=== PATIENT | female | born 1950 | race Caucasian/White ===

== ENCOUNTER 2019-02-13 10:25 | Outpatient (RCR) | payer MEDICARE, SELFPAY ==
[2019-02-13 11:20] LABS: Basophils Absolute Auto 0.01 K/mm3 (0.00-0.10); Basophils Percent Auto 0.2 % (0.0-1.0); Eosinophils Absolute Auto 0.08 K/mm3 (0.02-0.50); Hematocrit 30.2 % (35.0-42.0); Hemoglobin 9.9 g/dL (11.7-13.8); Immature Granulocyte Absolute 0.01 K/mm3 (0.00-0.00); Immature Granulocyte Percent A 0.2 % (0.0-0.0); Lymphocytes Absolute Auto 0.69 K/mm3 (1.10-4.50); Mean Corpuscular HGB Conc 32.8 g/dL (32.0-36.0); Mean Corpuscular Hemoglobin 36.5 pg (27.0-31.0); Mean Corpuscular Volume 111.4 fL (78.0-102.0); Mean Platelet Volume 9.5 fl (9.2-11.8); Monocytes Absolute Auto 0.51 K/mm3 (0.10-0.90); Monocytes Percent Auto 12.6 % (2.0-11.0); Neutrophils Absolute Auto 2.8 K/mm3 (1.7-7.2); Platelet Count Result 229 K/mm3 (150-420); Red Blood Count 2.71 M/mm3 (4.20-5.40); White Blood Count 4.1 K/mm3 (4.8-10.8)
[2019-02-13 11:48] LABS: Alanine Aminotransferase 12 U/L (14-59); Albumin Level 3.7 g/dL (3.4-5.0); Alkaline Phosphatase 84 U/L (46-116); Anion Gap 13.5 mmol/L (7-16); Aspartate Amino Transferase 21 U/L (15-37); Bilirubin,Total 0.2 mg/dL (0.00-1.00); Blood Urea Nitrogen 16 mg/dL (7-18); Calcium 8.9 mg/dL (8.5-10.1); Carbon Dioxide 27 mmol/L (21-32); Chloride 105 mmol/L (98-108); Estimated Glomerular Filt Rate > 60; Glucose 80 mg/dL (70-99); Osmolality Calculated 292 mOsm/kg (285-295); Potassium 4.5 mmol/L (3.5-5.1); Sodium 141 mmol/L (136-145); Total Protein 6.8 g/dL (6.4-8.2)
== END 2019-05-14 23:59 | disposition home or self-care (01) ==
LOC: CHSLAB 10:25
DX: Z79.899 Other long term (current) drug therapy (principal)
CPT/HCPCS: 36415; 80053; 85025

== ENCOUNTER 2019-02-13 10:34 | Outpatient (RCR) | payer MEDICARE, SELFPAY | END 2019-05-14 23:59 | disposition home or self-care (01) | LOC: CHSLAB 10:34 | DX: Z53.8 Procedure and treatment not carried out for other reasons (principal) | CPT/HCPCS: 99199 ==

== ENCOUNTER 2019-05-07 10:48 | Outpatient (CLI) | payer MEDICARE, SELFPAY ==
[2019-05-07 11:02] LABS: Hematocrit 30.2 % (35.0-42.0); Mean Corpuscular HGB Conc 33.1 g/dL (32.0-36.0); Mean Corpuscular Hemoglobin 36.6 pg (27.0-31.0); Mean Corpuscular Volume 110.6 fL (78.0-102.0); Mean Platelet Volume 9.2 fl (9.2-11.8); Platelet Count Result 200 K/mm3 (150-420); Red Blood Count 2.73 M/mm3 (4.20-5.40); Red Cell Distribution Width 14.6 % (11.6-14.4); White Blood Count 3.3 K/mm3 (4.8-10.8)
[2019-05-07 11:56] LABS: Band Neutrophils Percent 0 % (0-6); Basophils Absolute Manual 0.03 K/mm3 (0-0.1); Basophils Percent Manual 1 % (0-1); Eosinophils Absolute Manual 0.06 K/mm3 (0.02-0.5); Eosinophils Percent Manual 2 % (1-6); Lymphocytes Absolute Manual 0.62 K/mm3 (1.1-4.5); Lymphocytes Percent Manual 19 % (18-44); Monocytes Absolute Manual 0.56 K/mm3 (0.1-0.90); Monocytes Percent Manual 17 % (3-9); Neutrophils Absolute Manual 2.01 K/mm3 (1.7-7.2); Neutrophils Percent Manual 61 % (46-73); Platelet Estimate Adequate (Adequate); Total Cells Counted 100
[2019-05-07 12:27] LABS: Alanine Aminotransferase 15 U/L (14-59); Albumin Level 3.9 g/dL (3.4-5.0); Alkaline Phosphatase 79 U/L (46-116); Anion Gap 14.6 mmol/L (7-16); Aspartate Amino Transferase 20 U/L (15-37); Bilirubin,Total 0.3 mg/dL (0.00-1.00); Blood Urea Nitrogen 17 mg/dL (7-18); Calcium 8.8 mg/dL (8.5-10.1); Carbon Dioxide 27 mmol/L (21-32); Chloride 106 mmol/L (98-108); Estimated Glomerular Filt Rate > 60; Glucose 68 mg/dL (70-99); Magnesium 1.9 mg/dL (1.8-2.4); Osmolality Calculated 295 mOsm/kg (285-295); Potassium 4.6 mmol/L (3.5-5.1); Sodium 143 mmol/L (136-145); Total Protein 6.8 g/dL (6.4-8.2)
[2019-05-10 04:49] LABS: CA-125 14 U/mL (<35)
== END 2019-05-07 10:49 | disposition home or self-care (01) ==
LOC: CHSLAB 10:52
PROVIDERS: PCP Internal Medicine Geriatric Medicine
DX: C54.1 Malignant neoplasm of endometrium (principal); Z08 Encounter for follow-up examination after completed treatment for malignant neoplasm
CPT/HCPCS: 36415; 80053; 83735; 85025; 86304

== ENCOUNTER 2019-05-15 08:19 | Outpatient (RCR) | payer MEDICARE, SELFPAY ==
[2019-05-15 08:30] LABS: Hematocrit 30.4 % (35.0-42.0); Mean Corpuscular HGB Conc 32.9 g/dL (32.0-36.0); Mean Corpuscular Hemoglobin 36.8 pg (27.0-31.0); Mean Corpuscular Volume 111.8 fL (78.0-102.0); Platelet Count Result 180 K/mm3 (150-420); Red Blood Count 2.72 M/mm3 (4.20-5.40); Red Cell Distribution Width 14.6 % (11.6-14.4); White Blood Count 2.4 K/mm3 (4.8-10.8)
[2019-05-15 09:31] LABS: Alanine Aminotransferase 13 U/L (14-59); Albumin Level 3.7 g/dL (3.4-5.0); Alkaline Phosphatase 69 U/L (46-116); Anion Gap 15.1 mmol/L (7-16); Aspartate Amino Transferase 19 U/L (15-37); Bilirubin,Total 0.3 mg/dL (0.00-1.00); Blood Urea Nitrogen 20 mg/dL (7-18); Calcium 8.7 mg/dL (8.5-10.1); Carbon Dioxide 27 mmol/L (21-32); Chloride 107 mmol/L (98-108); Estimated Glomerular Filt Rate > 60; Glucose 83 mg/dL (70-99); Osmolality Calculated 301 mOsm/kg (285-295); Potassium 4.1 mmol/L (3.5-5.1); Sodium 145 mmol/L (136-145); Total Protein 6.5 g/dL (6.4-8.2)
[2019-05-15 09:32] LABS: Band Neutrophils Percent 0 % (0-6); Basophils Absolute Manual 0.02 K/mm3 (0-0.1); Basophils Percent Manual 1 % (0-1); Eosinophils Absolute Manual 0.07 K/mm3 (0.02-0.5); Eosinophils Percent Manual 3 % (1-6); Lymphocytes Absolute Manual 0.48 K/mm3 (1.1-4.5); Lymphocytes Percent Manual 20 % (18-44); Monocytes Percent Manual 17 % (3-9); Neutrophils Absolute Manual 1.41 K/mm3 (1.7-7.2); Neutrophils Percent Manual 59 % (46-73); Total Cells Counted 100
[2019-05-15 09:33] LABS: Platelet Estimate Adequate (Adequate)
== END 2019-08-13 23:59 | disposition home or self-care (01) ==
LOC: CHSLAB 08:19
PROVIDERS: PCP Internal Medicine Geriatric Medicine
DX: M06.9 Rheumatoid arthritis, unspecified (principal)
CPT/HCPCS: 36415; 80053; 85025

== ENCOUNTER 2019-06-29 08:33 | Outpatient (CLI) | payer MEDICARE, SELFPAY ==
[2019-06-29 08:45] LABS: Hematocrit 31.9 % (35.0-42.0); Hemoglobin 10.7 g/dL (11.7-13.8); Mean Corpuscular HGB Conc 33.5 g/dL (32.0-36.0); Mean Corpuscular Hemoglobin 37.4 pg (27.0-31.0); Mean Corpuscular Volume 111.5 fL (78.0-102.0); Mean Platelet Volume 8.8 fl (9.2-11.8); Platelet Count Result 189 K/mm3 (150-420); Red Blood Count 2.86 M/mm3 (4.20-5.40); Red Cell Distribution Width 12.9 % (11.6-14.4); White Blood Count 2.8 K/mm3 (4.8-10.8)
[2019-06-29 09:04] LABS: Band Neutrophils Percent 1 % (0-6); Basophils Percent Manual 0 % (0-1); Eosinophils Absolute Manual 0.08 K/mm3 (0.02-0.5); Eosinophils Percent Manual 3 % (1-6); Lymphocytes Absolute Manual 0.56 K/mm3 (1.1-4.5); Lymphocytes Percent Manual 20 % (18-44); Monocytes Absolute Manual 0.25 K/mm3 (0.1-0.90); Monocytes Percent Manual 9 % (3-9); Neutrophils Percent Manual 67 % (46-73); Total Cells Counted 100
[2019-06-29 09:05] LABS: Platelet Estimate Adequate (Adequate)
[2019-06-29 11:23] LABS: Cholesterol 224 mg/dL (0-200); HDL Direct 61 mg/dL (40-60); LDL Cholesterol Calculated 152 mg/dL (<130); Triglycerides 55 mg/dL (0-150)
[2019-06-29 11:24] LABS: Thyroid Stimulating Hormone 17.51 uIU/mL (0.36-3.74)
== END 2019-06-29 08:34 | disposition home or self-care (01) ==
LOC: CHSLAB 08:38
PROVIDERS: PCP Internal Medicine Geriatric Medicine
DX: E03.9 Hypothyroidism, unspecified (principal); Z00.00 Encounter for general adult medical examination without abnormal findings; E66.9 Obesity, unspecified; E78.2 Mixed hyperlipidemia; D72.819 Decreased white blood cell count, unspecified
CPT/HCPCS: 36415; 80061; 84443; 85025

== ENCOUNTER 2019-07-28 11:36 | Outpatient (CLI) | payer MEDICARE, SELFPAY ==
[2019-07-28 11:48] LABS: Hematocrit 31.6 % (35.0-42.0); Hemoglobin 10.5 g/dL (11.7-13.8); Mean Corpuscular HGB Conc 33.2 g/dL (32.0-36.0); Mean Corpuscular Hemoglobin 36.8 pg (27.0-31.0); Mean Corpuscular Volume 110.9 fL (78.0-102.0); Mean Platelet Volume 9.1 fl (9.2-11.8); Platelet Count Result 199 K/mm3 (150-420); Red Blood Count 2.85 M/mm3 (4.20-5.40); Red Cell Distribution Width 13.2 % (11.6-14.4); White Blood Count 3.8 K/mm3 (4.8-10.8)
[2019-07-28 12:08] LABS: Band Neutrophils Percent 0 % (0-6); Basophils Absolute Manual 0.03 K/mm3 (0-0.1); Basophils Percent Manual 1 % (0-1); Eosinophils Absolute Manual 0.15 K/mm3 (0.02-0.5); Eosinophils Percent Manual 4 % (1-6); Lymphocytes Percent Manual 16 % (18-44); Metamyelocytes Percent 0 %; Monocytes Absolute Manual 0.49 K/mm3 (0.1-0.90); Monocytes Percent Manual 13 % (3-9); Myelocytes Percent 0 %; Neutrophils Percent Manual 66 % (46-73); Total Cells Counted 100
[2019-07-28 12:09] LABS: Platelet Estimate Adequate (Adequate)
== END 2019-07-28 11:37 | disposition home or self-care (01) ==
PROVIDERS: PCP Internal Medicine Geriatric Medicine
DX: D72.819 Decreased white blood cell count, unspecified (principal)
CPT/HCPCS: 36415; 85025

== ENCOUNTER 2019-08-11 08:55 | Outpatient (CLI) | payer MEDICARE, SELFPAY ==
[2019-08-11 09:09] LABS: Hematocrit 30.7 % (35.0-42.0); Hemoglobin 10.2 g/dL (11.7-13.8); Mean Corpuscular HGB Conc 33.2 g/dL (32.0-36.0); Mean Corpuscular Hemoglobin 36.8 pg (27.0-31.0); Mean Corpuscular Volume 110.8 fL (78.0-102.0); Platelet Count Result 176 K/mm3 (150-420); Red Blood Count 2.77 M/mm3 (4.20-5.40); Red Cell Distribution Width 13.2 % (11.6-14.4); White Blood Count 2.6 K/mm3 (4.8-10.8)
[2019-08-11 09:39] LABS: Band Neutrophils Percent 0 % (0-6); Lymphocytes Absolute Manual 0.67 K/mm3 (1.1-4.5); Lymphocytes Percent Manual 26 % (18-44); Monocytes Absolute Manual 0.33 K/mm3 (0.1-0.90); Monocytes Percent Manual 13 % (3-9); Neutrophils Absolute Manual 1.43 K/mm3 (1.7-7.2); Neutrophils Percent Manual 55 % (46-73); Total Cells Counted 100
[2019-08-11 09:40] LABS: Basophils Percent Manual 0 % (0-1); Eosinophils Absolute Manual 0.07 K/mm3 (0.02-0.5); Eosinophils Percent Manual 3 % (1-6); Platelet Estimate Adequate (Adequate)
[2019-08-11 09:46] LABS: Alanine Aminotransferase 14 U/L (14-59); Albumin Level 3.6 g/dL (3.4-5.0); Alkaline Phosphatase 87 U/L (46-116); Anion Gap 13.3 mmol/L (7-16); Aspartate Amino Transferase 20 U/L (15-37); Bilirubin,Total 0.3 mg/dL (0.00-1.00); Blood Urea Nitrogen 14 mg/dL (7-18); Calcium 8.8 mg/dL (8.5-10.1); Carbon Dioxide 26 mmol/L (21-32); Chloride 106 mmol/L (98-108); Estimated Glomerular Filt Rate > 60; Glucose 80 mg/dL (70-99); Magnesium 1.7 mg/dL (1.8-2.4); Osmolality Calculated 291 mOsm/kg (285-295); Potassium 4.3 mmol/L (3.5-5.1); Sodium 141 mmol/L (136-145); Total Protein 6.4 g/dL (6.4-8.2)
[2019-08-14 03:52] LABS: CA-125 13 U/mL (<35)
== END 2019-08-11 08:56 | disposition home or self-care (01) ==
PROVIDERS: PCP Internal Medicine Geriatric Medicine
DX: C54.1 Malignant neoplasm of endometrium (principal); Z08 Encounter for follow-up examination after completed treatment for malignant neoplasm
CPT/HCPCS: 36415; 80053; 83735; 85025; 86304

== ENCOUNTER 2019-09-25 09:26 | Outpatient (CLI) | payer MEDICARE, SELFPAY ==
[2019-09-25 10:40] LABS: Thyroid Stimulating Hormone 16.64 uIU/mL (0.36-3.74)
[2019-09-25 12:33] LABS: Free T4 Free Thyroxine 0.87 ng/dL (0.76-1.46)
== END 2019-09-25 09:27 | disposition home or self-care (01) ==
LOC: CHSLAB 09:28
PROVIDERS: PCP Internal Medicine Geriatric Medicine; Visit Provider Internal Medicine Geriatric Medicine
DX: E03.9 Hypothyroidism, unspecified (principal)
CPT/HCPCS: 36415; 84439; 84443

== ENCOUNTER 2019-11-04 09:57 | Outpatient (CLI) | payer MEDICARE, SELFPAY ==
[2019-11-04 10:09] LABS: Hematocrit 33.1 % (35.0-42.0); Hemoglobin 10.7 g/dL (11.7-13.8); Mean Corpuscular HGB Conc 32.3 g/dL (32.0-36.0); Mean Corpuscular Hemoglobin 36.9 pg (27.0-31.0); Mean Corpuscular Volume 114.1 fL (78.0-102.0); Mean Platelet Volume 9.6 fl (9.2-11.8); Platelet Count Result 221 K/mm3 (150-420); Red Cell Distribution Width 13.4 % (11.6-14.4); White Blood Count 3.1 K/mm3 (4.8-10.8)
[2019-11-04 10:44] LABS: Band Neutrophils Percent 0 % (0-6); Basophils Percent Manual 0 % (0-1); Eosinophils Absolute Manual 0.06 K/mm3 (0.02-0.5); Eosinophils Percent Manual 2 % (1-6); Lymphocytes Percent Manual 26 % (18-44); Monocytes Percent Manual 13 % (3-9); Neutrophils Absolute Manual 1.82 K/mm3 (1.7-7.2); Neutrophils Percent Manual 59 % (46-73); Platelet Estimate Adequate (Adequate); Total Cells Counted 100
[2019-11-04 10:54] LABS: Alanine Aminotransferase 13 U/L (14-59); Albumin Level 3.7 g/dL (3.4-5.0); Alkaline Phosphatase 79 U/L (46-116); Anion Gap 7 mmol/L (8-16); Aspartate Amino Transferase 22 U/L (15-37); Bilirubin,Total 0.4 mg/dL (0.00-1.00); Blood Urea Nitrogen 14 mg/dL (7-18); Calcium 8.9 mg/dL (8.5-10.1); Carbon Dioxide 29 mmol/L (21-32); Chloride 104 mmol/L (98-108); Cholesterol 175 mg/dL (0-200); Estimated Glomerular Filt Rate > 60; GGT 30 U/L (5-55); Glucose 78 mg/dL (70-99); LDL Cholesterol Direct 88 mg/dL (0-130); Magnesium 1.9 mg/dL (1.8-2.4); Osmolality Calculated 289 mOsm/kg (285-295); Potassium 4.5 mmol/L (3.5-5.1); Sodium 140 mmol/L (136-145); Total Protein 6.8 g/dL (6.4-8.2)
[2019-11-07 05:18] LABS: CA-125 16 U/mL (<35)
== END 2019-11-04 09:58 | disposition home or self-care (01) ==
LOC: CHSLAB 10:00
PROVIDERS: PCP Internal Medicine Geriatric Medicine
DX: C54.1 Malignant neoplasm of endometrium (principal); Z08 Encounter for follow-up examination after completed treatment for malignant neoplasm; M06.9 Rheumatoid arthritis, unspecified; E78.00 Pure hypercholesterolemia, unspecified
CPT/HCPCS: 36415; 80053; 82465; 82977; 83721; 83735; 85025; 86304

== ENCOUNTER 2020-01-26 12:04 | Outpatient (RCR) | payer MEDICARE, SELFPAY ==
[2019-10-28 09:58] LABS: Hematocrit 32.7 % (35.0-42.0); Hemoglobin 10.7 g/dL (11.7-13.8); Mean Corpuscular HGB Conc 32.7 g/dL (32.0-36.0); Mean Corpuscular Hemoglobin 37.3 pg (27.0-31.0); Mean Corpuscular Volume 113.9 fL (78.0-102.0); Mean Platelet Volume 9.6 fl (9.2-11.8); Platelet Count Result 202 K/mm3 (150-420); Red Blood Count 2.87 M/mm3 (4.20-5.40); Red Cell Distribution Width 13.2 % (11.6-14.4); White Blood Count 2.9 K/mm3 (4.8-10.8)
[2019-10-28 10:36] LABS: Band Neutrophils Percent 0 % (0-6); Basophils Absolute Manual 0.02 K/mm3 (0-0.1); Basophils Percent Manual 1 % (0-1); Eosinophils Absolute Manual 0.05 K/mm3 (0.02-0.5); Eosinophils Percent Manual 2 % (1-6); Lymphocytes Absolute Manual 0.66 K/mm3 (1.1-4.5); Lymphocytes Percent Manual 23 % (18-44); Monocytes Percent Manual 14 % (3-9); Neutrophils Absolute Manual 1.74 K/mm3 (1.7-7.2); Neutrophils Percent Manual 60 % (46-73); Platelet Estimate Adequate (Adequate); Total Cells Counted 100
[2019-10-28 11:14] LABS: Alanine Aminotransferase 15 U/L (14-59); Albumin Level 3.7 g/dL (3.4-5.0); Alkaline Phosphatase 76 U/L (46-116); Anion Gap 7 mmol/L (8-16); Aspartate Amino Transferase 21 U/L (15-37); Bilirubin,Total 0.4 mg/dL (0.00-1.00); Blood Urea Nitrogen 15 mg/dL (7-18); Calcium 9.3 mg/dL (8.5-10.1); Carbon Dioxide 29 mmol/L (21-32); Chloride 107 mmol/L (98-108); Estimated Glomerular Filt Rate > 60; Glucose 97 mg/dL (70-99); Osmolality Calculated 296 mOsm/kg (285-295); Potassium 4.1 mmol/L (3.5-5.1); Sodium 143 mmol/L (136-145); Total Protein 6.7 g/dL (6.4-8.2)
[2020-01-26 12:15] LABS: Hematocrit 31.5 % (35.0-42.0); Hemoglobin 10.3 g/dL (11.7-13.8); Mean Corpuscular HGB Conc 32.7 g/dL (32.0-36.0); Mean Corpuscular Hemoglobin 36.4 pg (27.0-31.0); Mean Corpuscular Volume 111.3 fL (78.0-102.0); Mean Platelet Volume 8.8 fl (9.2-11.8); Platelet Count Result 214 K/mm3 (150-420); Red Blood Count 2.83 M/mm3 (4.20-5.40); Red Cell Distribution Width 13.2 % (11.6-14.4); White Blood Count 3.2 K/mm3 (4.8-10.8)
[2020-01-26 13:09] LABS: Band Neutrophils Percent 0 % (0-6); Basophils Percent Manual 0 % (0-1); Eosinophils Absolute Manual 0.09 K/mm3 (0.02-0.5); Eosinophils Percent Manual 3 % (1-6); Lymphocytes Absolute Manual 0.41 K/mm3 (1.1-4.5); Lymphocytes Percent Manual 13 % (18-44); Monocytes Absolute Manual 0.25 K/mm3 (0.1-0.90); Monocytes Percent Manual 8 % (3-9); Myelocytes Percent 1 %; Neutrophils Percent Manual 75 % (46-73); Total Cells Counted 100
[2020-01-26 13:10] LABS: Platelet Estimate Adequate (Adequate)
[2020-01-26 13:46] LABS: Alanine Aminotransferase 18 U/L (14-59); Albumin Level 3.7 g/dL (3.4-5.0); Alkaline Phosphatase 76 U/L (46-116); Anion Gap 9 mmol/L (8-16); Aspartate Amino Transferase 17 U/L (15-37); Bilirubin,Total 0.3 mg/dL (0.00-1.00); Blood Urea Nitrogen 14 mg/dL (7-18); Calcium 8.9 mg/dL (8.5-10.1); Carbon Dioxide 27 mmol/L (21-32); Chloride 105 mmol/L (98-108); Estimated Glomerular Filt Rate > 60; Glucose 80 mg/dL (70-99); Osmolality Calculated 291 mOsm/kg (285-295); Potassium 4.4 mmol/L (3.5-5.1); Sodium 141 mmol/L (136-145); Total Protein 6.5 g/dL (6.4-8.2)
== END 2020-01-26 23:59 | disposition home or self-care (01) ==
LOC: CHSLAB 12:04
PROVIDERS: PCP Internal Medicine Geriatric Medicine; Visit Provider Internal Medicine Rheumatology
DX: M06.9 Rheumatoid arthritis, unspecified (principal)
CPT/HCPCS: 36415; 80053; 85025

== ENCOUNTER 2020-02-10 09:48 | Outpatient (CLI) | payer MEDICARE, SELFPAY ==
[2020-02-10 10:06] LABS: Hematocrit 32.2 % (35.0-42.0); Hemoglobin 10.6 g/dL (11.7-13.8); Mean Corpuscular HGB Conc 32.9 g/dL (32.0-36.0); Mean Corpuscular Hemoglobin 36.9 pg (27.0-31.0); Mean Corpuscular Volume 112.2 fL (78.0-102.0); Mean Platelet Volume 9.2 fl (9.2-11.8); Platelet Count Result 192 K/mm3 (150-420); Red Blood Count 2.87 M/mm3 (4.20-5.40); Red Cell Distribution Width 13.8 % (11.6-14.4); White Blood Count 3.2 K/mm3 (4.8-10.8)
[2020-02-10 11:14] LABS: Alanine Aminotransferase 15 U/L (14-59); Albumin Level 3.9 g/dL (3.4-5.0); Alkaline Phosphatase 71 U/L (46-116); Anion Gap 9 mmol/L (8-16); Aspartate Amino Transferase 18 U/L (15-37); Bilirubin,Total 0.3 mg/dL (0.00-1.00); Blood Urea Nitrogen 17 mg/dL (7-18); Calcium 8.9 mg/dL (8.5-10.1); Carbon Dioxide 28 mmol/L (21-32); Chloride 105 mmol/L (98-108); Estimated Glomerular Filt Rate > 60; Glucose 100 mg/dL (70-99); Magnesium 1.9 mg/dL (1.8-2.4); Osmolality Calculated 295 mOsm/kg (285-295); Potassium 4.2 mmol/L (3.5-5.1); Sodium 142 mmol/L (136-145); Total Protein 6.9 g/dL (6.4-8.2)
[2020-02-13 05:55] LABS: CA-125 10 U/mL (<35)
== END 2020-02-10 09:49 | disposition home or self-care (01) ==
LOC: CHSLAB 09:53
PROVIDERS: PCP Internal Medicine Geriatric Medicine
DX: C54.8 Malignant neoplasm of overlapping sites of corpus uteri (principal); C54.1 Malignant neoplasm of endometrium
CPT/HCPCS: 36415; 80053; 83735; 85027; 86304

== ENCOUNTER 2020-04-28 09:42 | Outpatient (CLI) | payer MEDICARE, SELFPAY ==
[2020-04-28 09:56] LABS: Hematocrit 31.7 % (35.0-42.0); Hemoglobin 10.5 g/dL (11.7-13.8); Mean Corpuscular HGB Conc 33.1 g/dL (32.0-36.0); Mean Corpuscular Hemoglobin 37.1 pg (27.0-31.0); Mean Platelet Volume 9.1 fl (9.2-11.8); Platelet Count Result 210 K/mm3 (150-420); Red Blood Count 2.83 M/mm3 (4.20-5.40); Red Cell Distribution Width 13.3 % (11.6-14.4); White Blood Count 3.8 K/mm3 (4.8-10.8)
[2020-04-28 10:19] LABS: Band Neutrophils Percent 1 % (0-6); Basophils Percent Manual 0 % (0-1); Eosinophils Percent Manual 0 % (1-6); Lymphocytes Absolute Manual 0.57 K/mm3 (1.1-4.5); Lymphocytes Percent Manual 15 % (18-44); Monocytes Absolute Manual 0.57 K/mm3 (0.1-0.90); Monocytes Percent Manual 15 % (3-9); Neutrophils Absolute Manual 2.66 K/mm3 (1.7-7.2); Neutrophils Percent Manual 69 % (46-73); Platelet Estimate Adequate (Adequate); Total Cells Counted 100
[2020-04-28 10:25] LABS: Alanine Aminotransferase 15 U/L (14-59); Albumin Level 3.8 g/dL (3.4-5.0); Alkaline Phosphatase 83 U/L (46-116); Anion Gap 10 mmol/L (8-16); Aspartate Amino Transferase 18 U/L (15-37); Bilirubin,Total 0.4 mg/dL (0.00-1.00); Blood Urea Nitrogen 13 mg/dL (7-18); Carbon Dioxide 28 mmol/L (21-32); Chloride 103 mmol/L (98-108); Estimated Glomerular Filt Rate > 60; Glucose 94 mg/dL (70-99); Osmolality Calculated 292 mOsm/kg (285-295); Potassium 4.1 mmol/L (3.5-5.1); Sodium 141 mmol/L (136-145); Total Protein 7.2 g/dL (6.4-8.2)
== END 2020-04-28 09:43 | disposition home or self-care (01) ==
LOC: CHSLAB 09:43
PROVIDERS: PCP Internal Medicine Geriatric Medicine; Visit Provider Internal Medicine Rheumatology
DX: M06.9 Rheumatoid arthritis, unspecified (principal)
CPT/HCPCS: 36415; 80053; 85025

== ENCOUNTER 2020-05-18 11:58 | Outpatient (CLI) | payer MEDICARE, SELFPAY ==
[2020-05-18 12:12] LABS: Basophils Absolute Auto 0.02 K/mm3 (0.00-0.10); Basophils Percent Auto 0.4 % (0.0-1.0); Eosinophils Absolute Auto 0.04 K/mm3 (0.02-0.50); Eosinophils Percent Auto 0.8 % (1.0-6.0); Hematocrit 32.1 % (35.0-42.0); Hemoglobin 10.4 g/dL (11.7-13.8); Immature Granulocyte Absolute 0.01 K/mm3 (0.00-0.00); Immature Granulocyte Percent A 0.2 % (0.0-0.0); Lymphocytes Absolute Auto 0.54 K/mm3 (1.10-4.50); Lymphocytes Percent Auto 11.3 % (18.0-42.0); Mean Corpuscular HGB Conc 32.4 g/dL (32.0-36.0); Mean Corpuscular Volume 111.1 fL (78.0-102.0); Mean Platelet Volume 9.2 fl (9.2-11.8); Monocytes Absolute Auto 0.51 K/mm3 (0.10-0.90); Monocytes Percent Auto 10.7 % (2.0-11.0); Neutrophils Absolute Auto 3.7 K/mm3 (1.7-7.2); Neutrophils Percent Auto 76.6 % (50.0-70.0); Platelet Count Result 213 K/mm3 (150-420); Red Blood Count 2.89 M/mm3 (4.20-5.40); Red Cell Distribution Width 13.5 % (11.6-14.4); White Blood Count 4.8 K/mm3 (4.8-10.8)
[2020-05-18 12:47] LABS: Alanine Aminotransferase 17 U/L (14-59); Albumin Level 3.9 g/dL (3.4-5.0); Alkaline Phosphatase 71 U/L (46-116); Anion Gap 8 mmol/L (8-16); Aspartate Amino Transferase 22 U/L (15-37); Bilirubin,Total 0.4 mg/dL (0.00-1.00); Blood Urea Nitrogen 15 mg/dL (7-18); Calcium 9.2 mg/dL (8.5-10.1); Carbon Dioxide 27 mmol/L (21-32); Chloride 104 mmol/L (98-108); Estimated Glomerular Filt Rate > 60; Glucose 88 mg/dL (70-99); Magnesium 1.8 mg/dL (1.8-2.4); Osmolality Calculated 287 mOsm/kg (285-295); Potassium 4.4 mmol/L (3.5-5.1); Sodium 139 mmol/L (136-145); Total Protein 6.6 g/dL (6.4-8.2)
[2020-05-21 06:13] LABS: CA-125 13 U/mL (<35)
== END 2020-05-18 11:59 | disposition home or self-care (01) ==
PROVIDERS: PCP Internal Medicine Geriatric Medicine
DX: C54.1 Malignant neoplasm of endometrium (principal); Z08 Encounter for follow-up examination after completed treatment for malignant neoplasm
CPT/HCPCS: 36415; 80053; 83735; 85025; 86304

== ENCOUNTER 2020-06-29 10:43 | Outpatient (CLI) | payer MEDICARE, SELFPAY ==
[2020-06-29 10:54] LABS: Basophils Absolute Auto 0.02 K/mm3 (0.00-0.10); Basophils Percent Auto 0.3 % (0.0-1.0); Eosinophils Absolute Auto 0.08 K/mm3 (0.02-0.50); Eosinophils Percent Auto 1.1 % (1.0-6.0); Hematocrit 33.3 % (35.0-42.0); Hemoglobin 10.8 g/dL (11.7-13.8); Immature Granulocyte Absolute 0.01 K/mm3 (0.00-0.00); Immature Granulocyte Percent A 0.1 % (0.0-0.0); Lymphocytes Absolute Auto 0.67 K/mm3 (1.10-4.50); Lymphocytes Percent Auto 9.4 % (18.0-42.0); Mean Corpuscular HGB Conc 32.4 g/dL (32.0-36.0); Mean Corpuscular Hemoglobin 35.5 pg (27.0-31.0); Mean Corpuscular Volume 109.5 fL (78.0-102.0); Mean Platelet Volume 9.2 fl (9.2-11.8); Monocytes Absolute Auto 0.35 K/mm3 (0.10-0.90); Monocytes Percent Auto 4.9 % (2.0-11.0); Neutrophils Percent Auto 84.2 % (50.0-70.0); Platelet Count Result 231 K/mm3 (150-420); Red Blood Count 3.04 M/mm3 (4.20-5.40); Red Cell Distribution Width 12.7 % (11.6-14.4); White Blood Count 7.1 K/mm3 (4.8-10.8)
[2020-06-29 12:16] LABS: Alanine Aminotransferase 21 U/L (14-59); Albumin Level 3.4 g/dL (3.4-5.0); Alkaline Phosphatase 74 U/L (46-116); Anion Gap 10 mmol/L (8-16); Aspartate Amino Transferase 22 U/L (15-37); Bilirubin,Total 0.3 mg/dL (0.00-1.00); Blood Urea Nitrogen 18 mg/dL (7-18); CRP 0.6 mg/dL (0.0-0.9); Calcium 9.1 mg/dL (8.5-10.1); Carbon Dioxide 28 mmol/L (21-32); Chloride 104 mmol/L (98-108); Estimated Glomerular Filt Rate > 60; Glucose 95 mg/dL (70-99); Osmolality Calculated 295 mOsm/kg (285-295); Potassium 4.5 mmol/L (3.5-5.1); Sodium 142 mmol/L (136-145); Total Protein 6.6 g/dL (6.4-8.2)
== END 2020-06-29 10:44 | disposition home or self-care (01) ==
LOC: CHSLAB 10:45
PROVIDERS: PCP Internal Medicine Geriatric Medicine; Visit Provider Internal Medicine Rheumatology
DX: M06.9 Rheumatoid arthritis, unspecified (principal)
CPT/HCPCS: 36415; 80053; 85025; 86140

== ENCOUNTER 2020-09-28 08:00 | Outpatient (CLI) | payer MEDICARE, SELFPAY ==
[2020-09-28 08:13] LABS: Hematocrit 32.9 % (35.0-42.0); Mean Corpuscular HGB Conc 33.4 g/dL (32.0-36.0); Mean Corpuscular Hemoglobin 34.7 pg (27.0-31.0); Mean Corpuscular Volume 103.8 fL (78.0-102.0); Mean Platelet Volume 9.6 fl (9.2-11.8); Platelet Count Result 177 K/mm3 (150-420); Red Blood Count 3.17 M/mm3 (4.20-5.40); Red Cell Distribution Width 14.3 % (11.6-14.4); White Blood Count 3.5 K/mm3 (4.8-10.8)
[2020-09-28 08:48] LABS: Alanine Aminotransferase 27 U/L (14-59); Albumin Level 3.6 g/dL (3.4-5.0); Alkaline Phosphatase 62 U/L (46-116); Anion Gap 9 mmol/L (8-16); Aspartate Amino Transferase 27 U/L (15-37); Bilirubin,Total 0.5 mg/dL (0.00-1.00); Blood Urea Nitrogen 21 mg/dL (7-18); Calcium 8.9 mg/dL (8.5-10.1); Carbon Dioxide 28 mmol/L (21-32); Chloride 106 mmol/L (98-108); Estimated Glomerular Filt Rate > 60; Glucose 85 mg/dL (70-99); Osmolality Calculated 298 mOsm/kg (285-295); Potassium 4.1 mmol/L (3.5-5.1); Sodium 143 mmol/L (136-145); Total Protein 6.2 g/dL (6.4-8.2)
[2020-09-28 08:53] LABS: CRP < 0.5 mg/dL (0.0-0.9)
[2020-09-28 09:06] LABS: Band Neutrophils Percent 0 % (0-6); Eosinophils Percent Manual 3 % (1-6); Lymphocytes Absolute Manual 0.45 K/mm3 (1.1-4.5); Lymphocytes Percent Manual 13 % (18-44); Monocytes Absolute Manual 0.49 K/mm3 (0.1-0.90); Monocytes Percent Manual 14 % (3-9); Neutrophils Absolute Manual 2.45 K/mm3 (1.7-7.2); Neutrophils Percent Manual 70 % (46-73); Platelet Estimate Adequate (Adequate); Total Cells Counted 100
== END 2020-09-28 08:01 | disposition home or self-care (01) ==
LOC: CHSLAB 08:01
PROVIDERS: PCP Internal Medicine Geriatric Medicine; Visit Provider Internal Medicine Rheumatology
DX: M06.9 Rheumatoid arthritis, unspecified (principal)
CPT/HCPCS: 36415; 80053; 85025; 86140

== ENCOUNTER 2020-11-17 07:56 | Outpatient (CLI) | payer MEDICARE, SELFPAY ==
[2020-11-17 08:11] LABS: Basophils Absolute Auto 0.02 K/mm3 (0.00-0.10); Basophils Percent Auto 0.4 % (0.0-1.0); Eosinophils Absolute Auto 0.06 K/mm3 (0.02-0.50); Eosinophils Percent Auto 1.2 % (1.0-6.0); Hematocrit 35.1 % (35.0-42.0); Hemoglobin 11.8 g/dL (11.7-13.8); Immature Granulocyte Absolute 0.02 K/mm3 (0.00-0.00); Immature Granulocyte Percent A 0.4 % (0.0-0.0); Lymphocytes Absolute Auto 0.73 K/mm3 (1.10-4.50); Lymphocytes Percent Auto 15.1 % (18.0-42.0); Mean Corpuscular HGB Conc 33.6 g/dL (32.0-36.0); Mean Corpuscular Hemoglobin 34.7 pg (27.0-31.0); Mean Corpuscular Volume 103.2 fL (78.0-102.0); Mean Platelet Volume 9.4 fl (9.2-11.8); Monocytes Absolute Auto 0.66 K/mm3 (0.10-0.90); Monocytes Percent Auto 13.7 % (2.0-11.0); Neutrophils Absolute Auto 3.3 K/mm3 (1.7-7.2); Neutrophils Percent Auto 69.2 % (50.0-70.0); Platelet Count Result 212 K/mm3 (150-420); Red Cell Distribution Width 13.5 % (11.6-14.4); White Blood Count 4.8 K/mm3 (4.8-10.8)
[2020-11-17 09:12] LABS: Alanine Aminotransferase 27 U/L (14-59); Albumin Level 3.8 g/dL (3.4-5.0); Alkaline Phosphatase 80 U/L (46-116); Anion Gap 7 mmol/L (8-16); Aspartate Amino Transferase 25 U/L (15-37); Bilirubin,Total 0.4 mg/dL (0.00-1.00); Blood Urea Nitrogen 18 mg/dL (7-18); Calcium 9.2 mg/dL (8.5-10.1); Carbon Dioxide 29 mmol/L (21-32); Chloride 104 mmol/L (98-108); Estimated Glomerular Filt Rate > 60; Glucose 77 mg/dL (70-99); Magnesium 1.8 mg/dL (1.8-2.4); Osmolality Calculated 290 mOsm/kg (285-295); Potassium 4.3 mmol/L (3.5-5.1); Sodium 140 mmol/L (136-145); Total Protein 6.7 g/dL (6.4-8.2)
[2020-11-20 00:22] LABS: CA-125 9 U/mL (<35)
== END 2020-11-17 07:57 | disposition home or self-care (01) ==
PROVIDERS: PCP Internal Medicine Geriatric Medicine
DX: G62.0 Drug-induced polyneuropathy (principal); T45.1X5A Adverse effect of antineoplastic and immunosuppressive drugs, initial encounter; C54.1 Malignant neoplasm of endometrium
CPT/HCPCS: 36415; 80053; 83735; 85025; 86304

== ENCOUNTER 2021-01-09 08:47 | Outpatient (CLI) | payer MEDICARE, SELFPAY ==
[2021-01-09 09:05] LABS: Hematocrit 33.5 % (35.0-42.0); Hemoglobin 11.4 g/dL (11.7-13.8); Mean Corpuscular Hemoglobin 35.2 pg (27.0-31.0); Mean Corpuscular Volume 103.4 fL (78.0-102.0); Mean Platelet Volume 9.5 fl (9.2-11.8); Platelet Count Result 241 K/mm3 (150-420); Red Blood Count 3.24 M/mm3 (4.20-5.40); Red Cell Distribution Width 13.5 % (11.6-14.4); White Blood Count 4.4 K/mm3 (4.8-10.8)
[2021-01-09 09:58] LABS: Total Cells Counted 100
[2021-01-09 10:06] LABS: Band Neutrophils Percent 0 % (0-6); Basophils Percent Manual 0 % (0-1); Eosinophils Percent Manual 0 % (1-6); Lymphocytes Absolute Manual 0.52 K/mm3 (1.1-4.5); Lymphocytes Percent Manual 12 % (18-44); Monocytes Absolute Manual 0.92 K/mm3 (0.1-0.90); Monocytes Percent Manual 21 % (3-9); Neutrophils Absolute Manual 2.94 K/mm3 (1.7-7.2); Neutrophils Percent Manual 67 % (46-73); Platelet Estimate Adequate (Adequate)
[2021-01-09 10:07] LABS: Alanine Aminotransferase 20 U/L (14-59); Albumin Level 3.4 g/dL (3.4-5.0); Alkaline Phosphatase 67 U/L (46-116); Anion Gap 7 mmol/L (8-16); Aspartate Amino Transferase 17 U/L (15-37); Bilirubin,Total 0.4 mg/dL (0.00-1.00); Blood Urea Nitrogen 12 mg/dL (7-18); Calcium 8.6 mg/dL (8.5-10.1); Carbon Dioxide 30 mmol/L (21-32); Chloride 105 mmol/L (98-108); Cholesterol 137 mg/dL (0-200); Estimated Glomerular Filt Rate > 60; Glucose 83 mg/dL (70-99); HDL Direct 51 mg/dL (40-60); LDL Cholesterol Calculated 76 mg/dL (<130); Osmolality Calculated 292 mOsm/kg (285-295); Potassium 4.6 mmol/L (3.5-5.1); Sodium 142 mmol/L (136-145); Total Protein 6.3 g/dL (6.4-8.2); Triglycerides 51 mg/dL (0-150)
[2021-01-09 10:19] LABS: CRP < 0.5 mg/dL (0.0-0.9)
[2021-01-11 13:02] LABS: Vitamin D 25 Hydroxy 80 ng/mL (30-100)
== END 2021-01-09 08:48 | disposition home or self-care (01) ==
LOC: CHSLAB 08:52
PROVIDERS: PCP Internal Medicine Geriatric Medicine; Visit Provider Internal Medicine Rheumatology
DX: M06.9 Rheumatoid arthritis, unspecified (principal); Q78.2 Osteopetrosis; Z00.00 Encounter for general adult medical examination without abnormal findings; Z79.899 Other long term (current) drug therapy
CPT/HCPCS: 36415; 80053; 80061; 82306; 85025; 86140

== ENCOUNTER 2021-02-16 08:46 | Outpatient (CLI) | payer MEDICARE, SELFPAY ==
[2021-02-16 09:07] LABS: Basophils Absolute Auto 0.02 K/mm3 (0.00-0.10); Basophils Percent Auto 0.5 % (0.0-1.0); Eosinophils Absolute Auto 0.06 K/mm3 (0.02-0.50); Eosinophils Percent Auto 1.4 % (1.0-6.0); Hemoglobin 11.2 g/dL (11.7-13.8); Immature Granulocyte Absolute 0.01 K/mm3 (0.00-0.00); Immature Granulocyte Percent A 0.2 % (0.0-0.0); Lymphocytes Absolute Auto 0.97 K/mm3 (1.10-4.50); Lymphocytes Percent Auto 22.7 % (18.0-42.0); Mean Corpuscular HGB Conc 32.9 g/dL (32.0-36.0); Mean Corpuscular Hemoglobin 35.2 pg (27.0-31.0); Mean Corpuscular Volume 106.9 fL (78.0-102.0); Mean Platelet Volume 9.5 fl (9.2-11.8); Monocytes Absolute Auto 0.58 K/mm3 (0.10-0.90); Monocytes Percent Auto 13.6 % (2.0-11.0); Neutrophils Absolute Auto 2.6 K/mm3 (1.7-7.2); Neutrophils Percent Auto 61.6 % (50.0-70.0); Platelet Count Result 216 K/mm3 (150-420); Red Blood Count 3.18 M/mm3 (4.20-5.40); Red Cell Distribution Width 13.9 % (11.6-14.4); White Blood Count 4.3 K/mm3 (4.8-10.8)
[2021-02-17 13:46] LABS: Alanine Aminotransferase 28 U/L (14-59); Albumin Level 3.7 g/dL (3.4-5.0); Alkaline Phosphatase 80 U/L (46-116); Anion Gap 12 mmol/L (8-16); Aspartate Amino Transferase 27 U/L (15-37); Bilirubin,Total 0.3 mg/dL (0.00-1.00); Blood Urea Nitrogen 20 mg/dL (7-18); Carbon Dioxide 27 mmol/L (21-32); Chloride 103 mmol/L (98-108); Estimated Glomerular Filt Rate > 60; Glucose 78 mg/dL (70-99); Osmolality Calculated 295 mOsm/kg (285-295); Potassium 4.5 mmol/L (3.5-5.1); Sodium 142 mmol/L (136-145); Total Protein 6.6 g/dL (6.4-8.2)
[2021-02-19 01:35] LABS: CA-125 10 U/mL (<35)
== END 2021-02-16 08:47 | disposition home or self-care (01) ==
LOC: CHSLAB 08:52
PROVIDERS: PCP Internal Medicine Geriatric Medicine
DX: C54.1 Malignant neoplasm of endometrium (principal); Z08 Encounter for follow-up examination after completed treatment for malignant neoplasm
CPT/HCPCS: 36415; 80053; 83735; 85025; 86304

== ENCOUNTER 2021-04-12 10:15 | Outpatient (CLI) | payer MEDICARE, SELFPAY ==
[2021-04-12 10:38] LABS: Hematocrit 35.1 % (35.0-42.0); Hemoglobin 11.5 g/dL (11.7-13.8); Mean Corpuscular HGB Conc 32.8 g/dL (32.0-36.0); Mean Corpuscular Volume 106.7 fL (78.0-102.0); Mean Platelet Volume 9.8 fl (9.2-11.8); Platelet Count Result 200 K/mm3 (150-420); Red Blood Count 3.29 M/mm3 (4.20-5.40); Red Cell Distribution Width 14.1 % (11.6-14.4); White Blood Count 3.6 K/mm3 (4.8-10.8)
[2021-04-12 10:55] LABS: Band Neutrophils Percent 0 % (0-6); Eosinophils Absolute Manual 0.03 K/mm3 (0.02-0.5); Eosinophils Percent Manual 1 % (1-6); Lymphocytes Percent Manual 25 % (18-44); Monocytes Absolute Manual 0.36 K/mm3 (0.1-0.90); Monocytes Percent Manual 10 % (3-9); Neutrophils Percent Manual 64 % (46-73); Platelet Estimate Adequate (Adequate); Total Cells Counted 100
[2021-04-12 11:35] LABS: Alanine Aminotransferase 19 U/L (14-59); Albumin Level 3.5 g/dL (3.4-5.0); Alkaline Phosphatase 74 U/L (46-116); Anion Gap 7 mmol/L (8-16); Aspartate Amino Transferase 17 U/L (15-37); Bilirubin,Total 0.3 mg/dL (0.00-1.00); Blood Urea Nitrogen 14 mg/dL (7-18); Calcium 8.9 mg/dL (8.5-10.1); Carbon Dioxide 29 mmol/L (21-32); Chloride 105 mmol/L (98-108); Estimated Glomerular Filt Rate > 60; Glucose 84 mg/dL (70-99); Osmolality Calculated 291 mOsm/kg (285-295); Potassium 4.5 mmol/L (3.5-5.1); Sodium 141 mmol/L (136-145); Total Protein 6.3 g/dL (6.4-8.2)
[2021-04-14 13:25] LABS: NIL 0.01 IU/mL; Quantiferon TB Plus, 1T NEGATIVE (NEGATIVE)
[2021-04-15 14:44] LABS: Vitamin D 25 Hydroxy 68 ng/mL (30-100)
== END 2021-04-12 10:16 | disposition home or self-care (01) ==
LOC: CHSLAB 10:21
PROVIDERS: PCP Internal Medicine Geriatric Medicine
DX: M06.9 Rheumatoid arthritis, unspecified (principal); Q78.2 Osteopetrosis
CPT/HCPCS: 36415; 80053; 82306; 85025; 86480

== ENCOUNTER 2021-05-03 13:01 | Outpatient (CLI) | payer MEDICARE, SELFPAY ==
[2021-05-03 13:49] LABS: Cholesterol 159 mg/dL (0-200); HDL Direct 62 mg/dL (40-60); LDL Cholesterol Calculated 85 mg/dL (<130); Triglycerides 59 mg/dL (0-150)
== END 2021-05-03 13:02 | disposition home or self-care (01) ==
PROVIDERS: PCP Internal Medicine Geriatric Medicine
DX: Z79.899 Other long term (current) drug therapy (principal)
CPT/HCPCS: 36415; 80061

== ENCOUNTER 2021-07-12 07:49 | Outpatient (CLI) | payer MEDICARE, SELFPAY ==
[2021-07-12 08:02] LABS: Hematocrit 35.7 % (35.0-42.0); Hemoglobin 11.8 g/dL (11.7-13.8); Mean Corpuscular HGB Conc 33.1 g/dL (32.0-36.0); Mean Corpuscular Hemoglobin 35.8 pg (27.0-31.0); Mean Corpuscular Volume 108.2 fL (78.0-102.0); Mean Platelet Volume 9.5 fl (9.2-11.8); Platelet Count Result 191 K/mm3 (150-420); Red Cell Distribution Width 13.6 % (11.6-14.4); White Blood Count 2.5 K/mm3 (4.8-10.8)
[2021-07-12 08:32] LABS: Band Neutrophils Percent 0 % (0-6); Lymphocytes Absolute Manual 0.52 K/mm3 (1.1-4.5); Lymphocytes Percent Manual 21 % (18-44); Neutrophils Absolute Manual 1.32 K/mm3 (1.7-7.2); Neutrophils Percent Manual 53 % (46-73); Total Cells Counted 100
[2021-07-12 08:33] LABS: Basophils Absolute Manual 0.05 K/mm3 (0-0.1); Basophils Percent Manual 2 % (0-1); Eosinophils Absolute Manual 0.12 K/mm3 (0.02-0.5); Eosinophils Percent Manual 5 % (1-6); Monocytes Absolute Manual 0.47 K/mm3 (0.1-0.90); Monocytes Percent Manual 19 % (3-9); Platelet Estimate Adequate (Adequate)
[2021-07-12 08:53] LABS: Alanine Aminotransferase 20 U/L (14-59); Albumin Level 3.6 g/dL (3.4-5.0); Alkaline Phosphatase 74 U/L (46-116); Anion Gap 6 mmol/L (8-16); Aspartate Amino Transferase 20 U/L (15-37); Bilirubin,Total 0.4 mg/dL (0.00-1.00); Blood Urea Nitrogen 15 mg/dL (7-18); Calcium 8.9 mg/dL (8.5-10.1); Carbon Dioxide 30 mmol/L (21-32); Chloride 106 mmol/L (98-108); Cholesterol 161 mg/dL (0-200); Estimated Glomerular Filt Rate > 60; Glucose 84 mg/dL (70-99); HDL Direct 68 mg/dL (40-60); LDL Cholesterol Calculated 79 mg/dL (<130); Osmolality Calculated 293 mOsm/kg (285-295); Potassium 3.9 mmol/L (3.5-5.1); Sodium 142 mmol/L (136-145); Total Protein 6.4 g/dL (6.4-8.2); Triglycerides 68 mg/dL (0-150)
== END 2021-07-12 07:50 | disposition home or self-care (01) ==
LOC: CHSLAB 07:53
PROVIDERS: PCP Internal Medicine Geriatric Medicine
DX: M06.9 Rheumatoid arthritis, unspecified (principal); Z79.899 Other long term (current) drug therapy
CPT/HCPCS: 36415; 80053; 80061; 85025

== ENCOUNTER 2021-08-01 10:54 | Outpatient (CLI) | payer MEDICARE, SELFPAY ==
[2021-08-01 11:13] LABS: Hematocrit 35.7 % (35.0-42.0); Mean Corpuscular HGB Conc 33.6 g/dL (32.0-36.0); Mean Corpuscular Hemoglobin 35.5 pg (27.0-31.0); Mean Corpuscular Volume 105.6 fL (78.0-102.0); Mean Platelet Volume 10.2 fl (9.2-11.8); Platelet Count Result 203 K/mm3 (150-420); Red Blood Count 3.38 M/mm3 (4.20-5.40); Red Cell Distribution Width 13.5 % (11.6-14.4)
[2021-08-01 11:29] LABS: Alanine Aminotransferase 12 U/L (14-59); Albumin Level 3.8 g/dL (3.4-5.0); Alkaline Phosphatase 81 U/L (46-116); Anion Gap 7 mmol/L (8-16); Aspartate Amino Transferase 23 U/L (15-37); Bilirubin,Total 0.4 mg/dL (0.00-1.00); Blood Urea Nitrogen 16 mg/dL (7-18); Calcium 9.3 mg/dL (8.5-10.1); Carbon Dioxide 28 mmol/L (21-32); Chloride 102 mmol/L (98-108); Estimated Glomerular Filt Rate > 60; Glucose 89 mg/dL (70-99); Osmolality Calculated 284 mOsm/kg (285-295); Potassium 4.1 mmol/L (3.5-5.1); Sodium 137 mmol/L (136-145); Total Protein 7.3 g/dL (6.4-8.2)
[2021-08-01 11:38] LABS: Band Neutrophils Percent 0 % (0-6); Basophils Absolute Manual 0.04 K/mm3 (0-0.1); Basophils Percent Manual 1 % (0-1); Eosinophils Absolute Manual 0.04 K/mm3 (0.02-0.5); Eosinophils Percent Manual 1 % (1-6); Lymphocytes Percent Manual 25 % (18-44); Monocytes Absolute Manual 0.44 K/mm3 (0.1-0.90); Monocytes Percent Manual 11 % (3-9); Neutrophils Absolute Manual 2.48 K/mm3 (1.7-7.2); Neutrophils Percent Manual 62 % (46-73); Total Cells Counted 100
[2021-08-01 11:39] LABS: Platelet Estimate Adequate (Adequate)
[2021-08-03 14:51] LABS: NIL 0.03 IU/mL; Quantiferon TB Plus, 1T NEGATIVE (NEGATIVE); TB1-NIL <0.00 IU/mL; TB2-NIL <0.00 IU/mL
== END 2021-08-01 10:55 | disposition home or self-care (01) ==
LOC: CHSLAB 10:58
PROVIDERS: PCP Internal Medicine Geriatric Medicine
DX: M06.9 Rheumatoid arthritis, unspecified (principal)
CPT/HCPCS: 36415; 80053; 85025; 86480

== ENCOUNTER 2021-08-17 10:20 | Outpatient (CLI) | payer MEDICARE, SELFPAY ==
[2021-08-17 10:41] LABS: Hemoglobin 11.6 g/dL (11.7-13.8); Mean Corpuscular HGB Conc 33.1 g/dL (32.0-36.0); Mean Corpuscular Hemoglobin 35.6 pg (27.0-31.0); Mean Corpuscular Volume 107.4 fL (78.0-102.0); Platelet Count Result 216 K/mm3 (150-420); Red Blood Count 3.26 M/mm3 (4.20-5.40); Red Cell Distribution Width 13.5 % (11.6-14.4); White Blood Count 3.9 K/mm3 (4.8-10.8)
[2021-08-17 11:00] LABS: Band Neutrophils Percent 0 % (0-6); Eosinophils Absolute Manual 0.07 K/mm3 (0.02-0.5); Eosinophils Percent Manual 2 % (1-6); Lymphocytes Absolute Manual 0.93 K/mm3 (1.1-4.5); Lymphocytes Percent Manual 24 % (18-44); Monocytes Absolute Manual 0.27 K/mm3 (0.1-0.90); Monocytes Percent Manual 7 % (3-9); Neutrophils Absolute Manual 2.61 K/mm3 (1.7-7.2); Neutrophils Percent Manual 67 % (46-73); Platelet Estimate Adequate (Adequate); Total Cells Counted 100
[2021-08-17 11:54] LABS: Alanine Aminotransferase 20 U/L (14-59); Albumin Level 3.5 g/dL (3.4-5.0); Alkaline Phosphatase 81 U/L (46-116); Anion Gap 6 mmol/L (8-16); Aspartate Amino Transferase 27 U/L (15-37); Bilirubin,Total 0.3 mg/dL (0.00-1.00); Blood Urea Nitrogen 16 mg/dL (7-18); Calcium 9.4 mg/dL (8.5-10.1); Carbon Dioxide 28 mmol/L (21-32); Chloride 104 mmol/L (98-108); Estimated Glomerular Filt Rate > 60; Glucose 96 mg/dL (70-99); Magnesium 2.2 mg/dL (1.8-2.4); Osmolality Calculated 287 mOsm/kg (285-295); Potassium 4.1 mmol/L (3.5-5.1); Sodium 138 mmol/L (136-145)
[2021-08-20 02:04] LABS: CA-125 11 U/mL (<35)
== END 2021-08-17 10:21 | disposition home or self-care (01) ==
LOC: CHSLAB 10:26
PROVIDERS: PCP Internal Medicine Geriatric Medicine
DX: C54.1 Malignant neoplasm of endometrium (principal); Z08 Encounter for follow-up examination after completed treatment for malignant neoplasm
CPT/HCPCS: 36415; 80053; 83735; 85025; 86304

== ENCOUNTER 2021-09-08 09:56 | Outpatient (RCR) | payer MEDICARE, SELFPAY ==
[2021-09-08 10:11] LABS: Hematocrit 34.9 % (35.0-42.0); Hemoglobin 11.6 g/dL (11.7-13.8); Mean Corpuscular HGB Conc 33.2 g/dL (32.0-36.0); Mean Corpuscular Hemoglobin 35.6 pg (27.0-31.0); Mean Corpuscular Volume 107.1 fL (78.0-102.0); Mean Platelet Volume 9.8 fl (9.2-11.8); Platelet Count Result 202 K/mm3 (150-420); Red Blood Count 3.26 M/mm3 (4.20-5.40); Red Cell Distribution Width 13.2 % (11.6-14.4); White Blood Count 3.4 K/mm3 (4.8-10.8)
[2021-09-08 10:26] LABS: Alanine Aminotransferase 22 U/L (14-59); Albumin Level 3.6 g/dL (3.4-5.0); Alkaline Phosphatase 78 U/L (46-116); Anion Gap 6 mmol/L (8-16); Aspartate Amino Transferase 25 U/L (15-37); Bilirubin,Total 0.3 mg/dL (0.00-1.00); Blood Urea Nitrogen 18 mg/dL (7-18); Calcium 9.3 mg/dL (8.5-10.1); Carbon Dioxide 29 mmol/L (21-32); Chloride 105 mmol/L (98-108); Estimated Glomerular Filt Rate > 60; Potassium 4.2 mmol/L (3.5-5.1); Sodium 140 mmol/L (136-145); Total Protein 6.9 g/dL (6.4-8.2)
[2021-09-08 10:35] LABS: Glucose 82 mg/dL (70-99); Osmolality Calculated 290 mOsm/kg (285-295)
[2021-09-08 10:54] LABS: Band Neutrophils Percent 0 % (0-6); Basophils Percent Manual 0 % (0-1); Eosinophils Absolute Manual 0.06 K/mm3 (0.02-0.5); Eosinophils Percent Manual 2 % (1-6); Lymphocytes Absolute Manual 1.08 K/mm3 (1.1-4.5); Lymphocytes Percent Manual 32 % (18-44); Monocytes Percent Manual 9 % (3-9); Neutrophils Absolute Manual 1.93 K/mm3 (1.7-7.2); Neutrophils Percent Manual 57 % (46-73); Platelet Estimate Adequate (Adequate); Total Cells Counted 100
== END 2021-12-07 23:59 | disposition home or self-care (01) ==
LOC: CHSLAB 09:56
PROVIDERS: PCP Internal Medicine Geriatric Medicine
DX: M06.9 Rheumatoid arthritis, unspecified (principal)
CPT/HCPCS: 36415; 80053; 85025

== ENCOUNTER 2022-01-17 09:21 | Outpatient (CLI) | payer MEDICARE, SELFPAY ==
[2022-01-17 09:37] LABS: Hematocrit 34.1 % (35.0-42.0); Hemoglobin 11.3 g/dL (11.7-13.8); Mean Corpuscular HGB Conc 33.1 g/dL (32.0-36.0); Mean Corpuscular Hemoglobin 35.4 pg (27.0-31.0); Mean Corpuscular Volume 106.9 fL (78.0-102.0); Mean Platelet Volume 9.9 fl (9.2-11.8); Platelet Count Result 211 K/mm3 (150-420); Red Blood Count 3.19 M/mm3 (4.20-5.40); Red Cell Distribution Width 13.3 % (11.6-14.4); White Blood Count 3.2 K/mm3 (4.8-10.8)
[2022-01-17 09:52] LABS: Alanine Aminotransferase 20 U/L (14-59); Albumin Level 3.6 g/dL (3.4-5.0); Alkaline Phosphatase 72 U/L (46-116); Anion Gap 2 mmol/L (8-16); Aspartate Amino Transferase 24 U/L (15-37); Bilirubin,Total 0.3 mg/dL (0.00-1.00); Blood Urea Nitrogen 18 mg/dL (7-18); Calcium 8.9 mg/dL (8.5-10.1); Carbon Dioxide 32 mmol/L (21-32); Chloride 106 mmol/L (98-108); Estimated Glomerular Filt Rate > 60; Glucose 89 mg/dL (70-99); Osmolality Calculated 290 mOsm/kg (285-295); Potassium 4.2 mmol/L (3.5-5.1); Sodium 140 mmol/L (136-145)
[2022-01-17 10:14] LABS: Band Neutrophils Percent 0 % (0-6); Eosinophils Absolute Manual 0.06 K/mm3 (0.02-0.5); Eosinophils Percent Manual 2 % (1-6); Lymphocytes Percent Manual 25 % (18-44); Monocytes Absolute Manual 0.44 K/mm3 (0.1-0.90); Monocytes Percent Manual 14 % (3-9); Neutrophils Absolute Manual 1.88 K/mm3 (1.7-7.2); Neutrophils Percent Manual 59 % (46-73); Total Cells Counted 100
[2022-01-17 10:15] LABS: Platelet Estimate Adequate (Adequate); Schistocytes None Seen (NORMAL)
[2022-01-19 14:16] LABS: NIL 0.02 IU/mL; Quantiferon TB Plus, 1T NEGATIVE (NEGATIVE)
== END 2022-01-17 09:22 | disposition home or self-care (01) ==
LOC: CHSLAB 09:24
PROVIDERS: PCP Internal Medicine Geriatric Medicine
DX: M06.9 Rheumatoid arthritis, unspecified (principal)
CPT/HCPCS: 36415; 80053; 85025; 86480

== ENCOUNTER 2022-02-21 11:58 | Outpatient (CLI) | payer MEDICARE, SELFPAY ==
[2022-02-21 12:15] LABS: Hematocrit 34.8 % (35.0-42.0); Hemoglobin 11.7 g/dL (11.7-13.8); Mean Corpuscular HGB Conc 33.6 g/dL (32.0-36.0); Mean Corpuscular Hemoglobin 36.2 pg (27.0-31.0); Mean Corpuscular Volume 107.7 fL (78.0-102.0); Mean Platelet Volume 10.1 fl (9.2-11.8); Platelet Count Result 223 K/mm3 (150-420); Red Blood Count 3.23 M/mm3 (4.20-5.40); Red Cell Distribution Width 13.6 % (11.6-14.4); White Blood Count 3.5 K/mm3 (4.8-10.8)
[2022-02-21 12:35] LABS: Basophils Absolute Manual 0.03 K/mm3 (0-0.1); Basophils Percent Manual 1 % (0-1); Lymphocytes Absolute Manual 1.08 K/mm3 (1.1-4.5); Lymphocytes Percent Manual 31 % (18-44); Monocytes Absolute Manual 0.38 K/mm3 (0.1-0.90); Monocytes Percent Manual 11 % (3-9); Neutrophils Percent Manual 57 % (46-73); Platelet Estimate Adequate (Adequate); Total Cells Counted 100
[2022-02-21 12:43] LABS: Alanine Aminotransferase 22 U/L (14-59); Albumin Level 3.9 g/dL (3.4-5.0); Alkaline Phosphatase 79 U/L (46-116); Anion Gap 9 mmol/L (8-16); Aspartate Amino Transferase 28 U/L (15-37); Blood Urea Nitrogen 13 mg/dL (7-18); Calcium 9.2 mg/dL (8.5-10.1); Carbon Dioxide 29 mmol/L (21-32); Chloride 105 mmol/L (98-108); Estimated Glomerular Filt Rate > 60; Glucose 90 mg/dL (70-99); Magnesium 1.9 mg/dL (1.8-2.4); Osmolality Calculated 296 mOsm/kg (285-295); Potassium 4.4 mmol/L (3.5-5.1); Sodium 143 mmol/L (136-145); Total Protein 6.8 g/dL (6.4-8.2)
[2022-02-21 12:56] LABS: Bilirubin,Total 0.3 mg/dL (0.00-1.00)
[2022-02-24 00:29] LABS: CA-125 14 U/mL (<35)
== END 2022-02-21 11:59 | disposition home or self-care (01) ==
LOC: CHSLAB 12:01
PROVIDERS: PCP Internal Medicine Geriatric Medicine
DX: C54.1 Malignant neoplasm of endometrium (principal)
CPT/HCPCS: 36415; 80053; 83735; 85025; 86304

== ENCOUNTER 2022-04-23 12:33 | Outpatient (RCR) | payer MEDICARE, SELFPAY ==
[2022-04-23 12:47] LABS: Basophils Absolute Auto 0.02 K/mm3 (0.00-0.10); Basophils Percent Auto 0.5 % (0.0-1.0); Eosinophils Absolute Auto 0.07 K/mm3 (0.02-0.50); Eosinophils Percent Auto 1.6 % (1.0-6.0); Hematocrit 34.9 % (35.0-42.0); Hemoglobin 11.7 g/dL (11.7-13.8); Immature Granulocyte Absolute 0.02 K/mm3 (0.00-0.00); Immature Granulocyte Percent A 0.5 % (0.0-0.0); Lymphocytes Absolute Auto 1.12 K/mm3 (1.10-4.50); Lymphocytes Percent Auto 26.4 % (18.0-42.0); Mean Corpuscular HGB Conc 33.5 g/dL (32.0-36.0); Mean Corpuscular Hemoglobin 35.9 pg (27.0-31.0); Mean Corpuscular Volume 107.1 fL (78.0-102.0); Mean Platelet Volume 9.8 fl (9.2-11.8); Monocytes Absolute Auto 0.61 K/mm3 (0.10-0.90); Monocytes Percent Auto 14.4 % (2.0-11.0); Neutrophils Absolute Auto 2.4 K/mm3 (1.7-7.2); Neutrophils Percent Auto 56.6 % (50.0-70.0); Platelet Count Result 223 K/mm3 (150-420); Red Blood Count 3.26 M/mm3 (4.20-5.40); Red Cell Distribution Width 13.2 % (11.6-14.4); White Blood Count 4.3 K/mm3 (4.8-10.8)
[2022-04-23 13:31] LABS: Alanine Aminotransferase 22 U/L (14-59); Albumin Level 3.6 g/dL (3.4-5.0); Alkaline Phosphatase 79 U/L (46-116); Anion Gap 7 mmol/L (8-16); Aspartate Amino Transferase 23 U/L (15-37); Bilirubin,Total 0.3 mg/dL (0.00-1.00); Blood Urea Nitrogen 15 mg/dL (7-18); Calcium 8.8 mg/dL (8.5-10.1); Carbon Dioxide 30 mmol/L (21-32); Chloride 105 mmol/L (98-108); Estimated Glomerular Filt Rate > 60; Glucose 86 mg/dL (70-99); Osmolality Calculated 293 mOsm/kg (285-295); Potassium 4.4 mmol/L (3.5-5.1); Sodium 142 mmol/L (136-145); Total Protein 6.5 g/dL (6.4-8.2)
== END 2022-07-22 23:59 | disposition home or self-care (01) ==
LOC: CHSLAB 12:33
PROVIDERS: PCP Internal Medicine Geriatric Medicine
DX: M06.9 Rheumatoid arthritis, unspecified (principal)
CPT/HCPCS: 36415; 80053; 85025

== ENCOUNTER 2022-06-10 13:52 | Emergency (ER) | payer MEDICARE, OTHER, SELFPAY ==
--- NOTE | ~2022-06-10 | XR_ITS ---
XR knee RT 3V DATE: 06/10/2022 14:34 INDICATION: Fall. Right knee pain TECHNIQUE: 3 views COMPARISON: None FINDINGS: There is a comminuted distal femoral diametaphyseal fracture 2.5 mm lateral displacement. No dislocation is noted at the knee joint. Status post right total knee arthroplasty with patellar resurfacing. Diffuse osteopenia. IMPRESSION: Comminuted distal femoral diametaphyseal fracture Prominent osteopenia Reviewed, dictated and finalized at location A.
--- NOTE | ~2022-06-10 | XR_ITS ---
XR tibia fibula RT 2V DATE: 06/10/2022 14:34 INDICATION: Right knee pain following fall TECHNIQUE: AP and lateral views COMPARISON: None FINDINGS: There is prominent diffuse osteopenia. Status post right total knee arthroplasty with patellar resurfacing. Comminuted distal femoral diametaphyseal fracture. There is suboptimal visualization of the ankle. The tibia and fibula otherwise appear intact. IMPRESSION: Limited visualization of the ankle. Consider ankle radiographs if clinically appropriate Osteopenia Comminuted distal femoral diametaphyseal fracture Status post right total knee arthroplasty Reviewed, dictated and finalized at location A. IMPRESSION: Limited visualization of the ankle. Consider ankle radiographs if c linically appropriate Osteopenia Comminuted distal femoral diametaphyseal fracture Status post right total knee arthroplasty
[2022-06-10 13:53] VITALS: BP 120/74; PULSE 81; RESP 20; TEMP 36.9; O2SAT 100
--- NOTE | 2022-06-10 14:09 | ED.LOWEXIN ---
HPI - Extremity Injury (Lower) General Chief Complaint: Extremity Injury, Lower Stated Complaint: knee injury History of Present Illness HPI Narrative: This is a 71-year-old female with past history of right knee replacement in 2007, brought in by EMS from home after a fall and right knee pain. The patient states she was cleaning rugs outside, when she slipped on a rug, landing on the right knee. She states she felt an immediate crack and 10/10 right knee pain. She was unable to stand after the incident. She denies chest pain, palpitations, lightheadedness, head injury or loss of consciousness. Related Data Allergies Allergy/AdvReac Type Severity Reaction Status Date / Time abatacept [From Orencia] Allergy Rash Verified 06/10/22 13:57 remincade Allergy Anaphylaxis Uncoded 06/10/22 13:57 Review of Systems Review of Systems: CONSTITUTIONAL: Denies fever, chills, or sweats. CARDIOVASCULAR: Denies chest pain, palpitations, or edema. RESPIRATORY: Denies cough or dyspnea. GASTROINTESTINAL: Denies abdominal pain, nausea, vomiting, or diarrhea. GENITOURINARY: Denies dysuria or hematuria. SKIN: Denies rash or itching. MUSCULOSKELETAL: Right knee pain denies denies back pain or myalgia. NEUROLOGIC: Denies headache, numbness, dizziness, or weakness. PSYCHIATRIC: Denies anxiety or depression. [facility] Past Medical History Medical History (Updated 06/10/22 @ 15:03 by Andrew Montero MD) Rheumatoid arthritis Surgical History Surgical History (Updated 06/10/22 @ 14:11 by Andrew Montero MD) Status post right knee replacement Social History Social History (Updated 06/10/22 @ 14:11 by Andrew Montero MD) Smoking status: Never smoker Alcohol intake: current Substance use: current Other substance usage details: CBD and THC Gummies Exam Narrative: GENERAL: Well-developed, well-nourished, in moderate distress due to pain HEAD: Normocephalic, atraumatic. EYES: PERRLA and EOMI. ENT: Upper and lower dentures in place. Nares clear, no rhinorrhea or epistaxis. Mucous membranes moist. Oropharynx without tonsillar hypertrophy exudate or other lesions. NECK: Supple. No adenopathy or masses. No carotid bruits or JVD. No midline spine tenderness to palpation, no step-off or crepitus CHEST: Clear to auscultation. No respiratory distress. No wheezes rales or rhonchi HEART: Regular rate and rhythm. No murmur heard. Normal peripheral pulses. ABDOMEN: Soft, nontender, nondistended, normal active bowel sounds. BACK: No midline spine tenderness to palpation. No step-off or crepitus. EXTREMITIES: Significant right knee tenderness to palpation at the distal femur and the proximal tibia. Mild swelling compared to the left knee. Range of motion of the left knee limited due to pain. Range of motion of the ankle and toes on the right within normal limits. No significant tenderness with passive range of motion of the foot. Otherwise normal range of motion. No edema. SKIN: Warm, dry, no rash. NEURO: No focal deficits. Alert and oriented x3. PSYCH: Normal mood and affect. Course Course Emergency Course: 15:00 - X-ray demonstrates a right comminuted, displaced periprosthetic fracture of the right knee. Briefly discussed the patient with orthopedic surgeon, Dr. Rojo who recommends knee immobilizer and transfer to a tertiary facility. The patient prefers [facility] where she has had a previous left periprosthetic fracture repair. 17:10 - After a 2-hour delay, for unknown reasons, [facility] transfer service was able to connect me to Dr. Castaneda in the emergency department, who accepts the patient as a level 3 trauma transfer. All questions answered to the patient's satisfaction. Vital Signs Vital signs: Vital Signs Temperature 98.5 F 06/10/22 13:53 Pulse Rate 81 06/10/22 13:53 Respiratory Rate 20 06/10/22 13:53 Blood Pressure 120/74 06/10/22 13:53 Pulse Oximetry 100 06/10/22 13:53 Oxygen Delivery Room Air
[2022-06-10] MEDS: HYDROmorphone HCL INJ (*CRX) 1 MG/ML SYR IM (14:21)
[2022-06-10] MEDS: ONDANSETRON INJ 4 MG/2 ML VIAL IV PUSH (14:21)
[2022-06-10 14:28] LABS: Basophils Percent Auto 0.5 % (0.2-1.2); Eosinophils Percent Auto 0.5 % (0-4.4); Hematocrit 33.4 % (37.0-47.0); Hemoglobin 11.4 g/dL (12.0-15.0); Immature Granulocyte Absolute 0.03 K/mm3 (0.00-0.031); Immature Granulocyte Percent A 0.5 % (0-0.5); Lymphocytes Absolute Auto 0.78 K/mm3 (0.9-3.2); Lymphocytes Percent Auto 12.2 % (18.3-44.2); Mean Corpuscular HGB Conc 34.1 g/dl (32-36); Mean Corpuscular Hemoglobin 35.7 pg (26-34); Mean Corpuscular Volume 104.7 fl (80-100); Mean Platelet Volume 10.1 fl (7.4-10.4); Monocytes Absolute Auto 0.7 K/mm3 (0.1-0.6); Monocytes Percent Auto 10.5 % (2.6-8.5); Neutrophils Absolute Auto 4.8 K/mm3 (1.3-6.7); Neutrophils Percent Auto 75.8 % (45.5-73.1); Platelet Count Result 205 k/mm3 (150-375); Red Blood Count 3.19 M/mm3 (4.2-5.4); Red Cell Distribution Width 13.5 % (11.5-14.5); White Blood Count 6.4 K/mm3 (4.5-10.0)
[2022-06-10 14:39] LABS: Alanine Aminotransferase 17 U/L (6-35); Albumin Level 3.5 g/dL (3.5-5.1); Alkaline Phosphatase 61 U/L (38-126); Anion Gap 5 mmol/L (8-16); Aspartate Amino Transferase 29 U/L (14-36); Bilirubin,Total 0.4 mg/dL (0.2-1.3); Blood Urea Nitrogen 13 mg/dL (7-17); Calcium 7.7 mg/dL (8.4-10.2); Carbon Dioxide 21 mmol/L (22-30); Chloride 114 mmol/L (98-107); Estimated Glomerular Filt Rate > 60; Glucose 99 mg/dL (65-110); Sodium 140 mmol/L (137-145)
[2022-06-10 14:43] LABS: INR 1.1; Prothrombin Time 13.6 Seconds (11.1-14.7)
[2022-06-10] MEDS: HYDROmorphone HCL INJ (*CRX) 1 MG/ML SYR IV PUSH ×2 (15:10→18:00)
[2022-06-10 15:26] VITALS: BP 109/60; PULSE 67; RESP 16; O2SAT 96
--- NOTE | 2022-06-10 17:18 | PC.NURSE ---
1714 [facility] med accepted transfer to [facility] 30min
[2022-06-10 17:42] VITALS: BP 107/68; PULSE 70; RESP 16; O2SAT 91
== END 2022-06-10 18:10 | disposition short-term general hospital (02) ==
PROVIDERS: Emergency Provider Preventive Medicine Aerospace Medicine; PCP Internal Medicine Geriatric Medicine
DX: S79.191A Other physeal fracture of lower end of right femur, initial encounter for closed fracture (principal); M97.11XA Periprosthetic fracture around internal prosthetic right knee joint, initial encounter; M06.9 Rheumatoid arthritis, unspecified; Z96.651 Presence of right artificial knee joint; M85.88 Other specified disorders of bone density and structure, other site; W01.0XXA Fall on same level from slipping, tripping and stumbling without subsequent striking against object, initial encounter
CPT/HCPCS: 36415; 73562; 73590; 80053; 85025; 85610; 86850; 86900; 86901; 96372; 96374; 96375; 96376; 99285; J1170; J2405

== ENCOUNTER 2022-07-23 11:33 | Outpatient (RCR) | payer MEDICARE, OTHER, SELFPAY ==
[2022-07-23 11:59] LABS: Basophils Absolute Auto 0.01 K/mm3 (0.00-0.10); Basophils Percent Auto 0.2 % (0.0-1.0); Eosinophils Absolute Auto 0.06 K/mm3 (0.02-0.50); Eosinophils Percent Auto 1.4 % (1.0-6.0); Hematocrit 32.3 % (35.0-42.0); Hemoglobin 10.4 g/dL (11.7-13.8); Immature Granulocyte Absolute 0.01 K/mm3 (0.00-0.00); Immature Granulocyte Percent A 0.2 % (0.0-0.0); Lymphocytes Absolute Auto 0.83 K/mm3 (1.10-4.50); Lymphocytes Percent Auto 19.2 % (18.0-42.0); Mean Corpuscular HGB Conc 32.2 g/dL (32.0-36.0); Mean Corpuscular Hemoglobin 35.1 pg (27.0-31.0); Mean Corpuscular Volume 109.1 fL (78.0-102.0); Mean Platelet Volume 9.9 fl (9.2-11.8); Monocytes Absolute Auto 0.55 K/mm3 (0.10-0.90); Monocytes Percent Auto 12.7 % (2.0-11.0); Neutrophils Absolute Auto 2.9 K/mm3 (1.7-7.2); Neutrophils Percent Auto 66.3 % (50.0-70.0); Platelet Count Result 244 K/mm3 (150-420); Red Blood Count 2.96 M/mm3 (4.20-5.40); Red Cell Distribution Width 15.5 % (11.6-14.4); White Blood Count 4.3 K/mm3 (4.8-10.8)
[2022-07-23 12:16] LABS: Alanine Aminotransferase 19 U/L (14-59); Albumin Level 3.6 g/dL (3.4-5.0); Alkaline Phosphatase 78 U/L (46-116); Anion Gap 8 mmol/L (8-16); Aspartate Amino Transferase 23 U/L (15-37); Bilirubin,Total 0.2 mg/dL (0.00-1.00); Blood Urea Nitrogen 15 mg/dL (7-18); Carbon Dioxide 29 mmol/L (21-32); Chloride 105 mmol/L (98-108); Estimated Glomerular Filt Rate > 60; Glucose 88 mg/dL (70-99); Osmolality Calculated 293 mOsm/kg (285-295); Potassium 4.3 mmol/L (3.5-5.1); Sodium 142 mmol/L (136-145); Total Protein 6.5 g/dL (6.4-8.2)
== END 2022-10-21 23:59 | disposition home or self-care (01) ==
LOC: CHSLAB 11:33
PROVIDERS: PCP Internal Medicine Geriatric Medicine; Visit Provider Internal Medicine Rheumatology
DX: M06.9 Rheumatoid arthritis, unspecified (principal)
CPT/HCPCS: 36415; 80053; 85025

== ENCOUNTER 2022-07-27 11:43 | Outpatient (CLI) | payer MEDICARE, SELFPAY ==
[2022-08-02 17:31] LABS: Vitamin D 25 Hydroxy 76 ng/mL (30-100)
== END 2022-07-27 11:44 | disposition home or self-care (01) ==
LOC: CHSLAB 11:47
PROVIDERS: PCP Internal Medicine Geriatric Medicine
DX: Q78.2 Osteopetrosis (principal)
CPT/HCPCS: 36415; 82306

== ENCOUNTER 2022-07-30 14:57 | Outpatient (RCR) | payer MEDICARE, OTHER, SELFPAY ==
--- NOTE | 2022-07-30 16:12 | PTOPEVAL1 ---
Assessment and note entered by Bozena Stanton DPT Evaluation Information Assessment Status Evaluation Diagnosis R leg pain Onset 06/14/22 Subjective Information Patient reports she was out on the side way and was shaking out a rug and tripped and fell and broke her distal femur near her knee replacement. She reports she had surgery the next day. Since surgery she has been doing home health and has been discharged. She reports she just started using the cane 3 days ago. Patient has difficulty with standing for long periods of time and walking . She also reports she has had difficulty with bending of the R knee. 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 Reported Pain Level Pain Score 3: Self Report Assessment PT Clinical Summary Patient is a 71 year old female who presents to PT with R leg pain following fall. Patient demonstrates decreased R knee pain, decreased R LE strength and impaired gait mechanics impairing her ability to stand and walk prolonged periods to complete house hold tasks. Patient would benefit from skilled PT to address impairmens and return to PLOF. Plan of Care Interventions Electrical Stimulation,Gait Training,Hot Pack/Cold Pack,Manual Therapy,Neuro Re-education,Patient/ Caregiver Educati,Therapeutic Activities, Therapeutic Exercise,Self-Care/Home Management PT Services Indicated Yes Treatment Frequency and 2x weekly for 12 visits Duration These treatments will address the objective and functional deficits as defined above. The patient will be advanced safely and appropriately in order for the patient to progress towards his/her prior level of function. Additional exercises will be introduced and as well as a comprehensive home exercise program upon discharge, if needed, ?to ensure carryover of functional gains achieved in the clinic. This treatment plan has been reviewed and agreement upon by the patient.
--- NOTE | 2022-08-30 11:01 | PTOPREEVAL ---
Assessment and note entered by JT File, PT Evaluation Information Assessment Status Progress Diagnosis R leg pain Onset 06/14/22 Subjective Information patient reports she feels pretty good today. she reports she went back to the MD recently. she reports he thinks she would benefit from continued skilled PT to further improve her R knee rom and stregthen her hip. Reported Pain Level Pain Score 0: Self Report Assessment PT Clinical Summary mrs. ortiz presents to skilled PT for her 10th skilled therapy visit. she is making progress towards all goals and has met goals for flexibility, pain, and HEP performance thus far. she continues to display deficits in gait speed, sit to stand transfer strength/speed, and LE strength/rom. she would benefit from continued skilled PT to improve her objective/functional deficits and achieve remaining goals for skilled PT. Plan of Care Interventions Gait Training,Manual Therapy,Neuro Re-education, Patient/Caregiver Educati,Therapeutic Activities, Therapeutic Exercise,Self-Care/Home Management PT Services Indicated Yes Treatment Frequency and continue skilled PT 2x weekly for 8 more visits Duration These treatments will address the objective and functional deficits as defined above. The patient will be advanced safely and appropriately in order for the patient to progress towards his/her prior level of function. Additional exercises will be introduced and as well as a comprehensive home exercise program upon discharge, if needed, ?to ensure carryover of functional gains achieved in the clinic. This treatment plan has been reviewed and agreement upon by the patient.
--- NOTE | 2022-10-02 09:19 | PTOPDC ---
Assessment and note entered by Bozena Stanton DPT Evaluation Information Assessment Status Re-evaluation Diagnosis R leg pain Onset 06/14/22 Subjective Information Patient reports that she has greatly improved since start of PT. She reports she feels steady within the house but still has a fear of falling outside. She reports she is able to complete all ADLs at this time. Reported Pain Level Pain Score 4: Self Report Assessment PT Clinical Summary Patient was seen for 18 visits of skilled PT with good improvements towards all goals. She continues to have limitation in R knee flexion but has been able to return to all prior ADLs. Patient is independent with HEP and is appropriate for DC at this time. Plan of Care PT Services Indicated No
== END 2022-10-02 14:15 | disposition home or self-care (01) ==
LOC: CHSPT 14:57
DX: S72.401D Unspecified fracture of lower end of right femur, subsequent encounter for closed fracture with routine healing (principal); M97.11XD Periprosthetic fracture around internal prosthetic right knee joint, subsequent encounter
CPT/HCPCS: 97016; 97110; 97112; 97150; 97161; 97530

== ENCOUNTER 2022-10-29 08:58 | Outpatient (RCR) | payer MEDICARE, SELFPAY ==
[2022-10-29 09:14] LABS: Hematocrit 34.6 % (35.0-42.0); Hemoglobin 11.5 g/dL (11.7-13.8); Mean Corpuscular HGB Conc 33.2 g/dL (32.0-36.0); Mean Corpuscular Hemoglobin 35.3 pg (27.0-31.0); Mean Corpuscular Volume 106.1 fL (78.0-102.0); Mean Platelet Volume 9.8 fl (9.2-11.8); Platelet Count Result 207 K/mm3 (150-420); Red Blood Count 3.26 M/mm3 (4.20-5.40); Red Cell Distribution Width 14.2 % (11.6-14.4); White Blood Count 3.8 K/mm3 (4.8-10.8)
[2022-10-29 09:29] LABS: Band Neutrophils Percent 0 % (0-6); Eosinophils Absolute Manual 0.07 K/mm3 (0.02-0.5); Eosinophils Percent Manual 2 % (1-6); Lymphocytes Absolute Manual 1.02 K/mm3 (1.1-4.5); Lymphocytes Percent Manual 27 % (18-44); Monocytes Absolute Manual 0.22 K/mm3 (0.1-0.90); Monocytes Percent Manual 6 % (3-9); Neutrophils Absolute Manual 2.47 K/mm3 (1.7-7.2); Neutrophils Percent Manual 65 % (46-73); Platelet Estimate Adequate (Adequate); Total Cells Counted 100
[2022-10-29 09:41] LABS: Alanine Aminotransferase 12 U/L (14-59); Albumin Level 3.5 g/dL (3.4-5.0); Alkaline Phosphatase 67 U/L (46-116); Anion Gap 8 mmol/L (8-16); Aspartate Amino Transferase 22 U/L (15-37); Bilirubin,Total 0.4 mg/dL (0.00-1.00); Blood Urea Nitrogen 16 mg/dL (7-18); Calcium 9.2 mg/dL (8.5-10.1); Carbon Dioxide 30 mmol/L (21-32); Chloride 105 mmol/L (98-108); Estimated Glomerular Filt Rate > 60; Glucose 88 mg/dL (70-99); Osmolality Calculated 296 mOsm/kg (285-295); Potassium 4.4 mmol/L (3.5-5.1); Sodium 143 mmol/L (136-145); Total Protein 6.4 g/dL (6.4-8.2)
== END 2023-01-27 23:59 | disposition home or self-care (01) ==
LOC: CHSLAB 08:58
PROVIDERS: PCP Internal Medicine Geriatric Medicine; Visit Provider Internal Medicine Rheumatology
DX: M06.9 Rheumatoid arthritis, unspecified (principal)
CPT/HCPCS: 36415; 80053; 85025

== ENCOUNTER 2023-01-28 11:57 | Outpatient (RCR) | payer MEDICARE, SELFPAY ==
[2023-01-28 12:11] LABS: Hematocrit 33.9 % (35.0-42.0); Hemoglobin 11.4 g/dL (11.7-13.8); Mean Corpuscular HGB Conc 33.6 g/dL (32.0-36.0); Mean Corpuscular Hemoglobin 36.1 pg (27.0-31.0); Mean Corpuscular Volume 107.3 fL (78.0-102.0); Mean Platelet Volume 9.5 fl (9.2-11.8); Platelet Count Result 214 K/mm3 (150-420); Red Blood Count 3.16 M/mm3 (4.20-5.40); Red Cell Distribution Width 13.2 % (11.6-14.4); White Blood Count 3.7 K/mm3 (4.8-10.8)
[2023-01-28 12:42] LABS: Band Neutrophils Percent 0 % (0-6); Basophils Percent Manual 0 % (0-1); Eosinophils Percent Manual 0 % (1-6); Lymphocytes Absolute Manual 1.03 K/mm3 (1.1-4.5); Lymphocytes Percent Manual 28 % (18-44); Monocytes Absolute Manual 0.55 K/mm3 (0.1-0.90); Monocytes Percent Manual 15 % (3-9); Neutrophils Percent Manual 57 % (46-73); Platelet Estimate Adequate (Adequate); Total Cells Counted 100
[2023-01-28 12:46] LABS: Alanine Aminotransferase 22 U/L (14-59); Albumin Level 3.4 g/dL (3.4-5.0); Alkaline Phosphatase 85 U/L (46-116); Anion Gap 5 mmol/L (8-16); Aspartate Amino Transferase 23 U/L (15-37); Bilirubin,Total 0.3 mg/dL (0.00-1.00); Blood Urea Nitrogen 22 mg/dL (7-18); Calcium 9.3 mg/dL (8.5-10.1); Carbon Dioxide 33 mmol/L (21-32); Chloride 104 mmol/L (98-108); Estimated Glomerular Filt Rate > 60; Glucose 88 mg/dL (70-99); Osmolality Calculated 296 mOsm/kg (285-295); Potassium 4.5 mmol/L (3.5-5.1); Sodium 142 mmol/L (136-145); Total Protein 6.5 g/dL (6.4-8.2)
== END 2023-04-28 23:59 | disposition home or self-care (01) ==
LOC: CHSLAB 11:57
PROVIDERS: PCP Internal Medicine Infectious Disease; Visit Provider Internal Medicine Rheumatology
DX: M06.9 Rheumatoid arthritis, unspecified (principal)
CPT/HCPCS: 36415; 80053; 85025

== ENCOUNTER 2023-05-03 10:59 | Outpatient (CLI) | payer MEDICARE, OTHER, SELFPAY ==
[2023-05-03 11:14] LABS: Basophils Absolute Auto 0.02 K/mm3 (0.00-0.10); Basophils Percent Auto 0.5 % (0.0-1.0); Eosinophils Absolute Auto 0.06 K/mm3 (0.02-0.50); Eosinophils Percent Auto 1.5 % (1.0-6.0); Hematocrit 35.2 % (35.0-42.0); Hemoglobin 11.8 g/dL (11.7-13.8); Immature Granulocyte Absolute 0.02 K/mm3 (0.00-0.00); Immature Granulocyte Percent A 0.5 % (0.0-0.0); Lymphocytes Absolute Auto 0.77 K/mm3 (1.10-4.50); Mean Corpuscular HGB Conc 33.5 g/dL (32.0-36.0); Mean Corpuscular Hemoglobin 35.3 pg (27.0-31.0); Mean Corpuscular Volume 105.4 fL (78.0-102.0); Mean Platelet Volume 9.5 fl (9.2-11.8); Monocytes Absolute Auto 0.51 K/mm3 (0.10-0.90); Monocytes Percent Auto 12.6 % (2.0-11.0); Neutrophils Absolute Auto 2.7 K/mm3 (1.7-7.2); Neutrophils Percent Auto 65.9 % (50.0-70.0); Platelet Count Result 233 K/mm3 (150-420); Red Blood Count 3.34 M/mm3 (4.20-5.40); Red Cell Distribution Width 13.4 % (11.6-14.4); White Blood Count 4.1 K/mm3 (4.8-10.8)
[2023-05-03 11:59] LABS: Alanine Aminotransferase 17 U/L (14-59); Albumin Level 3.4 g/dL (3.4-5.0); Alkaline Phosphatase 72 U/L (46-116); Anion Gap 10 mmol/L (8-16); Aspartate Amino Transferase 26 U/L (15-37); Bilirubin,Total 0.4 mg/dL (0.00-1.00); Blood Urea Nitrogen 22 mg/dL (7-18); Calcium 9.1 mg/dL (8.5-10.1); Carbon Dioxide 28 mmol/L (21-32); Chloride 103 mmol/L (98-108); Estimated Glomerular Filt Rate > 60; Glucose 105 mg/dL (70-99); Osmolality Calculated 295 mOsm/kg (285-295); Potassium 4.1 mmol/L (3.5-5.1); Sodium 141 mmol/L (136-145); Total Protein 6.4 g/dL (6.4-8.2)
[2023-05-07 12:58] LABS: NIL 0.02 IU/mL; Quantiferon TB Plus, 1T NEGATIVE (NEGATIVE)
== END 2023-05-03 11:00 | disposition home or self-care (01) ==
LOC: CHSLAB 11:02
PROVIDERS: PCP Internal Medicine Geriatric Medicine
DX: M06.9 Rheumatoid arthritis, unspecified (principal)
CPT/HCPCS: 36415; 80053; 85025; 86480

== ENCOUNTER 2023-05-08 10:17 | Outpatient (CLI) | payer MEDICARE, OTHER, SELFPAY ==
--- NOTE | ~2023-05-08 | XR_ITS ---
EXAMINATION: XR hand LT min 3V, XR hand RT min 3V INDICATION: Arthritis TECHNIQUE: Three views of each hand are obtained. COMPARISON: None available FINDINGS: Bone alignment is normal. No fracture is identified in either hand. There is mild to modera te osteoarthritis of multiple interphalangeal joints. There is moderate osteoarthritis at the bilater al first metacarpophalangeal joints. There is mild periarticular soft tissue swelling of the bilatera l metacarpophalangeal joints and proximal interphalangeal joints.. There is a swan-neck deformity of the right fifth finger. IMPRESSION: 1. Radiographic findings suggestive of rheumatoid arthritis of the hands. Reviewed, dictated and finalized at location B. 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 Radiographic findings suggestive of rheumatoid arthritis of the hands.
== END 2023-05-08 10:18 | disposition home or self-care (01) ==
LOC: CHSLAB 10:21
PROVIDERS: PCP Internal Medicine Geriatric Medicine
DX: M06.9 Rheumatoid arthritis, unspecified (principal)
CPT/HCPCS: 73130

== ENCOUNTER 2023-07-31 10:27 | Outpatient (CLI) | payer MEDICARE, SELFPAY ==
[2023-07-31 11:25] LABS: Basophils Absolute Auto 0.02 K/mm3 (0.00-0.10); Basophils Percent Auto 0.4 % (0.0-1.0); Eosinophils Absolute Auto 0.06 K/mm3 (0.02-0.50); Eosinophils Percent Auto 1.3 % (1.0-6.0); Immature Granulocyte Absolute 0.02 K/mm3 (0.00-0.00); Immature Granulocyte Percent A 0.4 % (0.0-0.0); Lymphocytes Absolute Auto 0.76 K/mm3 (1.10-4.50); Lymphocytes Percent Auto 16.2 % (18.0-42.0); Mean Corpuscular HGB Conc 33.3 g/dL (32-36); Mean Corpuscular Hemoglobin 35.1 pg (27.0-31.0); Mean Corpuscular Volume 105.3 fL (78.0-102.0); Mean Platelet Volume 9.9 fl (9.2-11.8); Monocytes Absolute Auto 0.57 K/mm3 (0.10-0.90); Monocytes Percent Auto 12.2 % (2.0-11.0); Neutrophils Absolute Auto 3.25 K/mm3 (1.70-7.20); Neutrophils Percent Auto 69.5 % (50.0-70.0); Platelet Count Result 209 K/mm3 (150-420); Red Blood Count 3.42 M/mm3 (4.20-5.40); Red Cell Distribution Width 13.9 % (11.6-14.4); White Blood Count 4.7 K/mm3 (4.8-10.8)
[2023-07-31 11:56] LABS: Alanine Aminotransferase 22 U/L (14-59); Albumin Level 3.6 g/dL (3.4-5.0); Alkaline Phosphatase 66 U/L (46-116); Anion Gap 8 mmol/L (4-12); Aspartate Amino Transferase 28 U/L (15-37); Bilirubin,Total 0.3 mg/dL (0.00-1.00); Blood Urea Nitrogen 22 mg/dL (7-18); Calcium 9.4 mg/dL (8.5-10.1); Carbon Dioxide 30 mmol/L (21-32); Chloride 103 mmol/L (98-108); Estimated Glomerular Filt Rate > 60; Glucose 92 mg/dL (70-99); Osmolality Calculated 295 mOsm/kg (285-295); Potassium 4.6 mmol/L (3.5-5.1); Sodium 141 mmol/L (136-145); Total Protein 6.6 g/dL (6.4-8.2)
== END 2023-07-31 10:28 | disposition home or self-care (01) ==
LOC: CHSLAB 10:29
PROVIDERS: PCP Internal Medicine Geriatric Medicine; Visit Provider Internal Medicine Rheumatology
DX: M06.9 Rheumatoid arthritis, unspecified (principal)
CPT/HCPCS: 36415; 80053; 85025

== ENCOUNTER 2024-01-30 09:02 | Outpatient (RCR) | payer MEDICARE, SELFPAY ==
[2023-11-07 12:19] LABS: Basophils Absolute Auto 0.02 K/mm3 (0.00-0.10); Basophils Percent Auto 0.4 % (0.0-1.0); Eosinophils Absolute Auto 0.03 K/mm3 (0.02-0.50); Eosinophils Percent Auto 0.6 % (1.0-6.0); Hematocrit 35.7 % (35.0-42.0); Immature Granulocyte Absolute 0.02 K/mm3 (0.00-0.00); Immature Granulocyte Percent A 0.4 % (0.0-0.0); Lymphocytes Absolute Auto 0.96 K/mm3 (1.10-4.50); Mean Corpuscular HGB Conc 33.6 g/dL (32-36); Mean Corpuscular Hemoglobin 35.8 pg (27.0-31.0); Mean Corpuscular Volume 106.6 fL (78.0-102.0); Mean Platelet Volume 9.8 fl (9.2-11.8); Monocytes Absolute Auto 0.53 K/mm3 (0.10-0.90); Monocytes Percent Auto 11.1 % (2.0-11.0); Neutrophils Absolute Auto 3.23 K/mm3 (1.70-7.20); Neutrophils Percent Auto 67.5 % (50.0-70.0); Platelet Count Result 254 K/mm3 (150-420); Red Blood Count 3.35 M/mm3 (4.20-5.40); Red Cell Distribution Width 13.9 % (11.6-14.4); White Blood Count 4.8 K/mm3 (4.8-10.8)
[2023-11-07 13:03] LABS: Alanine Aminotransferase 25 U/L (14-59); Albumin Level 3.7 g/dL (3.4-5.0); Alkaline Phosphatase 88 U/L (46-116); Anion Gap 7 mmol/L (4-12); Aspartate Amino Transferase 35 U/L (15-37); Bilirubin,Total 0.3 mg/dL (0.00-1.00); Blood Urea Nitrogen 27 mg/dL (7-18); Calcium 9.1 mg/dL (8.5-10.1); Carbon Dioxide 32 mmol/L (21-32); Chloride 102 mmol/L (98-108); Estimated Glomerular Filt Rate > 60; Glucose 124 mg/dL (70-99); Osmolality Calculated 298 mOsm/kg (285-295); Potassium 4.1 mmol/L (3.5-5.1); Sodium 141 mmol/L (136-145); Total Protein 6.6 g/dL (6.4-8.2)
[2024-01-30 09:19] LABS: Hematocrit 36.1 % (35.0-42.0); Hemoglobin 11.9 g/dL (11.7-13.8); Mean Corpuscular Hemoglobin 35.1 pg (27.0-31.0); Mean Corpuscular Volume 106.5 fL (78.0-102.0); Mean Platelet Volume 10.3 fl (9.2-11.8); Platelet Count Result 219 K/mm3 (150-420); Red Blood Count 3.39 M/mm3 (4.20-5.40); Red Cell Distribution Width 14.1 % (11.6-14.4); White Blood Count 4.3 K/mm3 (4.8-10.8)
[2024-01-30 09:56] LABS: Band Neutrophils Percent 0 % (0-6); Eosinophils Absolute Manual 0.08 K/mm3 (0.02-0.50); Eosinophils Percent Manual 2 % (1-6); Lymphocytes Absolute Manual 1.07 K/mm3 (1.1-4.5); Lymphocytes Percent Manual 25 % (18-44); Monocytes Absolute Manual 0.51 K/mm3 (0.1-0.90); Monocytes Percent Manual 12 % (3-9); Neutrophils Absolute Manual 2.62 K/mm3 (1.7-7.2); Neutrophils Percent Manual 61 % (46-73); Platelet Estimate Adequate (Adequate); Total Cells Counted 100
[2024-01-30 10:11] LABS: Alanine Aminotransferase 26 U/L (14-59); Albumin Level 3.5 g/dL (3.4-5.0); Alkaline Phosphatase 84 U/L (46-116); Anion Gap 10 mmol/L (4-12); Aspartate Amino Transferase 33 U/L (15-37); Bilirubin,Total 0.4 mg/dL (0.00-1.00); Blood Urea Nitrogen 18 mg/dL (7-18); Calcium 9.6 mg/dL (8.5-10.1); Carbon Dioxide 25 mmol/L (21-32); Chloride 105 mmol/L (98-108); Estimated Glomerular Filt Rate > 60; Glucose 88 mg/dL (70-99); Osmolality Calculated 290 mOsm/kg (285-295); Potassium 4.5 mmol/L (3.5-5.1); Sodium 140 mmol/L (136-145); Total Protein 6.4 g/dL (6.4-8.2)
== END 2024-02-05 23:59 | disposition home or self-care (01) ==
LOC: CHSLAB 09:02
PROVIDERS: PCP Internal Medicine Geriatric Medicine; Visit Provider Internal Medicine Rheumatology
DX: M06.9 Rheumatoid arthritis, unspecified (principal)
CPT/HCPCS: 36415; 80053; 85025

== ENCOUNTER 2024-06-16 09:02 | Outpatient (RCR) | payer MEDICARE, SELFPAY ==
[2024-06-16 09:44] LABS: Hematocrit 36.5 % (35.0-42.0); Hemoglobin 11.7 g/dL (11.7-13.8); Mean Corpuscular HGB Conc 32.1 g/dL (32-36); Mean Corpuscular Hemoglobin 34.4 pg (27.0-31.0); Mean Corpuscular Volume 107.4 fL (78.0-102.0); Mean Platelet Volume 10.5 fl (9.2-11.8); Platelet Count Result 218 K/mm3 (150-420); Red Cell Distribution Width 14.1 % (11.6-14.4); White Blood Count 6.6 K/mm3 (4.8-10.8)
[2024-06-16 10:03] LABS: Band Neutrophils Percent 0 % (0-6); Eosinophils Absolute Manual 0.19 K/mm3 (0.02-0.50); Eosinophils Percent Manual 3 % (1-6); Lymphocytes Absolute Manual 1.65 K/mm3 (1.1-4.5); Lymphocytes Percent Manual 25 % (18-44); Monocytes Absolute Manual 1.05 K/mm3 (0.1-0.90); Monocytes Percent Manual 16 % (3-9); Neutrophils Absolute Manual 3.69 K/mm3 (1.7-7.2); Neutrophils Percent Manual 56 % (46-73); Platelet Estimate Adequate (Adequate); Total Cells Counted 100
[2024-06-16 10:56] LABS: Alanine Aminotransferase 25 U/L (14-59); Albumin Level 3.5 g/dL (3.4-5.0); Alkaline Phosphatase 91 U/L (46-116); Anion Gap 6 mmol/L (4-12); Aspartate Amino Transferase 27 U/L (15-37); Bilirubin,Total 0.4 mg/dL (0.00-1.00); Blood Urea Nitrogen 19 mg/dL (7-18); Calcium 9.4 mg/dL (8.5-10.1); Carbon Dioxide 32 mmol/L (21-32); Chloride 103 mmol/L (98-108); Estimated Glomerular Filt Rate > 60; Glucose 78 mg/dL (70-99); Osmolality Calculated 293 mOsm/kg (285-295); Potassium 4.4 mmol/L (3.5-5.1); Sodium 141 mmol/L (136-145); Total Protein 6.6 g/dL (6.4-8.2)
== END 2024-09-14 23:59 | disposition home or self-care (01) ==
LOC: CHSLAB 09:02
PROVIDERS: PCP Internal Medicine Geriatric Medicine; Visit Provider Internal Medicine Rheumatology
DX: M06.9 Rheumatoid arthritis, unspecified (principal)
CPT/HCPCS: 36415; 80053; 85025

== ENCOUNTER 2024-07-20 11:40 | Outpatient (CLI) | payer MEDICARE, OTHER, SELFPAY ==
--- NOTE | ~2024-07-20 | XR_ITS ---
Left foot Technique: AP and lateral views were obtained. Clinical History: Rheumatoid arthritis Findings: No acute fracture or dislocation is seen. Marked generalized osteopenia present. Osseous al ignment is anatomic. Joint spaces are preserved without erosive or degenerative change. Soft tissues are unremarkable. Impression: No acute abnormality. Marked generalized osteopenia. Reviewed, dictated and finalized at [facility]. Impression: No acute abnormality. Marked generalized osteopenia.
--- NOTE | ~2024-07-20 | XR_ITS ---
Right foot Technique: AP and lateral views were obtained. Clinical History: Rheumatoid arthritis Findings: No acute fracture or dislocation is seen. Generalized osteopenia present. Osseous alignment is anatomic. Joint spaces are preserved without erosive or degenerative change. Soft tissues are unr emarkable. Impression: No acute abnormality. Marked generalized osteopenia. Reviewed, dictated and finalized at location . Impression: No acute abnormality. Marked generalized osteopenia.
--- NOTE | ~2024-07-20 | XR_ITS ---
XR hand BI arthritis min 3V Ordering provider: Cali Benavidez History: . Rheumatoid Arthritis,ALLI HAND PAIN . Comparison: May 08, 2023 FINDINGS: Left HAND: --BONES: No acute fracture or dislocation. Diffuse osteopenia. --JOINT SPACES: Narrowing of the metacarpophalangeal joint of the first and third fingers. --SOFT TISSUES: Unremarkable. No soft tissue swelling or nodules. Right HAND: --BONES: No acute fracture or dislocation. Diffuse osteopenia. --JOINT SPACES: Narrowing of the first, second, third and fourth metacarpophalangeal joints. Narrowin g of the distal interphalangeal joint of the little finger with deformity --SOFT TISSUES: Unremarkable. No soft tissue swelling or nodules. Postoperative changes in the distal right radius. IMPRESSION: 1. Diffuse osteopenia. Otherwise, No acute osseous abnormality bilateral hands. 2. Narrowing of multiple joints with highly suggestive rheumatoid arthritis. Deformity is seen in th e right little finger distal interphalangeal joint. Reviewed, dictated and finalized at location A. IMPRESSION: 1. Diffuse osteopenia. Otherwise, No acute osseous abnormality bilateral hands . 2. Narrowing of multiple joints with highly suggestive rheumatoid arthritis. D eformity is seen in the right little finger distal interphalangeal joint.
--- OUTSIDE RECORDS SUMMARY | 2024-07-20 12:27 | XMS_ITS | Encounter Summary ---
Author Organization [facility] Address [address] [place] [address] Care Team Providers Care House Mover Supervisor Name Role Phone Sabine Sheehan MD Primary Care Provider + [phone] Tonia Lee MD Unavailable [phone] Ravi Noland MD Unavailable [phone] Garrison Robison MD Unavailable [phone] Gomez Mauro MD Unavailable [phone] Sonny Dozier MD Unavailable [phone] Abdon Chapman MD Unavailable [phone] Ozzy Shirley MD PhD Unavailable + [phone] Umesh Figueroa MD Unavailable [phone] Rachell Mason OD Unavailable [phone] Melissa Smith MD Unavailable + [phone] Sonny Dozier MD Primary Care Provi kiera Sabine Sheehan MD Primary Care Provider + [phone] Sonny Dozier MD Unavailable [phone] Ana Pereira NP Unavailable [phone] Eric Hopkins MD Unavailable Gagandeep Garcia Unavailable [phone] Encounter Details Date Type Department Care Team (Late st Contact Info) Description 10/18/2020 Telephone [facility] [address] [place] [address] Tyra Cartern, RT Social History Tobacco Use Types Packs/Day Years Used Date Smoking Tobacco: Never Smokeless Tobacco: Never Alcohol Use Standard Drinks/Week Comments Never 0 (1 standard drink = 0.6 oz pur e alcohol) AUDIT-C Answer Date Recorded Frequency of Alcohol Consumption Never 12/01/2018 Average Number of Drinks Not on file 019 Frequency of Binge Drinking Not on file 11/16 PHQ-2 Answer Date Recorded PHQ-2 Total Score (If total score is 3 or more points, staff should administer the PHQ-9) 0 10/11/2020 Comments No Sex and Gender Information Value Date Recorded Sex Assigned at Not on file 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 [address] [place] [address] PCP - General Rheumatology 10/24/21 04/17/22 Sabine Sheehan MD [address] [place] [address] PCP - General Internal Medicine 04/18/22 Tonia Lee MD [address] [place] [address] Obstetrics and Gynecology 12/01/16 [place] [address] [facility] [address] [place] [address] Surgery 12/01/16 Garrison Robison MD [address] [facility] [address] [place] [address] Internal Medicine 12/01/16 Gomez Mauro MD [address] [place], [place] [address], [place] [address] Orthopedic Surgery 12/01/16 11/07/22 Sonny Dozier MD [address] [place] [address] Rheumatology 12/04/16 10/22/21 Abdon Chapman MD [address] [place], [place] [address] [id number] [place] [address] Referring Physician Gynecologic Oncology 12/10/17 Ozzy Shirley MD PhD [address] [place] [address] Radiation Oncologist Radiation Oncology 04/15/18 Umesh Figueroa MD [address] [place] [address] Radiation Oncologist Radiation Oncology 06/18/18 4 Rachell Mason OD [address] [place] [address] Optometry 06/30/18 Melissa Smith MD [address] [place] [address] Surgeon Orthopedic Surgery 01/11/19 Sonny Dozier MD [address] [facility] [address] [place] [address] Rheumatology 10/24/21 Ana Pereira NP [address] [facility] [address] [place] [address] 11/08/22 Eric Hopkins MD [address] [facility] [address] [place] [address] Surgeon Orthopedic Surgery 11/08/22 Gagandeep Garcia DO [address] [facility] [address] [place] [address] Consulting Physician Gastroenterology 12/24/23 documented as of this encounter
--- OUTSIDE RECORDS SUMMARY | 2024-07-20 12:28 | XMS_ITS | Clinical Summary ---
Author Organization [facility] Address [facility] [place] [address] Care Team Providers Care Pattern Marker Name Role Phone Sabine Sheehan MD Primary Care Provider [phone] Allergies Active Allergy Reactions Criticality Noted Date Comments Infliximab Anaphylaxis High 01/08/2019 Social History Tobacco Use Types Packs/Day Years Used Date Smoking Tobacco: Never Smokeless Tobacco: Never Alcohol Use Standard Drinks/Week Comments No 0 (1 standard drink = 0.6 oz pur e alcohol) AUDIT-C Answer Date Recorded Frequency of Alcohol Consumption Never 01/08/2019 Average Number of Drinks Not on file 019 Frequency of Binge Drinking Not on file 12/17 Comments No Sex and Gender Information Value Date Recorded Sex Assigned at Not on file Legal Sex Female 2:26 PM CDT Gender Identity Not on file Sexual Orientation Not on file Last Filed Vital Signs Vital Sign Reading Time Taken Comments Blood Pressure 115/57 01/08/2019 8:00 PM CDT Pulse 80 01/08/2019 7:20 PM CDT Temperature 37.1 C (98.7 F) 01/08/2019 2:30 PM CDT Respiratory Rate 19 01/08/2019 8:00 PM CDT Oxygen Saturation 98% 01/08/2019 8:00 PM CDT Inhaled Oxygen Concentration - - Weight 77.1 kg (170 lb) 01/08/2019 2:30 PM CDT Height 149.9 cm (4' 11 ) 01/08/2019 2:30 PM CDT Body Mass Index 34.34 01/08/2019 2:30 PM CDT Plan of Treatment Health Maintenance Due Date Last Done Comments Colorectal Cancer Screening Colonoscopy (10 Years) 1952 Hepatitis C 1970 DTaP, Tdap and Td Vaccines ( 1 - Tdap) 12/23/1971 Mammogram Screening 1992 Zoster Vaccines (1 of 2) 2002 Annual Medicare Wellness Visit 2017 Dexa Scan (General) 2017 Pneumococcal Vaccine: 50+ Years (3 of 3 - PCV20 or PCV21) 12/16/2019 12/15/2014, 05/24/2014, 02/17/2008 COVID-19 Vaccine (1 - 2023-2 5 season) 2023 RSV Immunization or 60+ Years (1 - 1-dose 75+ series) 12/23/2027 Meningococcal B Vaccine Aged Out No l onger eligible based on patient's age to complete this topic Meningococcal Vaccine Aged Out No augusta lisette eligible based on patient's age to complete this topic RSV Immunizations Under 20 Months Aged Out No longer eligible b ased on patient's age to complete this topic Insurance MEDICARE [employer] Care Teams Pattern Marker Relationship Specialty Start Date End Date Sabine Sheehan MD [address] [place] [address] PCP - General INTERNAL MEDICINE 01/08/19
--- OUTSIDE RECORDS SUMMARY | 2024-07-20 12:28 | XMS_ITS | Encounter Summary ---
Author Organization [place] [facility] Address [address] [place] [address] Phone Care Team Providers Care Flame Cutting Machine Operator Name Role Phone Sabine Sheehan MD Primary Care Provider + [phone] Tonia Lee MD Unavailable [phone] Ravi Noland MD Unavailable [phone] iGovanny Andrews MD Unavailable [phone] Garrison Robison MD Unavailable [phone] Gomez Mauro MD Unavailable [phone] Sonny Dozier MD Unavailable +[phone] Abdon Chapman MD Unavailable [phone] Ozzy Shirley MD PhD Unavailable + [phone] Umesh Figueroa MD Unavailable +[phone] Rachell Mason OD Unavailable [phone] Melissa Smith MD Unavailable + [phone] Sonny Dozier MD Primary Care Provi kiera Sabine Sheehan MD Primary Care Provider + [phone] Sonny Dozier MD Unavailable +[phone] Ana Pereira NP Unavailable [phone] Eric Hopkins MD Unavailable Gagandeep Garcia DO Unavailable [phone] Encounter Details Date Type Department Care Team (Late st Contact Info) Description 10/30/2016 Orders Only [facility] [address] [place] [address] Sabine Sheehan MD [address] [place] [address] Mixed hyperlipidemia (Primary Dx); Exposure to hepatitis B; Unspecified hypothyroidism Social History Tobacco Use Types Packs/Day Years Used Date Smoking Tobacco: Never Alcohol Use Standard Drinks/Week Comments No 0 (1 standard drink = 0.6 oz pur e alcohol) Comments Unknown Sex and Gender Information Value Date Recorded Sex Assigned at Not on file Legal Sex Female 7:52 PM YARN CONDITIONER Gender Identity Not on file Sexual Orientation Not on file documented as of this encounter Plan of Treatment Scheduled Orders Name Type Priority Associated Diagnoses Orde r Schedule Lipid panel Lab Routine Mixed hyperlipidemia Expected: 11/30/2016, Expires: 10/30/2017 documented as of this encounter Procedures Procedure Name Priority Date/Time Associated Diagnosis Comments CHOL/HDLC RATIO Routine 11/21/2016 8:01 AM CDT LDL-CHOLESTEROL Routine 11/21/2016 8:01 AM CDT NON HDL CHOLESTEROL Routine 11/21/2016 8 :01 AM CDT HEPATITIS C ANTIBODY Routine 11/21/2016 8:01 AM CDT Exposure to hepatitis B TRIGLYCERIDES Routine 11/21/2016 8:01 AM CDT TSH Routine 11/21/2016 8:01 AM CDT Unspecified hypothyroidism CHOLESTEROL, HDL Routine 11/21/2016 8:01 AM CDT CHOLESTEROL, TOTAL Routine 11/21/2016 8: 01 AM CDT documented in this encounter Results * (ABNORMAL) NON HDL CHOLESTEROL (11/21/2016 8:01 AM CDT) Non-HDL, (LDL+VLDL) 166(H) <130 mg/dL (calc) [facility] Comment: For patients with diabetes plus 1 major ASCVD risk factor, treating to a non-HDL-C goal of <100 mg/dL (LDL-C of <70 mg/dL) is considered a therapeutic option. 11/21/2016 8:01 AM CDT 11/21/2016 8:02 AM CDT Narrative [facility] - 11/22/2016 10:22 AM CDT FASTING:YES Resulting Agency Comment Performing Organization Information: Site ID: [facility] Name: [facility] Address: [address] [facility] [place] [address] Director: Braxton Khan D.O. MPH Sabine Sheehan MD LAB BLOOD ORDERABLES Final Result Performing Organization Address City/[facility]/ZIP Co de Phone Number [facility] [place] [place] * CHOL/HDLC RATIO (11/21/2016 8:01 AM CDT) Chol/HDL ratio 3.6 <5.0 (calc) [facility] [employer] [facility] 11/21/2016 8:01 AM CDT 11/21/2016 8:02 AM CDT Narrative [facility] - 11/22/2016 10:22 AM CDT FASTING:YES Resulting Agency Comment Performing Organization Information: Site ID: [place] Name: [facility] Address: [address] [facility] [place] [address] Director: Braxton Khan D.O. MPH Sabine Sheehan MD LAB BLOOD ORDERABLES Final Result Performing Organization Address [facility]/ZIP Co de Phone Number [facility] [place] [place] * (ABNORMAL) LDL-Cholesterol (11/21/2016 8:01 AM CDT) LDL 144(H) mg/dL (calc) [facility] [place] Comment: Reference range: <100 Desirable range <100 mg/dL for patients with CHD or diabetes and <70 mg/dL for diabetic patients with known heart disease. The ShawnaShaw calculation is a validated novel method that provides better accuracy than the Friedewald equation in the estimation of LDL-C, particularly when TG levels are 150-400 mg/dL and LDL-C levels are lower than 70 mg/dL. Reference: Ricardo DAI et al. Comparison of a Novel Method vs the Friedewald Equation for Estimating Low-Density Lipoprotein Cholesterol Levels From the Standard Lipid Profile. HIRAM. 2013;310(19): 0603-3317. For additional information, please refer to http://education.INTERNET BUSINESS TRADER/faq/AJB760 (This link is being provided for informational/ educational purposes only.) 11/21/2016 8:01 AM CDT 11/21/2016 8:02 AM CDT Narrative [facility] - 11/22/2016 10:22 AM CDT FASTING:YES Resulting Agency Comment Performing Organization Information: Site ID: [place] Name: [facility] Address: [address] [place] [address] Director: Braxton Khan D.O. MPH us Sabine Sheehan MD LAB BLOOD ORDERABLES Final Result [facility] [employer] [facility] [place] * Triglycerides (11/21/2016 8:01 AM CDT) Triglycerides 105 <150 mg/dL [employer] [facility] 11/21/2016 8:01 AM CDT 11/21/2016 8:02 AM CDT Narrative [facility] - 11/22/2016 10:22 AM CDT FASTING:YES Resulting Agency Comment Performing Organization Information: Site ID: [facility] Name: [facility] Address: [address] [place] [address] Director: Braxton Khan D.O. MPH us Sabine Sheehan MD LAB BLOOD ORDERABLES Final Result [facility] [place] * Cholesterol, HDL (11/21/2016 8:01 AM CDT) HDL 65 >50 mg/dL [facility] [place] 11/21/2016 8:01 AM CDT 11/21/2016 8:02 AM CDT Narrative [facility] - 11/22/2016 10:22 AM CDT FASTING:YES Resulting Agency Comment Performing Organization Information: Site ID: AUGUST Name: [employer] Address: [address] [place] [address] Director: Braxton Khan D.O. MPH Sabine Sheehan MD LAB BLOOD ORDERABLES Final Result Performing Organization Address [facility] Co de Phone Number [facility] [place] * (ABNORMAL) Cholesterol, total (11/21/2016 8:01 AM CDT) Cholesterol 231(H) <200 mg/dL [facility] 11/21/2016 8:01 AM CDT 11/21/2016 8:02 AM CDT Narrative [facility] - 11/22/2016 10:22 AM CDT FASTING:YES Resulting Agency Comment Performing Organization Information: Site ID: [place]UST Name: [facility] Address: [address] [place] [address] Director: Braxton Khan D.O. MPH Sabine Sheehan MD LAB BLOOD ORDERABLES Final Result Performing Organization Address City/[facility]/ZIP Co de Phone Number [facility] [place] * TSH (11/21/2016 8:01 AM CDT) TSH 1.25 0.40 - 4.50 mIU/L [facility] Blood specimen (specimen) 11/21/2016 8:01 AM CDT 11/21/2016 8:02 AM CDT Narrative [facility] - 11/22/2016 10:22 AM CDT FASTING:YES Resulting Agency Comment Performing Organization Information: Site ID: AUGUST Name: [facility] Address: [address] [place], [place] [address] [address] Director: Braxton Khan D.O., MPH Sabine Sheehan MD LAB BLOOD ORDERABLES Final Result Performing Organization Address [facility] de Phone Number [facility] [place] * Hepatitis C antibody (11/21/2016 8:01 AM CDT) Hep C Ab NON-REACTI VE NON-REACTI VE [facility] SIGNAL TO CUT-OFF 0.47 <1.00 [facility] Blood specimen (specimen) 11/21/2016 8:01 AM CDT 11/21/2016 8:02 AM CDT Narrative [facility] - 11/22/2016 10:22 AM CDT FASTING:YES Resulting Agency Comment Performing Organization Information: Site ID: AUGUST Name: [facility] Address: [address] [place], [place] [address] [place] [address] Director: Braxton Khan D.O., MPH us Sabine Sheehan MD LAB MICROBIOLOGY - GENERAL ORDERABLES Final Result Performing Organization Address [facility] de Phone Number AUGUST E[place] documented in this encounter Visit Diagnoses Diagnosis Mixed hyperlipidemia- Primary Exposure to hepatitis B Contact with or exposure to other viral diseases Unspecified hypothyroidism documented in this encounter Additional Health Concerns Infection Onset Date Last Indicated Resolved Time COVID: Suspected 04/11/2020 04/11/2020 04/11/2020 2:48 PM YARN CONDITIONER Respiratory Infection (KRYSTEN), contact + droplet Comment:Automatically added due to negative COVID-19 result. 04/11/2020 04/11/2020 04/25/2020 3:0 6 AM YARN CONDITIONER COVID: Suspected 09/06/2020 09/06/2020 09/07/2020 9:46 AM CDT documented as of this encounter Care Teams Flame Cutting Machine Operator Relationship Specialty Start Date End Date Sabine Sheehan MD PCP - General 06/15/16 10/23/21 Sonny Dozier MD [address] [place] [address] PCP - General Rheumatology 10/24/21 04/17/22 Sabine Sheehan MD [address] [place] [address] PCP - General Internal Medicine 04/18/22 Tonia Lee MD [address] [place] [address] Obstetrics and Gynecology 12/01/16 [place] [address] [place] [address] Surgery 12/01/16 Giovanny Andrews MD [address] [place] [address] Rheumatology 12/01/16 12/03/16 Garrison Robison MD [address] [place] [address] Internal Medicine 12/01/16 Gomez Mauro MD [address] [place] [address] Orthopedic Surgery 12/01/16 11/07/22 Sonny Dozier MD [address] [address] Rheumatology 12/04/16 10/22/21 Abdon Chapman MD [address] [facility] [phone] [place] [address] Referring Physician Gynecologic Oncology 12/10/17 Ozzy Shirley MD PhD [address] [place] [address] Radiation Oncologist Radiation Oncology 04/15/18 Umesh Figueroa MD [address] [place] [address] Radiation Oncologist Radiation Oncology 06/18/18 Rachell Marquez OD [address] [place] [address] Optometry 06/30/18 Melissa Smith MD [address] [place] [address] Surgeon Orthopedic Surgery 01/11/19 Sonny Dozier MD [address] [place] [address] Rheumatology 10/24/21 Ana Pereira NP [address] [facility] [address] [place] [address] 11/08/22 Eric Hopkins MD [address] [place] [address] [place] [address] Surgeon Orthopedic Surgery 11/08/22 Gagandeep Garcia DO [address] [facility] [place] [address] Consulting Physician Gastroenterology 12/24/23 documented as of this encounter
--- OUTSIDE RECORDS SUMMARY | 2024-07-20 12:28 | XMS_ITS | Clinical Summary ---
Author Organization [facility] Address [facility] [place] [address] Care Team Providers Care Scheduler Conveyor Name Role Phone Marianela Sheehan MD Primary Care Provider Giovanny Andrews MD Unavailable Unavailable Lyndsay Sanchez RN Unavailable Source Comments [facility],non-owned Affiliates and Associated Physician Practices is amultiple site organization consisting of ambulatory clinics and hospital sitesin [place], [place], [place] and [place]. This disclosure is being madepursuant to the Care Everywhere program and may not contain all information available regarding this patient. Last updated 17.[facility] Allergies Active Allergy Reactions Criticality Noted Date Comments Leflunomide Rash 01/07/2009 Abatacept Rash Low 05/17/2010 Eczema flared on treatment Infliximab Injection Anaphylaxis High 05/17/2010 Medications * Be aware that medications may not be up to date on this document. Alwaysverify current medications with the patient. fish oil/omega-3 fatty acids (FISH OIL) 1000 MG capsuleIndicati ons:Rheumatoid arthritis(714.0 ) (HCC) Take 1 Cap by mouth 3 times daily. 90 12 9 Active vitamin D3-cholecalcife rol (CHOLECACIFEROL ) 400 UNIT tablet Take 400 Units by mouth daily. Active Probiotic Product (PRO-BIOTIC BLEND) CAPS Take 1 Cap by mouth once daily Active folic acid (FOLVITE) 1 MG tablet Take 1 Tab by mouth once daily. 30 Tab 12 5 Active Multiple Vitamin (MULTIVITAMINS PO) Take 1 Tab by mouth once daily Bariatric patient Active CALCIUM CITRATE-VITAMIN D PO Take 2 Tabs by mouth 3 times daily Bariatric patient Active thiamine (VITAMIN B-1) 100 MG tablet Take 100 mg by mouth once daily Bariatric patient Active RESTASIS 0.05 % ophthalmic suspension INSTILL 1 DROP INTO BOTH EYES TWICE A DAY 3 6 Active XELJANZ XR 11 MG tablet 6 Active predniSONE (DELTASONE) 5 MG tablet TAKE 1 TO 2 TABLETS BY MOUTH EVERY DAY NEEDED 6 6 Active levothyroxine (SYNTHROID) 88 MCG tablet Take 88 mcg by mouth once daily 1 7 Active methotrexate 50 MG/2ML injection 7 Active B-D TB SYRINGE 1CC/26GX3/8 26G X 3 1 ML MISC 7 Active Active Problems Problem Noted Date Diagnosed Date Morbid obesity 05/10/2015 Morbid obesity 02/17/2015 Plantar fasciitis 01/26/2011 Overview (01/26/2011): 01/26/2011 cortisone shot today Osteopenia 07/18/2010 Overview (07/18/2010): 07/18/2010 discussed plan to hold off on Fosamax and continue to wean off prednisone (dose is low.) High risk medications (not anticoagulants) long- term use 02/16/2010 Overview (2010): 2010 CBC CMP wnl Eczema 01/28/2009 Overview (09/29/2009): This seems to be since on Orencia or Arava She reports rash was present prior to starting the Orencia 07/19/2009 resolved with stoppage of Arava and Orencia 09/29/2009 rash returned when Orencuia restarted ILD (interstitial lung disease) 09/16/2008 Overview (05/26/2013): 09/16/2008 possible reaction to MTX Stopped soon after no further lung inflammation noted. 05/26/2013 no lung issues Alopecia 06/17/2008 Overview (06/17/2008): 06/17/2008 Since on MTX 25mg weekly and MVI High blood cholesterol 05/19/2008 Rheumatoid arthritis 06/16/2007 Overview (01/23/2015): 05/23RF 154 BOURGEOIS= 5.24 Rapid 3= 20.7 AM stiff= 30min Sc 10 Tc 8 Xray RA erosive changes H10 W2 MTX started 01/23 Rapid3=8.3 on MTX 06/24 started Remicade in addition to MTX Had done well until illness following 07/24 dose 09/16/2008 arthritis flaring MTX stopped due to lung infection.(work up for lung infection) started Arava 10/19/2008 doing well Rapid3=9.7 no diarrhea with Arava but taking prednisone to control flare of RA symptoms. Suggest Orencia patient agrees 01/07/2009 discussed a chronic rash that started when Arava was added and has progressively worsened Arthritis is well controlled and Rapid3=6.7 on Orencia onset of benefit was delayed for several weeks. 01/28/2009 she has developed extensive eczema off leflunamide. I will stop Orencia and stay off Arava. 02/16/2009 orencia is the issue it seems 03/08/2009 augusta Isidro not sure what the rash is due to. stay off DMARDs 04/19/2009 Dermatitis is chronic no biopsy 07/19/2009 Ra flared RAsh is gone Will restart Orencia S12T14 BOURGEOIS=4.91 02/16/2010 She has bad RA S14T14 R3=11.7 Will try to go back to Remicade Ultrasound examination indicates the presence of acute inflammation at multiple MCP joints 05/17/2010 poor reaction to Remicade possible anaphylaxis Will try Azathioprine 07/18/2010 tolerates MTX fine 01/26/2011 plaquenil azathioprine low dos prednisone 11/29/2011 R3=8.3 in Imuran and plaquenil 05/26/2013 R3=9 on prednisone 2.5 mg daily Azathioprine and plaquenil. Diagnostic ultrasound for causes of bilateral hand pain Immunizations Immunization Administration Dates Next Due INFLUENZA VACCINE 02/02/2010 PNEUMOCOCCAL PPSV23 02/17/2008 Pneumococcal Pcv13 Conj 05/24/2014 Family History Medical History Relation Name Comments Arthritis - Rheumatoid Maternal Grandfather Diabetes Maternal Grandmother Arthritis - Rheumatoid Mother Diabetes Mother Diabetes Sister 8 Relation Name Status Comments Brother 1 Alive Brother 2 Alive Brother 3 Alive Brother 4 Alive Brother 5 Alive Father Maternal Grandfather Maternal Grandmother Mother Sister 1 Alive Sister 2 Alive Sister 3 Alive Sister 4 Alive Sister 5 Alive Sister 6 Sister 7 Alive Sister 8 Social History Tobacco Use Types Packs/Day Years Used Date Smoking Tobacco: Never Smokeless Tobacco: Never Alcohol Use Standard Drinks/Week Comments No 0 (1 standard drink = 0.6 oz pur e alcohol) Comments No Sex and Gender Information Value Date Recorded Sex Assigned at Not on file Legal Sex Female 6:36 AM HEAD CHAR FILTER TANK TENDER Gender Identity Not on file Sexual Orientation Not on file Occupation Industry Job Start Date Job End Date retired Not on file Not on file Not on file Last Filed Vital Signs Vital Sign Reading Time Taken Comments Blood Pressure 138/77 06/04/2017 10:38 AM CDT Pulse 67 06/04/2017 10:38 AM CDT Temperature 36.8 C (98.2 F) 05/19/2015 9:45 AM HEAD CHAR FILTER TANK TENDER Respiratory Rate 18 05/12/2015 3:22 PM HEAD CHAR FILTER TANK TENDER Oxygen Saturation 97% 05/12/2015 3:22 PM HEAD CHAR FILTER TANK TENDER Inhaled Oxygen Concentration - - Weight 82.1 kg (181 lb) 06/04/2017 10:38 AM CDT Height 151.8 cm (4' 11.75 ) 06/04/2017 10:38 AM CDT Body Mass Index 35.65 06/04/2017 10:38 AM CDT Plan of Treatment Health Maintenance Due Date Last Done Comments BONE DENSITY TESTING 1950 COLOGUARD (AGES 45-75) - COLON CA SCREENING 1950 COLON MONITORING 1952 COLONOSCOPY - COLON CA SCREENING 1952 CT COLONOGRAPHY - COLON CA SCREENING 1950 Colorectal Cancer Screening 1950 FIT - COLON CA SCREENING 1950 FLEX SIG - COLON CA SCREENING 1950 LIPID TESTING 1950 MAMMOGRAM 1950 HEPATITIS C SCREENING 12/18/1970 DTAP/TDAP/TD VACCINES (1 - Tdap) 12/23/1971 ZOSTER VACCINE (1 of 2) 2002 SCREENING FOR DIABETES 11/13/2018 6, 05/12/2015, 05/12/2015, Additional history exists PNEUMOCOCCAL VACCINE 50+ (3 of 3 - PCV20 or PCV21) 05/25/2019 05/24/2014, 02/17/2008 COVID-19 VACCINE (1 - 2023- season) 2023 DEPRESSION SCREENING 03/18/2024 INFLUENZA VACCINE (Season Ended) 2024 11/16/2016, 01/17/2016, 01/14/2015, Additional history exists Respiratory Syncytial Virus (RSV) Vaccine Pt: or over 60 yrs (1 - 1-dose 75+ series) 12/23/2027 HEPATITIS B VACCINE Aged Out No longe r eligible based on patient's age to complete this topic HIB VACCINE Aged Out No longer eligi ble based on patient's age to complete this topic HPV VACCINE Aged Out No longer eligi ble based on patient's age to complete this topic MENINGOCOCCAL (Group B) VACCINE SHARED DECISION-MAKING Aged Out No longer eligible based on patient's age to complete this topic MENINGOCOCCAL GROUPS A/C/Y/W VACCINE Aged Out No longer eligible based on patient's age to complete this topic Procedures Procedure Name Priority Date/Time Associated Diagnosis Comments COMPREHENSIVE METABOLIC PANEL Routine 11/14/2015 11:07 AM CDT Bariatric surgery status from Last 3 Months or Most Recently Relevant to Health Maintenance Results * COMPREHENSIVE METABOLIC PANEL (11/14/2015 11:07 AM CDT) Glucose 81 74 - 106 mg/dL 11/14/2015 12:18 PM CDT [facility] Sodium 140 136 - 145 mmol/L 11/14/2015 12:18 PM CDT [facility] Potassium 3.5 3.5 - 5.1 mmol/L 11/14/2015 12:18 PM CDT [facility] Chloride 105 98 - 107 mmol/L 11/14/2015 12:18 PM CDT [facility] CO2 29 22 - 31 mmol/L 11/14/2015 12:18 PM CDT [facility] Calcium 9.7 8.5 - 10.1 mg/dL 11/14/2015 12:18 PM CDT [facility] Anion Gap 6 5 - 20 mmol/L 11/14/2015 12:18 PM CDT [facility] BUN 16 7 - 21 mg/dL 11/14/2015 12:18 PM CDT [facility] Creatinine 0.61 0.50 - 1.30 mg/dL 11/14/2015 12:18 PM CDT [facility] Alkaline Phosphatase 76 38 - 126 U/L 11/14/2015 12:18 PM CDT [facility] ALT 22 13 - 61 U/L 11/14/2015 12:18 PM CDT [facility] Comment:See reference range update AST 18 5 - 40 U/L 11/14/2015 12:18 PM CDT [facility] Protein Total 7.7 6.4 - 8.2 gm/dL 11/14/2015 12:18 PM CDT [facility] Albumin 3.7 3.4 - 5.0 gm/dL 11/14/2015 12:18 PM CDT [facility] Bilirubin Total 0.4 0.2 - 1.0 mg/dL 11/14/2015 12:18 PM CDT [facility] eGFR by MDRD >60 >60 mL/min/1.7 3m2 11/14/2015 12:18 PM CDT [facility] eGFR by MDRD >60 >60 mL/min/1.7 3m2 11/14/2015 12:18 PM CDT [facility] Blood BLOOD SPECIMEN / Unknown Lab Venipuncture / Unknown 11/14/2015 11:07 AM CDT 11/14/2015 11:50 AM CDT us Ravi Noland MD LAB - CHEMISTRY ORDERABLES nal Result [facility] [address] [place] [address] from Last 3 Months or Most Recently Relevant to Health Maintenance Insurance [employer]ERCIAL GENERIC MEDICARE Advance Directives * Full Code (Latest Code Status on File) Date Activated Date Inactivated Comments 05/10/2015 12:24 PM 05/12/2015 7:04 PM Care Teams Scheduler Conveyor Relationship Specialty Start Date End Date Marianela Sheehan MD [address] [place] [address] PCP - General 09/16/08 Giovanny Andrews MD [address] [address] Rheumatology 01/25/11 Lyndsay Sanchez, RN Auger Press Operator 05/10/15
--- OUTSIDE RECORDS SUMMARY | 2024-07-20 12:28 | XMS_ITS | Encounter Summary ---
Author Organization Formerly [facility] Address [address] [place] [address] Care Team Providers Care School Superintendent Name Role Phone LeeTonia MD Unavailable [phone] Ravi Noland MD Unavailable [phone] Garrison Robison MD Unavailable [phone] Abdon Chapman MD Unavailable [phone] Ozzy Shirley MD PhD Unavailable + [phone] Rachell Masont OD Unavailable [phone] Melissa Smith MD Unavailable + [phone] Sabine Sheehan MD Primary Care Provider + [phone] Sonny Dozier MD Unavailable [phone] Ana Pereira NP Unavailable [phone] Eric Hopkins MD Unavailable Gagandeep Garcia DO Unavailable [phone] Encounter Details Date Type Department Care Team (Late st Contact Info) Description 07/31/2023 Orders Only [facility] [address] [place] [address] Scanning, Provider Social History Tobacco Use Types Packs/Day Years Used Date Smoking Tobacco: Never Smokeless Tobacco: Never Alcohol Use Standard Drinks/Week Comments Never 0 (1 standard drink = 0.6 oz pur e alcohol) OASIS D0700: Social Isolation Answer Da te Recorded Frequency of experiencing loneliness or isolatio n Never 07/25/2022 OASIS A1250: Transportation Answer Date Recorded Lack of Transportation (Medical) No 07/25/2022 Lack of Transportation (Non-Medical) No 07/25/2022 Patient Unable or Declines to Respond No 07/25/2022 OASIS B1300: Health Literacy Answer Gustabo e Recorded Frequency of needing help to read materials from doctor or pharmacy Never 07/25/2022 AUDIT-C Answer Date Recorded Q1: How often do you have a drink containing alc ohol? 2-3 times a week 06/11/2022 Q2: How many drinks containi ng alcohol do you have on a typical day when you are drinking? 1 or 2 06/11/2022 Q3: How often do you have si x or more drinks on one occasion? Never 06/11/2022 PHQ-2 Answer Date Recorded PHQ-2 Total Score (If total score is 3 or more points, staff should administer the PHQ-9) 0 11/08/2022 Personal Safety Answer Date Recorded Getting School Help Needed Not on file 06/22 Comments No Sex and Gender Information Value Date Recorded Sex Assigned at Not on file Legal Sex Female 7:52 PM SUSTAINABILITY DIRECTOR Gender Identity Not on file Sexual Orientation Not on file Occupation Industry Job Start Date Job End Date Retired Not on file Not on file Not on file documented as of this encounter Plan of Treatment Not on file documented as of this encounter Procedures Procedure Name Priority Date/Time Associated Diagnosis Comments SCAN - LABS 07/31/2023 documented in this encounter Results * SCAN - LABS (07/31/2023) us Provider Scanning Final Result documented in this encounter Visit Diagnoses Not on filedocumented in this encounter Care Teams School Superintendent Relationship Specialty Start Date End Date Sabine Sheehan MD [address] [place] [address] PCP - General Internal Medicine 04/18/22 Tonia Lee MD [address] [place] [address] Obstetrics and Gynecology 12/01/16 [place] [address] [facility] [address] [place] [address] Surgery 12/01/16 Garrison Robison MD [address] [place] [address] [facility] [address] [place] [address] Internal Medicine 12/01/16 Abdon Chapman MD [facility] [address] [facility] [id number] [place] [address] Referring Physician Gynecologic Oncology 12/10/17 Ozzy Shirley MD PhD [address] [place] [address] Radiation Oncologist Radiation Oncology 04/15/18 Rachell Mason OD [address] [place] [address] Optometry 06/30/18 Melissa Smith MD [address] [place] [address] Surgeon Orthopedic Surgery 01/11/19 Sonny Dozier MD [address] [facility] [address] [place], [place] [address] Rheumatology 10/24/21 Ana Pereira, PONCE [address] [facility] [address] [place] [address] 11/08/22 Eric Hopkins MD [address] [facility] [address] [address] Surgeon Orthopedic Surgery 11/08/22 Gagandeep Garcia DO [address] [facility] [address] [address] Consulting Physician Gastroenterology 12/24/23 documented as of this encounter
--- OUTSIDE RECORDS SUMMARY | 2024-07-20 12:28 | XMS_ITS | Referral Summary ---
Author Organization [facility] [address] Address [address] [place] [address] Phone Care Team Providers Care Mobile Equipment Mechanic Name Role Phone Tonia Lee MD Unavailable [phone] Ravi Noland MD Unavailable [phone] Garrison Robison MD Unavailable [phone] Abdon Chapman MD Unavailable [phone] Ozzy Shirley MD PhD Unavailable + [phone] Rachell Masont OD Unavailable Melissa Smith MD Unavailable + [phone] Sabine Tabares MD Primary Care Provider + [phone] Sonny Molina MD Unavailable [phone] Ana Pereira NP Unavailable [phone] Eric Hopkins MD Unavailable Gagandeep Garcia DO Unavailable [phone] Encounters Date Type Department Care Team Description 06/01/2024 Telephone [facility] [address] [place] [address] Sabine Tabares MD [facility] 05/28/2024 11:30 AM CDT Ancillary Procedure [facility] [address] [place] [address] RUQ pain 05/26/2024 Telephone [facility] [address] [place] [address] Sabine Tabares MD Teriparatide no longer covered 05/25/2024 Results Follow-Up [facility] [address] [place] [address] Melissa Pelra NP 05/25/2024 3:40 PM CDT Lab [facility] [address] [place] [address] RUQ pain 05/25/2024 Telephone [facility] [address] [place] [address] Sabine Tabares MD 05/25/2024 3:00 PM CDT Office Visit [facility] [address] [place] [address] Melissa Perla NP RUQ pain (Primary Dx); Bariatric surgery status; History of endometrial cancer 05/25/2024 Telephone [facility] [address] [place] [address] Sabine Tabares MD Abdominal Pain from Last 3 Months Allergies Active Allergy Reactions Criticality Noted Date Comments Abatacept Rash Medium Alendronate Other (See comments) Low 12/10/2017 left-sided jaw pain Infliximab Anaphylaxis High Leflunomide Rash Medium 01/07/2009 Abatacept (With Maltose) Rash Medium 10/17/2017 Abaloparatide Hives Medium 01/18/2023 Rapid heartbeat, nausea, headache , blister on the skin, body pain, neck tingling. She was tolerating Forteo well Medications cholecalciferol (VITAMIN D-3) 1,000 unit tablet take 1 by Oral route every day 90 3 07/11/19 12 Active L.rhamn A-191-L.ac-B.georgi-B .augusta (PROBIOTIC) 20 billion cell capsule, sprinkle take 1 by Oral route every morning 0 02/13/20 12 Active cycloSPORINE (RESTASIS) 0.05 % ophthalmic emulsion 1 drop 2 (two) times a day Dr. Marroquin Active multivitamin tablet Take 0.5 tablets by mouth Active krill oil 500 mg capsule Take 1,000 mg by mouth daily Active leucovorin 5 mg tablet TAKE ONE TABLET BY MOUTH 24 HOURS AFTER METHOTREXATE DOSE WEEKLY. 0 09/27/19 19 Active Xeljanz 5 mg tablet Take 2 tablets (10 mg total) by mouth daily 08/05/19 21 Active BD SafetyGlide TB Reg Bevel 1 mL 27 x 1/2 syringe TO BE USED WITH METHOTREXATE 08/02/19 22 Active methotrexate 25 mg/mL injection solution 08/30/19 24 Active turmeric root extract 500 mg capsule Take by mouth daily Active levothyroxine (SYNTHROID) 75 mcg tabletIndications: Hypothyroidism, adult Take 1 tablet (75 mcg total) by mouth daily 90 tablet 3 12/24/19 24 025 Active rosuvastatin (CRESTOR) 10 mg tabletIndications: Multiple-type hyperlipidemia Take 1 tablet (10 mg total) by mouth daily 90 tablet 3 12/24/19 24 Active teriparatide (FORTEO) 20 mcg/dose (600mcg/2.4mL) injectionIndicatio ns:postmenopausal osteoporosis and high fracture risk Inject 0.08 mL (20 mcg total) under the skin daily Insurance requires brand name Forteo. 2.4 mL 11 06/02/19 25 026 Active Active Problems Problem Noted Date Diagnosed Date RUQ pain 05/25/2024 At high risk for injury related to fall 12/24/19 24 Dental disease 12/24/2023 Family history of colon cancer in father 024 Encounter for screening colonoscopy 12/17/2023 Closed fracture of right distal radius 4 Periprosthetic fracture of knee 06/10/2022 History of endometrial cancer 10/11/2020 Osteoporosis, idiopathic 06/03/2017 Overview (10/19/2020): AP LUMBAR SPINE L1-L4:Total BMD is 0.798 g/cm2 T-score is -2.3 LEFT HIP: Total BMD is 0.679 g/cm2 T-score is -2.2 Femoral neck BMD is 0.487 g/cm2 T-score is -3.3 Overview: 07/18/2010 discussed plan to hold off on Fosamax and continue to wean off prednisone (dose is low.) Family history of colon cancer 06/03/2017 Overview (06/03/2017): Colonoscopy test -2003, 2008, 2013, due every 5 years Bariatric surgery status 06/02/2017 Pes planus of both feet 12/04/2016 Overview (12/04/2016): Conservative treatment given December 02 Class 1 obesity with serious comorbidity and body mass index (BMI) of 31.0 to 31.9 in adult 08/01/2013 Overview (10/17/2017): Obesity, morbid (more than 100 lbs over ideal weig Rheumatoid arthritis involving multiple joints ( [facility]) 08/01/2013 Overview (06/22/2016): Rheumatoid arthritis Hypothyroidism, adult 08/01/2013 Overview (06/22/2016): Hypothyroid Multiple-type hyperlipidemia 08/01/2013 Overview (06/22/2016): Hyperlipidemia Resolved Problems Problem Noted Date Diagnosed Date Resolved Date Encounter for screening colonoscopy 12/17/2023 12/24/2023 Acute pain due to trauma 06/12/2022 ABLA (acute blood loss anemia) 06/12/2022 11/08/2022 Cough 09/06/2020 10/11/2020 Assessment & Plan (09/15/2020 7:58 AM CDT): Patient returns for follow up on cough and fever. Fever has resolved. Cough has improved significantly, patient is now only noting in the am and is noted associated post nasal discharge. We discussed symptom management with continued sinus care for this issue. CXR done after previous visit did not show any acute cardiopulmonary process. Patient was instructed to call with any worsening or persistent symptoms. Assessment & Plan (09/07/2020 7:49 AM CDT): Patient presents with reports of dry non-productive cough x 2 weeks. Over the last 3 days she has developed fever as high as 102. Etiology is unclear. Rapid covid testing completed and negative. There is concern for underlying pneumonia in the setting of her immunosuppressive therapies and ILD. We will do CXR to r/o any acute cardiopulmonary process. We will also increase steroids x 5 days and add antibiotic therapy as discussed with Dr. Tabares. She will return next week for follow up or sooner if needed. Fever 09/06/2020 10/11/2020 Assessment & Plan (09/07/2020 7:51 AM CDT): Most likely secondary to underlying viral infection. Labs will be done along with CXR for further evaluation. At this time patient will continue with fluids and tylenol for fever management. 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 Pain is reproducible in nature appearing to be musculoskeletal. Does not appear cardiac. She denies associated symptoms of SOB, palpitations, N/V or diaphoresis. Patient has significant history of RA and this pain is most likely d/t arthritis that has been poorly controlled recently. We discussed increasing her prednisone to 10mg a day for the next 5 days then back to 5mg a day. She will have CXR to r/o acute cardiopulmonary process. She was instructed to keep her upcoming visit with rheumatology. She is to call or go to ER with unresolved or worsening chest pain. Understanding verbalized. Suspected COVID-19 virus infection 04/11/2020 11/08/2022 Assessment & Plan (04/11/2020 3:03 PM PRODUCT PROMOTER SALES PERSON): With patient new onset of body aches she was concerned for possible COVID-19. Rapid testing completed and negative. See above treatment Abnormal blood level of copper 10/05/2019 10/11/2020 Overview (10/05/2019): 10/05/2019= Developed after completing chemotherapy for endometrial cancer. She has bariatric surgery patient. Level 1.65 upper limit 1.45 retesting in 6 months. Acute blood loss anemia 01/10/201909/15 Acute pain due to trauma 01/09/2019 Closed fracture of left femur 01/08/2019 09/29/2019 Overview (01/09/2019): Added automatically from request for surgery [id number] Colon cancer screening 10/21/201801/09 Overview (10/21/2018): Added automatically from request for surgery [id number] Nail dystrophy 06/30/2018 09/29/2019 Peripheral neuropathy due to chemotherapy 02/18/2018 10/11/2020 Malignant neoplasm of overla pping sites of corpus uteri 10/22/2017 12/24/2023 Cancer Staging:Pathologic stage from 04/15/2018:FIGO Stage II(pT2, pN0(sn), cM0) - Signed by Ozzy Shirley MD PhD on 04/15/2018 Overview (04/12/2018): 6 cycles of chemotherapy for stage II Endometrial cancer. tumor conference debate about site of origin but this would most likely be best classified as Endometrial cancer. Stage 2 Grade 3 endometrial cancer Serous type versus Cervical primary- plan to proceed with labs, CAP cT SCAN was negative. She did well with chemotherapy x 6 cycles.. and possibly RT in the future. HER-2 testing was negative. I'll have her get a consultation in [place] for pelvic RT; We discussed the results of GOG 258 Bloating symptom 10/22/2017 09/29/2019 Overview (10/22/2017): Added automatically from request for surgery [id number] Insufficiency of tear film of both eyes 12/04/2016 06/02/2017 Overview (12/04/2016): Following with Dr. Marlon delarosa at [facility] receiving re-stasis Rheumatoid arthritis 12/04/2016 019 Overview (10/17/2017): Flattened arches, ankle arthritis, bilateral knee arthritis post replacements by the Dr. Mauro right March 2007 left June 2007 Overview: 05/23RF 154 BOURGEOIS= 5.24 Rapid 3= 20.7 [...] orencia is the issue it seems 03/08/2009 dwalyssa Isidro not sure what the rash is [...] ultrasound for causes of bilateral hand pain ITB syndrome 12/04/2016 06/02/2017 Overview (12/04/2016): Left hip November 2016 taught exercises Obesity (BMI 30-39.9) 12/01/20162019 Chronic pain disorder 12/01/20162021 Atrophic vaginitis 08/01/2013 0 Overview (06/22/2016): Postmenopausal Plantar fasciitis 01/26/2011 09/29/2019 Overview (10/17/2017): Overview: 01/26/2011 cortisone shot today High risk medications (not a nticoagulants) long-term use 02/16/2010 10/17/2021 Overview (10/17/2017): Overview: 2010 CBC CMP wnl Eczema 01/28/2009 09/29/2019 Overview (10/17/2017): Overview: This seems to be since on Orencia or Arava She reports rash was present prior to starting the Orencia 07/19/2009 resolved with stoppage of Arava and Orencia 09/29/2009 rash returned when Orencuia restarted ILD (interstitial lung disease) ([facility]) 09/16/2008 11/09/2021 Overview (11/09/2021): Overview: 09/16/2008 possible reaction to MTX Stopped soon after no further lung inflammation noted. 05/26/2013 no lung issues October 2021 workup for the question of diagnosis I LD confirm there is no I will need INFORM HER VERY GOOD NEWS, WE INVESTIGATED for diagnosis of interstitial lung disease that was listed on her chart at the time of her annual physical. Her chest x-ray is normal. Her lung function study is normal including a normal diffusion capacity. She does not have interstitial lung disease = ILD . I would like to send A copy of these results to her alumni coordinator however Dr. MOLINA informs me that she is no longer her alumni coordinator. Please find out who is the current alumni coordinator , add this person to her care team, and please send a copy of these results and this note to that physician. Dr. Tabares Assessment & Plan (09/07/2020 7:50 AM CDT): Patient has history of ILD and is reporting issues with cough. Her last CT in May per oncology showed persistent findings consistent with ILD. As noted under cough-antibiotic therapy and steroids will be initiated. She will f/u in one week, once back to baseline will need PFT for further evaluation. Alopecia 06/17/2008 09/29/2019 Overview (10/17/2017): Overview: 06/17/2008 Since on MTX 25mg weekly and MVI High blood cholesterol 05/19/200801/09 Immunizations Immunization Administration Dates Next Due Influenza, Quad, Adjuvantate d, Intramuscular 12/18/2022 Influenza, Quadrivalent, Hig h Dose, Preservative Free, Intrr 12/29/2021,12/31/2020,2019 Influenza, Quadrivalent, Spl it, Intramuscular 01/17/2016 Influenza, Quadrivalent, Spl it, Preservative Free, Intramuscular 11/19/2017 Influenza, Split 02/13/2012 Influenza, Trivalent, High D ose, Split, Preservative Free, Intramuscular 12/20/2023,12/10/2018 Influenza, Trivalent, IM (MDV) 01/14/2015,2012 Influenza, Unspecified 11/16/2016,02/02/2010 Moderna SARS-CoV-2 Monovalen t Vaccination (12+ YRS) 06/14/2020,05/20/2020 PPD TEST 02/17/2010,07/19/2009,06/17/2008 Pfizer Sars-Cov-2 Bivalent V accination (12+ YRS) 11/30/2021 Pneumococcal Conjugate PCV 13 12/15/2014, 015 Pneumococcal Polysaccharide PPV23 01/04/2016,04/2007,01/16/2008 RSV Vaccine, Pref, Recombina nt, Subunit, Adjuvanted, PF, IM (Arexvy) 12/25/2022 Tdap 11/22/2015,07/13/2005 ZOSTER Recombinant 02/09/2019,12/01/2018 Social History Tobacco Use Types Packs/Day Years Used Date Smoking Tobacco: Never Smokeless Tobacco: Never Tobacco Cessation:Counseling Given: Not Answered Alcohol Use Standard Drinks/Week Comments Never 0 [...] containing alc ohol? 2-3 times a week 02/17/2024 Q2: How many drinks containi ng alcohol do you have on a typical day when you are drinking? 1 or 2 02/17/2024 Q3: How often do you have si x or more drinks on one occasion? Never 02/17/2024 PHQ-2 Answer Date Recorded PHQ-2 Total Score (If total score is 3 or more points, staff should administer the PHQ-9) 0 05/25/2024 Personal Safety Answer Date Recorded Have you ever been in or are you currently in a harmful physical or emotional relationship or is someone making you feel afraid or unsafe? Denies 02/18/2024 Comments No Sex and Gender Information Value Date Recorded Sex Assigned at Not on file Legal Sex Female 7:52 PM PRODUCT PROMOTER SALES PERSON Gender Identity Not on file Sexual Orientation Not on file Occupation Industry Job Start Date Job End Date Retired Not on file Not on file Not on file Last Filed Vital Signs Vital Sign Reading Time Taken Comments Blood Pressure 110/66 05/25/2024 3:00 PM CDT Pulse 76 05/25/2024 3:00 PM CDT Temperature 36.4 C (97.5 F) 05/25/2024 3:00 PM CDT Respiratory Rate 16 05/25/2024 3:00 PM CDT Oxygen Saturation 99% 05/25/2024 3:00 PM CDT Inhaled Oxygen Concentration - - Weight 72.1 kg (159 lb) 05/25/2024 3:00 PM CDT Height 149.9 cm (4' 11 ) 05/25/2024 3:00 PM CDT Body Mass Index 32.11 05/25/2024 3:00 PM CDT Plan of Treatment Not on file Medical Devices Implanted Type Area Home Health Nurse Device Identifier Shelf Expiration Date Model / Serial / Lot [employer] Plate Bone Narrow 4 Hole Right Dorsal Distal Radial Ti [id number] - Sn/A - [id number] Implanted:Qty: 1 on 09/26/2023 by Clementina Rico MD at [facility] Plate Right: Wrist [employer] [id number] / N/A / [id number] Description:PENDING SCCS REQ # [id number] Ang[employer] [id number] Xcela 8fr 1.6mm 1 Lumen Power Injectable Attach Catheter Fill - [id number] Implanted:Qty: 1 on 11/26/2017 at [facility] [employer] 09/09/2022 [id number] / / [id number] [employer] [id number] Oss Low Friction Interface Knee Bushing Tibial Polyethylene - [id number] Implanted:Qty: 1 on 01/09/2019 by Eric Melendez MD at [facility] Left: Femur [employer] [id number] 10/03/2023 170469 / / [id number] [employer] 345157 Oss Reinforce Knee Yoke Tibial - [id number] Implanted:Qty: 1 on 01/09/2019 by Eric Melendez MD at [facility] Left: Femur [employer] [id number] 12/03/2028 130102 / / [id number] [employer] 477484 Oss 16mm Knee Standard Bearing Tibial Poly Sterile Latex Free - [id number] Implanted:Qty: 1 on 01/09/2019 by Eric Melendez MD at [facility] Left: Femur [employer] [id number] 05/07/2023 156580 / / [id number] Bsplt Tibial Oss Short Knee Nonmodular 67mm - [id number] Implanted:Qty: 1 on 01/09/2019 by Eric Melendez MD at [facility] Left: Femur [employer] 05/16/2022 [id number] / / [id number] [employer] 6191-1-010 Simplex P Radiopaque Full Dose Cement Bone Sterile - [id number] Implanted:Qty: 1 on 01/09/2019 by Eric Melendez MD at [facility] Left: Femur [employer] 11/15/2020 6191-1-010 / / [id number] [employer] [id number] Simplex P Radiopaque; Full Dose Cement Bone - [id number] Implanted:Qty: 1 on 01/09/2019 by Eric Melendez MD at [facility] Left: Femur [employer] 12/15/2020 [id number] / / [id number] [employer] 609371 Oss 5cm Resurface Knee Left Component Femoral Porous - [id number] Implanted:Qty: 1 on 01/09/2019 by Eric Melendez MD at [facility] Left: Femur [employer] [id number] 11/13/2027 980300 / / [id number] [employer] 477782 Stem Extension Oss L90 Mm Od15 Mm Knee Femur Intramedullary Cement - [id number] Implanted:Qty: 1 on 01/09/2019 by Eric Melendez MD at [facility] Left: Femur [employer] 04/15/2027 825721 / / [id number] [employer] [id number] Simplex P Radiopaque; Full Dose Cement Bone - [id number] Implanted:Qty: 2 on 01/09/2019 by Eric Melendez MD at [facility] Left: Femur [employer] 12/15/2020 [id number] / / [id number] [employer] 193280 Oss Auxiliary Knee Bushing Femoral Polyethylene - [id number] Implanted:Qty: 1 on 01/09/2019 by Eric Melendez MD at [facility] Left: Femur [employer] [id number] 10/09/2023 559457 / / [id number] [employer] 103943 Oss Low Friction Interface Knee Axle Tibial - [id number] Implanted:Qty: 1 on 01/09/2019 by Eric Melendez MD at [facility] Left: Femur [employer] [id number] 10/22/2028 091050 / / [id number] Synthes Screw Locking Im Nail 5mm 58mm 04.045.058 - [id number] Implanted:Qty: 1 on 06/11/2022 by Eric Hopkins MD at [facility] Right: Femur Synthes I 04.045.058 / / Synthes Lcp Combi 370mm 18 Hole 4 Column Thread Variable Angle Condylar 02.124.418 - [id number] Implanted:Qty: 1 on 06/11/2022 by Eric Hopkins MD at [facility] Right: Femur Synthes I 02.124.418 / / Synthes 4.5mm 8mm 38mm Self Tap Large Hexagonal Socket Cortex Screw Bone 214.838 - [id number] Implanted:Qty: 1 on 06/11/2022 by Eric Hopkins MD at [facility] Right: Femur Synthes I 214.838 / / Synthes 5mm 80mm Variable Angle Self Tap Lock Stardrive Condylar T25 02.231.280 - [id number] Implanted:Qty: 4 on 06/11/2022 by Eric Hopkins MD at [facility] Right: Femur Synthes I 02.231.280 / / Synthes 4.5mm 8mm 90mm Self Tap Large Hexagonal Socket Cortical Screw 214.890 - [id number] Implanted:Qty: 1 on 06/11/2022 by Eric Hopkins MD at [facility] Right: Femur Synthes I 214.890 / / Synthes 5mm 34mm Variable Angle Self Tap Lock Stardrive Condylar T25 02.231.234 - [id number] Implanted:Qty: 2 on 06/11/2022 by Eric Hopkins MD at [facility] Right: Femur Synthes I 02.231.234 / / Synthes 5mm 65mm Variable Angle Self Tap Lock Stardrive Condylar T25 02.231.265 - [id number] Implanted:Qty: 2 on 06/11/2022 by Eric Hopkins MD at [facility] Right: Femur Synthes I 02.231.265 / / Synthes Nail Retrograde Fem 10mm 280mm 5 Deg Bend Titanium Sterile 04.233.028s - [id number] Implanted:Qty: 1 on 06/11/2022 by Eric Hopkins MD at [facility] Right: Femur Synthes I 07/15/2025 04.233.028 S / / [id number] Synthes 5mm 85mm Variable Angle Self Tap Lock Stardrive Condylar T25 02.231.285 - [id number] Implanted:Qty: 1 on 06/11/2022 by Eric Hopkins MD at [facility] Right: Femur Synthes I .231.285 / / Screw Locking Im Nail 5mm 72mm - [id number] Implanted:Qty: 1 on 06/11/2022 by Eric Hopkins MD at [facility] Right: Femur Synthes I 04.045.072 / / Screw Locking Im Nail 5mm 84mm - [id number] Implanted:Qty: 1 on 06/11/2022 by Eric Hopkins MD at [facility] Right: Femur Synthes I 04.045.084 / / Synthes Screw Locking Im Nail 5mm 34mm 04.045.034 - [id number] Implanted:Qty: 1 on 06/11/2022 by Eric Hopkins MD at [facility] Right: Femur Synthes I 04.045.034 / / Ar[employer]rex Inc Allosync 1cc Abs-2009-03 - [id number] - [id number] Implanted:Qty: 1 on 09/26/2023 by Clementina Rico MD at [facility] Right: Wrist [employer] 12/27/2027 ABS- 1 / [id number] / Description:Implant is from Tonia Cerda [employer] Screw Kreulock Compression Titanium 2.4x22mm [id number] - [id number] Implanted:Qty: 1 on 09/26/2023 by Clementina Rico MD at [facility] Right: Wrist [employer] AR-8724VCL -22 / / [employer] Inc Screw Kreulock Compression Titanium 2.4x24mm [id number] - [id number] Implanted:Qty: 1 on 09/26/2023 by Clementina Rico MD at [facility] Right: Wrist [employer] AR-8724VCL -24 / / Ar[employer] Inc Screw Kreulock Compression Titanium 2.4x18mm [id number] - [id number] Implanted:Qty: 1 on 09/26/2023 by Clementina Rico MD at [facility] Right: Wrist [employer] AR-8724VCL -18 / / Ar[employer] Inc Screw Kreulock Compression Titanium 2.4x20mm [id number] - [id number] Implanted:Qty: 2 on 09/26/2023 by Celmentina Rico MD at [facility] Right: Wrist [employer] AR-8724VCL -20 / / Ar[employer] Inc Screw Kreulock Compression Titanium 3.5x14mm [id number] - [id number] Implanted:Qty: 1 on 09/26/2023 by Clementina Rico MD at [facility] Right: Wrist [employer] AR-8935CL- 14 / / Ar[employer]rex Inc Screw Kreulock Compression Titanium 3.5x18mm [id number] - [id number] Implanted:Qty: 1 on 09/26/2023 by Clementina Rico MD at [facility] Right: Wrist [employer] AR-8935CL- 18 / / Ar[employer]rex Inc Low Profile Screws 3.5mm 14mm Self Drill Solid Midfoot Cortical T Ar-8935-14 - [id number] Implanted:Qty: 1 on 09/26/2023 by Clementina Rico MD at [facility] Right: Wrist [employer] AR-8935-14 / / Explanted Type Area Home Health Nurse Device Identifier Shelf Expiration Date Model / Serial / Lot Ar[employer]rex Inc Low Profile Screws 3.5mm 16mm Self Tap Solid Hexalobe Midfoot Ar-8935-16 - [id number] Explanted:Qty: 1 on 09/26/2023 at [facility] Right: Wrist [employer] AR-8935-16 / / Ar[employer]rex Inc Screw Bone Compression Full Thread Locking Kreulock 3.5x10mm Ti [id number] - [id number] Explanted:Qty: 1 on 09/26/2023 at [facility] Right: Wrist [employer] AR-8935CL-1 0 / / Procedures Procedure Name Priority Date/Time Associated Diagnosis Comments US RUQ Schedule Routine, Read Routine (OP Routine) 05/28/2024 11:37 AM CDT RUQ pain EGFR Routine 05/25/2024 3:35 PM CDT RUQ pain DIFFERENTIAL AUTO Routine 05/25/2024 3:3 5 PM CDT RUQ pain COMPREHENSIVE METABOLIC PANEL Routine 05/25/2024 3:35 PM CDT RUQ pain AMYLASE Routine 05/25/2024 3:35 PM CDT RUQ pain LIPASE Routine 05/25/2024 3:35 PM CDT RUQ pain CBC WITH AUTO DIFFERENTIAL Routine 05/25/2024 3:35 PM CDT RUQ pain COLONOSCOPY 02/18/2024 9:41 AM PRODUCT PROMOTER SALES PERSON SCREENING MAMMOGRAM BILATERAL W RAPHAEL Schedule Routine, Read Routine (OP Routine) 12/03/2023 2:33 PM CDT Breast cancer screening by mammogram DEXA AXIAL SKELETON BONE DENSITY 1 OR MORE SITES Schedule Routine, Read Routine (OP Routine) 10/23/2022 9:56 AM CDT Age-related osteoporosis without current pathological fracture HEPATITIS C ANTIBODY Routine 11/21/2016 8:01 AM CDT Exposure to hepatitis B from Last 3 Months or Most Recently Relevant to Health Maintenance Results * US RUQ (05/28/2024 11:37 AM CDT) Anatomical Region Laterality Modality Abdomen N/A Ultrasound 06/02/2024 8:12 AM CDT Narrative 06/02/2024 8:28 AM CDT EXAM DESCRIPTION: US RUQ REASON FOR STUDY: RUQ pain RUQ pain, nausea Gastric Sleeve surgery 2016 Endometrial cancer 2018 Skin cancer 2011 and 2018 TECHNIQUE: Ultrasound of the right upper quadrant of the abdomen was performed with grayscale and color doppler. COMPARISON: CT from 11/22/2020 FINDINGS: PANCREAS: Visualized portions of the pancreas are within normal limits. Portions of the pancreatic body and tail are obscured due to bowel gas. LIVER: The liver appears normal in echotexture and echogenicity. No focal lesion identified. The main portal vein is patent with antegrade flow. GALLBLADDER: The gallbladder appears unremarkable. No cholelithiasis. No gallbladder wall thickening or pericholecystic fluid. No positive sonographic Kegley sign reported. BILIARY: There is no intrahepatic or extrahepatic biliary ductal dilatation. Common bile duct measures 0.2 cm in diameter. RIGHT KIDNEY: Normal size. Normal echogenicity. No solid mass or cyst. No hydronephrosis. Measures 9.6 cm in length. OTHER: No other significant findings. IMPRESSION: Negative exam. THIS IS AN ELECTRONICALLY VERIFIED FINAL REPORT 06/02/2024 8:28 AM - Electronically signed by Mook Cheung M.D. KAI: KAI Report ID: [id number] Reading Location: [id number] Procedure Note Ed Cheung MD - 06/02/2024 EXAM DESCRIPTION: US RUQ REASON FOR STUDY: RUQ pain RUQ pain, nausea Gastric Sleeve surgery 2016 Endometrial cancer 2018Skin cancer 2011 and 2018 TECHNIQUE: Ultrasound of the right upper quadrant of the abdomen wasperformed with grayscale and color doppler. COMPARISON: CT from 11/22/2020 FINDINGS: PANCREAS: Visualized portions of the pancreas are within normal limits. Portions of the pancreatic body and tail are obscured due to bowel gas. LIVER: The liver appears normal in echotexture and echogenicity. Nofocal lesion identified. The main portal vein is patent with antegrade flow. GALLBLADDER: The gallbladder appears unremarkable. No cholelithiasis.No gallbladder wall thickening or pericholecystic fluid. No positivesonographic Kegley sign reported. BILIARY: There is no intrahepatic or extrahepatic biliary ductaldilatation. Common bile duct measures 0.2 cm in diameter. RIGHT KIDNEY: Normal size. Normal echogenicity. No solid mass or cyst.No hydronephrosis. Measures 9.6 cm in length. OTHER: No other significant findings. IMPRESSION: Negative exam. THIS IS AN ELECTRONICALLY VERIFIED FINAL REPORT 06/02/2024 8:28 AM - Electronically signed by Mook Cheung M.D. KAI: KAI Report ID: [id number] Reading Location: [place] [address] Melissa Perla NP IMG US PROCEDURES Final Result * eGFR (05/25/2024 3:35 PM CDT) eGFR >90 >=60 mL/min/1. 73 m2 Comment: Interpretive Data Reference Interval Normal >/= 90 mL/min/1.73m2 Mildly decreased* 60 - 89 mL/min/1.73m2 Mildly to moderately decreased 45 - 59 mL/min/1.73m2 Moderately to severely decreased 30 - 44 mL/min/1.73m2 Severely decreased 15 - 29 mL/min/1.73m2 Kidney Failure < 15 mL/min/1.73m2 *Relative to young adult level Estimated glomerular filtration rate is determined by the 2020 CKD-EPI equation recommended by the National Kidney Foundation (A Unifying Approach to GFR Estimation: Recommendations of the NKF-ASK Task Force on Reassessing the Inclusion of Race in Diagnosing Kidney Disease, JASN 202). The CKD-EPI equation should not be used for patients with unstable renal function and has not been validated in children and those over 70. Current interpretive data was last reviewed 2021. Testing performed by: [facility], [address] [place] [address], [place]., [address] Blood 05/25/2024 3:35 PM CDT 05/25/2024 8:15 PM CDT Melissa Perla NP LAB BLOOD ORDERABLES Final Resul t [address] Department [place] [address] * Differential, auto (05/25/2024 3:35 PM CDT) Neutrophil abs 3.3 1.5 - 6.5 K/cumm Comment:Testing performed by : [facility], [address] [place] [address]., [address] Imm gran abs 0.0 0.0 - 0.1 K/cumm [facility] Comment:Testing performed by : [facility], [address] [place] [address]., [address] Lymphocyte abs 1.1 0.8 - 3.3 K/cumm CERNER Comment:Testing performed by : [address] [address] Monocyte abs 0.8 0.2 - 0.8 K/cumm [facility] Comment:Testing performed by : [address] [address] Eosinophil abs 0.0 0.0 - 0.5 K/cumm [facility] Comment:Testing performed by : [address] [address] Basophil abs 0.0 0.0 - 0.1 K/cumm [facility] Comment:Testing performed by : [address] [address] Neutrophil pct 62.3 % CERNER Comment: Interpretive Data Percent cell count reference ranges are not reported, since discordance with absolute values may lead to misinterpretation of CBC data. Current Interpretive Data was last revised on 2017. Testing performed by: [address], [address] Imm gran pct 0.4 % CERNER Comment: Interpretive Data Percent cell count reference ranges are not reported, since discordance with absolute values may lead to misinterpretation of CBC data. Current Interpretive Data was last revised on 2017. Testing performed by: [facility], [address] [place] [address]., [address] Lymphocyte pct 21.8 % CERNER Comment: Interpretive Data Percent cell count reference ranges are not reported, since discordance with absolute values may lead to misinterpretation of CBC data. Current Interpretive Data was last revised on 2017. Testing performed by: [facility], [address] [place] [address]., [address] Monocyte pct 14.3 % CERNER Comment: Interpretive Data Percent cell count reference ranges are not reported, since discordance with absolute values may lead to misinterpretation of CBC data. Current Interpretive Data was last revised on 2017. Testing performed by: [address] [address] Eosinophil pct 0.8 % [facility] Comment: Interpretive Data Percent cell count reference ranges are not reported, since discordance with absolute values may lead to misinterpretation of CBC data. Current Interpretive Data was last revised on 2017. Testing performed by: [address] [address] Basophil pct 0.4 % [facility] Comment: Interpretive Data Percent cell count reference ranges are not reported, since discordance with absolute values may lead to misinterpretation of CBC data. Current Interpretive Data was last revised on 2017. Testing performed by: [address] [address] Blood 05/25/2024 3:35 PM CDT 05/25/2024 7:34 PM CDT Melissa Perla QUILL MACHINE TENDER LAB BLOOD ORDERABLES Final Resul t [facility] [id number] [place] [address] Department [place] [address] * (ABNORMAL) CBC with auto differential (05/25/2024 3:35 PM CDT) WBC 5.2 3.8 - 9.9 K/cumm Comment:Testing performed by : [address] [address] Hgb 12.8 11.9 - 15.5 g/dL C[facility] CH Comment:Testing performed by : [facility], [address] [place] [address], [address] Hct 38.6 35.6 - 45.5 % CERNER CH Comment:Testing performed by : [facility], [address] [place] [address], [address] Plt 246 150 - 400 K/cumm [facility] CH Comment:Testing performed by : [address], [address] MPV 10.9 9.1 - 12.3 fL [facility] CH Comment:Testing performed by : [facility], [address] [place] [address], [address] RBC 3.58(L) 3.90 - 5.20 M/cumm [facility] CH Comment:Testing performed by : [address], [address] MCV 107.8(H) 81.3 - 96.4 fL [facility] CH Comment:Testing performed by : [address], [address] MCH 35.8(H) 27.1 - 33.3 pg [facility] CH Comment:Testing performed by : [address], [address] MCHC 33.2 32.3 - 35.7 g/dL C[facility] CH Comment:Testing performed by : [address], [address] RDW CV 13.8 11.1 - 14.9 % CERNER CH Comment:Testing performed by : [address], [address] RDW SD 54.1(H) 35.7 - 48.1 fL [facility] CH Comment:Testing performed by : [address], [address] NRBC abs 0.00 0.00 - 0.01 K/cumm [facility] CH Comment:Testing performed by : [address], [address] Blood 05/25/2024 3:35 PM CDT 05/25/2024 7:34 PM CDT Melissa Long QUILL MACHINE TENDER LAB BLOOD ORDERABLES Final Resul t Performing Organization Address [facility] Co de Phone Number ENEIDA [address] [address] [place] [address] * Lipase (05/25/2024 3:35 PM CDT) Lipase 48 10 - 99 Units/L Comment:Testing performed by : [facility], [address] [place] [address]., [address] Blood 05/25/2024 3:35 PM CDT 05/25/2024 7:34 PM CDT Melissa Perla QUILL MACHINE TENDER LAB BLOOD ORDERABLES Final Resul t Performing Organization Address [facility] Co de Phone Number ENEIDA [address] Department [place] [employer] [place] [address] * Amylase (05/25/2024 3:35 PM CDT) Amylase 46 30 - 99 Units/L Comment:Testing performed by : [facility], [address] [place] [address]., [address] Blood 05/25/2024 3:35 PM CDT 05/25/2024 7:34 PM CDT Melissa Perla QUILL MACHINE TENDER LAB BLOOD ORDERABLES Final Resul t Performing Organization Address [facility] Co de Phone Number ONEALJESSICA [address] Department [place] [address] * Comprehensive metabolic panel (05/25/2024 3:35 PM CDT) Sodium 140 135 - 145 mmol/L Comment:Testing performed by : [facility], [address] [place] [address]., [address] Potassium, pl 4.6 3.3 - 4.9 mmol/L ENEIDA Comment:Testing performed by : [facility], [address] [place] [address]., [address] Chloride 103 97 - 110 mmol/L ENEIDA Comment:Testing performed by : [facility], [address] [place] [address]., [address] CO2 25 22 - 32 mmol/L C[facility]ER CH Comment:Testing performed by : [address] [address] Anion gap 12 2 - 15 mmol/L CERNER CH Comment:Testing performed by : [address] [address] BUN 18 6 - 25 mg/dL C[facility] CH Comment:Testing performed by : [address] [address] Creatinine 0.62 0.60 - 1.10 mg/dL CERNER CH Comment:Testing performed by : [address], [address] Glucose 91 70 - 199 mg/dL CERNER CH Comment: Interpretive Data Fasting glucose >/= 126 mg/dl is diagnostic for diabetes. Fasting is defined as no caloric intake for at least 8 hours. Fasting glucose between 100 mg/dl to 125 mg/dl is diagnostic of prediabetes. In a patient with classic symptoms of hyperglycemia or hyperglycemic crisis, a random glucose >/= 200 mg/dl is diagnostic for diabetes. In the absence of unequivocal hyperglycemia, results should be confirmed by repeat testing. The classification and Diagnosis of Diabetes Diabetes Care 2021; 46: S19-S40. Current interpretive data was last revised 2022. Testing performed by: [address] [address] Calcium 10.1 8.5 - 10.3 mg/dL CERNER CH Comment:Testing performed by : [address] [address] Bilirubin, total 0.3 0.1 - 1.2 mg/dL CERNER CH Comment:Testing performed by : [address] [address] Protein, pl 7.3 6.5 - 8.5 g/dL CERNER CH Comment:Testing performed by : [address] [address] Albumin 4.3 3.5 - 5.0 g/dL C[facility]ER CH Comment:Testing performed by : [address], [address] Alk phos 73 40 - 130 Units/L CERNER CH Comment:Testing performed by : [address] [place]., [address] ALT 14 7 - 45 Units/L ENEIDA Comment:Testing performed by : [facility], [address] [place] [address]., [address] AST 35 10 - 45 Units/L ENEIDA Comment:Testing performed by : [facility], [address] [place] [address]., [address] Blood 05/25/2024 3:35 PM CDT 05/25/2024 7:34 PM CDT us Melissa Perla NP LAB BLOOD ORDERABLES Final Resul t ENEIDA [address] Department of Laboratories [place] [phone] * Colonoscopy (02/18/2024 9:41 AM PRODUCT PROMOTER SALES PERSON) Anatomical Region Laterality Modality Other Narrative Procedure Note Gagandeep Garcia, - 02/18/2024 9:41 AM CST [facility] Patient Name: Iggy Soto Procedure Date: 02/18/2024 9:41 AM Date of : 1950 Admit Type: Outpatient Age: 73 Gender: Female Attending MD: Gagandeep Garcia D.O. Room: [facility] ENDOSCOPY ROOM 2 Note Status: Finalized Patient Profile: Refer to note in patient chart for documentation of history and physical. Procedure: Colonoscopy Indications: Family history of colon cancer in a first-degree relative before age 60 years, Last colonoscopy: November 2018 Referring MD: Sabine Tabares M.D. Providers: Gagandeep Garcia D.O. Impression: - The examined portion of the ileum was normal. - One 3 mm polyp in the ascending colon, removedwith a jumbo cold forceps. Resected and retrieved. - Small Hemorrhoids. - Diverticulosis in the left colon. A few scattered diverticula were observed. Recommendation: - Discharge patient to home. - Resume previous diet. - Continue present medications. - Await pathology results. - Repeat colonoscopy in 5 years for surveillance. Medicines: Monitored Anesthesia Care Complications: No immediate complications. Estimated Blood Loss: Estimated blood loss: none. Procedure: Pre-Anesthesia Assessment: - As per anesthesia. The benefits, risks and alternatives of theprocedure and sedation were discussed and informed consentwas obtained. All questions were answered. Please referto the signed informed consent document in the medical record. The bowel preparation used was Miralax via split dose instruction. The bowel preparation usedwas bisacodyl tablets via split dose instruction. The scope was passed under direct vision. TheColonoscope [id number] was introduced through the anus and advanced to the 5 cm into the ileum. Theterminal ileum, appendiceal orifice, and rectum were photographed. The colonoscopy was performed without difficulty. The patient tolerated the procedurewell. The quality of the bowel preparation wasadequate. Findings: The perianal and digital rectal examinations were normal. The terminal ileum appeared normal. A 3 mm polyp was found in the ascending colon. The polyp was removed with a jumbo cold forceps. Resection and retrieval were complete. Hemorrhoids were found. The hemorrhoids were small. Many diverticula were found in the left colon. A few scattered diverticula were observed. No additional abnormalities were found on retroflexion. Electronically signed by Gagandeep Garcia M.D. Gagandeep Garcia D.O. 02/18/2024 11:22:43 AM Number of Addenda: 0 Note Initiated On: 02/18/2024 9:41 AM Procedure Code(s): --- Professional --- 13420, Colonoscopy, flexible; with biopsy, single or multiple --- Technical --- 75488, Colonoscopy, flexible; with biopsy, single or multiple Diagnosis Code(s): --- Professional --- K64.9, Unspecified hemorrhoids D12.2, Benign neoplasm of ascending colon Z80.0, Family history of malignant neoplasm of digestive organs K57.30, Diverticulosis of large intestine without perforation orabscess without bleeding --- Technical --- K64.9, Unspecified hemorrhoids D12.2, Benign neoplasm of ascending colon Z80.0, Family history of malignant neoplasm of digestive organs K57.30, Diverticulosis of large intestine without perforation orabscess without bleeding CPT copyright 2020 [employer]. All rights reserved. The codes documented in this report are preliminary and upon quality control tech reviewmay be revised to meet current compliance requirements. Recognized by the [employer] for promoting quality in endoscopy Gagandeep Garcia DO ENDOSCOPY PROCEDURES Final Res ult * Screening Mammogram Bilateral W Raphael (12/03/2023 2:33 PM CDT) Anatomical Region Laterality Modality Breast Bilateral Mammography 12/04/2023 8:37 AM CDT Addenda Addendum by Naima Thomas MD on 12/25/2023 4:35 PM CDT Density: The breasts are almost entirely fatty. Electronically signed by: Naima Thomas M.D. Impressions 12/04/2023 8:37 AM CDT There is no mammographic evidence of malignancy. A 1 year screening mammogram is recommended. BI-RADS: 1 - Negative. The patient has been or will be contacted. The patient will be entered into a reminder system with a target due date of 1 year for her next mammogram. Electronically signed by: Naima Thomas M.D. Narrative 12/04/2023 8:37 AM CDT EXAMINATION: SCREENING MAMMOGRAM BILATERAL W RAPHAEL ORDERING HEALTHCARE PROVIDER: SABINE TABARES HISTORY: Routine screening mammography. COMPARISON: 11/09/2022, 10/17/2021, 10/11/2020, 10/01/2019 TECHNIQUE: CC and MLO views of the bilateral breasts were obtained with digital technique using breast tomosynthesis with C view. Computer aided detection was utilized. FINDINGS: DENSITY: The tissue of the bilateral breasts is almost entirely fatty. BREASTS: There are no suspicious masses, suspicious calcifications, or other suspicious findings in either breast. There has been no suspicious interval change. Procedure Note Naima Thomas MD - 12/04/2023 EXAMINATION: SCREENING MAMMOGRAM BILATERAL W RAPHAEL ORDERING HEALTHCARE PROVIDER: SABINE TABARES HISTORY: Routine screening mammography. COMPARISON: 11/09/2022, 10/17/2021, 10/11/2020, 10/01/2019 TECHNIQUE: CC and MLO views of the bilateral breasts were obtained with digital technique using breast tomosynthesis with C view. Computer aided detection was utilized. FINDINGS: DENSITY: The tissue of the bilateral breasts is almost entirely fatty. BREASTS: There are no suspicious masses, suspicious calcifications, or other suspicious findings in either breast. There has been no suspicious interval change. IMPRESSION: There is no mammographic evidence of malignancy. A 1 year screening mammogram is recommended. BI-RADS: 1 - Negative. The patient has been or will be contacted. The patient will be entered into a reminder system with a target due date of 1 year for her next mammogram. Electronically signed by: Naima Thomas M.D. Sabine Tabares MD IM MAMMO PROCEDURES Edite d Result - Final * Dexa Axial Skeleton Bone Density 1 or 2 Site (10/23/2022 9:56 AM CDT) Anatomical Region Laterality Modality Body N/A Other 10/23/2022 2:22 PM CDT Narrative 10/23/2022 2:24 PM CDT EXAM DESCRIPTION: DEXA AXIAL SKELETON BONE DENSITY 1 OR MORE SITES REASON FOR STUDY: 71 y/o year old F with given history of: Osteoporosis evaluation before starting Evista Post menopausal. History of smoking, rheumatoid arthritis and secondary osteoporosis. History of uterine carcinoma Home Health Nurse/Model: [employer] SL (S/N [id number]) CLINICAL INFORMATION: Current height: 58.8 inches Maximum height: 61.5 inches Weight: 153 pounds Risk factors: Prior fracture, rheumatoid arthritis and secondary osteoporosis COMPARISON: None available. Dissimilar scan types or analysis methods precludes assessment for calculating a significant change. FINDINGS: AP LUMBAR SPINE L1-L4: Total BMD is 0.815 g/cm2 T-score is -2.1 LEFT HIP: Total BMD is 0.591 g/cm2 T-score is -2.9 Femoral neck BMD is 0.480 g/cm2 T-score is -3.3 FRAX: FRAX not reported due to T-scores of hip, femoral neck and/or spine being at or below -2.5 (Osteoporosis). IMPRESSION: Osteoporosis. REFERENCE: Bone mineral density: Normal (T-score above or = -1.0) Low bone mass (T-score between -1.0 and -2.5) replaces the previously used term osteopenia Osteoporosis (T-score = or below -2.5) Medical evaluation for secondary causes of low bone mineral density may be appropriate. FRAX is a World Health Organization validated fracture risk assessment tool that calculates a person's 10 year probability of a major osteoporosis related fracture and hip fracture. According to the National Osteoporosis Foundation guidelines, postmenopausal women and men age 50 or older with low bone mass and a 10 year probability of a major osteoporosis related fracture = or greater than 20% or a 10 year probability of a hip fracture = or greater than 3% should be considered for treatment. For further information, including treatment recommendations, please refer to the 2019 ISCD Official Positions (http://www.iscd.org) and the NOF's Clinician's Guide to Prevention and Treatment of Osteoporosis (http://www.nof.org/professionals/clinical-guidelines) THIS IS AN ELECTRONICALLY VERIFIED FINAL REPORT 10/23/2022 2:24 PM - Electronically signed by Sara Farrell M.D. TW: TW Report ID: [id number] Reading Location: [id number] Procedure Note Sara Farrell MD - 10/23/2022 EXAM DESCRIPTION: DEXA AXIAL SKELETON BONE DENSITY 1 OR MORE SITES REASON FOR STUDY: 71 y/o year old F with given history of: Osteoporosis evaluation before starting Evista Post menopausal.History of smoking, rheumatoid arthritis and secondary osteoporosis. History of uterine carcinoma Home Health Nurse/Model: [employer] (S/N [id number]) CLINICAL INFORMATION: Current height: 58.8 inches Maximum height: 61.5 inches Weight: 153 pounds Risk factors: Prior fracture, rheumatoid arthritis and secondaryosteoporosis COMPARISON: None available. Dissimilar scan types or analysis methods precludes assessment for calculating a significant change. FINDINGS: AP LUMBAR SPINE L1-L4: Total BMD is 0.815 g/cm2 T-score is -2.1 LEFT HIP: Total BMD is 0.591 g/cm2 T-score is -2.9 Femoral neck BMD is 0.480 g/cm2 T-score is -3.3 FRAX: FRAX not reported due to T-scores of hip, femoral neck and/or spine beingat or below -2.5 (Osteoporosis). IMPRESSION: Osteoporosis. REFERENCE: Bone mineral density: Normal (T-score above or = -1.0) Low bone mass (T-score between -1.0 and -2.5) replaces thepreviously used term osteopenia Osteoporosis (T-score = or below -2.5) Medical evaluation for secondary causes of low bone mineral density may be appropriate. FRAX is a World Health Organization validated fracture risk assessmenttool that calculates a person's 10 year probability of a major osteoporosisrelated fracture and hip fracture. According to the National OsteoporosisFoundation guidelines, postmenopausal women and men age 50 or older with low bonemass and a 10 year probability of a major osteoporosis related fracture = or greater than 20% or a 10 year probability of a hip fracture = or greaterthan 3% should be considered for treatment. For further information, including treatment recommendations, please referto the 2019 ISCD Official Positions (http://www.iscd.org) and the NOF's Clinician's Guide to Prevention and Treatment of Osteoporosis (http://www.nof.org/professionals/clinical-guidelines) THIS IS AN ELECTRONICALLY VERIFIED FINAL REPORT 10/23/2022 2:24 PM - Electronically signed by Sara Farrell M.D. TW: TW Report ID: [id number] Reading Location: [place] [address] us Sonny Molina MD IMG DXA PROCEDURES Final Result * Hepatitis C antibody (11/21/2016 8:01 AM CDT) Hep C Ab NON-REACTI VE NON-REACTI VE [facility] [place] SIGNAL TO CUT-OFF 0.47 <1.00 [facility] [place] Blood specimen (specimen) 11/21/2016 8:01 AM CDT 11/21/2016 8:02 AM CDT Narrative [facility] - 11/22/2016 10:22 AM CDT FASTING:YES Resulting Agency Comment Performing Organization Information: Site ID: AUGUST Name: Arleen Ragsdale Address: [facility] [place] [address] Director: Braxton Khan D.O., MPH us Sabine Tabares MD LAB MICROBIOLOGY - GENERAL ORDERABLES Final Result [facility] [place] from Last 3 Months or Most Recently Relevant to Health Maintenance Insurance MEDICARE COMMERCIAL GENERIC [facility] Address: [place] [phone] [place] [address] [facility] MEDICARE [employer] [place] MEDICARE [facility] MEDICARE Advance Directives For more information, please contact: [phone] Documents on File Type Date Recorded Patient Cell Tender Helper Expl anation ADVANCE DIRECTIVE 06/30/2018 10:52 AM DNR ADVANCE DIRECTIVE 01/03/2010 POWER OF A [employer] * Full Code (Latest Code Status on File) Date Activated Date Inactivated Comments 02/18/2024 9:28 AM 02/18/2024 4:08 PM * Full Code Date Activated Date Inactivated Comments 02/18/2024 9:27 AM 02/18/2024 9:28 AM * Full Code Date Activated Date Inactivated Comments 06/11/2022 12:08 AM 06/14/2022 6:29 PM * Full Code Date Activated Date Inactivated Comments 02/16/2020 7:52 AM 02/16/2020 1:35 PM * Full Code Date Activated Date Inactivated Comments 01/09/2019 2:48 AM 01/11/2019 4:12 PM Care Teams Mobile Equipment Mechanic Relationship Specialty Start Date End Date Sabine Tabares MD [address] [place] [address] PCP - General Internal Medicine 04/18/22 Tonia Lee MD [address] [place] [address] Obstetrics and Gynecology 12/01/16 [place] [id number] [facility] [address] [place] [address] Surgery 12/01/16 Garrison Robison MD [address] [place] [address] [facility] [address] [place] [address] Internal Medicine 12/01/16 Abdon Chapman MD [address] [facility] [id number] [place] [address] Referring Physician Gynecologic Oncology 12/10/17 Ozzy Shirley MD PhD [address] [place] [address] Radiation Oncologist Radiation Oncology 04/15/18 Rachell Mason OD [address] [place] [address] Optometry 06/30/18 Melissa Smith MD [address] [place] [address] Surgeon Orthopedic Surgery 01/11/19 Sonny Molina MD [address] [facility] [address] [place] [address] Rheumatology 10/24/21 Ana Pereira NP [address] [facility] [address] [place] [address] 11/08/22 Eric Hopkins MD [address] [facility] [place] [address] Surgeon Orthopedic Surgery 11/08/22 Gagandeep Garcia DO [address] [facility] [place] [place] [address] Consulting Physician Gastroenterology 12/24/23
--- OUTSIDE RECORDS SUMMARY | 2024-07-20 12:28 | XMS_ITS | Encounter Summary ---
Author Organization [facility] Healthcare Address [address] [place] [address] Care Team Providers Care Tutorial Laboratory Supervisor Name Role Phone Tonia Lee MD Unavailable [phone] Ravi Noland MD Unavailable [phone] Garrison Robison MD Unavailable [phone] Abdon Chapman MD Unavailable [phone] Ozzy Shirley MD PhD Unavailable + [phone] Rachell Masont OD Unavailable [phone] Melissa Smith MD Unavailable + [phone] Sabine Sheehan MD Primary Care Provider + [phone] Sonny Dozier MD Unavailable +[phone] Ana Pereira NP Unavailable [phone] Eric Hopkins MD Unavailable Gagandeep Garcia DO Unavailable [phone] Encounter Details Date Type Department Care Team (Late st Contact Info) Description 05/25/2024 Results Follow-Up [facility] [address] [place] [id number] Melissa Perla NP [address] [place] [address] Social History Tobacco Use Types Packs/Day Years [...] on file 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 States her symptoms are better since starting the bland diet. She will call if she doesn't continue to improve. LOBO Torres documented in this encounter Plan of Treatment Not on file documented as of this encounter Visit Diagnoses Not on filedocumented in this encounter Care Teams Tutorial Laboratory Supervisor Relationship Specialty Start Date End Date Sabine Sheehan MD [address] [place] [address] PCP - General Internal Medicine 04/18/22 Tonia Lee MD [address] [place] [address] Obstetrics and Gynecology 12/01/16 [place] [address] [place] [address] Surgery 12/01/16 Garrison Robison MD [address] [facility] [place] [address] [place] [address] Internal Medicine 12/01/16 Abdon Chapman MD [address] [facility] [id number] [place] [address] Referring Physician Gynecologic Oncology 12/10/17 Ozzy Shirley MD PhD [address] [place] [address] [place] [address] Radiation Oncologist Radiation Oncology 04/15/18 Rachell Mason OD [address] [place] [address] [place] [address] Optometry 06/30/18 Melissa Smith MD [address] [place] [address] [place] [address] Surgeon Orthopedic Surgery 01/11/19 Sonny Dozier MD [address] [facility] [address] [place] [address] Rheumatology 10/24/21 Ana Pereira NP [address] [facility] [address] [place] [address] 11/08/22 Eric Hopkins MD [address] [facility] [address]6B[address] [place] [address] Surgeon Orthopedic Surgery 11/08/22 Gagandeep Garcia DO [address] [facility] 6A/6B/[address] [place] [address] Consulting Physician Gastroenterology 12/24/23 documented as of this encounter
--- OUTSIDE RECORDS SUMMARY | 2024-07-20 12:28 | XMS_ITS | Clinical Summary ---
Author Organization [facility] [address] Address [address] [place] [address] Phone Care Team Providers Care Electric Meter Setter Name Role Phone LeeTonia MD Unavailable [phone] Ravi Noland MD Unavailable [phone] Garrison Robison MD Unavailable [phone] Abdon Chapman MD Unavailable +[phone] Ozzy Shirley MD PhD Unavailable + [phone] Rachell Mason Rain OD Unavailable [phone] Melissa Smith MD Unavailable + [phone] Sabine Tabares MD Primary Care Provider + [phone] Sonny Molina MD Unavailable [phone] Ana Pereira NP Unavailable [phone] Eric Hopkins MD Unavailable Gagandeep Garcia DO Unavailable [phone] Allergies Active Allergy Reactions Criticality Noted Date [...] 12/17/2023 Closed fracture of right distal radius Periprosthetic fracture of knee 06/10/2022 History of [...] weig Rheumatoid arthritis involving multiple joints ( CMS/HCC) 08/01/2013 Overview (06/22/2016): Rheumatoid arthritis Hypothyroidism, adult [...] 10/11/2020 Assessment & Plan (04/11/2020 3:01 PM ACUTE CARE PHYSICAL THERAPIST): Patient presents with pain across the entire [...] 11/08/2022 Assessment & Plan (04/11/2020 3:03 PM ACUTE CARE PHYSICAL THERAPIST): With patient new onset of body aches [...] (01/09/2019): Added automatically from request for surgery [id number] Colon cancer screening 10/21/201801/09 Overview (10/21/2018): Added automatically from request for surgery [id number] 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 Marlon delarosa at [facility] receiving re-stasis Rheumatoid arthritis 12/04/2016 019 Overview [...] when Orencuia restarted ILD (interstitial lung disease) ([facility]) 09/16/2008 11/09/2021 Overview (11/09/2021): Overview: 09/16/2008 possible [...] A copy of these results to her ground water pump installer however Dr. MOLINA informs me that she is no longer her ground water pump installer. Please find out who is the current ground water pump installer , add this person to her care [...] weekly and MVI High blood cholesterol 05/19/200801/09 Encounters Date Type Department Care Team Description 06/01/2024 [facility] [address] [place] [address] Sabine Tabares MD Forteo 05/28/2024 11:30 AM CDT Ancillary Procedure [facility] [address] [place] [address] RUQ pain 05/26/2024 Telephone [facility] [address] [place] [address] Sabine Tabares MD Teriparatide no longer covered 05/25/2024 3:40 PM CDT Lab [facility] [address] [place] [address] RUQ pain 05/25/2024 3:00 PM CDT Office Visit [facility] [address] [place] [address] Melissa Perla NP RUQ pain (Primary Dx); Bariatric surgery status; History of endometrial cancer 05/25/2024 Results Follow-Up [facility] [address] [place] [phone] Melissa Perla NP 05/25/2024 Telephone [facility] [address] [place] [phone] Sabine Tabares MD 05/25/2024 Telephone [facility] [address] [place] [address] Sabine Tabares MD Abdominal Pain from Last 3 Months Immunizations Immunization Administration Dates Next Due Influenza, [...] (Arexvy) 12/25/2022 Tdap 11/22/2015,07/13/2005 ZOSTER Recombinant 02/09/2019,12/01/2018 Surgical History Surgery Date Site/Laterality Comments BARIATRIC SURGERY 01/17/2016 - 02/15/2016 gastric sleeve TUBAL LIGATION TOTAL KNEE ARTHROPLASTY 03/18/2007 - 04/17/2007 Right Knee replacement TOTAL KNEE ARTHROPLASTY 06/17/2007 - 07/16/2007 Left x 2 PORT PLACEMENT CHEST >5 YEARS 11/26/2017 N/A HYSTERECTOMY 10/16/2017 - 11/15/2017 COLONOSCOPY 11/16/2013 - 12/15/2013 COLONOSCOPY 12/02/2018 (-) Dr. Robison diverticulosis confirmed, due in 5 years father had colon cancer PORT REMOVAL 02/16/2020 N/A FEMUR FRACTURE SURGERY Right WRIST FRACTURE SURGERY 09/16/2023 - 10/16/2023 Right COLONOSCOPY 02/18/2024 (+) With Dr. 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 Adenomatous colon polyp Family History Medical History Relation Name Comments Colon cancer Father Other Father Uterine cancer Maternal Grandmother Lung cancer Mother Brain cancer Mother's Brother Breast cancer Mother's Sister Diabetes Other Heart attack Paternal Grandfather Diabetes Sister Relation Name Status Comments Father (Age 74) Maternal Grandmother (Age 74) Mother (Age 76) Mother's Brother Mother's Sister Other Paternal Grandfather Sister Social History Tobacco Use Types Packs/Day Years [...] on file Legal Sex Female 7:52 PM ACUTE CARE PHYSICAL THERAPIST Gender Identity Not on file Sexual Orientation Not on file Occupation Industry Job Start Date Job End Date Retired Not on file Not on file Not on file Obstetrics History Para Term AB IAB SAB Ectopic Multiple Livin g Live Births 3 3 3 0 0 3 Date Outcome GA Total Labor Labor/2nd/3rd Weight Sex Type Anes PTL Silvia A1 A5 Name Clin Term Term Term Last Filed Vital Signs Vital Sign Reading [...] 05/25/2024 3:00 PM CDT Plan of Treatment Health Maintenance Due Date Last Done Comments Hepatitis B Screening 1968 Pneumococcal vaccine 65+ (4 of 4 - PCV20 or PCV21) 01/03/2021 01/04/2016, 12/15/2014, 05/24/2014, Additional history exists Covid-19 Vaccine (8 - Modern a risk ) 06/19/2024 12/20/2023, 12/18/2022, 11/30/2021, Additional history exists Osteoporosis Screening-Bone Density Scan 10/23/2024 10/23/2022, 10/19/2020, 03/08/2017 Breast Cancer Screening-Mammogram 12/02/2024 12/03/2023, 11/09/2022, 10/17/2021, Additional history exists Fall Risk Assessment 12/23/2024 12/24/2023, 11/08/2022, 06/14/2022, Additional history exists Well Visit 65+ 12/23/2024 12/24/2023, 10/17, 10/17/2021, Additional history exists Depression Screening 05/25/2025 05/25/2024, 12/24/2023, 11/08/2022, Additional history exists DTaP/Tdap/Td Vaccine (3 - Td or Tdap) 11/21/2025 11/22/2015, 07/13/2005 Colon Cancer Screening-Colonoscopy 02/17/2029 02/18/2024, 12/02/2018, 11/09/2013, Additional history exists Hepatitis C Screening Completed 11/21/2016 Zoster Vaccine Completed 02/09/2019, 12/01/2018 Influenza Vaccine Completed 12/20/2023, , 12/29/2021, Additional history exists Colon Cancer Screening-CT Colonography Discontinued 02/18/2024, 12/02/2018, 11/09/2013, Additional history exists Colon Cancer Screening-DNA Stool Discontinued 02/18/2024, 12/02/2018, 11/09/2013, Additional history exists Colon Cancer Screening-FIT Discontinued 02/17, 12/02/2018, 11/09/2013, Additional history exists Colon Cancer Screening-Sigmoidoscopy Discontinued 02/18/2024, 12/02/2018, 11/09/2013, Additional history exists Medical Devices Implanted Type Area Leather Toggler Device Identifier Shelf Expiration Date Model / Serial / Lot [employer] Plate Bone Narrow 4 Hole Right Dorsal Distal Radial Ti [id number] - Sn/A - [id number] Implanted:Qty: 1 on 09/26/2023 by Clementina Rico MD at [facility] Plate Right: Wrist [employer] [id number] -[id number] / N/A / [id number] Description:PENDING SCCS REQ # [id number] Ang[employer] [id number] Xcela 8fr 1.6mm 1 Lumen Power Injectable Attach Catheter Fill - [id number] Implanted:Qty: 1 on 11/26/2017 at [facility] [employer] 09/09/2022 [id number] / / [id number] [employer] [id number] Oss Low Friction Interface Knee Bushing Tibial Polyethylene - [id number] Implanted:Qty: 1 on 01/09/2019 by Eric Melendez MD at [facility] Left: Femur [employer] [id number] 10/03/2023 213637 / / [id number] [employer] 320864 Oss Reinforce Knee Yoke Tibial - [id number] Implanted:Qty: 1 on 01/09/2019 by Eric Melendez MD at [facility] Left: Femur [employer] [id number] 12/03/2028 [id number] / / [id number] [employer] 362948 Oss 16mm Knee Standard Bearing Tibial Poly Sterile Latex Free - [id number] Implanted:Qty: 1 on 01/09/2019 by Eric Melendez MD at [facility] Left: Femur [employer] [id number] 05/07/2023 176824 / / [id number] Bsplt Tibial Oss Short Knee Nonmodular 67mm - [id number] Implanted:Qty: 1 on 01/09/2019 by Eric Melendez MD at [facility] Left: Femur [employer] 05/16/2022 733953 / / [id number] [employer] 6191-1-010 Simplex P Radiopaque Full Dose Cement Bone Sterile - [id number] Implanted:Qty: 1 on 01/09/2019 by Eric Melendez MD at [facility] Left: Femur [employer] 11/15/2020 6191-1-010 / / [id number] [employer] [id number] Simplex P Radiopaque; Full Dose Cement Bone - [id number] Implanted:Qty: 1 on 01/09/2019 by Eric Melendez MD at [facility] Left: Femur [employer] 12/15/2020 [id number] / / [id number] [employer] 190518 Oss 5cm Resurface Knee Left Component Femoral Porous - [id number] Implanted:Qty: 1 on 01/09/2019 by Eric Melendez MD at [facility] Left: Femur [employer] [id number] 11/13/2027 266979 / / [id number] [employer] 444307 Stem Extension Oss L90 Mm Od15 Mm Knee Femur Intramedullary Cement - [id number] Implanted:Qty: 1 on 01/09/2019 by Eric Melendez MD at [facility] Left: Femur [employer] 04/15/2027 859557 / / [id number] [employer] [id number] Simplex P Radiopaque; Full Dose Cement Bone - [id number] Implanted:Qty: 2 on 01/09/2019 by Eric Melendez MD at [facility] Left: Femur [employer] 12/15/2020 [id number] / / [id number] [employer] [id number] Oss Auxiliary Knee Bushing Femoral Polyethylene - [id number] Implanted:Qty: 1 on 01/09/2019 by Eric Melendez MD at [facility] Left: Femur [employer] [id number] 10/09/2023 817566 / / [id number] [employer] 765779 Oss Low Friction Interface Knee Axle Tibial - [id number] Implanted:Qty: 1 on 01/09/2019 by Eric Melendez MD at [facility] Left: Femur [employer] [id number] 10/22/2028 531861 / / [id number] Synthes Screw Locking Im Nail 5mm 58mm 04.045.058 - [id number] Implanted:Qty: 1 on 06/11/2022 by Eric Hopkins MD at [facility] Right: Femur Synthes I 04.045.058 / / Synthes Lcp Combi 370mm 18 Hole 4 Column Thread Variable Angle Condylar 02.124.418 - [id number] Implanted:Qty: 1 on 06/11/2022 by Eric Hopkins MD at [facility] Right: Femur Synthes I 02.124.418 / / Synthes 4.5mm 8mm 38mm Self Tap Large Hexagonal Socket Cortex Screw Bone 214.838 - [id number] Implanted:Qty: 1 on 06/11/2022 by Eric Hopkins MD at [facility] Right: Femur Synthes I 214.838 / / Synthes 5mm 80mm Variable Angle Self Tap Lock Stardrive Condylar T25 02.231.280 - [id number] Implanted:Qty: 4 on 06/11/2022 by Eric Hopkins MD at [facility] Right: Femur Synthes I 02.231.280 / / Synthes 4.5mm 8mm 90mm Self Tap Large Hexagonal Socket Cortical Screw 214.890 - [id number] Implanted:Qty: 1 on 06/11/2022 by Eric Hopkins MD at [facility] Right: Femur Synthes I 214.890 / / Synthes 5mm 34mm Variable Angle Self Tap Lock Stardrive Condylar T25 02.231.234 - [id number] Implanted:Qty: 2 on 06/11/2022 by Eric Hopkins MD at [facility] Right: Femur Synthes I 02.231.234 / / Synthes 5mm 65mm Variable Angle Self Tap Lock Stardrive Condylar T25 02.231.265 - [id number] Implanted:Qty: 2 on 06/11/2022 by Eric Hopkins MD at [facility] Right: Femur Synthes I 02.231.265 / / Synthes Nail Retrograde Fem 10mm 280mm 5 Deg Bend Titanium Sterile 04.233.028s - [id number] Implanted:Qty: 1 on 06/11/2022 by Eric Hopkins MD at [facility] Right: Femur Synthes I 07/15/2025 04.233.028 S / / [id number] Synthes 5mm 85mm Variable Angle Self Tap Lock Stardrive Condylar T25 02.231.285 - [id number] Implanted:Qty: 1 on 06/11/2022 by Eric Hopkins MD at [facility] Right: Femur Synthes I 02.231.285 / / Screw Locking Im Nail 5mm 72mm - [id number] Implanted:Qty: 1 on 06/11/2022 by Eric Hopkins MD at [facility] Right: Femur Synthes I 04.045.072 / / Screw Locking Im Nail 5mm 84mm - [id number] Implanted:Qty: 1 on 06/11/2022 by Eric Hopkins MD at [facility] Right: Femur Synthes I 04.045.084 / / Synthes Screw Locking Im Nail 5mm 34mm 04.045.034 - [id number] Implanted:Qty: 1 on 06/11/2022 by Eric Hopkins MD at [facility] Right: Femur Synthes I 04.045.034 / / Ar[employer]rex Inc Allosync 1cc Abs - [id number] - [id number] Implanted:Qty: 1 on 09/26/2023 by Clementina Rico MD at [facility] Right: Wrist [employer] Inc 12/27/2027 ABS-2009-0 1 / [id number] / Description:Implant is from Tonia Cerda [employer] Screw Kreulock Compression Titanium 2.4x22mm [id number] - [id number] Implanted:Qty: 1 on 09/26/2023 by Clementina Rico MD at [facility] Right: Wrist [employer] AR-8724VCL -22 / / Ar[employer]rex Inc Screw Kreulock Compression Titanium 2.4x24mm [id number] - [id number] Implanted:Qty: 1 on 09/26/2023 by Clementina Rico MD at [facility] Right: Wrist [employer] AR-8724VCL -24 / / Ar[employer]rex Inc Screw Kreulock Compression Titanium 2.4x18mm Ow-[id number]-06 - [id number] Implanted:Qty: 1 on 09/26/2023 by Clementina Rico MD at [facility] Right: Wrist [employer] AR-8724VCL -18 / / Ar[employer]rex Inc Screw Kreulock Compression Titanium 2.4x20mm Gs-0320mva-04 - [id number] Implanted:Qty: 2 on 09/26/2023 by Clementina Rico MD at [facility] Right: Wrist [employer] AR-8724VCL -20 / / Ar[employer]rex Inc Screw Kreulock Compression Titanium 3.5x14mm [id number]-[id number]-35 - [id number] Implanted:Qty: 1 on 09/26/2023 by Clementina Rico MD at [facility] Right: Wrist [employer] AR-8935CL- 14 / / Arthrex Inc Screw Kreulock Compression Titanium 3.5x18mm Hf-0623hv-59 - [id number] Implanted:Qty: 1 on 09/26/2023 by Clementina Rico MD at [facility] Right: Wrist [employer] AR-8935CL- 18 / / Arthrex Inc Low Profile Screws 3.5mm 14mm Self Drill Solid Midfoot Cortical T Ar-8935-14 - [id number] Implanted:Qty: 1 on 09/26/2023 by Clementina Rico MD at [facility] Right: Wrist [employer] AR-8935-14 / / Explanted Type Area Leather Toggler Device Identifier Shelf Expiration Date Model / Serial / Lot Ar[employer]rex Inc Low Profile Screws 3.5mm 16mm Self Tap Solid Hexalobe Midfoot Ar-8935-16 - [id number] Explanted:Qty: 1 on 09/26/2023 at [facility] Right: Wrist [employer] Inc AR-8935-16 / / Arthrex Inc Screw Bone Compression Full Thread Locking Kreulock 3.5x10mm Ti Bp-6256xa-33 - [id number] Explanted:Qty: 1 on 09/26/2023 at [facility] Right: Wrist [employer] AR-8935CL-1 0 [...] CDT RUQ pain COLONOSCOPY 02/18/2024 9:41 AM ACUTE CARE PHYSICAL THERAPIST SCREENING MAMMOGRAM BILATERAL W RAPHAEL Schedule Routine, [...] thickening or pericholecystic fluid. No positive sonographic [place] sign reported. BILIARY: There is no intrahepatic [...] Mook Cheung M.D. KAI: KAI Report ID: [id number] Reading Location: [id number] Procedure Note Ed Cheung MD - 06/02/2024 [...] wall thickening or pericholecystic fluid. No positivesonographic [place] sign reported. BILIARY: There is no intrahepatic [...] Mook Cheung M.D. KAI: KAI Report ID: [id number] Reading Location: [place] [address] us Melissa Perla NP IMG US PROCEDURES Final [...] of Race in Diagnosing Kidney Disease, JASN 2020). The CKD-EPI equation should not be used for patients with unstable renal function and has not been validated in children and those over 70. Current interpretive data was last reviewed 2021. Testing performed by: [facility], [address] [place] [address], [place]., [address] Blood 05/25/2024 3:35 PM CDT 05/25/2024 8:15 PM CDT us eMlissa Perla NP LAB BLOOD ORDERABLES Final Resul t ENEIDA [address] Department [place] [address] * Differential, auto (05/25/2024 3:35 PM CDT) Neutrophil abs 3.3 1.5 - 6.5 K/cumm Comment:Testing performed by : [facility], [address] [place] [address]., [address] Imm gran abs 0.0 0.0 - 0.1 K/cumm CERNER Comment:Testing performed by : [facility], [address] [place] [address]., [address] Lymphocyte abs 1.1 0.8 - 3.3 K/cumm CERNER Comment:Testing performed by : [address] [address] Monocyte abs 0.8 0.2 - 0.8 K/cumm CERNER Comment:Testing performed by : [address] [address] Eosinophil abs 0.0 0.0 - 0.5 K/cumm CERNER Comment:Testing performed by : [address] [address] Basophil abs 0.0 0.0 - 0.1 K/cumm CERNER Comment:Testing performed by : [address] [address] Neutrophil pct 62.3 % CERNER Comment: Interpretive Data Percent cell count reference ranges are not reported, since discordance with absolute values may lead to misinterpretation of CBC data. Current Interpretive Data was last revised on 2017. Testing performed by: [address] [address] Imm gran pct 0.4 % CERNER Comment: Interpretive Data Percent cell count reference ranges are not reported, since discordance with absolute values may lead to misinterpretation of CBC data. Current Interpretive Data was last revised on 2017. Testing performed by: [address] [address] Lymphocyte pct 21.8 % CERNER Comment: Interpretive Data Percent cell count reference ranges are not reported, since discordance with absolute values may lead to misinterpretation of CBC data. Current Interpretive Data was last revised on 2017. Testing performed by: [facility], [address] [place] [address]., [address] Monocyte pct 14.3 % ENEIDA Comment: Interpretive Data Percent cell count reference ranges are not reported, since discordance with absolute values may lead to misinterpretation of CBC data. Current Interpretive Data was last revised on 2017. Testing performed by: [facility], [address] [place] [address]., [address] Eosinophil pct 0.8 % ENEIDA Comment: Interpretive Data Percent cell count reference ranges are not reported, since discordance with absolute values may lead to misinterpretation of CBC data. Current Interpretive Data was last revised on 2017. Testing performed by: [address] [address] Basophil pct 0.4 % ENEIDA Comment: Interpretive Data Percent cell count reference ranges are not reported, since discordance with absolute values may lead to misinterpretation of CBC data. Current Interpretive Data was last revised on 2017. Testing performed by: [address] [address] Blood 05/25/2024 3:35 PM CDT 05/25/2024 7:34 PM CDT Melissa Perla NP LAB BLOOD ORDERABLES Final Resul t [place] [address] [address] Department [place] [address] * (ABNORMAL) CBC with auto differential (05/25/2024 3:35 PM CDT) WBC 5.2 3.8 - 9.9 K/cumm Comment:Testing performed by : [address] [address] Hgb 12.8 11.9 - 15.5 g/dL ENEIDA Comment:Testing performed by : [address], [address] Hct 38.6 35.6 - 45.5 % ENEIDA Comment:Testing performed by : [address] [place]., [address] Plt 246 150 - 400 K/cumm CERNER Comment:Testing performed by : [facility], [address] [place] [address], [address] MPV 10.9 9.1 - 12.3 fL CERNER Comment:Testing performed by : [facility], [address] [place] [address], [address] RBC 3.58(L) 3.90 - 5.20 M/cumm CERNER CH Comment:Testing performed by : [facility], [address] [place] [address], [address] MCV 107.8(H) 81.3 - 96.4 fL CERNER CH Comment:Testing performed by : [facility], [address] [place] [address], [address] MCH 35.8(H) 27.1 - 33.3 pg CERNER CH Comment:Testing performed by : [address], [address] MCHC 33.2 32.3 - 35.7 g/dL CERNER Comment:Testing performed by : [facility], [address] [place] [address], [address] RDW CV 13.8 11.1 - 14.9 % CERNER Comment:Testing performed by : [facility], [address] [place] [address], [address] RDW SD 54.1(H) 35.7 - 48.1 fL CERNER Comment:Testing performed by : [facility], [address] [place] [address], [address] NRBC abs 0.00 0.00 - 0.01 K/cumm CERNER Comment:Testing performed by : [facility], [address] [place] [address], [address] Blood 05/25/2024 3:35 PM CDT 05/25/2024 7:34 PM CDT Melissa Perla NP LAB BLOOD ORDERABLES Final Resul t [address] Department [place] [address] * Lipase (05/25/2024 3:35 PM CDT) Lipase 48 10 - 99 Units/L Comment:Testing performed by : [facility], [address] [place] [address]., [address] Blood 05/25/2024 3:35 PM CDT 05/25/2024 7:34 PM CDT Melissa Perla HOSPITALITY JOB TITLES LAB BLOOD ORDERABLES Final Resul t Performing Organization Address [facility] Co de Phone Number [facility] [address] [facility] [place] [address] * Amylase (05/25/2024 3:35 PM CDT) Pathologist [facility] Amylase 46 30 - 99 Units/L Comment:Testing performed by : [facility], [address] [place] [address], [address] Blood 05/25/2024 3:35 PM CDT 05/25/2024 7:34 PM CDT Melissa Perla HOSPITALITY JOB TITLES LAB BLOOD ORDERABLES Final Resul t Performing Organization Address [facility] de Phone Number [place] [phone] [facility] [place] [address] * Comprehensive metabolic panel (05/25/2024 3:35 PM CDT) Pathologist [facility] Sodium 140 135 - 145 mmol/L Comment:Testing performed by : [facility], [address] [place] [address]., [address] Potassium, pl 4.6 3.3 - 4.9 mmol/L CERNER Comment:Testing performed by : [facility], [address] [place] [address]., [address] Chloride 103 97 - 110 mmol/L CERNER Comment:Testing performed by : [address] [address] CO2 25 22 - 32 mmol/L CERNER CH Comment:Testing performed by : [address], [address] Anion gap 12 2 - 15 mmol/L CERNER Comment:Testing performed by : [address] [address] BUN 18 6 - 25 mg/dL CERNER CH Comment:Testing performed by : [address], [address] Creatinine 0.62 0.60 - 1.10 mg/dL CERNER CH Comment:Testing performed by : [address], [address] Glucose 91 70 - 199 mg/dL CERNER [...] classification and Diagnosis of Diabetes Diabetes Care 202; 46: S19-S40. Current interpretive data was last revised 2022. Testing performed by: [address], [address] Calcium 10.1 8.5 - 10.3 mg/dL CERNER CH Comment:Testing performed by : [address], [address] Bilirubin, total 0.3 0.1 - 1.2 mg/dL CERNER CH Comment:Testing performed by : [address], [address] Protein, pl 7.3 6.5 - 8.5 g/dL CERNER CH Comment:Testing performed by : [address], [address] Albumin 4.3 3.5 - 5.0 g/dL CERNER CH Comment:Testing performed by : [address], [address] Alk phos 73 40 - 130 Units/L CERNER CH Comment:Testing performed by : [address], [address] ALT 14 7 - 45 Units/L CERNER CH Comment:Testing performed by : [address], [address] AST 35 10 - 45 Units/L CERNER CH Comment:Testing performed by : [facility] [address] [place] [address], [place]., [address] Blood 05/25/2024 3:35 PM CDT 05/25/2024 7:34 PM CDT us Melissa Perla NP LAB BLOOD ORDERABLES Final Resul t ENE[place] [address] [facility] Department of Laboratories [place] [id number] * Colonoscopy (02/18/2024 9:41 AM ACUTE CARE PHYSICAL THERAPIST) Anatomical Region Laterality Modality Other Narrative Procedure Note Gagandeep Garcia, - 02/18/2024 9:41 AM CST [facility] Patient Name: Iggy Soto Procedure Date: 02/18/2024 9:41 AM Date of : 1950 Admit Type: Outpatient Age: 73 Gender: Female Attending MD: Gagandeep Garcia D.O. Room: [facility] 2 Note Status: Finalized Patient [...] scope was passed under direct vision. TheColonoscope [id number] was introduced through the anus and advanced [...] 9:41 AM Procedure Code(s): --- Professional --- 79782, Colonoscopy, flexible; with biopsy, single or multiple --- Technical --- 42894, Colonoscopy, flexible; with biopsy, single or multiple [...] perforation orabscess without bleeding CPT copyright 2020 [employer]. All rights reserved. The codes documented in this report are preliminary and upon specialty manufacturing supervisor reviewmay be revised to meet current compliance requirements. Recognized by the [employer] for promoting quality [...] BILATERAL W RAPHAEL ORDERING HEALTHCARE PROVIDER: SABINE TABARSE HISTORY: Routine screening mammography. COMPARISON: 11/09/2022, 10/17/2021, [...] by: Naima Thomas M.D. Sabine Tabares MD [facility] MAMMO PROCEDURES Edite d Result - Final [...] and secondary osteoporosis. History of uterine carcinoma Leather Toggler/Model: [employer]-Sells-it.com (S/N 75423) CLINICAL INFORMATION: Current height: 58.8 inches Maximum [...] Sara Farrell M.D. TW: TW Report ID: [id number] Reading Location: [id number] Procedure Note Sara Farrell MD - 10/23/2022 EXAM DESCRIPTION: DEXA AXIAL SKELETON BONE DENSITY 1 OR MORE SITES REASON FOR STUDY: 71 y/o year old F with given history of: Osteoporosis evaluation before starting Ev[employer] Post menopausal.History of smoking, rheumatoid arthritis and secondary osteoporosis. 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 TW: TW Report ID: [id number] Reading Location: [id number] us Sonny Molina MD IMG DXA PROCEDURES [...] Site ID: AUGUST Name: Arleen Ragsdale Address: [address] [place] [address] AUGUST [place] [address] Director: Braxton Khan D.O., MPH us Sabine Tabares MD LAB MICROBIOLOGY - GENERAL ORDERABLES Final Result [facility] [place] from Last 3 Months or Most Recently Relevant to Health Maintenance Insurance MEDICARE [employer] GENERIC MEDICARE [place] MEDIC[place] [address] MEDICARE Advance Directives For more information, please contact: [phone] Documents on File Type Date Recorded 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 ADVANCE DIRECTIVE 06/30/2018 10:52 AM [...] 2:48 AM 01/11/2019 4:12 PM Care Teams Electric Meter Setter Relationship Specialty Start Date End Date Sabine Tabares MD [address] [place] [address] PCP - General Internal Medicine 04/18/22 Tonia Lee MD [address] [place] [address] Obstetrics and Gynecology 12/01/16 [place] [address] [address] Surgery 12/01/16 Garrison Robison MD [address] [place] [address] Internal Medicine 12/01/16 Abdon Chapman MD [facility] [address] [facility] [id number] [place] [address] Referring Physician Gynecologic Oncology 12/10/17 Ozzy Shirley MD PhD [address] [place] [address] Radiation Oncologist Radiation Oncology 04/15/18 Rachell Mason, OD [address] [place] [address] Optometry 06/30/18 Melissa Smith MD [address] [place] [address] Surgeon Orthopedic Surgery 01/11/19 Sonny Molina MD [address] [facility] [address] [place] [address] Rheumatology 10/24/21 Ana Pereira NP [address] [facility] [address] [place] [address] 11/08/22 Eric Hopkins MD [address] [facility] 6A/6B/12A [place] [address] Surgeon Orthopedic Surgery 11/08/22 Gagandeep Garcia DO [address] [facility] [address] Consulting Physician Gastroenterology 12/24/23
--- OUTSIDE RECORDS SUMMARY | 2024-07-20 12:28 | XMS_ITS | Encounter Summary ---
Author Organization [facility] Address [address] [place] [address] Care Team Providers Care Flare Maker Name Role Phone Sabine Sheehan MD Primary Care Provider + [phone] Tonia Lee MD Unavailable [phone] Ravi Noland MD Unavailable +[phone] Garrison Robison MD Unavailable [phone] Gomez Mauro MD Unavailable +[phone] Sonny Dozier MD Unavailable +[phone] Abdon Chapman MD Unavailable +[phone] Ozzy Shirley MD PhD Unavailable + [phone] Umesh Figueroa MD Unavailable +[phone] Rachell Mason OD Unavailable [phone] Melissa Smith MD Unavailable + [phone] Sonny Dozier MD Primary Care Provi kiera Sabine Sheehan MD Primary Care Provider + [phone] Sonny Dozier MD Unavailable +[phone] Ana Pereira NP Unavailable +[phone] Eric Hopkins MD Unavailable Anthonylane Gagandeep Garcia Unavailable [phone] Encounter Details Date Type Department Care Team (Late st Contact Info) Description 02/15/2020 Telephone [facility] Radiology [address] [place] [address] Velma Bueno, ANASTASIYA Social History Tobacco Use Types Packs/Day Years Used Date Smoking Tobacco: Never Smokeless Tobacco: Never Alcohol Use Standard Drinks/Week Comments Never 0 (1 standard drink = 0.6 oz pur e alcohol) AUDIT-C Answer Date Recorded Frequency of Alcohol Consumption Never 12/01/2018 Average Number of Drinks Not on file 019 Frequency of Binge Drinking Not on file 11/16 PHQ-2 Answer Date Recorded PHQ-2 Score 0 11/07/2018 Comments No Sex and Gender Information Value Date Recorded Sex Assigned at Not on file 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 04/11/2020 04/11/2020 04/25/2020 3:0 6 AM OCCUPATIONAL HEALTH PHYSICIAN COVID: Suspected 09/06/2020 09/06/2020 09/07/2020 9:46 AM CDT documented as of this encounter Care Teams Flare Maker Relationship Specialty Start Date End Date Sabine Sheehan MD PCP - General 06/15/16 10/23/21 Sonny Dozier MD [address] [facility] [address] [place] [address] PCP - General Rheumatology 10/24/21 04/17/22 Sabine Sheehan MD [address] [place] [address] PCP - General Internal Medicine 04/18/22 Tonia Lee MD [address] [place] [address] Obstetrics and Gynecology 12/01/16 [place] [address] [facility] [address] [place] [address] Surgery 12/01/16 Garrison Robison MD [address] [place] [address] Internal Medicine 12/01/16 Gomez Mauro MD [address] [place], [place] [address] [address] Orthopedic Surgery 12/01/16 11/07/22 Sonny Dozier MD [address] [place] [address] Rheumatology 12/04/16 10/22/21 Abdon Chapman MD [address] [facility] [id number] [place] [address] Referring Physician Gynecologic Oncology 12/10/17 Ozzy Shirley MD PhD [address] [place] [address] Radiation Oncologist Radiation Oncology 04/15/18 Umesh Figueroa MD [address] [place] [address] Radiation Oncologist Radiation Oncology 06/18/18 4 Rachell Mason OD [address] [place] [address] Optometry 06/30/18 Melissa Smith MD [address] [place] [address] Surgeon Orthopedic Surgery 01/11/19 Sonny Dozier MD [address] [facility] [address] [place] [address] Rheumatology 10/24/21 Ana Pereira NP [address] [address] 11/08/22 Eric Hopkins MD [address] [place] 6A/6B/12A [place] [address] Surgeon Orthopedic Surgery 11/08/22 Gagandeep Garcia DO [address] [place] 6A/6B/12A [place] [address] Consulting Physician Gastroenterology 12/24/23 documented as of this encounter
--- OUTSIDE RECORDS SUMMARY | 2024-07-20 12:28 | XMS_ITS | Encounter Summary ---
Author Organization [facility] Address [address] [place] [address] Phone Care Team Providers Care Manager Of Community Relations Name Role Phone LeeTonia MD Unavailable [phone] Ravi Noland MD Unavailable +[phone] Garrison Robison MD Unavailable [phone] Gomez Mauro MD Unavailable [phone] Abdon Chapman MD Unavailable +[phone] Ozzy Shirley MD PhD Unavailable + [phone] Umesh Figueroa MD Unavailable +[phone] Rachell Mason OD Unavailable [phone] Melissa Smith MD Unavailable + [phone] Sonny Dozier MD Primary Care Provi kiera Sabine Sheehan MD Primary Care Provider + [phone] Sonny Dozier MD Unavailable +[phone] Ana Pereira NP Unavailable [phone] Eric Hopkins MD Unavailable Gagandeep Garcia DO Unavailable [phone] Encounter Details Date Type Department Care Team (Late st Contact Info) Description 02/21/2022 Orders Only [facility] [address] [place] [address] Sabine Sheehan MD [address] [place] [address] Social History Tobacco Use Types Packs/Day Years [...] points, staff should administer the PHQ-9) 0 10/17/2021 Comments No Sex and Gender Information Value Date Recorded Sex Assigned at Not on file 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 Gender Identity Not on file Sexual Orientation Not on file Occupation Industry Job Start Date Job End Date Retired Not on file Not on file Not on file documented as of this encounter Plan of Treatment Not on file documented as of this encounter Procedures Procedure Name Priority Date/Time Associated Diagnosis Comments SCAN - LABS 02/21/2022 documented in this encounter Results * SCAN - LABS (02/21/2022) Sabine Sheehan MD Final Resu lt documented in this encounter Visit Diagnoses Not on filedocumented in this encounter Care Teams Manager Of Community Relations Relationship Specialty Start Date End Date Sonny Dozier MD [address] [place] [address] PCP - General Rheumatology 10/24/21 04/17/22 Sabine Sheehan MD [address] [place] [address] PCP - General Internal Medicine 04/18/22 Tonia Lee MD [address] [place] [address] Obstetrics and Gynecology 12/01/16 [place] [address] [address] [place] [address] Surgery 12/01/16 Garrison Robison MD [address] [facility] [address] [place] [address] Internal Medicine 12/01/16 Gomez Mauro MD [address] [place] [address] Orthopedic Surgery 12/01/16 11/07/22 Abdon Chapman MD [address] [place] [id number] [place] [address] Referring Physician Gynecologic Oncology 12/10/17 Ozzy Shirley MD PhD [address] [facility] [place] [address] Radiation Oncologist Radiation Oncology 04/15/18 Umesh Figueroa MD [address] [place] [address] Radiation Oncologist Radiation Oncology 06/18/18 4 Rachell Mason OD [address] [place], [place] [address] [place] [address] Optometry 06/30/18 Melissa Smith MD [address] [place] [address] Surgeon Orthopedic Surgery 01/11/19 Sonny Dozier MD [address] [place] [address] Rheumatology 10/24/21 Ana Pereira NP [address] [place] [address] 11/08/22 Eric Hopkins MD [address] [facility] [address] 6A/6B/12A [place] [address] Surgeon Orthopedic Surgery 11/08/22 Gagandeep Garcia DO [address] [facility] [address] 6A/6B/12A [place] [address] Consulting Physician Gastroenterology 12/24/23 documented as of this encounter
--- OUTSIDE RECORDS SUMMARY | 2024-07-20 12:28 | XMS_ITS ---
Author Organization [facility] [address] Address [address] [place] [address] Phone Care Team Providers Care Mapping Supervisor Name Role Phone LeeTonia MD Unavailable [phone] Ravi Noland MD Unavailable [phone] Garrison Robison MD Unavailable [phone] Abdon Chapman MD Unavailable +[phone] Ozzy Shirley MD PhD Unavailable + [phone] Rachell Masont OD Unavailable Melissa Smith MD Unavailable + [phone] Sabine Sheehan MD Primary Care Provider + [phone] Sonny Molina MD Unavailable [phone] Ana Pereira NP Unavailable [phone] Eric Hopkins MD Unavailable Gagandeep Garcia DO Unavailable [phone] Active Problems Problem Noted Date Diagnosed Date [...] weig Rheumatoid arthritis involving multiple joints ( [facility]/HCC) 08/01/2013 Overview (06/22/2016): Rheumatoid arthritis Hypothyroidism, adult 08/01/2013 Overview (06/22/2016): Hypothyroid Multiple-type hyperlipidemia 08/01/2013 Overview (06/22/2016): Hyperlipidemia Current Treatment and Therapy Plans No current plan information found. Past Treatment and Therapy Plans Oncology Chemotherapy Treatment Plan Name Start Date Discontinue Date Treatment Medications Discontinue Reason Plan Provider Cycles DOCEtaxel / CARBOplatin 21 Day Cycles - FORENSIC PSYCHIATRIST 8 07/01/2018 CARBOplatin (by AUC:GOG) (PARAPLATIN)CA RBOplatin (PARAPLATIN) IVPB in 250 mL (by AUC: GOG)DOCEtaxel (TAXOTERE)DOCE taxel (TAXOTERE) IVPB in 250 mL (vial 10mg/mL)DOCEta xel (TAXOTERE) IVPB in 250 mL (vial 20mg/mL) Stable Disease Abdon Chapman MD 6 of 6 cycles started PACLItaxel / CARBOplatin (AUC 5) 21 Day Cycles - FORENSIC PSYCHIATRIST 8 01/07/2018 CARBOplatin (by AUC:GOG) (PARAPLATIN)CA RBOplatin (PARAPLATIN) IVPB in 250 mL (by AUC: GOG)PACLitaxel (TAXOL)PACLIta xel (TAXOL) IVPB in 500 mL Toxicity/Compl ication Abdon Chapman MD 2 of 6 cycles started Oncology Supportive Care Plan Name Start Date Discontinue Date Treatment Medications Discontinue Reason Plan Provider IV MAINTENANCE THERAPY PLAN 11/26/2017 05/28/2023 No medications scheduled. Automatic discontinuation of dormant plans Abdon Chapman MD Radiation Treatments * Course C1 PELVIS 2019 05/06/2018 - 06/26/2018 Treatment Period Energy Fraction Dose Fractions Total Dose Plans Planned PELVIS # 05/06/2018 - 06/26/2018 160 32 / 5,120 Reference Points Delivered PELVIS 5120 05/06/2018 - 06/26/2018 5,120 Lifetime Dose Tracking * Chemical Lifetime Dose Automatic Entry Manual Entr y Fluoro Time 5.035 minutes 5.035 minutes 0 minutes Air kerma at the reference point (Ka,r) 28.788 mGy 2 8.788 mGy 0 mGy DLP 11,654 mGycm 11,654 mGycm 0 mGycm Treatment Summaries Malignant neoplasm of overlapping sites of corpus uteri (HCC)* Images from the original note were not included. [facility] Obstetrics and Gynecology [address] [place] [address] [place] [address] This Survivorship Care Plan is a cancer treatment summary and follow-up plan and is provided to youto keep with your health care records and to share with your primary care provider or any of your doctors and nurses. This summary is a brief record of major aspects of your cancer treatment not a detailed or comprehensive record of your care. You should review this with your cancer provider. Treatment Summary and Survivorship Care Plan for Gynecological Cancer Provided by Yomaira Scales NP on 07/31/18 General Information Patient name Kika Soto (home) Date of 1950 Health Care Providers (Including Names, Institutions) Provider Name: Contact Information: Primary Care Physician Sabine Sheehan [phone] Radiation Oncologist Ozzy Shirley MD PhD Umesh Figueroa MD [phone] Bid Writer/Medical Oncologist Abdon Chapman MD [phone] Treatment Summary Cancer Diagnosis Information Diagnosis Malignant neoplasm of overlapping sites of corpus uteri (CMS/HCC) Diagnosis date 09/16/2017 Staging information Cancer Staging Malignant neoplasm of overlapping sites of corpus uteri (CMS/HCC) Staging form: Corpus Uteri - Carcinoma and Carcinosarcoma, AJCC 8th Edition - Pathologic stage from 04/15/2018: FIGO Stage II (pT2, pN0(sn), cM0) - Signed by Ozzy Shirley MD PhD on 04/15/2018 Family History of Cancer Cancer-related family history includes Brain cancer in her mother's brother; Breast cancer in her mother's sister; Lung cancer in her mother; Uterine cancer in her maternal grandmother. Treatment Completed Surgery Surgery date 10-28-2017 Surgical procedure / location / findings Abdominal Hysterectomy - LAPAROSCOPIC ROBOTIC ASSISTED; Bilateral Salpingo-oophorectomy, [place] Lymph Node Dissection, omentectomy Radiation Radiation Treatments Historical Plans PELVIS # Most recent treatment: Dose planned: 160 cGy (fraction 32 on 06/26/2018) Total: Dose planned: 5,120 cGy Elapsed Course Treatment Days: 51 Reference Points PELVIS 5120 Most recent treatment: Dose given: 160 cGy (on 06/26/2018) Total: Dose given: 5,120 cGy Elapsed Course Treatment Days: 51 Weekly interdigitated Ir-192 HDR brachytherapy using a vaginal cylinder. She received a total dose of 2400 cGy delivered in six fractions. The last fraction was delivered on 06/17/18. Systemic Therapy (chemotherapy, hormonal therapy, other) PACLItaxel / CARBOplatin (AUC 5) 21 Day Cycles - FORENSIC PSYCHIATRIST Treatment goal Curative Status Inactive Start Date 11/26/2017 End Date 12/17/2017 Provider Abdon Chapman MD Chemotherapy PACLitaxel (TAXOL) 324 mg in sodium chloride 0.9% (PVC-FREE) 500 mL IVPB, 175 mg/m2 = 324 mg, intravenous, Once, 2 of 6 cycles Administration: 324 mg (11/26/2017), 324 mg (12/17/2017) CARBOplatin (PARAPLATIN) 502 mg in sodium chloride 0.9% 250 mL IVPB (BY AUC GOG), 502 mg (100 % of original dose 502 mg), intravenous, Once, 2 of 6 cycles Dose modification: (original dose 502 mg, Cycle 1, Reason: Provider discretion, Comment: manual adjustement), (original dose 502 mg, Cycle 1), 502 mg (original dose 502 mg, Cycle 1), (original dose 502 mg, Cycle 2, Reason: Provider discretion, Comment: manual adjustment), 502 mg (original dose 502 mg, Cycle 2), (Cycle 3), 502 mg (Cycle 3) Administration: 502 mg (11/26/2017), 502 mg (12/17/2017) pegfilgrastim (NEULASTA ON-BODY) injection 6 mg, 6 mg, subcutaneous, Once, 0 of 4 cycles DOCEtaxel / CARBOplatin 21 Day Cycles - FORENSIC PSYCHIATRIST Treatment goal Curative Status Inactive Start Date 11/26/2017 End Date 03/14/2018 Provider Abdon Chapman MD Chemotherapy DOCEtaxel (TAXOTERE) 140 mg in sodium chloride 0.9% (PVC-FREE) 250 mL IVPB, 75 mg/m2, intravenous, Once, 6 of 6 cycles Dose modification: 65 mg/m2 (original dose 75 mg/m2, Cycle 3, Reason: Provider discretion) Administration: 120 mg (01/07/2018), 120 mg (01/28/2018), 120 mg (02/18/2018), 120 mg (03/14/2018) CARBOplatin (PARAPLATIN) in sodium chloride 0.9% 250 mL IVPB (BY AUC GOG), , intravenous, Once, 6 of 6 cycles Dose modification: 502 mg (original dose 502 mg, Cycle 3), (original dose 502 mg, Cycle 5, Reason: Other (see comment)), (original dose 502 mg, Cycle 5, Reason: Provider discretion, Comment: Manual entry), 502 mg (original dose 502 mg, Cycle 5, Reason: Provider discretion, Comment: manual entry) Administration: 502 mg (01/07/2018), 502 mg (01/28/2018), 502 mg (02/18/2018), 502 mg (03/14/2018) pegfilgrastim (NEULASTA ON-BODY) injection 6 mg, 6 mg, subcutaneous, Once, 6 of 6 cycles Administration: 6 mg (01/07/2018), 6 mg (01/28/2018), 6 mg (02/18/2018), 6 mg (03/14/2018) Research Studies SATISFY-SOS Status On study Start Date 10/24/17 Persistent symptoms or side effects that have continued after finishing treatment: peripheral neuropathy, pain in ankles and occasional cough and stable skin rash and stable arthritis. Chemotherapy induced neutropenia - Neulasta added. Treatment Ongoing: No Genetic Testing Genetic/hereditary risk factors(s) or predisposing condition: None Genetic Test Results Comments HER-2 Negative If you have genetic testing questions, please talk to your provider. Tell your doctor if there is a history of cancer in your family, or if another family member was diagnosed with cancer since your last visit for potential referral for genetic counseling. Examples may include: History of ovarian cancer in the patient or any 1st or 2nd degree relative In addition to FORENSIC PSYCHIATRIST cancer, also have a history of breast cancer and have two or more 1st degree or 2nd degree relative diagnosed with breast cancer at any age. History of endometrial cancer in the patient along with any 1st or 2nd degree relative. If you have been diagnosed with a gynecologic cancer prior to age 50 History of ovarian cancer along with two or more 1st or 2nd degree relatives diagnosed with ovariancancer. If you have a BRCA 1 or 2 mutation. Follow-up Care Plan Your follow-up care plan is design to inform you and primary care providers regarding the recommended and required follow-up, cancer screening and routine health maintenance that is needed to maintain optimal health. Schedule of Clinical Visits Coordinating Provider When/How often Abdon Chapman MD History and Physical every 3 months for 2 years then every 6 months for following 3 years Sabine Sheehan After 5 years of treatment completion - yearly exam Cancer Surveillance or other Recommended Tests Coordinating Provider Test How Often Primary Care Physician Sabine Sheehan Pap/pelvic exam As indicated Possible late- and long-term effects that someone with this type of cancer and treatment may experience: Bowel problems (urgency, incontinence, change in consistency) Numbness/tingling Fatigue Memory/concentration difficulty Pelvic insufficiency fractures Urinary problems - urinary incontinence Sexual dysfunction - menopause, vaginal dryness, painful intercourse (use of vaginal dilator daily,up to 2 years is important after radiation therapy. The use of hkob-hie-ejtbtjl lubricants (Replens, Astroglide, [place] Jelly) or natural oils such as olive oil may lessen painful intercourse. Promising non-hormone treatments may include antidepressants (drugs that treat depression), dietary changes, acupuncture and exercise may help lessen symptoms). Please continue to see your primary care provider for all general health care recommended for a woman your age, including cancer screening tests. Any symptoms should be brought to the attention of your provider: Anything that represents a brand new symptom; Anything that represents a persistent symptom; Anything you are worried about that might be related to the cancer coming back Cancer survivors may experience issues with the areas listed below. If you have any concerns in these or other areas, please speak with your doctors or nurses to find out how you can get help with them. Anxiety and depression Emotional and mental health Fatigue Fertility Financial advice or assistance Insurance Memory or concentration loss Parenting Physical functioning School/work Sexual functioning Stopping smoking Weight changes Other A number of lifestyle/behaviors can affect your ongoing health, including the risk for the cancer coming back or developing another cancer. Discuss these recommendations with your doctor or nurse: Eat a healthy diet: focus on lean meats and proteins, more fruits, vegetables and whole grains and low in sugars and fats. Limit red meat and avoid processed meat. Maintain a healthy weight; avoid being overweight. Aim for a normal body mass index (BMI) of 18.5-24.9. Help learning to eat healthier, call the deputy sheriff generalist at: [facility] for [facility] . Have an active lifestyle, strive for 30 minutes of moderate exercise 5 times a week and strength orresistance training at least twice a week. Use broad-spectrum (UVA+UVB) sunscreen with SPF 30 or greater, is water resistant, limit time spentin the sun (10 am-4pm), wear hat, wear UV protective clothing, wear sunglasses. Never use a tanningbed. Skin that was irradiated may be more sensitive over your lifetime. Do not smoke or chew tobacco; participate in a smoking cessation program. Limit alcohol intake, 1 drink per day for a woman and 2 drinks per day for a man. Resources you may be interested in: [facility] [place] Cancer [employer] A National Cancer [place] [facility] http://www.[facility]/ [facility] & Cancer Information Center 1st floor of [facility] [phone]. Computer access, educational material, counseling services (FREE) Cancer Resources: www.cancer.net National Cancer [place]: http://www.cancer.gov/ [place] Disabilities Act: The U.S. Department of Justice provides information about the Americans with Disabilities Act (ADA). Toll free number 974.003. 0308 http://www.ada.gov/ Occupational Therapy at [facility]. Improve memory and thinking following chemotherapy. Improve your performance at home, work and in the community. or Toll free www.ot.[facility]/patients Managing your weight after a cancer diagnosis: http://www.cancer.net/sites/cancer.net/files/weight_after_cancer_diagnosis.pdf Foundation for Women?s Cancer: http://www.foundationforwomenscancer.org [facility] Department of OBGYN: http://www.obgyn.[facility]/content/418/hereditary_cancer_ risk_assessment_service.aspx National Coalition for Cancer Survivorship: http://www.canceradvocacy.org/ Vietnamese Cancer Society Cancer Survivors Network: http://csn.cancer.org/ Obesity Action Coalition: www.obesityaction.org LIVE STRONG at the [employer] is a twelve-week, small group program designed to help adult cancer survivors become more physically active after cancer diagnosis: http://www.livestrong.org/what-we-do/our-act ions/programs-partnerships/hxqngbaylb-up-guu-ymca/mfnswrbsph-uyan-vyppagyny/ USDA [employer] DentalTracker: www.SAICtracker.usda.gov [place] Ovarian Cancer Awareness: committed to impacting ovarian cancer survivorship by promotingawareness of early warning signs and standards of care, funding ovarian cancer research, and supporting survivors. www.sloca.org Gynecological Oncology Support group: A wellness-focused support group for women and their significant others to share feelings and experiences. Current treatments and complementary therapies are discussed, and a physician is available to answer questions. www.[facility]/event-category/suppor t-groups Springboard Beyond Cancer: https://survivorship.cancer.gov/ an online tool for cancer survivors andcaregivers created by the [place] Cancer Society and the National Cancer [place]. It provides: Information on dealing with side effects from cancer and treatment Caregivers with support and resources Practical advice about talking to friends and family about cancer Questions to ask their health care team Help understanding their rights in the workplace Resolved Problems Problem Noted Date Diagnosed Date [...] add antibiotic therapy as discussed with Dr. Sheehan. She will return next week for follow up or sooner if needed. Fever 09/06/2020 10/11/2020 Assessment & Plan (09/07/2020 7:51 AM CDT): Most likely secondary to underlying viral infection. Labs will be done along with CXR for further evaluation. At this time patient will continue with fluids and tylenol for fever management. 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 Marlon delarosa at [facility] receiving re-stasis Rheumatoid arthritis 12/04/2016 019 [...] when Orencuia restarted ILD (interstitial lung disease) (CMS/HCC) 09/16/2008 11/09/2021 Overview (11/09/2021): Overview: 09/16/2008 possible [...] A copy of these results to her spanish language lecturer however Dr. MOLINA informs me that she is no longer her spanish language lecturer. Please find out who is the current spanish language lecturer , add this person to her care team, and please send a copy of these results and this note to that physician. Dr. Sheehan Assessment & Plan (09/07/2020 7:50 AM CDT): [...]
== END 2024-07-20 11:41 | disposition home or self-care (01) ==
LOC: CHSIMG 11:44
PROVIDERS: PCP Internal Medicine Geriatric Medicine
DX: M06.9 Rheumatoid arthritis, unspecified (principal)
CPT/HCPCS: 73130; 73630

== ENCOUNTER 2024-10-15 07:54 | Outpatient (CLI) | payer MEDICARE, SELFPAY ==
--- OUTSIDE RECORDS SUMMARY | 2024-10-15 08:01 | XMS_ITS | Encounter Summary ---
Author Organization [facility] Address [address] [place] [address] Care Team Providers Care Digital Media Manager Name Role Phone Sabine Sheehan MD Primary Care Provider + [phone] Tonia Lee MD Unavailable [phone] Ravi Noland MD Unavailable [phone] Garrison Robison MD Unavailable [phone] Gomez Mauro MD Unavailable [phone] Sonny Dozier MD Unavailable [phone] Abdon Chapman MD Unavailable [phone] Ozzy Shirley MD PhD Unavailable + [phone] Umesh Figueroa MD Unavailable [phone] Rachell Mason OD Unavailable [phone] Melissa Smith MD Unavailable + [phone] Sonny Dozier MD Primary Care Provi kiera Sabine Sheehan MD Primary Care Provider + [phone] Sonny Dozier MD Unavailable [phone] Ana Pereira NP Unavailable [phone] Eric Hopkins MD Unavailable Fordfrieda Gagandeep Garcia Unavailable [phone] Encounter Details Date Type Department Care Team (Late st Contact Info) Description 02/15/2020 Telephone [facility] Radiology [address] [place] [address] Velma Bueno, ANASTASIYA Social History Tobacco Use [...] on file Legal Sex Female 7:52 PM EMERGENCY MEDICAL SERVICE MANAGER Gender Identity Not on file Sexual [...] COVID: Suspected 04/11/2020 04/11/2020 04/11/2020 2:48 PM EMERGENCY MEDICAL SERVICE MANAGER Respiratory Infection (KRYSTEN), contact + droplet Comment:Automatically added due to negative COVID-19 result. 04/11/2020 04/11/2020 04/25/2020 3:0 6 AM EMERGENCY MEDICAL SERVICE MANAGER COVID: Suspected 09/06/2020 09/06/2020 09/07/2020 9:46 AM CDT documented as of this encounter Care Teams Digital Media Manager Relationship Specialty Start Date End Date Sabine Sheehan MD PCP - General 06/15/16 10/23/21 Sonny Dozier MD [address] [place] [address] PCP - General Rheumatology 10/24/21 04/17/22 Sabine Sheehan MD [address] [place] [address] PCP - General Internal Medicine 04/18/22 Tonia Lee MD [address] [place] [address] Obstetrics and Gynecology 12/01/16 [place] [address] [place] [address] Surgery 12/01/16 Garrison Robison MD [address] [address] [place] [address] Internal Medicine 12/01/16 Gomez Mauro MD [address] [place] [address] Orthopedic Surgery 12/01/16 11/07/22 Sonny Dozier MD [address] [place] [address], [place] [address] Rheumatology 12/04/16 10/22/21 Abdon Chapman MD [address] [facility] [id number] [place] [address] Referring Physician Gynecologic Oncology 12/10/17 Ozzy Shirley MD PhD [address] [facility] [address] [place] [address] Radiation Oncologist Radiation Oncology 04/15/18 Umesh Figueroa MD [address] [place] [address] Radiation Oncologist Radiation Oncology 06/18/18 4 Rachell Mason OD [address] [place] [address] Optometry 06/30/18 Melissa Smith MD [address] [place] [address] Surgeon Orthopedic Surgery 01/11/19 Sonny Dozier MD [address] [facility] [address] [place] [address] Rheumatology 10/24/21 Ana Pereira NP [id number] [place] [address] 11/08/22 Eric Hopkins MD [address] [place] [address] Surgeon Orthopedic Surgery 11/08/22 Gagandeep Garcia DO [address] [place] [address] Consulting Physician Gastroenterology 12/24/23 documented as of this encounter
--- OUTSIDE RECORDS SUMMARY | 2024-10-15 08:01 | XMS_ITS | Encounter Summary ---
Author Organization [facility] Address [address] [place] [address] Care Team Providers Care Reel Man Name Role Phone Sabine Sheehan MD Primary Care Provider + [phone] Tonia Lee MD Unavailable [phone] Ravi Noland MD Unavailable +[phone] Garrison Robison MD Unavailable +[phone] Gomez Mauro MD Unavailable +[phone] Sonny Dozier MD Unavailable +[phone] Abdon Chapman MD Unavailable +[phone] Ozzy Shirley MD PhD Unavailable + [phone] Umesh Figueroa MD Unavailable +[phone] Rachell Mason OD Unavailable [phone] Melissa Smith MD Unavailable + [phone] Sonny Dozier MD Primary Care Provi kiera Sabine Sheehan MD Primary Care Provider + [phone] Sonny [place] MD Unavailable +[phone] Ana Pereira NP Unavailable [phone] Eric Hopkins MD Unavailable Gagandeep Garcia Unavailable [phone] Encounter Details Date Type Department Care Team (Late st Contact Info) Description 10/18/2020 Telephone [facility] [address] [place] [address] Tyra Cartern, RT Social History Tobacco Use [...] on file 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 Gender Identity Not on file Sexual Orientation Not on file Occupation Industry Job Start Date Job End Date Retired Not on file Not on file Not on file documented as of this encounter Plan of Treatment Not on file documented as of this encounter Visit Diagnoses Not on filedocumented in this encounter Care Teams Reel Man Relationship Specialty Start Date End Date Sabine Sheehan MD PCP - General 06/15/16 10/23/21 Sonny Dozier MD [address] [place] [address] PCP - General Rheumatology 10/24/21 04/17/22 Sabine Sheehan MD [address] [facility] [address] [place] [address] PCP - General Internal Medicine 04/18/22 Tonia Lee MD [address] [place] [address] Obstetrics and Gynecology 12/01/16 [place] [address] [facility] [address] [place] [address] Surgery 12/01/16 Garrison Robison MD 4 [facility] [address] [place] [address] Internal Medicine 12/01/16 Gomez Mauro MD [address] [place] [address] Orthopedic Surgery 12/01/16 11/07/22 Sonny Dozier MD [address] [place], [place] [address] [address] Rheumatology 12/04/16 10/22/21 Abdon Chapman MD [address] [place], [place] [address]STOP [id number] [place] [address] Referring Physician Gynecologic Oncology 12/10/17 Ozzy Shirley MD PhD [address] [place] [address] Radiation Oncologist Radiation Oncology 04/15/18 Umesh Figueroa MD [address] [place] [address] Radiation Oncologist Radiation Oncology 06/18/18 4 Rachell Mason OD [address] [place] [address] Optometry 06/30/18 Melissa Smith MD [address] [place] [address] Surgeon Orthopedic Surgery 01/11/19 Sonny [place]zier MD [address] [facility] [address] [place] [address] Rheumatology 10/24/21 Ana Pereira NP [address] [facility] [address] [place] [address] 11/08/22 Eric Hopkins MD [address] [facility] [address]6B[address] [place] [address] Surgeon Orthopedic Surgery 11/08/22 Gagandeep Garcia DO [address] [facility] [address]6B[address]12A [place] [address] Consulting Physician Gastroenterology 12/24/23 documented as of this encounter
--- OUTSIDE RECORDS SUMMARY | 2024-10-15 08:02 | XMS_ITS | Clinical Summary ---
Author Organization [facility] Address [facility] [place] [address] Care Team Providers Care Automatic Fancy Machine Operator Name Role Phone Sabine Sheehan MD Primary Care Provider [phone] Allergies Active Allergy Reactions Criticality Noted Date [...] 2:30 PM CDT Height 149.9 cm (4' 11) 01/08/2019 2:30 PM CDT Body Mass Index [...] age to complete this topic Insurance MEDICARE [employer] Care Teams Automatic Fancy Machine Operator Relationship Specialty Start Date End Date Sabine Sheehan MD [address] [place] [address] PCP - General INTERNAL MEDICINE 01/08/19
--- OUTSIDE RECORDS SUMMARY | 2024-10-15 08:02 | XMS_ITS | Referral Summary ---
Author Organization [facility] [address] Address [address] [place] [address] Phone Care Team Providers Care Wire Frame Dipper Name Role Phone RosaTonia MD Unavailable [phone] Ravi Noland MD Unavailable +[phone] Garrsion Robison MD Unavailable +[phone] Abdon Chapman MD Unavailable +[phone] Ozzy Shirley MD PhD Unavailable + [phone] Rachell Masont OD Unavailable [phone] Melissa Smith MD Unavailable + [phone] Sabine Tabares MD Primary Care Provider + [phone] Sonny Molina MD Unavailable [phone] Ana Pereira NP Unavailable [phone] Eric Hopkins MD Unavailable Gagandeep Garcia DO Unavailable [phone] Encounters Date Type Department Care Team Description 09/10/2024 5:15 PM CDT Office Visit [facility] [address] [place] [address] [place], 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 [address] [place] [address] Sabine Tabares MD Forteo 07/20/2024 Orders Only [facility] Health Information Management [address] [place] [address] Scanning, Provider from Last 3 Months Allergies Active Allergy [...] 2.4 mL 11 06/02/19 25 026 Active valACYclovir (VALTREX) 1 gram tabletIndications: Herpes zoster without complication Take 1 tablet (1,000 mg total) by mouth 2 (two) times a day for 7 days 14 tablet 09/11/19 25 025 Active Problems Problem Noted Date Diagnosed Date [...] 06/03/2017 Overview (06/03/2017): Colonoscopy test -2003, 2008, 2014, due every 5 years Bariatric surgery status [...] 10/11/2020 Assessment & Plan (04/11/2020 3:01 PM SERVICE DELIVERY SUPERVISOR): Patient presents with pain across the entire [...] 11/08/2022 Assessment & Plan (04/11/2020 3:03 PM SERVICE DELIVERY SUPERVISOR): With patient new onset of body aches [...] (01/09/2019): Added automatically from request for surgery [id number] Colon cancer screening 10/21/201801/09 Overview (10/21/2018): Added automatically from request for surgery [id number] 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 Marlon delarosa at [facility] receiving re-stasis Rheumatoid arthritis 12/04/2016 019 Overview (10/17/2017): Flattened arches, ankle arthritis, bilateral knee arthritis post replacements by Dr. the Dr. Mauro right March 2007 left June 2007 Overview: 05/23RF 154 BOURGEOIS= 5.24 Rapid 3= 20.7 AM stiff= 30min Sc 10 Tc 8 Xray RA erosive changes H10 W2 MTX started 01/23 Rapid3=8.3 on MTX 4/09 started Remicade in addition to MTX Had [...] when Orencuia restarted ILD (interstitial lung disease) ([facility]) 09/16/2008 11/09/2021 Overview (11/09/2021): Overview: 09/16/2008 possible [...] A copy of these results to her balance truer however Dr. MOLINA informs me that she is no longer her balance truer. 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 Gender Identity Not on file Sexual Orientation Not on file Occupation Industry Job Start Date Job End Date Retired Not on file Not on file Not on file Last Filed Vital Signs Vital Sign Reading Time Taken Comments Blood Pressure 118/70 09/10/2024 5:11 PM CDT Pulse 74 09/10/2024 5:11 PM CDT Temperature 36.6 C (97.8 F) 09/10/2024 5:11 PM CDT Respiratory Rate 16 09/10/2024 5:11 PM CDT Oxygen Saturation 98% 09/10/2024 5:11 PM CDT Inhaled Oxygen Concentration - - Weight 72.6 kg (160 lb) 09/10/2024 5:11 PM CDT Height 149.9 cm (4' 11) 09/10/2024 5:11 PM CDT Body Mass Index 32.32 09/10/2024 5:11 PM CDT Plan of Treatment Not on file Medical Devices Implanted Type Area Junior Software Engineer Device Identifier Shelf Expiration Date Model / Serial / Lot Ar[employer]rex Inc Plate Bone Narrow 4 Hole Right Dorsal Distal Radial Ti [id number] - Sn/A - [id number] Implanted:Qty: 1 on 09/26/2023 by Clementina Rico MD at [facility] Plate Right: Wrist [employer] Inc [id number] -[id number] / N/A / [id number] Description:PENDING SCCS REQ # [phone] Ang[employer] Dynamics [id number] Xcela 8fr 1.6mm 1 Lumen Power Injectable Attach Catheter Fill - [id number] Implanted:Qty: 1 on 11/26/2017 at [facility] [employer] 09/09/2022 [id number] / / [id number] [employer] 968489 Oss Low Friction Interface Knee Bushing Tibial Polyethylene - [id number] Implanted:Qty: 1 on 01/09/2019 by Eric Melendez MD at [facility] Left: Femur [employer] [id number] 10/03/2023 084179 / / [id number] [employer] 328742 Oss Reinforce Knee Yoke Tibial - [id number] Implanted:Qty: 1 on 01/09/2019 by Eric Melendez MD at [facility] Left: Femur [employer] [id number] 12/03/2028 928438 / / [id number] [employer] 091718 Oss 16mm Knee Standard Bearing Tibial Poly Sterile Latex Free - [id number] Implanted:Qty: 1 on 01/09/2019 by Eric Melendez MD at [facility] Left: Femur [employer] [id number] 05/07/2023 372147 / / [id number] Bsplt Tibial Oss Short Knee Nonmodular 67mm - [id number] Implanted:Qty: 1 on 01/09/2019 by Eric Melendez MD at [facility] Left: Femur [employer] 05/16/2022 121846 / / [id number] [employer] 6191-1-010 Simplex P Radiopaque Full Dose Cement Bone Sterile - [id number] Implanted:Qty: 1 on 01/09/2019 by Eric Melendez MD at [facility] Left: Femur [employer] 11/15/2020 6191-1-010 / / [id number] [employer] [id number] Simplex P Radiopaque; Full Dose Cement Bone - [id number] Implanted:Qty: 1 on 01/09/2019 by Eric Melendez MD at [facility] Left: Femur [employer] 12/15/2020 [id number] / / [id number] [employer] 719920 Oss 5cm Resurface Knee Left Component Femoral Porous - [id number] Implanted:Qty: 1 on 01/09/2019 by Eric Melendez MD at [facility] Left: Femur [employer] [id number] 11/13/2027 819761 / / [id number] [employer] 121330 Stem Extension Oss L90 Mm Od15 Mm Knee Femur Intramedullary Cement - [id number] Implanted:Qty: 1 on 01/09/2019 by Eric Melendez MD at [facility] Left: Femur [employer] 04/15/2027 070270 / / [id number] [employer] [id number] Simplex P Radiopaque; Full Dose Cement Bone - [id number] Implanted:Qty: 2 on 01/09/2019 by Eric Melendez MD at [facility] Left: Femur [employer] 12/15/2020 [id number] / / [id number] [employer] 757802 Oss Auxiliary Knee Bushing Femoral Polyethylene - [id number] Implanted:Qty: 1 on 01/09/2019 by Eric Melendez MD at [facility] Left: Femur [employer] [id number] 10/09/2023 242008 / / [id number] [employer] 703566 Oss Low Friction Interface Knee Axle Tibial - [id number] Implanted:Qty: 1 on 01/09/2019 by Eric Melendez MD at [facility] Left: Femur [employer] [id number] 10/22/2028 304800 / / [id number] Synthes Screw Locking Im Nail 5mm 58mm 04.045.058 - [id number] Implanted:Qty: 1 on 06/11/2022 by Eric Hopkins MD at [facility] Right: Femur Synthes I 04.045.058 / / Synthes Lcp Combi 370mm 18 Hole 4 Column Thread Variable Angle Condylar 02.124.418 - [id number] Implanted:Qty: 1 on 06/11/2022 by Eric Hopkins MD at [facility] Right: Femur Synthes I 02.124.418 / / Synthes 4.5mm 8mm 38mm Self Tap Large Hexagonal Socket Cortex Screw Bone 214.838 - [id number] Implanted:Qty: 1 on 06/11/2022 by Eric Hopkins MD at [facility] Right: Femur Synthes I 214.838 / / Synthes 5mm 80mm Variable Angle Self Tap Lock Stardrive Condylar T25 02.231.280 - [id number] Implanted:Qty: 4 on 06/11/2022 by Eric Hopkins MD at [facility] Right: Femur Synthes I 02.231.280 / / Synthes 4.5mm 8mm 90mm Self Tap Large Hexagonal Socket Cortical Screw 214.890 - [id number] Implanted:Qty: 1 on 06/11/2022 by Eric Hopkins MD at [facility] Right: Femur Synthes I 214.890 / / Synthes 5mm 34mm Variable Angle Self Tap Lock Stardrive Condylar T25 02.231.234 - [id number] Implanted:Qty: 2 on 06/11/2022 by Eric Hopkins MD at [facility] Right: Femur Synthes I 02.231.234 / / Synthes 5mm 65mm Variable Angle Self Tap Lock Stardrive Condylar T25 02.231.265 - [id number] Implanted:Qty: 2 on 06/11/2022 by Eric Hopkins MD at [facility] Right: Femur Synthes I 02.231.265 / / Synthes Nail Retrograde Fem 10mm 280mm 5 Deg Bend Titanium Sterile 04.233.028s - [id number] Implanted:Qty: 1 on 06/11/2022 by Eric Hopkins MD at [facility] Right: Femur Synthes I 07/15/2025 04.233.028 S / / [id number] Synthes 5mm 85mm Variable Angle Self Tap Lock Stardrive Condylar T25 02.231.285 - [id number] Implanted:Qty: 1 on 06/11/2022 by Eric Hopkins MD at [facility] Right: Femur Synthes I 02.231.285 / / Screw Locking Im Nail 5mm 72mm - [id number] Implanted:Qty: 1 on 06/11/2022 by Eric Hopkins MD at [facility] Right: Femur Synthes I 04.045.072 / / Screw Locking Im Nail 5mm 84mm - [id number] Implanted:Qty: 1 on 06/11/2022 by Eric Hopkins MD at [facility] Right: Femur Synthes I 04.045.084 / / Synthes Screw Locking Im Nail 5mm 34mm 04.045.034 - [id number] Implanted:Qty: 1 on 06/11/2022 by Eric Hopkins MD at [facility] Right: Femur Synthes I 04.045.034 / / Arthrex Inc Allosync 1cc Abs-2009- - [id number] - [id number] Implanted:Qty: 1 on 09/26/2023 by Clementina Rico MD at [facility] Right: Wrist Ar[employer]rex Inc 12/27/2027 ABS-2009-0 1 / [id number] / Description:Implant is from Tonia Cerda Ar[employer]rex Inc Screw Kreulock Compression Titanium 2.4x22mm Hi-[id number]-[id number] - [id number] Implanted:Qty: 1 on 09/26/2023 by Clementina Rico MD at [facility] Right: Wrist Ar[employer]rex Inc AR-8724VCL -22 / / Arthrex Inc Screw Kreulock Compression Titanium 2.4x24mm [id number] - [id number] Implanted:Qty: 1 on 09/26/2023 by Clementina Rico MD at [facility] Right: Wrist Ar[employer] Inc AR-8724VCL -24 / / Arthrex Inc Screw Kreulock Compression Titanium 2.4x18mm [id number] - [id number] Implanted:Qty: 1 on 09/26/2023 by Clementina Rico MD at [facility] Right: Wrist Ar[employer]rex Inc AR-8724VCL -18 / / Arthrex Inc Screw Kreulock Compression Titanium 2.4x20mm [id number] - [id number] Implanted:Qty: 2 on 09/26/2023 by Clementina Rico MD at [facility] Right: Wrist Ar[employer]rex Inc AR-8724VCL -20 / / Arthrex Inc Screw Kreulock Compression Titanium 3.5x14mm [id number] - [id number] Implanted:Qty: 1 on 09/26/2023 by Clementina Rico MD at [facility] Right: Wrist Ar[employer]rex Inc AR-8935CL- 14 / / Arthrex Inc Screw Kreulock Compression Titanium 3.5x18mm [id number] - [id number] Implanted:Qty: 1 on 09/26/2023 by Clementina Rico MD at [facility] Right: Wrist Ar[employer]rex Inc AR-8935CL- 18 / / Arthrex Inc Low Profile Screws 3.5mm 14mm Self Drill Solid Midfoot Cortical T Ar-8935-14 - [id number] Implanted:Qty: 1 on 09/26/2023 by Clementina Rico MD at [facility] Right: Wrist Ar[employer]rex Inc AR-8935-14 / / Explanted Type Area Junior Software Engineer Device Identifier Shelf Expiration Date Model / Serial / Lot Arthrex Inc Low Profile Screws 3.5mm 16mm Self Tap Solid Hexalobe Midfoot Ar-8935-16 - [id number] Explanted:Qty: 1 on 09/26/2023 at [facility] Right: Wrist Ar[employer]rex Inc AR-8935-16 / / Arthrex Inc Screw Bone Compression Full Thread Locking Kreulock 3.5x10mm Ti [id number] - [id number] Explanted:Qty: 1 on 09/26/2023 at [facility] Right: Wrist Ar[employer]rex Inc AR-8935CL-1 0 / / Procedures Procedure Name Priority Date/Time Associated Diagnosis Comments SCAN - RADIOLOGY/IMAGING 07/20/2024 COLONOSCOPY 02/18/2024 9:41 AM SERVICE DELIVERY SUPERVISOR SCREENING MAMMOGRAM BILATERAL W RAPHAEL Schedule Routine, [...] Recently Relevant to Health Maintenance Results * SCAN - RADIOLOGY/IMAGING (07/20/2024) Anatomical Region Laterality Modality Other us Provider Scanning Edited Result - Final * Colonoscopy (02/18/2024 9:41 AM SERVICE DELIVERY SUPERVISOR) Anatomical Region Laterality Modality Other Narrative Procedure Note Gagandeep Garcia, DO - 02/18/2024 9:41 AM CST [facility] Patient Name: Iggy Soto Procedure Date: 02/18/2024 9:41 AM Date of : 1950 Admit Type: Outpatient Age: 73 Gender: Female Attending MD: Gagandeep Garcia D.O. Room: [facility] 2 Note Status: Finalized Patient [...] scope was passed under direct vision. TheColonoscope [id number] was introduced through the anus and advanced [...] 9:41 AM Procedure Code(s): --- Professional --- 48297, Colonoscopy, flexible; with biopsy, single or multiple --- Technical --- 95689, Colonoscopy, flexible; with biopsy, single or multiple [...] perforation orabscess without bleeding CPT copyright 2020 [place] [employer]. All rights reserved. The codes documented in this report are preliminary and upon behavioral health case manager reviewmay be revised to meet current compliance requirements. Recognized by the [place] [employer] for promoting quality [...] and secondary osteoporosis. History of uterine carcinoma Junior Software Engineer/Model: [employer] Berhad Discovery SL (S/N 97163) CLINICAL INFORMATION: Current height: 58.8 inches Maximum [...] Sara Farrell M.D. TW: TW Report ID: [id number] Reading Location: [id number] Procedure Note FarrellSara MD - 10/23/2022 EXAM DESCRIPTION: DEXA AXIAL SKELETON BONE DENSITY 1 OR MORE SITES REASON FOR STUDY: 71 y/o year old F with given history of: Osteoporosis evaluation before starting [employer] Post menopausal.History of smoking, rheumatoid arthritis and secondary osteoporosis. History of uterine carcinoma Junior Software Engineer/Model: [employer] (S/N 55349) CLINICAL INFORMATION: Current height: 58.8 inches Maximum [...] Sara Farrell M.D. TW: TW Report ID: [id number] Reading Location: [place] [address] us Sonny Molina MD IMG DXA PROCEDURES [...] Agency Comment Performing Organization Information: Site ID: [place] Name: [facility] Address: [address] [place] [address] AUGUST [place] [address] Director: Braxton Khan D.O., MPH us Sabine Tabares MD LAB MICROBIOLOGY - GENERAL ORDERABLES Final Result [facility] [place] from Last 3 Months or Most Recently Relevant to Health Maintenance Insurance MEDICARE COMMERCIAL GENERIC [facility] Address: [address] [address] [place] [address] [facility] MEDICARE [facility] Advance Directives For more information, please contact: [phone] Documents on File Type Date Recorded Patient Workforce Planner Expl anation ADVANCE DIRECTIVE 06/30/2018 10:52 AM [...] 2:48 AM 01/11/2019 4:12 PM Care Teams Wire Frame Dipper Relationship Specialty Start Date End Date Sabine Tabares MD [address] [place] [address] PCP - General Internal Medicine 04/18/22 Tonia Lee MD [address] [place] [address] Obstetrics and Gynecology 12/01/16 [place] [address] [facility] [address] [place] [address] Surgery 12/01/16 Garrison Robison MD [address] [facility] [address] [place] [address] Internal Medicine 12/01/16 Abdon Chapman MD [address] [facility] 8064-37-905 [place] [address] Referring Physician Gynecologic Oncology 12/10/17 Ozzy Shirley MD PhD [address] [place] [address] Radiation Oncologist Radiation Oncology 04/15/18 Rachell Mason OD [address] [place] [address] Optometry 06/30/18 Melissa Smith MD [address] [place] [address] Surgeon Orthopedic Surgery 01/11/19 Sonny Molina MD [address] [facility] [address] [place] [address] Rheumatology 10/24/21 Ana Pereira, PONCE [address] [facility] [address] [place] [address] 11/08/22 Eric Hopkins MD [address] [facility] [address] Surgeon Orthopedic Surgery 11/08/22 Gagandeep aGrcia DO [address] [facility] [place] [address] Consulting Physician Gastroenterology 12/24/23
--- OUTSIDE RECORDS SUMMARY | 2024-10-15 08:02 | XMS_ITS | Encounter Summary ---
Author Organization [place] [employer] | mentor | [email or web address] Address [address] [place] [address] Phone Care Team Providers Care Financial Services Representative Name Role Phone LeeTonia MD Unavailable [phone] Ravi Noland MD Unavailable [phone] Garrison Robison MD Unavailable [phone] Gomez Mauro MD Unavailable [phone] Abdon Chapman MD Unavailable [phone] Ozzy Shirley MD PhD Unavailable + [phone] Umesh Figueroa MD Unavailable [phone] Rachell Mason OD Unavailable [phone] Melissa Smith MD Unavailable + [phone] Sonny Dozier MD Primary Care Provi kiera Sabine Sheehan MD Primary Care Provider + [phone] Sonny Dozier MD Unavailable [phone] Ana Pereira NP Unavailable [phone] Eric Hopkins MD Unavailable Gagandeep Garcia DO Unavailable [phone] Encounter Details Date Type Department Care Team (Late st Contact Info) Description 02/21/2022 Orders Only [facility] [address] [place] [phone] Sabine Sheehan MD [address] [place] [address] Social History Tobacco Use Types Packs/Day Years [...] on file 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 [employer] Gender Identity Not on file Sexual Orientation [...] on filedocumented in this encounter Care Teams Financial Services Representative Relationship Specialty Start Date End Date Sonny [place] MD [address] [place] [address] PCP - General Rheumatology 10/24/21 04/17/22 Sabine Sheehan MD [address] [place] [address] PCP - General Internal Medicine 04/18/22 Tonia Lee MD [address] [place] [address] Obstetrics and Gynecology 12/01/16 [place] [address] [address] [place] [address] Surgery 12/01/16 Garrison Robison MD [address] [facility] [address] [place] [address] Internal Medicine 12/01/16 Gomez Mauro MD [address] [place] [address] Orthopedic Surgery 12/01/16 11/07/22 Abdon Chapman MD [address] [facility] [id number] [place] [address] Referring Physician Gynecologic Oncology 12/10/17 Ozzy Shirley MD PhD [address] [facility] [place] [place] [address] Radiation Oncologist Radiation Oncology 04/15/18 Umesh Figueroa MD [address] [place] [address] Radiation Oncologist Radiation Oncology 06/18/18 4 Rachell Mason OD [address] [facility] [place] [address] Optometry 06/30/18 Melissa Smith MD [address] [place] [address] Surgeon Orthopedic Surgery 01/11/19 Sonny [place] MD [address] [place] [address] Rheumatology 10/24/21 Ana Pereira NP [address] [place] [address] 11/08/22 Eric Hopkins MD [address] [facility] [address] [place] [address] Surgeon Orthopedic Surgery 11/08/22 Gagandeep Garcia DO [address] [facility] [address] [place] [address] Consulting Physician Gastroenterology 12/24/23 documented as of this encounter"
--- OUTSIDE RECORDS SUMMARY | 2024-10-15 08:02 | XMS_ITS | Encounter Summary ---
Author Organization [employer] [facility] Address [address] [place] [address] Phone Care Team Providers Care Photolettering Machine Operator Name Role Phone Sabine Sheehan MD Primary Care Provider + [phone] Tonia Lee MD Unavailable [phone] Ravi Noland MD Unavailable [phone] Giovanny Andrews MD Unavailable [phone] Garrison Robison MD Unavailable [phone] Gomez Mauro MD Unavailable [phone] Sonny Dozier MD Unavailable [phone] Abdon hCapman MD Unavailable [phone] Ozzy Shirley MD PhD Unavailable + [phone] Umesh Figueroa MD Unavailable [phone] Rachell Mason OD Unavailable [phone] Melissa Smith MD Unavailable + [phone] Sonny Dozier MD Primary Care Provi kiera Sabine Sheehan MD Primary Care Provider + [phone] Sonny Dozier MD Unavailable +[phone] Ana Pereira NP Unavailable [phone] Eric Hopkins MD Unavailable Gagandeep Garcia DO Unavailable [phone] Encounter Details Date Type Department Care Team (Late st Contact Info) Description 10/30/2016 Orders Only [facility] [address] [place] [address] Sabine Sheehan MD [address] [place] [address] Mixed hyperlipidemia (Primary Dx); Exposure to hepatitis B; Unspecified hypothyroidism Social History Tobacco Use Types Packs/Day Years Used Date Smoking Tobacco: Never Alcohol Use Standard Drinks/Week Comments No 0 (1 standard drink = 0.6 oz pur e alcohol) Comments Unknown Sex and Gender Information Value Date Recorded Sex Assigned at Not on file Legal Sex Female 7:52 PM [employer] Gender Identity Not on file Sexual Orientation [...] Performing Organization Information: Site ID: AUGUST Name: [facility] Address: [address] [facility] [place] [address] Director: Braxton Khan D.O. MPH Sabine Sheehan MD LAB BLOOD ORDERABLES Final Result Performing Organization Address [facility] Co de Phone Number ARLEEN [employer] AUGUST Handley * CHOL/HDLC RATIO (11/21/2016 8:01 AM CDT) Chol/HDL ratio 3.6 <5.0 (calc) ARLEEN [facility] [employer] [facility] AUGUST 11/21/2016 8:01 AM CDT 11/21/2016 8:02 AM CDT Narrative [facility] - 11/22/2016 10:22 AM CDT FASTING:YES Resulting Agency Comment Performing Organization Information: Site ID: [place] Name: [facility] Address: [address] [facility] [place] [address] Director: Braxton Khan D.O. MPH Sabine Sheehan MD LAB BLOOD ORDERABLES Final Result Performing Organization Address [facility] Co de Phone Number ARLEEN NAIK - AUGUST [place] * (ABNORMAL) LDL-Cholesterol (11/21/2016 8:01 AM CDT) LDL 144(H) mg/dL (calc) [facility] [place] Comment: Reference range: <100 Desirable range <100 [...] From the Standard Lipid Profile. HIRAM. 2013;310(19): 6006-3096. For additional information, please refer to http://education.[employer]/faq/UOL608 (This link is being provided for informational/ educational purposes only.) 11/21/2016 8:01 AM CDT 11/21/2016 8:02 AM CDT Narrative [facility] - 11/22/2016 10:22 AM CDT FASTING:YES Resulting Agency Comment Performing Organization Information: Site ID: [place] Name: [facility] Address: [address] [place] [address] Director: Braxton Khan D.O. MPH us Sabine Sheehan MD LAB BLOOD ORDERABLES Final Result [facility] [place] [facility] [place] * Triglycerides (11/21/2016 8:01 AM CDT) Pathologist [facility] Triglycerides 105 <150 mg/dL [place] 11/21/2016 8:01 AM CDT 11/21/2016 8:02 AM CDT Narrative [employer] - 11/22/2016 10:22 AM CDT FASTING:YES Resulting Agency Comment Performing Organization Information: Site ID: [place] Name: [facility] Address: [address] [place] [address] Director: Braxton Khna D.O., MPH us Sabine Sheehan MD LAB BLOOD ORDERABLES Final Result [facility] A[facility]UST [facility]UST sherman * Cholesterol, HDL (11/21/2016 8:01 AM CDT) HDL 65 >50 mg/dL [facility] - [place] 11/21/2016 8:01 AM CDT 11/21/2016 8:02 AM CDT Narrative [facility] - 11/22/2016 10:22 AM CDT FASTING:YES Resulting Agency Comment Performing Organization Information: Site ID: AUGUST Name: [employer] Address: [address] [place] [address] Director: Braxton Khan D.O. MPH us Sabine Sheehan MD LAB BLOOD ORDERABLES Final Result Performing Organization Address [facility] Co de Phone Number [facility]EN [facility] - AUGUST [place] * (ABNORMAL) Cholesterol, total (11/21/2016 8:01 AM CDT) Cholesterol 231(H) <200 mg/dL [facility] - AUGUST 11/21/2016 8:01 AM CDT 11/21/2016 8:02 AM CDT Narrative [facility] - 11/22/2016 10:22 AM CDT FASTING:YES Resulting Agency Comment Performing Organization Information: Site ID: AUGUST Name: [facility] Address: [address] [place] [address] Director: Braxton Khan D.O. MPH Sabine Sheehan MD LAB BLOOD ORDERABLES Final Result Performing Organization Address City/[facility]/ZIP Co de Phone Number [facility]UST [place] * TSH (11/21/2016 8:01 AM CDT) TSH 1.25 0.40 - 4.50 mIU/L [facility] - AUGUST Blood specimen (specimen) 11/21/2016 8:01 AM CDT 11/21/2016 8:02 AM CDT Narrative [facility] - 11/22/2016 10:22 AM CDT FASTING:YES Resulting Agency Comment Performing Organization Information: Site ID: AUGUST Name: [facility] Address: [address] [place], [place] [address] [address] Director: Braxton Khan D.O., MPH Sabine Sheehan MD LAB BLOOD ORDERABLES Final Result Performing Organization Address [facility] de Phone Number AUGUST Ely * Hepatitis C antibody (11/21/2016 8:01 AM CDT) Hep C Ab NON-REACTI VE NON-REACTI VE ARLEEN KOCH SIGNAL TO CUT-OFF 0.47 <1.00 ARLEEN KOCH Blood specimen (specimen) 11/21/2016 8:01 AM CDT 11/21/2016 8:02 AM CDT Narrative ARLEEN - 11/22/2016 10:22 AM CDT FASTING:YES Resulting Agency Comment Performing Organization Information: Site ID: AUGUST Name: [facility] Address: [address] [place], [place] [address] [address] Director: Braxton Khan D.O., MPH us Sabine Sheehan MD LAB MICROBIOLOGY - GENERAL ORDERABLES Final Result Performing Organization Address [facility] de Phone Number AUGUST Ely documented in this encounter Visit Diagnoses Diagnosis Mixed hyperlipidemia- Primary Exposure to hepatitis B Contact with or exposure to other viral diseases Unspecified hypothyroidism documented in this encounter Additional Health Concerns Infection Onset Date Last Indicated Resolved Time COVID: Suspected 04/11/2020 04/11/2020 04/11/2020 2:48 PM [employer] Respiratory Infection (KRYSTEN), contact + droplet Comment:Automatically added due to negative COVID-19 result. 04/11/2020 04/11/2020 04/25/2020 3:0 6 AM [employer] COVID: Suspected 09/06/2020 09/06/2020 09/07/2020 9:46 AM CDT documented as of this encounter Care Teams Photolettering Machine Operator Relationship Specialty Start Date End Date Sabine Sheehan MD PCP - General 06/15/16 10/23/21 Sonny Dozier MD [address] [facility] [address] [place] [address] PCP - General Rheumatology 10/24/21 04/17/22 Sabine Sheehan MD [address] [facility] [address] [place] [address] PCP - General Internal Medicine 04/18/22 Tonia Lee MD [address] [place] [address] Obstetrics and Gynecology 12/01/16 [place] [address] [place] [address] Surgery 12/01/16 Giovanny Andrews MD [address] [place] [address] Rheumatology 12/01/16 12/03/16 Garrison Robison MD [address] [facility] [address] [place] [address] Internal Medicine 12/01/16 Gomez Mauro MD [address] [place] [address] Orthopedic Surgery 12/01/16 11/07/22 Sonny Dozier MD [address] [place] [address] Rheumatology 12/04/16 10/22/21 Abdon Chapman MD [address] [facility] [phone] [place] [address] Referring Physician Gynecologic Oncology 12/10/17 Ozzy Shirley MD PhD [address] [place] [address] Radiation Oncologist Radiation Oncology 04/15/18 Umesh Figueroa MD [address] [place] [address] Radiation Oncologist Radiation Oncology 06/18/18 Rachell Marquez OD [address] [place] [address] Optometry 06/30/18 Melissa Smith MD [address] [place] [address] Surgeon Orthopedic Surgery 01/11/19 Sonny Dozier MD [address] [facility] [address] [place] [address] Rheumatology 10/24/21 Ana Pereira NP [address] [facility] [address] [place] [address] 11/08/22 [place] [address] [place] [address] [place] [address] Surgeon Orthopedic Surgery 11/08/22 Gagandeep Garcia DO [address] [place] [address] Consulting Physician Gastroenterology 12/24/23 documented as of this encounter
--- OUTSIDE RECORDS SUMMARY | 2024-10-15 08:02 | XMS_ITS | Clinical Summary ---
Author Organization [facility] [address] Address [address] [place] [address] Phone Care Team Providers Care Paste Up Artist Apprentice Name Role Phone LeeTonia MD Unavailable [phone] Ravi Noland MD Unavailable [phone] Garrison Robison MD Unavailable [phone] Abdon Chapman MD Unavailable [phone] Ozzy Shirley MD PhD Unavailable + [phone] Rachell Mason [place] OD Unavailable [phone] Melissa Smith MD Unavailable + [phone] Sabine Tabares MD Primary Care Provider + [phone] Sonny Molina MD Unavailable [phone] Ana Pereira NP Unavailable [phone] Eric Hopkins MD Unavailable Gagandeep Garcia DO Unavailable [phone] Allergies Active Allergy Reactions Criticality Noted Date [...] 10/11/2020 Assessment & Plan (04/11/2020 3:01 PM STRESS ENGINEER): Patient presents with pain across the entire [...] 11/08/2022 Assessment & Plan (04/11/2020 3:03 PM STRESS ENGINEER): With patient new onset of body aches [...] (01/09/2019): Added automatically from request for surgery [id number] Colon cancer screening 10/21/201801/09 Overview (10/21/2018): Added automatically from request for surgery [id number] 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 Marlon delarosa at [facility] receiving re-stasis Rheumatoid arthritis 12/04/2016 019 [...] orencia is the issue it seems 03/08/2009 dwp Dwaine not sure what the rash is due [...] Chronic pain disorder 12/01/20162021 Atrophic vaginitis 08/01/2013 Overview (06/22/2016): Postmenopausal Plantar fasciitis 01/26/2011 09/29/2019 [...] when Orencuia restarted ILD (interstitial lung disease) ([facility]/HCC) 09/16/2008 11/09/2021 Overview (11/09/2021): Overview: 09/16/2008 possible [...] A copy of these results to her director of securities and real estate however Dr. MOLINA informs me that she is no longer her director of securities and real estate. Please find out who is the current director of securities and real estate , add this person to her care [...] Description 09/10/2024 5:15 PM CDT Office Visit [facility] [address] [place] [address] Darling Tolbert, PONCE Herpes zoster without complication (Primary Dx) 09/10/2024 [facility]phone [facility] [address] [place] [address] Sabine Tabares MD possible shingles 08/18/2024 [facility]phone [facility] [address] [place] [address] Sabine Tabares MD [place] 07/20/2024 Orders Only [facility] [address] [place] [address] Scanning, Provider from Last 3 Months Immunizations Immunization Administration [...] Vaccination (12+ YRS) 06/14/2020,05/20/2020 PPD TEST 02/17/2010,07/19/2009,06/17/2008 [facility] Sars-Cov-2 Bivalent V accination (12+ YRS) 11/30/2021 [...] than 100 lbs over ideal weig Diverticulosis 2009 Hypothyroid 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 RA (rheumatoid arthritis) (HCC) Atrophic vaginitis Shingles 2015 Arthritis Basal cell carcinoma right arm Uterine [...] on file Legal Sex Female 7:52 PM STRESS ENGINEER Gender Identity Not on file Sexual Orientation [...] 09/10/2024 5:11 PM CDT Plan of Treatment Health Maintenance Due Date Last Done Comments Hepatitis B Screening 1968 Pneumococcal vaccine 65+ (4 of 4 - PCV20 or PCV21) 01/03/2021 01/04/2016, 12/15/2014, 05/24/2014, Additional history exists Covid-19 Vaccine (8 - Modern a risk season) 2024 12/20/2023, 12/18/2022, 11/30/2021, Additional history exists Osteoporosis Screening-Bone Density Scan 10/23/2024 10/23/2022, 10/19/2020, 03/08/2017 Influenza Vaccine (#1) 2024 , 12/18/2022, 12/29/2021, Additional history exists Breast Cancer Screening-Mammogram 12/02/2024 12/03/2023, 11/09/2022, 10/17/2021, [...] Completed 11/21/2016 Zoster Vaccine Completed 02/09/2019, 12/01/2018 Colon Cancer Screening-CT Colonography Discontinued 02/18/2024, 12/02/2018, 11/09/2013, Additional history exists Colon Cancer Screening-DNA Stool Discontinued 02/18/2024, 12/02/2018, 11/09/2013, Additional history exists Colon Cancer Screening-FIT Discontinued 02/17, 12/02/2018, 11/09/2013, Additional history exists Colon Cancer Screening-Sigmoidoscopy Discontinued 02/18/2024, 12/02/2018, 11/09/2013, Additional history exists Medical Devices Implanted Type Area Pediatric Physiatrist Device Identifier Shelf Expiration Date Model / Serial / Lot Ar[employer]rex Inc Plate Bone Narrow 4 Hole Right Dorsal Distal Radial Ti [id number] - Sn/A - [id number] Implanted:Qty: 1 on 09/26/2023 by Clementina Rico MD at [facility] Plate Right: Wrist [employer] Inc [id number] -[id number] / N/A / [id number] Description:PENDING [facility] REQ # [id number] Ang[employer] Dynamics [id number] Xcela 8fr 1.6mm 1 Lumen Power Injectable Attach Catheter Fill - [id number] Implanted:Qty: 1 on 11/26/2017 at [facility] [employer] 09/09/2022 [id number] / / [id number] [employer] [id number] Oss Low Friction Interface Knee Bushing Tibial Polyethylene - [id number] Implanted:Qty: 1 on 01/09/2019 by Eric Melendez MD at [facility] Left: Femur [employer] [id number] 10/03/2023 894975 / / [id number] [employer] 002921 Oss Reinforce Knee Yoke Tibial - [id number] Implanted:Qty: 1 on 01/09/2019 by Eric Melendez MD at [facility] Left: Femur [employer] [id number] 12/03/2028 [id number] / / [id number] [employer] 480223 Oss 16mm Knee Standard Bearing Tibial Poly Sterile Latex Free - [id number] Implanted:Qty: 1 on 01/09/2019 by Eric Melendez MD at [facility] Left: Femur [employer] [id number] 05/07/2023 185318 / / [id number] Bsplt Tibial Oss Short Knee Nonmodular 67mm - [id number] Implanted:Qty: 1 on 01/09/2019 by Eric Melendez MD at [facility] Left: Femur [employer] 05/16/2022 [id number] / / [id number] [employer] 6191-1-010 Simplex P Radiopaque Full Dose Cement Bone Sterile - [id number] Implanted:Qty: 1 on 01/09/2019 by Eric Melendez MD at [facility] Left: Femur [employer] 11/15/2020 6191-1-010 / / [id number] [employer] [id number] Simplex P Radiopaque; Full Dose Cement Bone - [id number] Implanted:Qty: 1 on 01/09/2019 by Eric Melendez MD at [facility] Left: Femur [employer] 12/15/2020 [id number] / / [id number] [employer] 345716 Oss 5cm Resurface Knee Left Component Femoral Porous - [id number] Implanted:Qty: 1 on 01/09/2019 by Eric Melendez MD at [facility] Left: Femur [employer] [id number] 11/13/2027 397006 / / [id number] [employer] 563928 Stem Extension Oss L90 Mm Od15 Mm Knee Femur Intramedullary Cement - [id number] Implanted:Qty: 1 on 01/09/2019 by Eric Melendez MD at [facility] Left: Femur [employer] 04/15/2027 835916 / / [id number] [employer] [id number] Simplex P Radiopaque; Full Dose Cement Bone - [id number] Implanted:Qty: 2 on 01/09/2019 by Eric Melendez MD at [facility] Left: Femur [employer] 12/15/2020 [id number] / / [id number] [employer] 448490 Oss Auxiliary Knee Bushing Femoral Polyethylene - [id number] Implanted:Qty: 1 on 01/09/2019 by Eric Melendez MD at [facility] Left: Femur [employer] [id number] 10/09/2023 667168 / / [id number] [employer] 122617 Oss Low Friction Interface Knee Axle Tibial - [id number] Implanted:Qty: 1 on 01/09/2019 by Eric Melendez MD at [facility] Left: Femur [employer] [id number] 10/22/2028 817276 / / [id number] Synthes Screw Locking Im Nail 5mm 58mm - [id number] Implanted:Qty: 1 on 06/11/2022 by Eric Hopkins MD at [facility] Right: Femur Synthes I / / Synthes Lcp Combi 370mm 18 Hole 4 Column Thread Variable Angle Condylar - [id number] Implanted:Qty: 1 on 06/11/2022 by Eric Hopkins MD at [facility] Right: Femur Synthes I / / Synthes 4.5mm 8mm 38mm Self Tap Large Hexagonal Socket Cortex Screw Bone 214.838 - [id number] Implanted:Qty: 1 on 06/11/2022 by Eric Hopkins MD at [facility] Right: Femur Synthes I 214.838 / / Synthes 5mm 80mm Variable Angle Self Tap Lock Stardrive Condylar T25 02.231.280 - [id number] Implanted:Qty: 4 on 06/11/2022 by Eric Hopkins MD at [facility] Right: Femur Synthes I 02.231.280 / / Synthes 4.5mm 8mm 90mm Self Tap Large Hexagonal Socket Cortical Screw 214.890 - [id number] Implanted:Qty: 1 on 06/11/2022 by Eric Hopkins MD at [facility] Right: Femur Synthes I 214.890 / / Synthes 5mm 34mm Variable Angle Self Tap Lock Stardrive Condylar T25 02.231.234 - [id number] Implanted:Qty: 2 on 06/11/2022 by Eric Hopkins MD at [facility] Right: Femur Synthes I 02.231.234 / / Synthes 5mm 65mm Variable Angle Self Tap Lock Stardrive Condylar T25 02.231.265 - [id number] Implanted:Qty: 2 on 06/11/2022 by Eric Hopkins MD at [facility] Right: Femur Synthes I 02.231.265 / / Synthes Nail Retrograde Fem 10mm 280mm 5 Deg Bend Titanium Sterile 04.233.028s - [id number] Implanted:Qty: 1 on 06/11/2022 by Eric Hopkins MD at [facility] Right: Femur Synthes I 07/15/2025 04.233.028 S / / [id number] Synthes 5mm 85mm Variable Angle Self Tap Lock Stardrive Condylar T25 02.231.285 - [id number] Implanted:Qty: 1 on 06/11/2022 by Eric Hopkins MD at [facility] Right: Femur Synthes I 02.231.285 / / Screw Locking Im Nail 5mm 72mm - [id number] Implanted:Qty: 1 on 06/11/2022 by Eric Hopkins MD at [facility] Right: Femur Synthes I 04.045.072 / / Screw Locking Im Nail 5mm 84mm - [id number] Implanted:Qty: 1 on 06/11/2022 by Eric Hopkins MD at [facility] Right: Femur Synthes I 04.045.084 / / Synthes Screw Locking Im Nail 5mm 34mm 04.045.034 - [id number] Implanted:Qty: 1 on 06/11/2022 by Eric Hopkins MD at [facility] Right: Femur Synthes I 04.045.034 / / Arthrex Inc Allosync 1cc Abs-2009- - [id number] - [id number] Implanted:Qty: 1 on 09/26/2023 by Clementina Rico MD at [facility] Right: Wrist Ar[employer]rex Inc 12/27/2027 ABS-2009-0 1 / [id number] / Description:Implant is from Tonia Cerda [employer] Inc Screw Kreulock Compression Titanium 2.4x22mm Zn-[id number]-[id number] - [id number] Implanted:Qty: 1 on 09/26/2023 by Clementina Rico MD at [facility] Right: Wrist Ar[employer] Inc AR-8724VCL -22 / / Arthrex Inc Screw Kreulock Compression Titanium 2.4x24mm [id number] - [id number] Implanted:Qty: 1 on 09/26/2023 by Clementina Rico MD at [facility] Right: Wrist Ar[employer]rex Inc AR-8724VCL -24 / / Arthrex Inc Screw Kreulock Compression Titanium 2.4x18mm [id number] - [id number] Implanted:Qty: 1 on 09/26/2023 by Clementina Rico MD at [facility] Right: Wrist [employer]rex Inc AR-8724VCL -18 / / Arthrex Inc Screw Kreulock Compression Titanium 2.4x20mm [id number] - [id number] Implanted:Qty: 2 on 09/26/2023 by Clementina Rico MD at [facility] Right: Wrist [employer] Inc AR-8724VCL -20 / / Arthrex Inc Screw Kreulock Compression Titanium 3.5x14mm Qi-[id number] - [id number] Implanted:Qty: 1 on 09/26/2023 by Clementina Rico MD at [facility] Right: Wrist [employer] Inc AR-8935CL- 14 / / Arthrex Inc Screw Kreulock Compression Titanium 3.5x18mm Cf-[id number] - [id number] Implanted:Qty: 1 on 09/26/2023 by Clementina Rico MD at [facility] Right: Wrist Ar[employer]rex Inc AR-8935CL- 18 / / Arthrex Inc Low Profile Screws 3.5mm 14mm Self Drill Solid Midfoot Cortical T Ar-8935-14 - [id number] Implanted:Qty: 1 on 09/26/2023 by Clementina Rico MD at [facility] Right: Wrist Ar[employer]rex Inc AR-8935-14 / / Explanted Type Area Pediatric Physiatrist Device Identifier Shelf Expiration Date Model / Serial / Lot Arthrex Inc Low Profile Screws 3.5mm 16mm Self Tap Solid Hexalobe Midfoot Ar-8935-16 - [id number] Explanted:Qty: 1 on 09/26/2023 at [facility] Right: Wrist Ar[employer]rex Inc AR-8935-16 / / Arthrex Inc Screw Bone Compression Full Thread Locking Kreulock 3.5x10mm Ti [id number] - [id number] Explanted:Qty: 1 on 09/26/2023 at [facility] Right: Wrist Ar[employer]rex Inc AR-8935CL-1 0 / / Procedures Procedure Name Priority Date/Time Associated Diagnosis Comments SCAN - RADIOLOGY/IMAGING 07/20/2024 COLONOSCOPY 02/18/2024 9:41 AM STRESS ENGINEER SCREENING MAMMOGRAM BILATERAL W RAPHAEL Schedule Routine, [...] - Final * Colonoscopy (02/18/2024 9:41 AM STRESS ENGINEER) Anatomical Region Laterality Modality Other Narrative Procedure Note Gagandeep Garcia, DO - 02/18/2024 9:41 AM CST [facility] Patient Name: Iggy Soto Procedure Date: 02/18/2024 9:41 AM Date of : 1950 Admit Type: Outpatient Age: 73 Gender: Female Attending MD: Gagandeep Garcia , D.O. Room: [facility] ENDOSCOPY ROOM 2 Note Status: Finalized [...] scope was passed under direct vision. TheColonoscope [id number] was introduced through the anus and advanced [...] 9:41 AM Procedure Code(s): --- Professional --- 62119, Colonoscopy, flexible; with biopsy, single or multiple --- Technical --- 39402, Colonoscopy, flexible; with biopsy, single or multiple [...] perforation orabscess without bleeding CPT copyright 2020 [employer]. All rights reserved. The codes documented in this report are preliminary and upon fur stretcher reviewmay be revised to meet current compliance requirements. Recognized by the [employer] for promoting quality [...] and secondary osteoporosis. History of uterine carcinoma Pediatric Physiatrist/Model: Hatsize (S/N 72444) CLINICAL INFORMATION: Current height: 58.8 inches Maximum [...] Electronically signed by Sara Farrell M.D. TW: SIGRID Report ID: [id number] Reading Location: [id number] Procedure Note Sara Farrell MD - 10/23/2022 EXAM DESCRIPTION: DEXA AXIAL SKELETON BONE DENSITY 1 OR MORE SITES REASON FOR STUDY: 71 y/o year old F with given history of: Osteoporosis evaluation before starting [employer] Post menopausal.History of smoking, rheumatoid arthritis and secondary osteoporosis. History of uterine carcinoma Pediatric Physiatrist/Model: Clinician [employer] Discovery SL (S/N 00473) CLINICAL INFORMATION: Current height: 58.8 inches Maximum [...] Electronically signed by Sara Farrell M.D. TW: SIGRID Report ID: [id number] Reading Location: [id number] us Sonny Molina MD IMG DXA PROCEDURES [...] Performing Organization Information: Site ID: [place] Name: [facility] Address: [address] [place] [address] AUGUST De [place] [address] Director: Braxton Khan D.O., MPH us Sabine Tabares MD LAB MICROBIOLOGY - GENERAL ORDERABLES Final Result [facility] [place] AUGUST from Last 3 Months or Most Recently Relevant to Health Maintenance [place] [address] COMMERCIAL GENERIC MEDICARE [facility] [place]IC[place] [address] [place] [address] MEDICARE Advance Directives For more information, please contact: [phone] Documents on File Type Date Recorded Patient Signal Supervisor Expl anation ADVANCE DIRECTIVE 06/30/2018 10:52 AM [...] 2:48 AM 01/11/2019 4:12 PM Care Teams Paste Up Artist Apprentice Relationship Specialty Start Date End Date Sabine Tabares MD [address] [place] [address] PCP - General Internal Medicine 04/18/22 Tonia Lee MD [address] [place] [address] Obstetrics and Gynecology 12/01/16 [place] [address] [facility] [address] [place] [address] Surgery 12/01/16 Garrison Robison MD [address] [place] [address] [place] [address] Internal Medicine 12/01/16 Abdon Chapman MD [facility] [address] [place] [id number] [place] [address] Referring Physician Gynecologic Oncology 12/10/17 Ozzy Shirley MD PhD [address] [place] [address] Radiation Oncologist Radiation Oncology 04/15/18 Rachell Mason OD [address] [place] [address] Optometry 06/30/18 Melissa Smith MD [address] [place] [address] Surgeon Orthopedic Surgery 01/11/19 Sonny Molina MD [address] [facility] [address] [place] [address] Rheumatology 10/24/21 Ana Pereira NP [address] [facility] [address] [place] [address] 11/08/22 [place] [address] [place] [address] [place] [address] Surgeon Orthopedic Surgery 11/08/22 Gagandeep Garcia DO [address] [facility] [address] Consulting Physician Gastroenterology 12/24/23
--- OUTSIDE RECORDS SUMMARY | 2024-10-15 08:02 | XMS_ITS | Clinical Summary ---
Author Organization [facility] Address [facility] [place] [address] Care Team Providers Care Comfort Station Attendant Name Role Phone Marianela Sheehan MD Primary Care Provider Giovanny Andrews MD Unavailable Unavailable Lyndsay Sanchez RN Unavailable [phone] Source Comments [facility],non-owned Affiliates and Associated Physician Practices is amultiple site organization consisting of ambulatory clinics and hospital sitesin [place], [place], [place] and [place]. This disclosure is being madepursuant to the Care Everywhere program and may not contain all information available regarding this patient. 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 Gender Identity Not on file Sexual Orientation Not on file Occupation Industry Job Start Date Job End Date retired Not on file Not on file Not on file Last Filed Vital Signs Vital Sign Reading Time Taken Comments Blood Pressure 138/77 06/04/2017 10:38 AM CDT Pulse 67 06/04/2017 10:38 AM CDT Temperature 36.8 C (98.2 F) 05/19/2015 9:45 AM HOME MAKER Respiratory Rate 18 05/12/2015 3:22 PM HOME MAKER Oxygen Saturation 97% 05/12/2015 3:22 PM HOME MAKER Inhaled Oxygen Concentration - - Weight 82.1 kg (181 lb) 06/04/2017 10:38 AM CDT Height 151.8 cm (4' 11.75) 06/04/2017 10:38 AM CDT Body Mass Index [...] 05/25/2019 05/24/2014, 02/17/2008 COVID-19 VACCINE (1 - season) 2023 DEPRESSION SCREENING 03/18/2024 INFLUENZA VACCINE (#1) 2024 7, 01/17/2016, 01/14/2015, Additional history exists Respiratory Syncytial [...] - 106 mg/dL 11/14/2015 12:18 PM CDT [facility] Sodium 140 136 - 145 mmol/L 11/14/2015 12:18 PM CDT [facility] Potassium 3.5 3.5 - 5.1 mmol/L 11/14/2015 12:18 PM CDT [facility] Chloride 105 98 - 107 mmol/L 11/14/2015 12:18 PM CDT [facility] CO2 29 22 - 31 mmol/L 11/14/2015 12:18 PM CDT [facility] Calcium 9.7 8.5 - 10.1 mg/dL 11/14/2015 12:18 PM CDT [facility] Anion Gap 6 5 - 20 mmol/L 11/14/2015 12:18 PM CDT [facility] BUN 16 7 - 21 mg/dL 11/14/2015 12:18 PM CDT [facility] Creatinine 0.61 0.50 - 1.30 mg/dL 11/14/2015 12:18 PM CDT [facility] Alkaline Phosphatase 76 38 - 126 U/L 11/14/2015 12:18 PM CDT [facility] ALT 22 13 - 61 U/L 11/14/2015 12:18 PM CDT [facility] Comment:See reference range update AST 18 5 - 40 U/L 11/14/2015 12:18 PM CDT [facility] Protein Total 7.7 6.4 - 8.2 gm/dL 11/14/2015 12:18 PM CDT [facility] Albumin 3.7 3.4 - 5.0 gm/dL 11/14/2015 12:18 PM CDT [facility] Bilirubin Total 0.4 0.2 - 1.0 mg/dL 11/14/2015 12:18 PM CDT [facility] eGFR by MDRD >60 >60 mL/min/1.7 3m2 11/14/2015 12:18 PM CDT [facility] eGFR by MDRD >60 >60 mL/min/1.7 3m2 11/14/2015 12:18 PM CDT [facility] Blood BLOOD SPECIMEN / Unknown Lab Venipuncture / Unknown 11/14/2015 11:07 AM CDT 11/14/2015 11:50 AM CDT us Ravi Noland MD LAB - CHEMISTRY ORDERABLES Fi nal Result [facility] [address] [place] [address] from Last 3 Months or Most Recently Relevant to Health Maintenance Insurance COMMERCIAL GENERIC MEDICARE Advance Directives * Full Code (Latest Code Status on File) Date Activated Date Inactivated Comments 05/10/2015 12:24 PM 05/12/2015 7:04 PM Care Teams Comfort Station Attendant Relationship Specialty Start Date End Date Marianela Sheehan MD [address] [place] [address] PCP - General 09/16/08 Giovanny Andrews MD [address] [place] [address] Rheumatology 01/25/11 Lyndsay Sanchez, ANASTASIYA Accelerator Operator 05/10/15
--- OUTSIDE RECORDS SUMMARY | 2024-10-15 08:02 | XMS_ITS ---
Author Organization [facility] [address] Address [address] [place] [address] Phone Care Team Providers Care Hospital Ward Clerk Name Role Phone LeeTonia MD Unavailable +[phone] Ravi Noland MD Unavailable +[phone] Garrison Robison MD Unavailable +[phone] Abdon Chapman MD Unavailable +[phone] Ozzy Shirley MD PhD Unavailable + [phone] Rachell Masont OD Unavailable Melissa Smith MD Unavailable + [phone] Sabine Sheehan MD Primary Care Provider + [phone] Sonny Molina MD Unavailable +[phone] Ana Pereira NP Unavailable [phone] Eric Hopkins MD Unavailable Gagandeep Garcia DO Unavailable [phone] Active Problems Problem Noted Date Diagnosed Date [...] weig Rheumatoid arthritis involving multiple joints ( [facility]/HCC) 08/01/2013 Overview (06/22/2016): Rheumatoid arthritis Hypothyroidism, adult 08/01/2013 Overview (06/22/2016): Hypothyroid Multiple-type hyperlipidemia 08/01/2013 Overview (06/22/2016): Hyperlipidemia Current Treatment and Therapy Plans No current plan information found. Past Treatment and Therapy Plans Oncology Chemotherapy Treatment Plan Name Start Date Discontinue Date Treatment Medications Discontinue Reason Plan Provider Cycles DOCEtaxel / CARBOplatin 21 Day Cycles - CATERPILLAR MECHANIC 8 07/01/2018 CARBOplatin (by AUC:GOG) (PARAPLATIN)CA RBOplatin (PARAPLATIN) IVPB in 250 mL (by AUC: GOG)DOCEtaxel (TAXOTERE)DOCE taxel (TAXOTERE) IVPB in 250 mL (vial 10mg/mL)DOCEta xel (TAXOTERE) IVPB in 250 mL (vial 20mg/mL) Stable Disease Abdon Chapman MD 6 of 6 cycles started PACLItaxel / CARBOplatin (AUC 5) 21 Day Cycles - CATERPILLAR MECHANIC 8 01/07/2018 CARBOplatin (by AUC:GOG) (PARAPLATIN)CA RBOplatin (PARAPLATIN) IVPB in 250 mL (by AUC: GOG)PACLitaxel (TAXOL)PACLIta xel (TAXOL) IVPB in 500 mL Toxicity/Compl ication Abdon Chapman MD 2 of 6 cycles started Oncology Supportive Care Therapy Plan Plan Name Start Date Discontinue Date Treatment [...] from the original note were not included. [facility]ne[facility] [address] [facility] [address]TH [place] [address] [place] [address] This Survivorship Care Plan is a cancer [...] Contact Information: Primary Care Physician Sabine Sheehan [phone] Radiation Oncologist Ozzy Shirley MD PhD Umesh Figueroa MD [phone] Plywood Factory Worker/Medical Oncologist Abdon Chapman MD [phone] Treatment Summary Cancer Diagnosis Information Diagnosis Malignant [...] Hysterectomy - LAPAROSCOPIC ROBOTIC ASSISTED; Bilateral Salpingo-oophorectomy, [place] Lymph Node Dissection, omentectomy Radiation Radiation Treatments [...] CARBOplatin (AUC 5) 21 Day Cycles - CATERPILLAR MECHANIC Treatment goal Curative Status Inactive Start Date [...] DOCEtaxel / CARBOplatin 21 Day Cycles - CATERPILLAR MECHANIC Treatment goal Curative Status Inactive Start Date [...] or 2nd degree relative In addition to CATERPILLAR MECHANIC cancer, also have a history of breast [...] important after radiation therapy. The use of jsqh-mpl-qppgqkx lubricants (Replens, Astroglide, [place] Jelly) or natural [...] Help learning to eat healthier, call the fast food supervisor at: [facility] for [facility] . Have an active lifestyle, strive for [...] man. Resources you may be interested in: [facility] A National Cancer [place] [facility] http://www.[facility]/ [facility] & Cancer Information Center 1st floor of [facility] [phone]. Computer access, educational material, counseling services (FREE) Cancer Resources: www.cancer.net National Cancer [place]: http://www.cancer.gov/ [place] Disabilities Act: The U.S. Department of Justice provides information about the Americans with Disabilities Act (ADA). Toll free number http://www.ada.gov/ Occupational Therapy at [facility]. Improve memory and thinking following chemotherapy. Improve your performance at home, work and in the community. or Toll free www.ot.[facility]/patients Managing your weight after a cancer diagnosis: http://www.cancer.net/sites/cancer.net/files/weight_after_cancer_diagnosis.pdf Foundation for Women?s Cancer: http://www.foundationforwomenscancer.org [facility] Department of OBGYN: http://www.obgyn.[facility]/content/418/hereditary_cancer_ risk_assessment_service.aspx National Coalition for Cancer Survivorship: http://www.canceradvocacy.org/ [place] Cancer Society Cancer Survivors Network: http://csn.cancer.org/ Obesity Action Coalition: www.obesityaction.org LIVE STRONG at the [employer] is a twelve-week, small group program designed to help adult cancer survivors become more physically active after cancer diagnosis: http://www.livestrong.org/what-we-do/our-act ions/programs-partnerships/kzssmhswxf-ny-dfc-ymca/ldpmywbrqz-xhzl-eryhxjshc/ USDA SuperTracker: www.Digital Intelligence Systemstracker.usda.gov [place] Ovarian Cancer Awareness: committed to impacting ovarian cancer survivorship by promotingawareness of early warning signs and standards of care, funding ovarian cancer research, and supporting survivors. www.sloca.org Gynecological Oncology Support group: A wellness-focused support group for women and their significant others to share feelings and experiences. Current treatments and complementary therapies are discussed, and a physician is available to answer questions. www.[facility]/event-category/suppor t-groups Springboard Beyond Cancer: https://survivorship.cancer.gov/ an online tool for cancer survivors andcaregivers created by the [place] Cancer Society and the National Cancer [place]. 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 Marlon delarosa at [facility] receiving re-stasis Rheumatoid arthritis 12/04/2016 019 Overview [...] A copy of these results to her occupational therapy assist however Dr. MOLINA informs me that she is no longer her occupational therapy assist. Please find out who is the current occupational therapy assist , add this person to her care [...]
[2024-10-15 08:09] LABS: Hematocrit 35.4 % (35.0-42.0); Hemoglobin 11.7 g/dL (11.7-13.8); Immature Granulocyte Percent A 0.2 % (0.0-0.0); Lymphocytes Absolute Auto 1.16 K/mm3 (1.10-4.50); Mean Corpuscular HGB Conc 33.1 g/dL (32-36); Mean Corpuscular Hemoglobin 35.1 pg (27.0-31.0); Mean Corpuscular Volume 106.3 fL (78.0-102.0); Nucleated Red Blood Cells Absolute Auto 0.00 K/mm3 (0.00-0.00); Nucleated Red Blood Cells Perc 0.0 % (0-0.0); Platelet Count Result 249 K/mm3 (150-420); Red Blood Count 3.33 M/mm3 (4.20-5.40); White Blood Count 5.3 K/mm3 (4.8-10.8)
[2024-10-15 08:42] LABS: Alanine Aminotransferase 18 U/L (6-35); Albumin Level 4.1 g/dL (3.5-5.1); Alkaline Phosphatase 70 U/L (38-126); Anion Gap 3 mmol/L (4-12); Aspartate Amino Transferase 40 U/L (14-36); Bilirubin,Total 0.4 mg/dL (0.2-1.3); Blood Urea Nitrogen 23 mg/dL (7-17); Calcium 9.2 mg/dL (8.4-10.2); Carbon Dioxide 28 mmol/L (22-30); Chloride 107 mmol/L (98-107); Estimated Glomerular Filt Rate > 60; Glucose 76 mg/dL (65-110); Osmolality Calculated 288 mOsm/kg (285-295); Potassium 4.4 mmol/L (3.4-5.0); Sodium 138 mmol/L (137-145); Total Protein 6.5 g/dL (6.3-8.2)
== END 2024-10-15 07:55 | disposition home or self-care (01) ==
LOC: CHSLAB 07:59
PROVIDERS: PCP Internal Medicine Geriatric Medicine
DX: M06.9 Rheumatoid arthritis, unspecified (principal)
CPT/HCPCS: 36415; 80053; 85025

== ENCOUNTER 2024-11-06 09:18 | Outpatient (CLI) | payer MEDICARE, SELFPAY ==
--- NOTE | ~2024-11-06 | XR_ITS ---
HISTORY: Rheumatoid arthritis, chronic Lt. foot pain COMPARISON: 07/20/2024 TECHNIQUE: 2 views of the left foot were performed FINDINGS: No acute fracture or dislocation is appreciated. Diffuse bony demineralization, far advanced for patient of this age. Erosion of the fifth metatarsal phalangeal joint is identified, unchanged from prior. Early erosive change within the second metatarsal phalangeal joint. Erosive change is also noted within the fifth proximal interphalangeal joint space. Erosion of the posterior calcaneal tubercle, which may be seen in many types of inflammatory arthritis (not isolated to rheumatoid). Calcaneal spur is redemonstrated. No additional bony erosions are appreciated. The first metatarsophalangeal angle measures 21 degrees, consistent with hallux valgus. Examination was not obtained in the standing position, so additional angles cannot be measured. IMPRESSION: Interval progression of bony erosion when compared with previous examination performed 3 months earlier. Diffuse bony demineralization, no acute fracture. Perhaps for follow-up imaging, lateral views should be performed in the standing position (if the patient is clinically able). Reviewed, dictated and finalized at location A. IMPRESSION: Interval progression of bony erosion when compared with previous e xamination performed 3 months earlier. Diffuse bony demineralization, no acute fracture. Perhaps for follow-up imaging, lateral views should be performed in the standin g position (if the patient is clinically able).
--- NOTE | ~2024-11-06 | XR_ITS ---
EXAMINATION: XR ankle LT 2V DATE: 11/06/2024 09:44 INDICATION: Rheumatoid arthritis, chronic left ankle pain TECHNIQUE: 2 images of the left ankle were obtained.. COMPARISON: None. FINDINGS: Bones appear osteopenic. No fracture. No dislocation. Plantar calcaneal spur. Probable vascular calcifications. No significant degenerative change. IMPRESSION: 1. No fracture identified. 2. Soft tissue swelling about the left ankle. 3. Plantar calcaneal spur. If symptoms persist or worsen, consider a short-term follow-up study or additional imaging for further assessment. Reviewed, dictated and finalized at location Q. IMPRESSION: 1. No fracture identified. 2. Soft tissue swelling about the left ankle. 3. Plantar calcaneal spur. If symptoms persist or worsen, consider a short-term follow-up study or additio nal imaging for further assessment.
--- OUTSIDE RECORDS SUMMARY | 2024-11-06 09:24 | XMS_ITS | Encounter Summary ---
Author Organization [facility] [facility] Address [address] [place] [address] Phone Care Team Providers Care Rn Diabetes Name Role Phone Sabine Sheehan MD Primary Care Provider + [phone] Tonia Lee MD Unavailable [phone] Ravi Noland MD Unavailable +[phone] Giovanny Andrews MD Unavailable [phone] Garrison Robison MD Unavailable [phone] Gomez Mauro MD Unavailable [phone] Sonny Dozier MD Unavailable +[phone] Abdon Chapman MD Unavailable +[phone] Ozzy Shirley MD PhD Unavailable + [phone] Umesh Figueroa MD Unavailable +[phone] Rachell Mason OD Unavailable [phone] Melissa Smith MD Unavailable + [phone] Sonny Dozier MD Primary Care Provi kiera Sabine Sheehan MD Primary Care Provider + [phone] Sonny Dozier MD Unavailable +[phone] Ana Pereira NP Unavailable [phone] Eric Hopkins MD Unavailable Gagandeep Garcia DO Unavailable [phone] Encounter Details Date Type Department Care Team (Late st Contact Info) Description 10/30/2016 Orders Only [facility] [address] [place] [address] Sabine Sheehan MD [address] [place] [address] Mixed hyperlipidemia (Primary Dx); Exposure to hepatitis B; Unspecified hypothyroidism Social History Tobacco Use Types Packs/Day Years Used Date Smoking Tobacco: Never Alcohol Use Standard Drinks/Week Comments No 0 (1 standard drink = 0.6 oz pur e alcohol) Comments Unknown Sex and Gender Information Value Date Recorded Sex Assigned at Not on file 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 MPH Sabine Sheehan MD LAB BLOOD ORDERABLES Final Result Performing Organization Address [facility] Co de Phone Number ARLEEN [employer] AUGUST Handley * CHOL/HDLC RATIO (11/21/2016 8:01 AM CDT) Chol/HDL ratio 3.6 <5.0 (calc) ARLEEN [employer] AUGUST 11/21/2016 8:01 AM CDT 11/21/2016 8:02 AM CDT Narrative [facility] - 11/22/2016 10:22 AM CDT FASTING:YES Resulting Agency Comment Performing Organization Information: Site ID: [place] Name: [facility] Address: [address] [facility] [place] [address] Director: Braxton Khan D.O. MPH Sabine Sheehan MD LAB BLOOD ORDERABLES Final Result Performing Organization Address [facility] Co de Phone Number ARLEEN NAIK - AUGUST Morocho * (ABNORMAL) LDL-Cholesterol (11/21/2016 8:01 AM CDT) LDL 144(H) mg/dL (calc) [employer] [place] Comment: Reference range: <100 Desirable range <100 [...] From the Standard Lipid Profile. HIRAM. 2013;310(19): 2294-7161. For additional information, please refer to http://education.Meetup/faq/JDP931 (This link is being provided for informational/ educational purposes only.) 11/21/2016 8:01 AM CDT 11/21/2016 8:02 AM CDT Narrative [facility] - 11/22/2016 10:22 AM CDT FASTING:YES Resulting Agency Comment Performing Organization Information: Site ID: NE Name: [facility] Address: [address] [place] [address] Director: Braxton Khan D.O. MPH us Sabine Sheehan MD LAB BLOOD ORDERABLES Final Result [facility] [place] * Triglycerides (11/21/2016 8:01 AM CDT) Pathologist [facility] Triglycerides 105 <150 mg/dL [facility] 11/21/2016 8:01 AM CDT 11/21/2016 8:02 AM CDT Narrative [employer] - 11/22/2016 10:22 AM CDT FASTING:YES Resulting Agency Comment Performing Organization Information: Site ID: NE Name: [facility] Address: [address] [place] [address] Director: Braxton Khan D.O., MPH us Sabine Sheehan MD LAB BLOOD ORDERABLES Final Result [facility] - AUGUST [employer]AUGUST sherman * Cholesterol, HDL (11/21/2016 8:01 AM CDT) HDL 65 >50 mg/dL [facility] - [place] 11/21/2016 8:01 AM CDT 11/21/2016 8:02 AM CDT Narrative [facility] - 11/22/2016 10:22 AM CDT FASTING:YES Resulting Agency Comment Performing Organization Information: Site ID: AUGUST Name: [employer] Address: [address] [place] [address] Director: Braxton Khan D.O. MPH us Sabine Sheehan MD LAB BLOOD ORDERABLES Final Result Performing Organization Address [facility] Co de Phone Number ARLEEN [facility] - AUGUST [place] * (ABNORMAL) Cholesterol, total (11/21/2016 8:01 AM CDT) Cholesterol 231(H) <200 mg/dL [facility] - AUGUST 11/21/2016 8:01 AM CDT 11/21/2016 8:02 AM CDT Narrative [facility] - 11/22/2016 10:22 AM CDT FASTING:YES Resulting Agency Comment Performing Organization Information: Site ID: AUGUST Name: [facility] Address: [address] [place] [address] Director: Braxton Khan D.O. MPH Sabine Sheehan MD LAB BLOOD ORDERABLES Final Result Performing Organization Address City/[facility]/ZIP Co de Phone Number [facility] - AUGUST [place] * TSH (11/21/2016 8:01 AM CDT) TSH 1.25 0.40 - 4.50 mIU/L [facility] - AUGUST Blood specimen (specimen) 11/21/2016 8:01 AM CDT 11/21/2016 8:02 AM CDT Narrative [facility] - 11/22/2016 10:22 AM CDT FASTING:YES Resulting Agency Comment Performing Organization Information: Site ID: AUGUST Name: [facility] Address: [address] [place], [place] [address] [address] Director: Braxton Khan D.O., MPH Sabine Sheehan MD LAB BLOOD ORDERABLES Final Result Performing Organization Address [facility] de Phone Number AUGUST Ely * Hepatitis C antibody (11/21/2016 8:01 AM CDT) Hep C Ab NON-REACTI VE NON-REACTI VE ARLEEN KOCH SIGNAL TO CUT-OFF 0.47 <1.00 ARLEEN KOCH Blood specimen (specimen) 11/21/2016 8:01 AM CDT 11/21/2016 8:02 AM CDT Narrative ARLEEN - 11/22/2016 10:22 AM CDT FASTING:YES Resulting Agency Comment Performing Organization Information: Site ID: AUGUST Name: [facility]ags[facility] Address: [address] [place], [place] [address] [address] Director: Braxton Khan D.O., MPH us Sabine Sheehan MD LAB MICROBIOLOGY - GENERAL ORDERABLES Final Result Performing Organization Address [facility] de Phone Number AUGUST Ely documented in this encounter Visit Diagnoses Diagnosis Mixed hyperlipidemia- Primary Exposure to hepatitis B Contact with or exposure to other viral diseases Unspecified hypothyroidism documented in this encounter Additional Health Concerns Infection Onset Date Last Indicated Resolved Time COVID: Suspected 04/11/2020 04/11/2020 04/11/2020 2:48 PM TANK FARM OPERATOR Respiratory Infection (KRYSTEN), contact + droplet Comment:Automatically added due to negative COVID-19 result. 04/11/2020 04/11/2020 04/25/2020 3:0 6 AM TANK FARM OPERATOR COVID: Suspected 09/06/2020 09/06/2020 09/07/2020 9:46 AM CDT documented as of this encounter Care Teams Rn Diabetes Relationship Specialty Start Date End Date Sabine Sheehan MD PCP - General 06/15/16 10/23/21 Sonny Dozier MD [address] [facility] [address] [place] [address] PCP - General Rheumatology 10/24/21 04/17/22 Sabine Sheehan MD [address] [facility] [address] [place] [address] PCP - General Internal Medicine 04/18/22 Tonia Lee MD [address] [place] [address] Obstetrics and Gynecology 12/01/16 [place] [address] [address] [place] [address] Surgery 12/01/16 Giovanny Andrews MD [address] [place] [address] Rheumatology 12/01/16 12/03/16 Garrison Robison MD [address] [facility] [address] [place] [address] Internal Medicine 12/01/16 Gomez Mauro MD [address] [place] [address] Orthopedic Surgery 12/01/16 11/07/22 Sonny Dozier MD [address] [place] [address] Rheumatology 12/04/16 10/22/21 Abdon Chapman MD [address] [facility] [id number] [place] [address] Referring Physician Gynecologic Oncology 12/10/17 Ozzy Shirley MD PhD [address] [place] [address] Radiation Oncologist Radiation Oncology 04/15/18 Umesh Figueroa MD [address] [place] [address] Radiation Oncologist Radiation Oncology 06/18/18 Rachell Marquez OD [address] [place] [address] Optometry 06/30/18 Melissa Smith MD [address] [place] [address] Surgeon Orthopedic Surgery 01/11/19 Sonny Dozier MD [address] [facility] [address] [place] [address] Rheumatology 10/24/21 Ana Pereira NP [address] [facility] [address] [place] [address] 11/08/22 [place] [address] [place] [address] [place] [address] Surgeon Orthopedic Surgery 11/08/22 Gagandeep Garcia DO [address] [facility] [place] [address] Consulting Physician Gastroenterology 12/24/23 documented as of this encounter
--- OUTSIDE RECORDS SUMMARY | 2024-11-06 09:24 | XMS_ITS | Encounter Summary ---
Author Organization [facility] Address [address] [place] [address] Care Team Providers Care Jewelry Drill Operator Name Role Phone Sabine Sheehan MD Primary Care Provider + [phone] Tonia Lee MD Unavailable [phone] Ravi Noland MD Unavailable +[phone] Garrison Robison MD Unavailable +[phone] Gomez Mauro MD Unavailable +[phone] Sonny Dozier MD Unavailable +[phone] Abdon Chapman MD Unavailable +[phone] Ozzy Shirley MD PhD Unavailable + [phone] Umesh Figueroa MD Unavailable +[phone] Rachell Mason OD Unavailable [phone] Melissa Smith MD Unavailable + [phone] Sonny Dozier MD Primary Care Provi kiera Sabine Sheehan MD Primary Care Provider + [phone] Sonny Dozier MD Unavailable +[phone] Ana Pereira NP Unavailable [phone] Eric Hopkins MD Unavailable Fordfrieda Gagandeep Garcia Unavailable [phone] Encounter Details Date Type Department Care Team (Late st Contact Info) Description 02/15/2020 Telephone [facility] Radiology [address] [place] [address] Velma Bueno, ANASTASIYA Social History Tobacco Use [...] on file Legal Sex Female 7:52 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 04/11/2020 04/11/2020 04/25/2020 3:0 6 AM FIRE PREVENTION CAPTAIN COVID: Suspected 09/06/2020 09/06/2020 09/07/2020 9:46 AM CDT documented as of this encounter Care Teams Jewelry Drill Operator Relationship Specialty Start Date End Date Sabine Sheehna MD PCP - General 06/15/16 10/23/21 Sonny Dozier MD [address] [facility] [address] [place] [address] PCP - General Rheumatology 10/24/21 04/17/22 Sabine Sheehan MD [address] [facility] [address] [place] [address] PCP - General Internal Medicine 04/18/22 Tonia Lee MD [address] [place] [address] Obstetrics and Gynecology 12/01/16 [place] [address] [place] [address] Surgery 12/01/16 Garrison Robison MD [address] [facility] [address] [place] [address] Internal Medicine 12/01/16 Gomez Mauro MD [address] [place] [address] Orthopedic Surgery 12/01/16 11/07/22 Sonny Dozier MD [address] [place], [place] [address], [place] [address] Rheumatology 12/04/16 10/22/21 Abdon Chapman MD [address] [facility] [id number] [place] [address] Referring Physician Gynecologic Oncology 12/10/17 Ozzy Shirley MD PhD [address] [facility] [place] [address] Radiation Oncologist Radiation Oncology 04/15/18 Umesh Figueroa MD [address] [place] [address] Radiation Oncologist Radiation Oncology 06/18/18 4 Rachell Mason OD [address] [place] [address] Optometry 06/30/18 Melissa Smith MD [address] [place] [address] Surgeon Orthopedic Surgery 01/11/19 Sonny Dozier MD [address] [facility] [address] [place] [address] Rheumatology 10/24/21 Ana Pereira NP [address] [place] [address] 11/08/22 Eric Hopkins MD [address] [facility] [address] [place] [address] Surgeon Orthopedic Surgery 11/08/22 Gagandeep Garcia DO [address] 6A/6B[address] [place] [address] Consulting Physician Gastroenterology 12/24/23 documented as of this encounter
--- OUTSIDE RECORDS SUMMARY | 2024-11-06 09:24 | XMS_ITS | Encounter Summary ---
Author Organization [facility] Address [address] [place] [address] Phone Care Team Providers Care Remote Sensing Technologist Name Role Phone LeeTonia MD Unavailable +[phone] Ravi Noland MD Unavailable +[phone] Garrison Robison MD Unavailable [phone] Gomez Mauro MD Unavailable +[phone] Abdon Chapman MD Unavailable +[phone] Ozzy Shirley MD PhD Unavailable + [phone] Umesh Figueroa MD Unavailable +[phone] Rachell Mason OD Unavailable [phone] Melissa Smith MD Unavailable + [phone] Sonny Dozier MD Primary Care Provi kiera Sabine Sheehan MD Primary Care Provider + [phone] Sonny Dozier MD Unavailable +[phone] Ana Pereira NP Unavailable [phone] Eric Hopkins MD Unavailable Gagandeep Garcia DO Unavailable [phone] Encounter Details Date Type Department Care Team (Late st Contact Info) Description 02/21/2022 Orders Only [facility] [address] [place] [id number] Sabine Sheehan MD [address] [place] [address] Social History Tobacco Use Types Packs/Day Years [...] on file 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 Gender Identity Not on file Sexual Orientation [...] on filedocumented in this encounter Care Teams Remote Sensing Technologist Relationship Specialty Start Date End Date Sonny Dozier MD [email or web address] [place] [address] PCP - General Rheumatology 10/24/21 04/17/22 Sabine Sheehan MD [email or web address] [place] [address] PCP - General Internal Medicine 04/18/22 Tonia Lee MD [address] [place] [address] Obstetrics and Gynecology 12/01/16 [place] [address] [address] [place] [address] Surgery 12/01/16 Garrison Robison MD [address] [facility] [address] [place] [address] Internal Medicine 12/01/16 Gomez Mauro MD [address] [place] [address] Orthopedic Surgery 12/01/16 11/07/22 Abdon Chapman MD [address] [facility] [id number] [place] [address] Referring Physician Gynecologic Oncology 12/10/17 Ozzy Shirley MD PhD [address] [facility] [place] [address] Radiation Oncologist Radiation Oncology 04/15/18 Umesh Figueroa MD 6 [place] [address] Radiation Oncologist Radiation Oncology 06/18/18 4 Rachell Mason OD [address] [facility] [place] [address] Optometry 06/30/18 Melissa Smith MD 6 [place] [address] Surgeon Orthopedic Surgery 01/11/19 Sonny Dozier MD [address] [place] [address] Rheumatology 10/24/21 Ana Pereira NP [address] [place] [address] 11/08/22 Eric Hopkins MD [address] [facility] [address]A/6B/12A [place] [address] Surgeon Orthopedic Surgery 11/08/22 Gagandeep Garcia DO [address] [facility] [address] 6A/6B/12A [place] [address] Consulting Physician Gastroenterology 12/24/23 documented as of this encounter
--- OUTSIDE RECORDS SUMMARY | 2024-11-06 09:24 | XMS_ITS | Clinical Summary ---
Author Organization [facility] [address] Address [address] [place] [address] Phone Care Team Providers Care Domestic Travel Consultant Name Role Phone LeeTonia MD Unavailable [phone] Ravi Noland MD Unavailable [phone] Garrison Robison MD Unavailable [phone] Abdon Chapman MD Unavailable [phone] Ozzy Shirley MD PhD Unavailable + [phone] Rachell Mason Arin OD Unavailable [phone] Melissa Smith MD Unavailable + [phone] Sabine Tabares MD Primary Care Provider + [phone] Sonny Molina MD Unavailable [phone] Ana Pereira NP Unavailable [phone] Eric Hopkins MD Unavailable Gagandeep Garcia DO Unavailable [phone] Allergies Active Allergy Reactions Criticality Noted Date [...] 10/11/2020 Assessment & Plan (04/11/2020 3:01 PM LODGE ATTENDANT): Patient presents with pain across the entire [...] 11/08/2022 Assessment & Plan (04/11/2020 3:03 PM LODGE ATTENDANT): With patient new onset of body aches [...] (01/09/2019): Added automatically from request for surgery [id number] Colon cancer screening 10/21/201801/09 Overview (10/21/2018): Added automatically from request for surgery 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 Marlon delarosa at [facility] receiving re-stasis Rheumatoid arthritis 12/04/2016 019 Overview [...] when Orencuia restarted ILD (interstitial lung disease) ([facility] 09/16/2008 11/09/2021 Overview (11/09/2021): Overview: 09/16/2008 possible [...] A copy of these results to her medical record consultant however Dr. MOLINA informs me that she is no longer her medical record consultant. Please find out who is the current medical record consultant , add this person to her care [...] Encounters Date Type Department Care Team Description 10/26/2024 8:51 AM CDT - 10/26/2024 11:59 PM CDT Hospital Encounter [facility] [address] [place] [address] Menopause Discharge Disposition: Discharge to home or self care 09/10/2024 5:15 PM CDT Office Visit [facility] [address] [place] [address] Darling Tolbert, PONCE Herpes zoster without complication (Primary Dx) 09/10/2024 Telephone [facility] [address] [place] [address] Sabine Tabares MD possible shingles 08/18/2024 Telephone 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 Gender Identity Not on file Sexual Orientation [...] 06/19/2024 12/20/2023, 12/18/2022, 11/30/2021, Additional history exists Influenza Vaccine (#1) 2024 , 12/18/2022, 12/29/2021, Additional history exists Breast Cancer Screening-Mammogram 12/02/2024 12/03/2023, 11/09/2022, 10/17/2021, Additional history exists Fall Risk Assessment 12/23/2024 12/24/2023, 11/08/2022, 06/14/2022, Additional history exists Well Visit 65+ 12/23/2024 12/24/2023, 10/17, 10/17/2021, Additional history exists Depression Screening 05/25/2025 05/25/2024, 12/24/2023, 11/08/2022, Additional history exists DTaP/Tdap/Td Vaccine (3 - Td or Tdap) 11/21/2025 11/22/2015, 07/13/2005 Osteoporosis Screening-Bone Density Scan 10/26/2026 10/26/2024, 10/23/2022, 10/19/2020, Additional history exists Colon Cancer Screening-Colonoscopy 02/17/2029 02/18/2024, 12/02/2018, 11/09/2013, [...] history exists Medical Devices Implanted Type Area Early Childhood Assistant Device Identifier Shelf Expiration Date Model / Serial / Lot [employer] Inc Plate Bone Narrow 4 Hole Right Dorsal Distal Radial Ti [id number] - Sn/A - [id number] Implanted:Qty: 1 on 09/26/2023 by Clementina Rico MD at [facility] Plate Right: Wrist [employer] [id number] -[id number] / N/A / [id number] Description:PENDING [facility] REQ # [phone] Ang[employer] [id number] Xcela 8fr 1.6mm 1 Lumen Power Injectable Attach Catheter Fill - [id number] Implanted:Qty: 1 on 11/26/2017 at [facility] [employer] 09/09/2022 [id number] / / [id number] [employer] 004056 Oss Low Friction Interface Knee Bushing Tibial Polyethylene - [id number] Implanted:Qty: 1 on 01/09/2019 by Eric Melendez MD at [facility] Left: Femur [employer] [id number] 10/03/2023 [id number] / / [id number] [employer] 566419 Oss Reinforce Knee Yoke Tibial - [id number] Implanted:Qty: 1 on 01/09/2019 by Eric Melendez MD at [facility] Left: Femur [employer] [id number] 12/03/2028 727355 / / [id number] [employer] 700132 Oss 16mm Knee Standard Bearing Tibial Poly Sterile Latex Free - [id number] Implanted:Qty: 1 on 01/09/2019 by Eric Melendez MD at [facility] Left: Femur [employer] [id number] 05/07/2023 363115 / / [id number] Bsplt Tibial Oss Short Knee Nonmodular 67mm - [id number] Implanted:Qty: 1 on 01/09/2019 by Eric Melendez MD at [facility] Left: Femur [employer] 05/16/2022 [id number] / / [id number] [employer] 6191-1-010 Simplex P Radiopaque Full Dose Cement Bone Sterile - [id number] Implanted:Qty: 1 on 01/09/2019 by Eric Melendez MD at [facility] Left: Femur [employer] 11/15/2020 6191-1-010 / / [id number] [employer] [id number] Simplex P Radiopaque; Full Dose Cement Bone - [id number] Implanted:Qty: 1 on 01/09/2019 by Eric Melendez MD at [facility] Left: Femur [employer] 12/15/2020 [id number] / / [id number] [employer] 273665 Oss 5cm Resurface Knee Left Component Femoral Porous - [id number] Implanted:Qty: 1 on 01/09/2019 by Eric Melendez MD at [facility] Left: Femur [employer] [id number] 11/13/2027 325756 / / [id number] [employer] 934130 Stem Extension Oss L90 Mm Od15 Mm Knee Femur Intramedullary Cement - [id number] Implanted:Qty: 1 on 01/09/2019 by Eric Melendez MD at [facility] Left: Femur [employer] 04/15/2027 146908 / / [id number] [employer] [id number] Simplex P Radiopaque; Full Dose Cement Bone - [id number] Implanted:Qty: 2 on 01/09/2019 by Eric Melendez MD at [facility] Left: Femur [employer] 12/15/2020 [id number] / / [id number] [employer] 019398 Oss Auxiliary Knee Bushing Femoral Polyethylene - [id number] Implanted:Qty: 1 on 01/09/2019 by Eric Melendez MD at [facility] Left: Femur [employer] [id number] 10/09/2023 777317 / / [id number] [employer] 018309 Oss Low Friction Interface Knee Axle Tibial - [id number] Implanted:Qty: 1 on 01/09/2019 by Eric Melendez MD at [facility] Left: Femur [employer] [id number] 10/22/2028 077257 / / [id number] Synthes Screw Locking Im Nail 5mm 58mm 04.045.058 - [id number] Implanted:Qty: 1 on 06/11/2022 by Eric Hopkins MD at [facility] Right: Femur Synthes I 04.045.058 / / Synthes Lcp Combi 370mm 18 Hole 4 Column Thread Variable Angle Condylar [id number] - [id number] Implanted:Qty: 1 on 06/11/2022 by Eric Hopkins MD at [facility] Right: Femur Synthes I 02124.418 / / Synthes 4.5mm 8mm 38mm Self Tap Large Hexagonal Socket Cortex Screw Bone 214.838 - [id number] Implanted:Qty: 1 on 06/11/2022 by Eric Hopkins MD at [facility] Right: Femur Synthes I 214.838 / / Synthes 5mm 80mm Variable Angle Self Tap Lock Stardrive Condylar T25 02.231.280 - [id number] Implanted:Qty: 4 on 06/11/2022 by Eric Hopkins MD at [facility] Right: Femur Synthes I 02.231.280 / / Synthes 4.5mm 8mm 90mm Self Tap Large Hexagonal Socket Cortical Screw 214.890 - [id number] Implanted:Qty: 1 on 06/11/2022 by Eric Hopkins MD at [facility] Right: Femur Synthes I 214.890 / / Synthes 5mm 34mm Variable Angle Self Tap Lock Stardrive Condylar T25 02.231.234 - [id number] Implanted:Qty: 2 on 06/11/2022 by Eric Hopkins MD at [facility] Right: Femur Synthes I 02.231.234 / / Synthes 5mm 65mm Variable Angle Self Tap Lock Stardrive Condylar T25 02.231.265 - [id number] Implanted:Qty: 2 on 06/11/2022 by Eric Hopkins MD at [facility] Right: Femur Synthes I 02.231.265 / / Synthes Nail Retrograde Fem 10mm 280mm 5 Deg Bend Titanium Sterile 04.233.028s - [id number] Implanted:Qty: 1 on 06/11/2022 by Eric Hopkins MD at [facility] Right: Femur Synthes I 07/15/2025 04.233.028 S / / [id number] Synthes 5mm 85mm Variable Angle Self Tap Lock Stardrive Condylar T25 02.231.285 - [id number] Implanted:Qty: 1 on 06/11/2022 by Eric Hopkins MD at [facility] Right: Femur Synthes I 02.231.285 / / Screw Locking Im Nail 5mm 72mm - [id number] Implanted:Qty: 1 on 06/11/2022 by Eric Hopkins MD at [facility] Right: Femur Synthes I 04.045.072 / / Screw Locking Im Nail 5mm 84mm - [id number] Implanted:Qty: 1 on 06/11/2022 by Eric Hopkins MD at [facility] Right: Femur Synthes I 04.045.084 / / Synthes Screw Locking Im Nail 5mm 34mm 04.045.034 - [id number] Implanted:Qty: 1 on 06/11/2022 by Eric Hopkins MD at [facility] Right: Femur Synthes I 04.045.034 / / Arthrex Inc Allosync 1cc Abs-2009-03 - [id number] - [id number] Implanted:Qty: 1 on 09/26/2023 by Clementina Rico MD at [facility] Right: Wrist [employer] Inc 12/27/2027 ABS0 1 / [id number] / Description:Implant is from Tonia Cerda [employer] Inc Screw Kreulock Compression Titanium 2.4x22mm [id number] - [id number] Implanted:Qty: 1 on 09/26/2023 by Clementina Rico MD at [facility] Right: Wrist Ar[employer] Inc AR-8724VCL -22 / / Ar[employer]rex Inc Screw Kreulock Compression Titanium 2.4x24mm [id number]-[id number] - [id number] Implanted:Qty: 1 on 09/26/2023 by Clementina Rico MD at [facility] Right: Wrist [employer] Inc AR-8724VCL -24 / / Ar[employer]rex Inc Screw Kreulock Compression Titanium 2.4x18mm Fd-[id number]-22 - [id number] Implanted:Qty: 1 on 09/26/2023 by Clementina Rico MD at [facility] Right: Wrist [employer] Inc AR-8724VCL -18 / / Arthrex Inc Screw Kreulock Compression Titanium 2.4x20mm [id number] - [id number] Implanted:Qty: 2 on 09/26/2023 by Clementina Rico MD at [facility] Right: Wrist [employer] Inc AR-8724VCL -20 / / Ar[employer]rex Inc Screw Kreulock Compression Titanium 3.5x14mm [id number] - [id number] Implanted:Qty: 1 on 09/26/2023 by Clementina Rico MD at [facility] Right: Wrist Ar[employer] Inc AR-8935CL- 14 / / Arthrex Inc Screw Kreulock Compression Titanium 3.5x18mm Xd-0691mg-32 - [id number] Implanted:Qty: 1 on 09/26/2023 by Clementina Rico MD at [facility] Right: Wrist Ar[employer]rex Inc AR-8935CL- 18 / / Arthrex Inc Low Profile Screws 3.5mm 14mm Self Drill Solid Midfoot Cortical T Ar-8935-14 - [id number] Implanted:Qty: 1 on 09/26/2023 by Clementina Rico MD at [facility] Right: Wrist Ar[employer] Inc AR-8935-14 / / Explanted Type Area Early Childhood Assistant Device Identifier Shelf Expiration Date Model / Serial / Lot Arthrex Inc Low Profile Screws 3.5mm 16mm Self Tap Solid Hexalobe Midfoot Ar-8935-16 - [id number] Explanted:Qty: 1 on 09/26/2023 at [facility] Right: Wrist Ar[employer]rex Inc AR-8935-16 / / Arthrex Inc Screw Bone Compression Full Thread Locking Kreulock 3.5x10mm Ti [id number]-[id number]-51 - [id number] Explanted:Qty: 1 on 09/26/2023 at [facility] Right: Wrist Ar[employer]rex Inc AR-8935CL-1 0 / / Procedures Procedure Name Priority Date/Time Associated Diagnosis Comments DEXA AXIAL SKELETON BONE DENSITY 1 OR MORE SITES Schedule Routine, Read Routine (OP Routine) 10/26/2024 9:05 AM CDT Menopause COLONOSCOPY 02/18/2024 9:41 AM LODGE ATTENDANT SCREENING MAMMOGRAM BILATERAL W RAPHAEL Schedule Routine, Read Routine (OP Routine) 12/03/2023 2:33 PM CDT Breast cancer screening by mammogram HEPATITIS C ANTIBODY Routine 11/21/2016 8:01 AM CDT Exposure to hepatitis B from Last 3 Months or Most Recently Relevant to Health Maintenance Results * Dexa Axial Skeleton Bone Density 1 or 2 Site (10/26/2024 9:05 AM CDT) Anatomical Region Laterality Modality Body N/A Other 10/26/2024 2:55 PM CDT Narrative 10/26/2024 2:57 PM CDT EXAM DESCRIPTION: DEXA AXIAL SKELETON BONE DENSITY 1 OR MORE SITES REASON FOR STUDY: 73 y/o year old F with given history of: menopause Screening Early Childhood Assistant/Model: [employer] SL (S/N 01683) Facility LSC value of 0.022 for the AP spine, 0.027 for the femur, and 0.023 for the forearm. CLINICAL INFORMATION: Current height: 58.8 inches Maximum height: 61.5 inches Weight: 116 pounds Risk factors: Postmenopausal, adult fracture, steroid use, rheumatoid arthritis, secondary osteoporosis, cancer COMPARISON: 10/23/2022 Dissimilar scan types or analysis methods precludes assessment for calculating a significant change. FINDINGS: AP LUMBAR SPINE L1-L4: Total BMD is 0.853 g/cm2 T-score is -1.8 LEFT HIP: Total BMD is 0.600 g/cm2 T-score is -2.8 Femoral neck BMD is 0.489 g/cm2 T-score is -3.2 FRAX: FRAX not reported due to T-scores of hip, femoral neck and/or spine being at or below -2.5 (Osteoporosis). IMPRESSION: 1. Osteoporosis. REFERENCE: Bone mineral density: T-Score: Normal (T-score above or = -1.0) Low bone mass (T-score between -1.0 and -2.5) replaces the previously used term osteopenia Osteoporosis (T-score = or below -2.5) Z-Score: Within the expected range for age (Z-score above -2.0) Below the expected range for age (Z-score is -2.0 or below) Please see below follow up recommendations. Medical evaluation for secondary causes of low [...] greater than 3% should be considered for pharmacological treatment for the prevention of osteoporosis. For further information, including treatment recommendations, please refer to the 2019 ISCD Official Positions (http://www.iscd.org) and the NOF's Clinician's Guide to Prevention and Treatment of Osteoporosis (http://www.nof.org/professionals/clinical-guidelines) THIS IS AN ELECTRONICALLY VERIFIED FINAL REPORT 10/26/2024 2:57 PM - Electronically signed by Edvin Yang M.D. MF: OSCAR Report ID: [id number] Reading Location: [place] [address] Procedure Note Edvin Yang MD - 10/26/2024 EXAM DESCRIPTION: DEXA AXIAL SKELETON BONE DENSITY 1 OR MORE SITES REASON FOR STUDY: 73 y/o year old F with given history of: menopause Screening Early Childhood Assistant/Model: [employer] SL (S/N 18005) Facility LSC value of 0.022 for the AP spine, 0.027 for the femur, and0.023 for the forearm. CLINICAL INFORMATION: Current height: 58.8 inches Maximum height: 61.5 inches Weight: 116 pounds Risk factors: Postmenopausal, adult fracture, steroid use, rheumatoid arthritis, secondary osteoporosis, cancer COMPARISON: 10/23/2022 Dissimilar scan types or analysis methods precludes assessment for calculating a significant change. FINDINGS: AP LUMBAR SPINE L1-L4: Total BMD is 0.853 g/cm2 T-score is -1.8 LEFT HIP: Total BMD is 0.600 g/cm2 T-score is -2.8 Femoral neck BMD is 0.489 g/cm2 T-score is -3.2 FRAX: FRAX not reported due to T-scores of hip, femoral neck and/or spine beingat or below -2.5 (Osteoporosis). IMPRESSION: 1. Osteoporosis. REFERENCE: Bone mineral density: T-Score: Normal (T-score above or = -1.0) Low bone mass (T-score between -1.0 and -2.5) replaces thepreviously used term osteopenia Osteoporosis (T-score = or below -2.5) Z-Score: Within the expected range for age (Z-score above -2.0) Below the expected range for age (Z-score is -2.0 or below) Please see below follow up recommendations. Medical evaluation forsecondary causes of low bone mineral density may [...] or greaterthan 3% should be considered for pharmacological treatment for the preventionof osteoporosis. For further information, including treatment recommendations, please referto the 2019 ISCD Official Positions (http://www.iscd.org) and the NOF's Clinician's Guide to Prevention and Treatment of Osteoporosis (http://www.nof.org/professionals/clinical-guidelines) THIS IS AN ELECTRONICALLY VERIFIED FINAL REPORT 10/26/2024 2:57 PM - Electronically signed by Edvin Yang M.D. MF: OSCAR Report ID: [id number] Reading Location: [place] [address] Sabine Tabares MD IMPayal DXA PROCEDURES Final R esult * Colonoscopy (02/18/2024 9:41 AM LODGE ATTENDANT) Anatomical Region Laterality Modality Other Narrative Procedure Note Gagandeep Garcia DO - 02/18/2024 9:41 AM CST [facility] Patient Name: Iggy Soto Procedure Date: 02/18/2024 9:41 AM Date of : 1950 Admit Type: Outpatient Age: 73 Gender: Female Attending MD: Gagandeep Garcia D.O. Room: [facility] ENDOSCOPY ROOM 2 Note Status: [...] scope was passed under direct vision. TheColonoscope CF-IR887C [id number] was introduced through the anus and advanced [...] 9:41 AM Procedure Code(s): --- Professional --- 70895, Colonoscopy, flexible; with biopsy, single or multiple --- Technical --- 84380, Colonoscopy, flexible; with biopsy, single or multiple [...] perforation orabscess without bleeding CPT copyright 2020 [employer]. All rights reserved. The codes documented in this report are preliminary and upon video systems engineer reviewmay be revised to meet current compliance requirements. Recognized by the [employer] [employer] for promoting quality in endoscopy us Gagandeep T. Klucka DO ENDOSCOPY PROCEDURES Final Res ult * [...] by: Naima Thomas M.D. Sabine Tabares MD IMG MAMMO PROCEDURES Edite d Result - Final * Hepatitis C antibody (11/21/2016 8:01 AM CDT) Hep C Ab NON-REACTI VE NON-REACTI VE [facility] SIGNAL TO CUT-OFF 0.47 <1.00 [facility] [place] Blood specimen (specimen) 11/21/2016 8:01 AM CDT 11/21/2016 8:02 AM CDT Narrative [facility] - 11/22/2016 10:22 AM CDT FASTING:YES Resulting Agency Comment Performing Organization Information: Site ID: [facility] Name: [facility] Address: [address] [place] [address] Director: Braxton Khan D.O., MPH Sabine Tabares MD LAB MICROBIOLOGY - GENERAL ORDERABLES Final Result [facility] [place] from Last 3 Months or Most Recently Relevant to Health Maintenance Insurance MEDICARE COMMERCIAL GENERIC MEDICARE [facility] MEDICARE [place] MEDICARE [place] [address] MEDICARE Advance Directives For more information, please contact: [phone] Documents on File Type Date Recorded Patient Physical Biochemist Expl anation ADVANCE DIRECTIVE 06/30/2018 10:52 AM [...] 2:48 AM 01/11/2019 4:12 PM Care Teams Domestic Travel Consultant Relationship Specialty Start Date End Date Sabine Tabares MD [address] [place] [address] PCP - General Internal Medicine 04/18/22 Tonia Lee MD [address] [place] [address] Obstetrics and Gynecology 12/01/16 [place] [address] COUNTS INCLUDE 234 BEDS AT THE [facility] [address] [place] [address] Surgery 12/01/16 Garrison Robison MD [address] [place] [address] [facility] [address] [place] [address] Internal Medicine 12/01/16 Abdon Chapman MD [facility] [address] [facility] [id number] [place] [address] Referring Physician Gynecologic Oncology 12/10/17 Ozzy Shirley MD PhD [address] [place] [address] Radiation Oncologist Radiation Oncology 04/15/18 Rachell Mason OD [address] [place] [address] Optometry 06/30/18 Melissa Smiht MD [address] [place] [address] Surgeon Orthopedic Surgery 01/11/19 Sonny Molina MD [address] [facility] [address] [place] [address] Rheumatology 10/24/21 Ana Pereira NP [address] [facility] [address] [place] [address] 11/08/22 Eric Hopkins MD [address] [facility] [place] [address] Surgeon Orthopedic Surgery 11/08/22 Gagandeep Garcia DO [address] [facility] [place] [address] Consulting Physician Gastroenterology 12/24/23
--- OUTSIDE RECORDS SUMMARY | 2024-11-06 09:24 | XMS_ITS | Clinical Summary ---
Author Organization [facility] Address [facility] [place] [address] Care Team Providers Care Biological Aide Name Role Phone Marianela Sheehan MD Primary Care Provider Giovanny Andrews MD Unavailable Unavailable Lyndsay Sanchez RN Unavailable [phone] Source Comments [facility],non-owned Affiliates and Associated Physician Practices is amultiple site organization consisting of ambulatory clinics and hospital sitesin [place], [place], [place] and [place]. This disclosure is being madepursuant to the Care Everywhere program and may not contain all information available regarding this patient. Last updated 17.[facility] Allergies Active Allergy Reactions Criticality Noted [...] on file Legal Sex Female 6:36 AM LAB ASST Gender Identity Not on file Sexual Orientation Not on file Occupation Industry Job Start Date Job End Date retired Not on file Not on file Not on file Last Filed Vital Signs Vital Sign Reading Time Taken Comments Blood Pressure 138/77 06/04/2017 10:38 AM CDT Pulse 67 06/04/2017 10:38 AM CDT Temperature 36.8 C (98.2 F) 05/19/2015 9:45 AM LAB ASST Respiratory Rate 18 05/12/2015 3:22 PM LAB ASST Oxygen Saturation 97% 05/12/2015 3:22 PM LAB ASST Inhaled Oxygen Concentration - - Weight 82.1 [...] - 107 mmol/L 11/14/2015 12:18 PM CDT [facility] CO2 29 22 - 31 mmol/L 11/14/2015 12:18 PM CDT [facility] Calcium 9.7 8.5 - 10.1 mg/dL 11/14/2015 12:18 PM CDT [facility] Anion Gap 6 5 - 20 mmol/L 11/14/2015 12:18 PM CDT [facility] BUN 16 7 - 21 mg/dL 11/14/2015 12:18 PM CDT [facility] Creatinine 0.61 0.50 - 1.30 mg/dL 11/14/2015 12:18 PM CDT [facility] Alkaline Phosphatase 76 38 - 126 U/L 11/14/2015 12:18 PM CDT [facility] ALT 22 13 - 61 U/L 11/14/2015 12:18 PM CDT [facility] Comment:See reference range update AST 18 5 - 40 U/L 11/14/2015 12:18 PM CDT [facility] Protein Total 7.7 6.4 - 8.2 gm/dL 11/14/2015 12:18 PM CDT [facility] Albumin 3.7 3.4 - 5.0 gm/dL 11/14/2015 12:18 PM CDT [facility] Bilirubin Total 0.4 0.2 - 1.0 mg/dL 11/14/2015 12:18 PM CDT [facility] eGFR by MDRD >60 >60 mL/min/1.7 3m2 11/14/2015 12:18 PM CDT [facility] eGFR by MDRD >60 >60 mL/min/1.7 3m2 11/14/2015 12:18 PM CDT [facility] Blood BLOOD SPECIMEN / Unknown Lab Venipuncture / Unknown 11/14/2015 11:07 AM CDT 11/14/2015 11:50 AM CDT us Ravi Noland MD LAB - CHEMISTRY ORDERABLES Fi nal Result [facility] [address] [place] [address] from Last 3 Months or Most Recently Relevant to Health Maintenance Insurance COMMERCIAL GENERIC MEDICARE Advance Directives * Full Code (Latest Code Status on File) Date Activated Date Inactivated Comments 05/10/2015 12:24 PM 05/12/2015 7:04 PM Care Teams Biological Aide Relationship Specialty Start Date End Date Marianela Sheehan MD [address] [place] [address] PCP - General 09/16/08 Giovanny Andrews MD [address] [place] [address] Rheumatology 01/25/11 Lyndsay Sanchez, ANASTASIYA Cytogenetics Technologist 05/10/15
--- OUTSIDE RECORDS SUMMARY | 2024-11-06 09:24 | XMS_ITS ---
Author Organization [facility] [address] Address [address] [place] [address] Phone Care Team Providers Care Weatherseal Technician Name Role Phone LeeTonia MD Unavailable [phone] Ravi Noland MD Unavailable [phone] Garrison Robison MD Unavailable +[phone] Abdon Chapman MD Unavailable +[phone] Ozzy Shirley MD PhD Unavailable + [phone] Rachell Masont OD Unavailable Melissa Smith MD Unavailable + [phone] Sabine Sheehan MD Primary Care Provider + [phone] Sonny Molina MD Unavailable +[phone] Ana Pereira NP Unavailable +[phone] Eric Hopkins MD Unavailable Gagandeep Garcia DO Unavailable [phone] Active Problems Problem Noted Date Diagnosed Date [...] weig Rheumatoid arthritis involving multiple joints ( [facility]/HCC) 08/01/2013 Overview (06/22/2016): Rheumatoid arthritis Hypothyroidism, adult 08/01/2013 Overview (06/22/2016): Hypothyroid Multiple-type hyperlipidemia 08/01/2013 Overview (06/22/2016): Hyperlipidemia Current Treatment and Therapy Plans No current plan information found. Past Treatment and Therapy Plans Oncology Chemotherapy Treatment Plan Name Start Date Discontinue Date Treatment Medications Discontinue Reason Plan Provider Cycles DOCEtaxel / CARBOplatin 21 Day Cycles - FRENCH BINDER 8 07/01/2018 CARBOplatin (by AUC:GOG) (PARAPLATIN)CA RBOplatin (PARAPLATIN) IVPB in 250 mL (by AUC: GOG)DOCEtaxel (TAXOTERE)DOCE taxel (TAXOTERE) IVPB in 250 mL (vial 10mg/mL)DOCEta xel (TAXOTERE) IVPB in 250 mL (vial 20mg/mL) Stable Disease Abdon Chapman MD 6 of 6 cycles started PACLItaxel / CARBOplatin (AUC 5) 21 Day Cycles - FRENCH BINDER 8 01/07/2018 CARBOplatin (by AUC:GOG) (PARAPLATIN)CA RBOplatin [...] scheduled. Automatic discontinuation of dormant plans Abdon Cahpman MD Radiation Treatments * Course C1 PELVIS [...] from the original note were not included. [facility] Obstetrics and Gynecology [address] [facility] [address] [place] [address] [place] [address] This Survivorship Care Plan is a cancer [...] Contact Information: Primary Care Physician Sabine Sheehan [phone] Radiation Oncologist Ozzy Shirley MD PhD Umesh Figueroa MD [phone] Head Chef/Medical Oncologist Abdon Chapman MD [phone] Treatment Summary Cancer Diagnosis Information Diagnosis Malignant [...] Hysterectomy - LAPAROSCOPIC ROBOTIC ASSISTED; Bilateral Salpingo-oophorectomy, [place] Lymph Node Dissection, omentectomy Radiation Radiation Treatments [...] CARBOplatin (AUC 5) 21 Day Cycles - FRENCH BINDER Treatment goal Curative Status Inactive Start Date [...] DOCEtaxel / CARBOplatin 21 Day Cycles - FRENCH BINDER Treatment goal Curative Status Inactive Start Date [...] or 2nd degree relative In addition to FRENCH BINDER cancer, also have a history of breast [...] important after radiation therapy. The use of cyha-kum-jdevrmb lubricants (Replens, Astroglide, [place] Jelly) or natural [...] Help learning to eat healthier, call the human insights lead ads marketing at: [facility] for [facility] . Have an active lifestyle, strive [...] man. Resources you may be interested in: [facility] A National Cancer Esko Comprehensive Cancer Center http://www.[facility]/ [facility] & Cancer Information Center 1st floor of [facility] [phone]. Computer access, educational material, counseling services (FREE) Cancer Resources: www.cancer.net National Cancer Esko: http://www.cancer.gov/ [place] Disabilities Act: The U.S. Department of Justice provides information about the Americans with Disabilities Act (ADA). Toll free number http://www.ada.gov/ Occupational Therapy at [facility]. Improve memory and thinking following chemotherapy. Improve your performance at home, work and in the community. or Toll free www.ot.[facility]/patients Managing your weight after a cancer diagnosis: http://www.cancer.net/sites/cancer.net/files/weight_after_cancer_diagnosis.pdf Foundation for Women?s Cancer: http://www.foundationforwomenscancer.org [facility] Department of OBGYN: http://www.obgyn.[facility]/content/418/hereditary_cancer_ risk_assessment_service.aspx National Coalition for Cancer Survivorship: http://www.canceradvocacy.org/ [place] Cancer Society Cancer Survivors Network: http://csn.cancer.org/ Obesity Action Coalition: www.obesityaction.org LIVE STRONG at the [employer] is a twelve-week, small group program designed to help adult cancer survivors become more physically active after cancer diagnosis: http://www.livestrong.org/what-we-do/our-act ions/programs-partnerships/gizppwxcut-er-gmh-ymca/xedoxgiusx-htjg-utfahrktw/ USDA SuperTracker: www.HelpHubtracker.usda.gov [place] Ovarian Cancer Awareness: committed to impacting ovarian cancer survivorship by promotingawareness of early warning signs and standards of care, funding ovarian cancer research, and supporting survivors. www.sloca.org Gynecological Oncology Support group: A wellness-focused support group for women and their significant others to share feelings and experiences. Current treatments and complementary therapies are discussed, and a physician is available to answer questions. www.[facility]/event-category/suppor t-groups Springboard Beyond Cancer: https://survivorship.cancer.gov/ an online tool for cancer survivors andcaregivers created by the [place] Cancer Society and the National Cancer Esko. 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 Marlon delarosa at [facility] receiving re-stasis Rheumatoid arthritis 12/04/2016 019 [...] A copy of these results to her supervisor whipped topping however Dr. MOLINA informs me that she is no longer her supervisor whipped topping. Please find out who is the current supervisor whipped topping , add this person to her care [...]
--- OUTSIDE RECORDS SUMMARY | 2024-11-06 09:24 | XMS_ITS | Encounter Summary ---
Author Organization [facility] Address [address] [place] [address] Care Team Providers Care Electrical Appliance Preparer Name Role Phone Sabine Sheehan MD Primary Care Provider + [phone] Tonia Lee MD Unavailable [phone] Ravi Noland MD Unavailable +[phone] Garrison Robison MD Unavailable +[phone] Gomez Mauro MD Unavailable +[phone] Sonny Dozier MD Unavailable +[phone] Abdon Chapman MD Unavailable +[phone] Ozzy Shirley MD PhD Unavailable + [phone] Umesh Figueroa MD Unavailable +[phone] Rachell Mason OD Unavailable [phone] Melissa Smith MD Unavailable + [phone] Sonny Dozier MD Primary Care Provi kiera Sabine Sheehan MD Primary Care Provider + [phone] Sonny Dozier MD Unavailable +[phone] Ana Pereira NP Unavailable +[phone] Eric Hopkins MD Unavailable Gagandeep Garcia Unavailable +[phone] Encounter Details Date Type Department Care Team (Late st Contact Info) Description 10/18/2020 Telephone [facility] [address] [place] [address] Tyra Cartern, RT Social History Tobacco Use [...] on file Legal Sex Female 7:52 PM CHEMISTRY SPECIALIST Gender Identity Not on file Sexual Orientation Not on file Occupation Industry Job Start Date Job End Date Retired Not on file Not on file Not on file documented as of this encounter Plan of Treatment Not on file documented as of this encounter Visit Diagnoses Not on filedocumented in this encounter Care Teams Electrical Appliance Preparer Relationship Specialty Start Date End Date Sabine Sheehan MD PCP - General 06/15/16 10/23/21 Sonny Dozier MD [address] [place] [address] PCP - General Rheumatology 10/24/21 04/17/22 Sabine Sheehan MD [address] [facility] [address] [place] [address] PCP - General Internal Medicine 04/18/22 Tonia Lee MD [address] [place] [address] Obstetrics and Gynecology 12/01/16 [place] [address] [facility] [address] [place] [address] Surgery 12/01/16 Garrison Robison MD [address] [facility] [address] [place] [address] Internal Medicine 12/01/16 Gomez Mauro MD [address] [address] Orthopedic Surgery 12/01/16 11/07/22 Sonny Dozier MD [address] [place], [place] [address], [place] [address] Rheumatology 12/04/16 10/22/21 Abdon Chapman MD [address] [place], [place] [address]STOP [id number] [place] [address] Referring Physician Gynecologic Oncology 12/10/17 Ozzy Shirley MD PhD [address] [place] [address] Radiation Oncologist Radiation Oncology 04/15/18 Umesh Figueroa MD [address] [place] [address] Radiation Oncologist Radiation Oncology 06/18/18 4 Rachell Mason OD [address] [place] [address] Optometry 06/30/18 Melissa Smith MD [address] [place] [address] Surgeon Orthopedic Surgery 01/11/19 Sonny Dozier MD [address] [facility] [address] [place] [address] Rheumatology 10/24/21 Ana Pereira NP [address] [facility] [address] [place] [address] 11/08/22 Eric Hopkins MD [address] [facility] [address]6B[address] [place] [address] Surgeon Orthopedic Surgery 11/08/22 Gagandeep Garcia DO [address] [facility] [address] [place] [address] Consulting Physician Gastroenterology 12/24/23 documented as of this encounter
--- OUTSIDE RECORDS SUMMARY | 2024-11-06 09:24 | XMS_ITS | Clinical Summary ---
Author Organization [facility] Address [facility] [place] [address] Care Team Providers Care Auto Transmission Mechanic Name Role Phone Sabine Sheehan MD Primary Care Provider [phone] Allergies Active Allergy Reactions Criticality Noted Date [...] age to complete this topic Insurance MEDICARE [employer] Care Teams Auto Transmission Mechanic Relationship Specialty Start Date End Date Sabine Sheehan MD [address] [place] [address] PCP - General INTERNAL MEDICINE 01/08/19
== END 2024-11-06 09:19 | disposition home or self-care (01) ==
PROVIDERS: PCP Internal Medicine Geriatric Medicine
DX: M06.9 Rheumatoid arthritis, unspecified (principal); M79.89 Other specified soft tissue disorders; M77.32 Calcaneal spur, left foot
CPT/HCPCS: 73600; 73620

== ENCOUNTER 2024-12-21 09:25 | Outpatient (CLI) | payer MEDICARE, SELFPAY ==
[2024-12-21 10:07] LABS: Cholesterol 158 mg/dL (0-200); HDL Direct 71 mg/dL; Triglycerides 85 mg/dL (<150)
--- OUTSIDE RECORDS SUMMARY | 2024-12-21 10:14 | XMS_ITS | Clinical Summary ---
Author Organization [facility] Address [facility] [place] [address] Care Team Providers Care Booker Name Role Phone Sabine Sheehan MD Primary Care Provider [phone] Allergies Active Allergy Reactions Criticality Noted Date [...] COVID-19 Vaccine (1 - 2023-2 5 season) 2024 RSV Immunization or 60+ Years (1 - [...] age to complete this topic Insurance MEDICARE [employer] Care Teams Booker Relationship Specialty Start Date End Date Sabine Sheehan MD [address] [place] [address] PCP - General INTERNAL MEDICINE 01/08/19
--- OUTSIDE RECORDS SUMMARY | 2024-12-21 10:14 | XMS_ITS | Encounter Summary ---
Author Organization [facility] Address [address] [place] [address] Care Team Providers Care Director Semiconductor Name Role Phone Sabine Sheehan MD Primary Care Provider + [phone] Tonia Lee MD Unavailable [phone] Ravi Noland MD Unavailable +[phone] Garrison Robison MD Unavailable +[phone] Gomez Mauro MD Unavailable +[phone] Sonny Dozier MD Unavailable +[phone] Abdon Chapman MD Unavailable +[phone] Ozzy Shirley MD PhD Unavailable + [phone] Umesh Figueroa MD Unavailable +[phone] Rachell Mason OD Unavailable [phone] Melissa Smith MD Unavailable + [phone] Sonny Dozier MD Primary Care Provi kiera Sabine Sheehan MD Primary Care Provider + [phone] Sonny Dozier MD Unavailable +[phone] Ana Pereira NP Unavailable +[phone] Eric Hopkins MD Unavailable Gagandeep Garcia Unavailable [phone] Encounter Details Date Type Department Care Team (Late st Contact Info) Description 10/18/2020 Telephone [facility] [address] [place] [address] Tyra Cartern, RT Social History Tobacco Use [...] on file Legal Sex Female 7:52 PM VETERINARY RECEPTIONIST Gender Identity Not on file Sexual Orientation Not on file Occupation Industry Job Start Date Job End Date Retired Not on file Not on file Not on file documented as of this encounter Plan of Treatment Not on file documented as of this encounter Visit Diagnoses Not on filedocumented in this encounter Care Teams Director Semiconductor Relationship Specialty Start Date End Date Sabine Sheehan MD PCP - General 06/15/16 10/23/21 Sonny Dozier MD [address] [place] [address] PCP - General Rheumatology 10/24/21 04/17/22 Sabine Sheehan MD [address] [facility] [address] [place] [address] PCP - General Internal Medicine 04/18/22 Tonia Lee MD [address] [place] [address] Obstetrics and Gynecology 12/01/16 [place] [address] [facility] [address] [place] [address] Surgery 12/01/16 Garrison Robison MD [address] [facility] [address] [place] [address] Internal Medicine 12/01/16 Gomez Mauro MD [address] [place] [address] Orthopedic Surgery 12/01/16 11/07/22 Sonny Dozier MD [address] [place], [place] [address] [address] Rheumatology 12/04/16 10/22/21 Abdon Chapman MD [address] [place], [place] [address] [id number] [place] [address] Referring Physician Gynecologic Oncology 12/10/17 Ozzy Shirley MD PhD [address] [place] [address] Radiation Oncologist Radiation Oncology 04/15/18 Umesh Figueroa MD [address] [place] [address] Radiation Oncologist Radiation Oncology 06/18/18 4 Rachell Mason OD 6 [place] [address] Optometry 06/30/18 Melissa Smith MD [address] [place] [address] Surgeon Orthopedic Surgery 01/11/19 Sonny Dozier MD [address] [facility] [address] [place] [address] Rheumatology 10/24/21 Ana Pereira NP [address] [facility] [address] [place] [address] 11/08/22 Eric Hopkins MD [address] [facility] [address] [place] [address] Surgeon Orthopedic Surgery 11/08/22 Gagandeep Garcia DO [address] [facility] [address] [place] [address] Consulting Physician Gastroenterology 12/24/23 documented as of this encounter
--- OUTSIDE RECORDS SUMMARY | 2024-12-21 10:14 | XMS_ITS | Encounter Summary ---
Author Organization [facility] Address [address] [place] [address] Care Team Providers Care Salvage Diver Name Role Phone Sabine Sheehan MD Primary Care Provider + [phone] Tonia Lee MD Unavailable [phone] Ravi Noland MD Unavailable +[phone] Garrison Robison MD Unavailable +[phone] Gomez Mauro MD Unavailable +[phone] Sonny Dozier MD Unavailable +[phone] Abdon Chapman MD Unavailable +[phone] Ozzy Shirley MD PhD Unavailable + [phone] Umesh Figueroa MD Unavailable +[phone] Rachell Mason OD Unavailable [phone] Melissa Smith MD Unavailable + [phone] Sonny Dozier MD Primary Care Provi kiera Sabine Sheehan MD Primary Care Provider + [phone] Sonny Dozier MD Unavailable +[phone] Ana Pereira NP Unavailable +[phone] Eric Hopkins MD Unavailable Fordfrieda Gagandeep Garcia Unavailable +[phone] Encounter Details Date Type Department Care Team (Late st Contact Info) Description 02/15/2020 Telephone [facility] Radiology [address] [place] [address] Velma Bueno, ANASTASIYA Social History Tobacco Use [...] on file Legal Sex Female 7:52 PM VACUUM PLASTIC FORMING MACHINE OPERATOR Gender Identity Not on file Sexual [...] COVID: Suspected 04/11/2020 04/11/2020 04/11/2020 2:48 PM VACUUM PLASTIC FORMING MACHINE OPERATOR Respiratory Infection (KRYSTEN), contact + droplet Comment:Automatically added due to negative COVID-19 result. 04/11/2020 04/11/2020 04/25/2020 3:0 6 AM VACUUM PLASTIC FORMING MACHINE OPERATOR COVID: Suspected 09/06/2020 09/06/2020 09/07/2020 9:46 AM CDT documented as of this encounter Care Teams Salvage Diver Relationship Specialty Start Date End Date Sabine Sheehan MD PCP - General 06/15/16 10/23/21 Sonny Dozier MD [address] [facility] [address] [place] [address] PCP - General Rheumatology 10/24/21 04/17/22 Sabine Sheehan MD [address] [facility] [address] [place] [address] PCP - General Internal Medicine 04/18/22 Tonia Lee MD [address] [place] [address] Obstetrics and Gynecology 12/01/16 [place] [address] [place] [address] Surgery 12/01/16 Garrison Robison MD [address] [facility] [address] [place] [address] Internal Medicine 12/01/16 Gomez Mauro MD [address] [place] [address] Orthopedic Surgery 12/01/16 11/07/22 Sonny Dozier MD [address] [place], [place] [address], [place] [address] Rheumatology 12/04/16 10/22/21 Abdon Chapman MD [address] [facility] [id number] [place] [address] Referring Physician Gynecologic Oncology 12/10/17 Ozzy Shirley MD PhD [address] [facility] [place] [address] Radiation Oncologist Radiation Oncology 04/15/18 Umesh Figueroa MD [address] [place] [address] Radiation Oncologist Radiation Oncology 06/18/18 4 Rachell Mason OD [address] [place] [address] Optometry 06/30/18 Melissa Smith MD [address] [place] [address] Surgeon Orthopedic Surgery 01/11/19 Sonny Dozier MD [address] [facility] [address] [place] [address] Rheumatology 10/24/21 Ana Pereira NP [address] [place] [address] 11/08/22 Eric Hopkins MD [address] [facility] [address] [place] [address] Surgeon Orthopedic Surgery 11/08/22 Gagandeep Garcia DO [address] [place] [address] Consulting Physician Gastroenterology 12/24/23 documented as of this encounter
--- OUTSIDE RECORDS SUMMARY | 2024-12-21 10:14 | XMS_ITS ---
Author Organization [facility] [address] Address [address] [place] [address] Phone Care Team Providers Care Business Services Coordinator Name Role Phone LeeTonia MD Unavailable Ravi Noland MD Unavailable [phone] Garrison Robison MD Unavailable [phone] Abdon Chapman MD Unavailable +[phone] Ozzy Shirley MD PhD Unavailable + [phone] Rachell Masont OD Unavailable Melissa Smith MD Unavailable + [phone] Sabine Sheehan MD Primary Care Provider + [phone] Sonny Molina MD Unavailable [phone] Ana Pereira NP Unavailable [phone] Eric Hopkins MD Unavailable Gagandeep Garcia DO Unavailable [phone] Active Problems Problem Noted Date Diagnosed Date [...] weig Rheumatoid arthritis involving multiple joints ( [facility]/H[facility]) 08/01/2013 Overview (06/22/2016): Rheumatoid arthritis Hypothyroidism, adult 08/01/2013 Overview (06/22/2016): Hypothyroid Multiple-type hyperlipidemia 08/01/2013 Overview (06/22/2016): Hyperlipidemia Current Treatment and Therapy Plans No current plan information found. Past Treatment and Therapy Plans Oncology Chemotherapy Treatment Plan Name Start Date Discontinue Date Treatment Medications Discontinue Reason Plan Provider Cycles DOCEtaxel / CARBOplatin 21 Day Cycles - TRANSPORTATION LOGISTICS INTERNSHIP 8 07/01/2018 CARBOplatin (by AUC:GOG) (PARAPLATIN)CA RBOplatin (PARAPLATIN) IVPB in 250 mL (by AUC: GOG)DOCEtaxel (TAXOTERE)DOCE taxel (TAXOTERE) IVPB in 250 mL (vial 10mg/mL)DOCEta xel (TAXOTERE) IVPB in 250 mL (vial 20mg/mL) Stable Disease Abdon Chapman MD 6 of 6 cycles started PACLItaxel / CARBOplatin (AUC 5) 21 Day Cycles - TRANSPORTATION LOGISTICS INTERNSHIP 8 01/07/2018 CARBOplatin (by AUC:GOG) (PARAPLATIN)CA RBOplatin [...] from the original note were not included. [facility] Obstetrics and Gynecology [address] [facility] [address] [place] [address] [place] [address] This Survivorship Care Plan is a cancer [...] Contact Information: Primary Care Physician Sabine Sheehan [phone] Radiation Oncologist Ozzy Shirley MD PhD Umesh Figueroa MD [phone] Transformer Assembler/Medical Oncologist Abdon Chapman MD [phone] Treatment Summary Cancer Diagnosis Information Diagnosis Malignant [...] Hysterectomy - LAPAROSCOPIC ROBOTIC ASSISTED; Bilateral Salpingo-oophorectomy, Vermilion Lymph Node Dissection, omentectomy Radiation Radiation Treatments [...] CARBOplatin (AUC 5) 21 Day Cycles - TRANSPORTATION LOGISTICS INTERNSHIP Treatment goal Curative Status Inactive Start Date [...] DOCEtaxel / CARBOplatin 21 Day Cycles - TRANSPORTATION LOGISTICS INTERNSHIP Treatment goal Curative Status Inactive Start Date [...] or 2nd degree relative In addition to TRANSPORTATION LOGISTICS INTERNSHIP cancer, also have a history of breast [...] important after radiation therapy. The use of apzm-vfx-bwxfkff lubricants (Replens, Astroglide, [place] Jelly) or natural [...] Help learning to eat healthier, call the ems driver at: [facility] . Have an active lifestyle, strive for [...] man. Resources you may be interested in: [facility] A National Cancer [place] [facility] http://www.[facility]/ [facility] Information Center 1st floor of [facility] [phone]. Computer access, educational material, counseling services (FREE) Cancer Resources: www.cancer.net National Cancer [place]: http://www.cancer.gov/ [place] Disabilities Act: The U.S. Department of Justice provides information about the Americans with Disabilities Act (ADA). Toll free number 979.979. 030 http://www.ada.gov/ Occupational Therapy at [facility]. Improve memory and thinking following chemotherapy. Improve your performance at home, work and in the community. or Toll free www.ot.[facility]/patients Managing your weight after a cancer diagnosis: http://www.cancer.net/sites/cancer.net/files/weight_after_cancer_diagnosis.pdf Foundation for Women?s Cancer: http://www.foundationforwomenscancer.org [facility] Department of OBGYN: http://www.obgyn.[facility]/content/418/hereditary_cancer_ risk_assessment_service.aspx National Coalition for Cancer Survivorship: http://www.canceradvocacy.org/ [place] Cancer Society Cancer Survivors Network: http://csn.cancer.org/ Obesity Action Coalition: www.obesityaction.org LIVE STRONG at the [employer] is a twelve-week, small group program designed to help adult cancer survivors become more physically active after cancer diagnosis: http://www.livestrong.org/what-we-do/our-act ions/programs-partnerships/kxavmdfsar-ce-awp-ymca/zmausqzdqh-qyaj-jypxvyasi/ USDA SuperTracker: www.CelebCallstracker.usda.gov [place] Ovarian Cancer Awareness: committed to impacting ovarian cancer survivorship by promotingawareness of early warning signs and standards of care, funding ovarian cancer research, and supporting survivors. www.sloca.org Gynecological Oncology Support group: A wellness-focused support group for women and their significant others to share feelings and experiences. Current treatments and complementary therapies are discussed, and a physician is available to answer questions. www.[facility]/event-category/suppor t-groups Springboard Beyond Cancer: https://survivorship.cancer.gov/ an online tool for cancer survivors andcaregivers created by the [place] Cancer Society and the National Cancer [place]. It provides: Information on dealing with side [...] 10/11/2020 Assessment & Plan (04/11/2020 3:01 PM QUALITY REVIEWER): Patient presents with pain across the entire [...] 11/08/2022 Assessment & Plan (04/11/2020 3:03 PM QUALITY REVIEWER): With patient new onset of body aches [...] (01/09/2019): Added automatically from request for surgery [id number] Colon cancer screening 10/21/201801/09 Overview (10/21/2018): Added automatically from request for surgery [id number] Nail dystrophy 06/30/2018 09/29/2019 Peripheral neuropathy due [...] I'll have her get a consultation in [place] for pelvic RT; We discussed the results of GOG 258 Bloating symptom 10/22/2017 09/29/2019 Overview (10/22/2017): Added automatically from request for surgery [id number] Insufficiency of tear film of both eyes 12/04/2016 06/02/2017 Overview (12/04/2016): Following with Dr. Marlon delarosa at [facility] receiving re-stasis Rheumatoid arthritis 12/04/2016 019 Overview [...] A copy of these results to her muffler hand however Dr. MOLINA informs me that she is no longer her muffler hand. Please find out who is the current muffler hand , add this person to her care [...]
--- OUTSIDE RECORDS SUMMARY | 2024-12-21 10:14 | XMS_ITS | Clinical Summary ---
Author Organization [facility] [address] Address [address] [place] [address] Phone Care Team Providers Care Dice Dealer Name Role Phone LeeTonia MD Unavailable [phone] Ravi Noland MD Unavailable [phone] Garrison Robison MD Unavailable [phone] Abdon Chapman MD Unavailable [phone] Ozzy Shirley MD PhD Unavailable + [phone] Rachell Mason Rain OD Unavailable [phone] Melissa Smith MD Unavailable + [phone] Sabine Tabares MD Primary Care Provider + [phone] Sonny Molina MD Unavailable [phone] Ana Pereira NP Unavailable [phone] Eric Hopikns MD Unavailable Gagandeep Garcia DO Unavailable [phone] Allergies Active Allergy Reactions Criticality Noted Date [...] 10/11/2020 Assessment & Plan (04/11/2020 3:01 PM FIRE WATCHMAN): Patient presents with pain across the entire [...] 11/08/2022 Assessment & Plan (04/11/2020 3:03 PM FIRE WATCHMAN): With patient new onset of body aches [...] (01/09/2019): Added automatically from request for surgery [id number] Colon cancer screening 10/21/201801/09 Overview (10/21/2018): Added automatically from request for surgery [id number] Nail dystrophy 06/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 09/29/2019 Peripheral neuropathy due [...] I'll have her get a consultation in [facility] for pelvic RT; We discussed the results of GOG 258 Bloating symptom 10/22/2017 09/29/2019 Overview (10/22/2017): Added automatically from request for surgery [id number] Insufficiency of tear film of both eyes [...] is the issue it seems 03/08/2009 augusta Iisdro not sure what the rash is due [...] when Orencuia restarted ILD (interstitial lung disease) ([facility]) 09/16/2008 11/09/2021 Overview (11/09/2021): Overview: 09/16/2008 [...] A copy of these results to her security business analyst however Dr. MOLINA informs me that she is no longer her security business analyst. Please find out who is the current security business analyst , add this person to her care [...] Encounters Date Type Department Care Team Description 11/06/2024 Orders Only [facility] Health Information Management [address] [place] [address] Scanning, Provider 10/26/2024 8:51 AM CDT - 10/26/2024 11:59 PM CDT Hospital Encounter [facility] [address] [place] [address] Menopause Discharge Disposition: Discharge to home or self care from Last 3 Months Immunizations Immunization Administration [...] No 07/25/2022 OASIS B1300: Health Literacy Answer Gusatbo e Recorded Frequency of needing help to [...] file Legal Sex Female 7:52 PM FIRE WATCHMAN Gender Identity Not on file Sexual Orientation [...] Vaccine (8 - Modern a risk ) 11/16/2024 12/20/2023, 12/18/2022, 11/30/2021, Additional history exists Influenza [...] history exists Medical Devices Implanted Type Area White Sugar Boiler Device Identifier Shelf Expiration Date Model / Serial / Lot Arthrex Inc Plate Bone Narrow 4 Hole Right Dorsal Distal Radial Ti [id number] - Sn/A - [id number] Implanted:Qty: 1 on 09/26/2023 by Clementina Rico MD at [facility] Plate Right: Wrist [employer] Inc [id number]-[id number] -04 / N/A / [id number] Description:PENDING SCCS REQ # [phone] Angio Dynamics [id number] Xcela 8fr 1.6mm 1 Lumen Power Injectable Attach Catheter Fill - [id number] Implanted:Qty: 1 on 11/26/2017 at [facility] Ang[employer] 09/09/2022 [id number] / / [id number] [employer] 246225 Oss Low Friction Interface Knee Bushing Tibial Polyethylene - [id number] Implanted:Qty: 1 on 01/09/2019 by Eric Melendez MD at [facility] Left: Femur [employer] [id number] 10/03/2023 629595 / / [id number] [employer] 085437 Oss Reinforce Knee Yoke Tibial - [id number] Implanted:Qty: 1 on 01/09/2019 by Eric Melendez MD at [facility] Left: Femur [employer] [id number] 12/03/2028 265426 / / [id number] [employer] 362515 Oss 16mm Knee Standard Bearing Tibial Poly Sterile Latex Free - [id number] Implanted:Qty: 1 on 01/09/2019 by Eric Melendez MD at [facility] Left: Femur [employer] [id number] 05/07/2023 148063 / / [id number] Bsplt Tibial Oss Short Knee Nonmodular 67mm - [id number] Implanted:Qty: 1 on 01/09/2019 by Eric Melendez MD at [facility] Left: Femur [employer] 05/16/2022 420920 / / [id number] [employer] 6191-1-010 Simplex P Radiopaque Full Dose Cement Bone Sterile - [id number] Implanted:Qty: 1 on 01/09/2019 by Eric Melendez MD at [facility] Left: Femur [employer] 11/15/2020 6191-1-010 / / [id number] [employer] [id number] Simplex P Radiopaque; Full Dose Cement Bone - [id number] Implanted:Qty: 1 on 01/09/2019 by Eric Melendez MD at [facility] Left: Femur [employer] 12/15/2020 [id number] / / [id number] [employer] 965398 Oss 5cm Resurface Knee Left Component Femoral Porous - [id number] Implanted:Qty: 1 on 01/09/2019 by Eric Melendez MD at [facility] Left: Femur [employer] [id number] 11/13/2027 054453 / / [id number] [employer] 592916 Stem Extension Oss L90 Mm Od15 Mm Knee Femur Intramedullary Cement - [id number] Implanted:Qty: 1 on 01/09/2019 by Eric Melendez MD at [facility] Left: Femur [employer] 04/15/2027 584235 / / [id number] [employer] [id number] Simplex P Radiopaque; Full Dose Cement Bone - [id number] Implanted:Qty: 2 on 01/09/2019 by Eric Melendez MD at [facility] Left: Femur [employer] 12/15/2020 [id number] / / [id number] [employer] 255255 Oss Auxiliary Knee Bushing Femoral Polyethylene - [id number] Implanted:Qty: 1 on 01/09/2019 by Eric Melendez MD at [facility] Left: Femur [employer] [id number] 10/09/2023 800441 / / [id number] [employer] 068614 Oss Low Friction Interface Knee Axle Tibial - [id number] Implanted:Qty: 1 on 01/09/2019 by Eric Melendez MD at [facility] Left: Femur [employer] [id number] 10/22/2028 415044 / / [id number] Synthes Screw Locking Im Nail 5mm 58mm 04.045.058 - [id number] Implanted:Qty: 1 on 06/11/2022 by Eric Hopkins MD at [facility] Right: Femur Synthes I 04.045.058 / / Synthes Lcp Combi 370mm 18 Hole 4 Column Thread Variable Angle Condylar 02.124.418 - [id number] Implanted:Qty: 1 on 06/11/2022 by Eric Hopkins MD at [facility] Right: Femur Synthes I 02.124.418 / / Synthes 4.5mm 8mm 38mm Self Tap Large Hexagonal Socket Cortex Screw Bone 214.838 - [id number] Implanted:Qty: 1 on 06/11/2022 by Eric Hopkins MD at [facility] Right: Femur Synthes I 214.838 / / Synthes 5mm 80mm Variable Angle Self Tap Lock Stardrive Condylar T25 02.231.280 - [id number] Implanted:Qty: 4 on 06/11/2022 by Eric Hopkins MD at [facility] Right: Femur Synthes I 02.231.280 / / Synthes 4.5mm 8mm 90mm Self Tap Large Hexagonal Socket Cortical Screw 214.890 - [id number] Implanted:Qty: 1 on 06/11/2022 by Eric Hopkins MD at [facility] Right: Femur Synthes I 214.890 / / Synthes 5mm 34mm Variable Angle Self Tap Lock Stardrive Condylar T25 02.231.234 - [id number] Implanted:Qty: 2 on 06/11/2022 by Eric Hopkins MD at [facility] Right: Femur Synthes I 02.231.234 / / Synthes 5mm 65mm Variable Angle Self Tap Lock Stardrive Condylar T25 02.231.265 - [id number] Implanted:Qty: 2 on 06/11/2022 by Eric Hopkins MD at [facility] Right: Femur Synthes I 02.231.265 / / Synthes Nail Retrograde Fem 10mm 280mm 5 Deg Bend Titanium Sterile 04.233.028s - [id number] Implanted:Qty: 1 on 06/11/2022 by Eric Hopkins MD at [facility] Right: Femur Synthes I 07/15/2025 04.233.028 S / / [id number] Synthes 5mm 85mm Variable Angle Self Tap Lock Stardrive Condylar T25 02.231.285 - [id number] Implanted:Qty: 1 on 06/11/2022 by Eric Hopkins MD at [facility] Right: Femur Synthes I 02.231.285 / / Screw Locking Im Nail 5mm 72mm - [id number] Implanted:Qty: 1 on 06/11/2022 by Eric Hopkins MD at [facility] Right: Femur Synthes I 04.045.072 / / Screw Locking Im Nail 5mm 84mm - [id number] Implanted:Qty: 1 on 06/11/2022 by Eric Hopkins MD at [facility] Right: Femur Synthes I 04.045.084 / / Synthes Screw Locking Im Nail 5mm 34mm 04.045.034 - [id number] Implanted:Qty: 1 on 06/11/2022 by Eric Hopkins MD at [facility] Right: Femur Synthes I 04.045.034 / / [employer] Inc [facility] Abs-2009-01 - [id number] - [id number] Implanted:Qty: 1 on 09/26/2023 by Clementina Rico MD at [facility] Right: Wrist Ar[employer]rex Inc 12/27/2027 ABS-2009-0 1 / [id number] / Description:Implant is from Tonia Cerda Ar[employer]rex Inc Screw Kreulock Compression Titanium 2.4x22mm [id number] - [id number] Implanted:Qty: 1 on 09/26/2023 by Clementina Rico MD at [facility] Right: Wrist [employer] Inc AR-8724VCL -22 / / Arthrex Inc Screw Kreulock Compression Titanium 2.4x24mm [id number] - [id number] Implanted:Qty: 1 on 09/26/2023 by Clementina Rico MD at [facility] Right: Wrist [employer] Inc AR-8724VCL -24 / / Arthrex Inc Screw Kreulock Compression Titanium 2.4x18mm [id number] - [id number] Implanted:Qty: 1 on 09/26/2023 by Clementina Rico MD at [facility] Right: Wrist [employer] Inc AR-8724VCL -18 / / Arthrex Inc Screw Kreulock Compression Titanium 2.4x20mm [id number] - [id number] Implanted:Qty: 2 on 09/26/2023 by Clementina Rico MD at [facility] Right: Wrist [employer] Inc AR-8724VCL -20 / / Arthrex Inc Screw Kreulock Compression Titanium 3.5x14mm [id number]-73 - [id number] Implanted:Qty: 1 on 09/26/2023 by Clementina Rico MD at [facility] Right: Wrist [employer]rex Inc AR-8935CL- 14 / / Arthrex Inc Screw Kreulock Compression Titanium 3.5x18mm [id number] - [id number] Implanted:Qty: 1 on 09/26/2023 by Clementina Rico MD at [facility] Right: Wrist Ar[employer]rex Inc AR-8935CL- 18 / / Arthrex Inc Low Profile Screws 3.5mm 14mm Self Drill Solid Midfoot Cortical T Ar-8935-14 - [id number] Implanted:Qty: 1 on 09/26/2023 by Clementina Rico MD at [facility] Right: Wrist Ar[employer]rex Inc AR-8935-14 / / Explanted Type Area White Sugar Boiler Device Identifier Shelf Expiration Date Model / Serial / Lot Arthrex Inc Low Profile Screws 3.5mm 16mm Self Tap Solid Hexalobe Midfoot Ar-8935-16 - [id number] Explanted:Qty: 1 on 09/26/2023 at [facility] Right: Wrist Ar[employer]rex Inc AR-8935-16 / / Arthrex Inc Screw Bone Compression Full Thread Locking Kreulock 3.5x10mm Ti [id number] - [id number] Explanted:Qty: 1 on 09/26/2023 at [facility] Right: Wrist Ar[employer]rex Inc AR-8935CL-1 0 / / Procedures Procedure Name Priority Date/Time Associated Diagnosis Comments SCAN - RADIOLOGY/IMAGING 11/06/2024 DEXA AXIAL SKELETON BONE DENSITY 1 OR MORE SITES Schedule Routine, Read Routine (OP Routine) 10/26/2024 9:05 AM CDT Menopause COLONOSCOPY 02/18/2024 9:41 AM FIRE WATCHMAN SCREENING MAMMOGRAM BILATERAL W RAPHAEL Schedule Routine, Read Routine (OP Routine) 12/03/2023 2:33 PM CDT Breast cancer screening by mammogram HEPATITIS C ANTIBODY Routine 11/21/2016 8:01 AM CDT Exposure to hepatitis B from Last 3 Months or Most Recently Relevant to Health Maintenance Results * SCAN - RADIOLOGY/IMAGING (11/06/2024) Anatomical Region Laterality Modality Other us Provider Scanning Edited Result - Final * Dexa Axial Skeleton Bone Density 1 or 2 Site (10/26/2024 9:05 AM CDT) Anatomical Region Laterality Modality Body N/A Other 10/26/2024 2:55 PM CDT Narrative 10/26/2024 2:57 PM CDT EXAM DESCRIPTION: DEXA AXIAL SKELETON BONE DENSITY 1 OR MORE SITES REASON FOR STUDY: 73 y/o year old F with given history of: menopause Screening White Sugar Boiler/Model: HoloEatWith Discovery SL (S/N 55590) Facility LSC value of 0.022 for the [...] Edvin Yang M.D. MF: OSCAR Report ID: [id number] Reading Location: [place] [address] Procedure Note Edvin Yang MD - 10/26/2024 EXAM DESCRIPTION: DEXA AXIAL SKELETON BONE DENSITY 1 OR MORE SITES REASON FOR STUDY: 73 y/o year old F with given history of: menopause Screening White Sugar Boiler/Model: Posiba Discovery SL (S/N 00705) Facility LSC value of 0.022 for the [...] Edvin Yang M.D. MF: OSCAR Report ID: [id number] Reading Location: [place] [address] Sabine Tabares MD IMG DXA PROCEDURES Final R esult * Colonoscopy (02/18/2024 9:41 AM FIRE WATCHMAN) Anatomical Region Laterality Modality Other Narrative Procedure Note Gagandeep Garcia, - 02/18/2024 9:41 AM CST [facility] Patient Name: Iggy Soto Procedure Date: 02/18/2024 9:41 AM Date of : 1950 Admit Type: Outpatient Age: 73 Gender: Female Attending MD: Gagandeep Garcia D.O. Room: PENDING SALE TO [facility] ENDOSCOPY ROOM 2 Note Status: Finalized [...] scope was passed under direct vision. TheColonoscope [id number] was introduced through the anus and advanced [...] 9:41 AM Procedure Code(s): --- Professional --- 87041, Colonoscopy, flexible; with biopsy, single or multiple --- Technical --- 34258, Colonoscopy, flexible; with biopsy, single or multiple [...] perforation orabscess without bleeding CPT copyright 2020 [employer] [employer]. All rights reserved. The codes documented in this report are preliminary and upon jacquard lace weaver reviewmay be revised to meet current compliance requirements. Recognized by the [place] [employer] Gastrointestinal [employer] for promoting quality in endoscopy us Gagandeep Garcia DO ENDOSCOPY PROCEDURES Final Res [...] Site ID: AUGUST Name: Arleen Ragsdale Address: [address] [place] [address] AUGUST [place] [address] Director: Braxton Khan D.O., MPH Sabine Tabares MD LAB MICROBIOLOGY - GENERAL ORDERABLES Final Result Performing Organization Address City/State/[facility] Co de Phone Number [facility] [place] from Last 3 Months or Most Recently Relevant to Health Maintenance [place] [address] [employer] GENERIC MEDICARE [facility] MEDICARE [facility] MEDICARE [facility] [place] [place] [address] Advance Directives For more information, please contact: [phone] Documents on File Type Date Recorded Patient Gathering Machine Setter Expl anation ADVANCE DIRECTIVE 06/30/2018 10:52 AM [...] 2:48 AM 01/11/2019 4:12 PM Care Teams Dice Dealer Relationship Specialty Start Date End Date Sabine Tabares MD [address] [facility] [address] PCP - General Internal Medicine 04/18/22 Tonia Lee MD [address] [place] [address] Obstetrics and Gynecology 12/01/16 [place] [address] [place] [address] Surgery 12/01/16 Garrison Robison MD [address] [place] [address] Internal Medicine 12/01/16 Abdon Chapman MD [facility] [address] [id number] [place] [address] Referring Physician Gynecologic Oncology 12/10/17 Ozzy Shirley MD PhD [address] [place] [address] Radiation Oncologist Radiation Oncology 04/15/18 Rachell Mason OD [address] [place] [address] Optometry 06/30/18 Melissa Smith MD [address] [place] [address] Surgeon Orthopedic Surgery 01/11/19 Sonny Molina MD [address] [facility] [address] [place] [address] Rheumatology 10/24/21 Ana Pereira NP [address] [facility] [address] [place] [address] 11/08/22 Eric Hopkins MD [address] [facility] [address] [place] [address] Surgeon Orthopedic Surgery 11/08/22 Gagandeep Garcia DO [address] [place] [address] Consulting Physician Gastroenterology 12/24/23
--- OUTSIDE RECORDS SUMMARY | 2024-12-21 10:14 | XMS_ITS | Clinical Summary ---
Author Organization [facility] Address [facility] [place] [address] Care Team Providers Care Academic Support Coordinator Name Role Phone Marianela Sheehan MD Primary Care Provider Giovanny Andrews MD Unavailable Unavailable Lyndsay Sanchez RN Unavailable [phone] Source Comments [facility],non-owned Affiliates and Associated Physician Practices is amultiple site organization consisting of ambulatory clinics and hospital sitesin [place], [place], [place]. This disclosure is being madepursuant to the Care Everywhere program and may not contain all information available regarding this patient. 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 Gender Identity Not on file Sexual Orientation Not on file Occupation Industry Job Start Date Job End Date retired Not on file Not on file Not on file Last Filed Vital Signs Vital Sign Reading Time Taken Comments Blood Pressure 138/77 06/04/2017 10:38 AM CDT Pulse 67 06/04/2017 10:38 AM CDT Temperature 36.8 C (98.2 F) 05/19/2015 9:45 AM OFFICE TECHNOLOGY PROFESSOR Respiratory Rate 18 05/12/2015 3:22 PM OFFICE TECHNOLOGY PROFESSOR Oxygen Saturation 97% 05/12/2015 3:22 PM OFFICE TECHNOLOGY PROFESSOR Inhaled Oxygen Concentration - - Weight 82.1 [...] - PCV20 or PCV21) 05/25/2019 05/24/2014, 02/17/2008 DEPRESSION SCREENING 03/18/2024 COVID-19 VACCINE ( - season) 2024 INFLUENZA VACCINE (#1) 2024 7, 01/17/2016, 01/14/2015, [...] - 107 mmol/L 11/14/2015 12:18 PM CDT [facility] CO2 29 22 - 31 mmol/L 11/14/2015 12:18 PM CDT [facility] Calcium 9.7 8.5 - 10.1 mg/dL 11/14/2015 12:18 PM CDT [facility] Anion Gap 6 5 - 20 mmol/L 11/14/2015 12:18 PM CDT [facility] BUN 16 7 - 21 mg/dL 11/14/2015 12:18 PM CDT [facility] Creatinine 0.61 0.50 - 1.30 mg/dL 11/14/2015 12:18 PM CDT [facility] Alkaline Phosphatase 76 38 - 126 U/L 11/14/2015 12:18 PM CDT [facility] ALT 22 13 - 61 U/L 11/14/2015 12:18 PM CDT [facility] Comment:See reference range update AST 18 5 - 40 U/L 11/14/2015 12:18 PM CDT [facility] Protein Total 7.7 6.4 - 8.2 gm/dL 11/14/2015 12:18 PM CDT [facility] Albumin 3.7 3.4 - 5.0 gm/dL 11/14/2015 12:18 PM CDT [facility] Bilirubin Total 0.4 0.2 - 1.0 mg/dL 11/14/2015 12:18 PM CDT [facility] eGFR by MDRD >60 >60 mL/min/1.7 3m2 11/14/2015 12:18 PM CDT [facility] eGFR by MDRD >60 >60 mL/min/1.7 3m2 11/14/2015 12:18 PM CDT [facility] Blood BLOOD SPECIMEN / Unknown Lab Venipuncture / Unknown 11/14/2015 11:07 AM CDT 11/14/2015 11:50 AM CDT us Ravi Noland MD LAB - CHEMISTRY ORDERABLES Fi nal Result [facility] [address] [place] [address] from Last 3 Months or Most Recently Relevant to Health Maintenance Insurance COMMERCIAL GENERIC MEDICARE Advance Directives * Full Code (Latest Code Status on File) Date Activated Date Inactivated Comments 05/10/2015 12:24 PM 05/12/2015 7:04 PM Care Teams Academic Support Coordinator Relationship Specialty Start Date End Date Marianela Sheehan MD [address] [place] [id number] PCP - General 09/16/08 Giovanny Andrews MD [address] [place] [place] [address] Rheumatology 01/25/11 Lyndsay Sanchez, ANASTASIYA Apartment Locator 05/10/15
--- OUTSIDE RECORDS SUMMARY | 2024-12-21 10:14 | XMS_ITS | Encounter Summary ---
Author Organization [facility] Address [address] [place] [address] Phone Care Team Providers Care Glazier Artist Name Role Phone Sabine Sheehan MD Primary Care Provider + [phone] Tonia Lee MD Unavailable [phone] Ravi Noland MD Unavailable +[phone] Giovanny Andrews MD Unavailable [phone] Garrison Robison MD Unavailable [phone] Gomez Mauro MD Unavailable [phone] Sonny Dozier MD Unavailable +[phone] Abdon Chapman MD Unavailable +[phone] Ozzy Shirley MD PhD Unavailable + [phone] Umesh Figueroa MD Unavailable +[phone] Rachell Mason OD Unavailable [phone] Melissa Smith MD Unavailable + [phone] Sonny Dozier MD Primary Care Provi kiera Sabine Sheehan MD Primary Care Provider + [phone] Sonny Dozier MD Unavailable +[phone] Ana Pereira NP Unavailable [phone] Eric Hopkins MD Unavailable Gagandeep Garcia DO Unavailable [phone] Encounter Details Date Type Department Care Team (Late st Contact Info) Description 10/30/2016 Orders Only [facility] [address] [place] [address] Sabine Sheehan MD [address] [place] [address] Mixed hyperlipidemia (Primary Dx); Exposure to hepatitis B; Unspecified hypothyroidism Social History Tobacco Use Types Packs/Day Years Used Date Smoking Tobacco: Never Alcohol Use Standard Drinks/Week Comments No 0 (1 standard drink = 0.6 oz pur e alcohol) Comments Unknown Sex and Gender Information Value Date Recorded Sex Assigned at Not on file 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 MPH Sabine Sheehan MD LAB BLOOD ORDERABLES Final Result Performing Organization Address [facility] Co de Phone Number [facility] AUGUST Handley * CHOL/HDLC RATIO (11/21/2016 8:01 AM CDT) Chol/HDL ratio 3.6 <5.0 (calc) [facility]EN [facility] AUGUST 11/21/2016 8:01 AM CDT 11/21/2016 8:02 AM CDT Narrative [facility] - 11/22/2016 10:22 AM CDT FASTING:YES Resulting Agency Comment Performing Organization Information: Site ID: [place] Name: [facility] Address: [address] [facility] [place] [address] Director: Braxton Khan D.O. MPH Sabine Sheehan MD LAB BLOOD ORDERABLES Final Result Performing Organization Address [facility] Co de Phone Number ARLEEN NAIK - AUGUST [place] * (ABNORMAL) LDL-Cholesterol (11/21/2016 8:01 AM CDT) LDL 144(H) mg/dL (calc) [facility] [place] Comment: Reference range: <100 Desirable range <100 [...] From the Standard Lipid Profile. HIRAM. 2013;310(19): 4705-2040. For additional information, please refer to http://education.[employer]/faq/PUN854 (This link is being provided for informational/ educational purposes only.) 11/21/2016 8:01 AM CDT 11/21/2016 8:02 AM CDT Narrative [facility] - 11/22/2016 10:22 AM CDT FASTING:YES Resulting Agency Comment Performing Organization Information: Site ID: [place] Name: [facility] Address: [address] [place] [address] Director: Braxton Khan D.O. MPH us Sabine Sheehan MD LAB BLOOD ORDERABLES Final Result [facility] [employer] [facility] [place], [place] * Triglycerides (11/21/2016 8:01 AM CDT) Pathologist [facility] Triglycerides 105 <150 mg/dL [employer] [facility] 11/21/2016 8:01 AM CDT 11/21/2016 8:02 AM CDT Narrative [facility] - 11/22/2016 10:22 AM CDT FASTING:YES Resulting Agency Comment Performing Organization Information: Site ID: [place] Name: [facility] Address: [address] [place] [address] Director: Braxton Khan D.O., MPH us Sabine Sheehan MD LAB BLOOD ORDERABLES Final Result [facility] A[facility]UST [facility] sherman * Cholesterol, HDL (11/21/2016 8:01 AM CDT) HDL 65 >50 mg/dL [facility] [place] 11/21/2016 8:01 AM CDT 11/21/2016 8:02 AM CDT Narrative [facility] - 11/22/2016 10:22 AM CDT FASTING:YES Resulting Agency Comment Performing Organization Information: Site ID: AUGUST Name: [facility] Address: [address] [place] [address] Director: Braxton Khan D.O. MPH us Sabine Sheehan MD LAB BLOOD ORDERABLES Final Result Performing Organization Address [facility] Co de Phone Number [facility] AUGUST [place] * (ABNORMAL) Cholesterol, total (11/21/2016 8:01 AM CDT) Cholesterol 231(H) <200 mg/dL [facility]UST 11/21/2016 8:01 AM CDT 11/21/2016 8:02 AM CDT Narrative [facility] - 11/22/2016 10:22 AM CDT FASTING:YES Resulting Agency Comment Performing Organization Information: Site ID: AUGUST Name: [facility] Address: [address] [place] [address] Director: Braxton Khan D.O. MPH Sabine Sheehan MD LAB BLOOD ORDERABLES Final Result Performing Organization Address City/[facility]/ZIP Co de Phone Number [facility] [place] * TSH (11/21/2016 8:01 AM CDT) TSH 1.25 0.40 - 4.50 mIU/L [facility] Blood specimen (specimen) 11/21/2016 8:01 AM CDT 11/21/2016 8:02 AM CDT Narrative [facility] - 11/22/2016 10:22 AM CDT FASTING:YES Resulting Agency Comment Performing Organization Information: Site ID: AUGUST Name: [facility] Address: [address] [place], [place] [address] [address] Director: Braxton Khan D.O., MPH Sabine Sheehan MD LAB BLOOD ORDERABLES Final Result Performing Organization Address [facility] de Phone Number AUGUST Ely * Hepatitis C antibody (11/21/2016 8:01 AM CDT) Hep C Ab NON-REACTI VE NON-REACTI VE ARLEEN KOCH SIGNAL TO CUT-OFF 0.47 <1.00 ARLEEN KOCH Blood specimen (specimen) 11/21/2016 8:01 AM CDT 11/21/2016 8:02 AM CDT Narrative ARLEEN - 11/22/2016 10:22 AM CDT FASTING:YES Resulting Agency Comment Performing Organization Information: Site ID: AUGUST Name: [facility] Address: [address] [place], [place] [address] [address] Director: Braxton Khan D.O., MPH us Sabine Sheehan MD LAB MICROBIOLOGY - GENERAL ORDERABLES Final Result Performing Organization Address [facility] de Phone Number AUGUST Ely documented in this encounter Visit Diagnoses Diagnosis Mixed hyperlipidemia- Primary Exposure to hepatitis B Contact with or exposure to other viral diseases Unspecified hypothyroidism documented in this encounter Additional Health Concerns Infection Onset Date Last Indicated Resolved Time COVID: Suspected 04/11/2020 04/11/2020 04/11/2020 2:48 PM ASSISTANT PROFESSOR OF THEATER Respiratory Infection (KRYSTEN), contact + droplet Comment:Automatically added due to negative COVID-19 result. 04/11/2020 04/11/2020 04/25/2020 3:0 6 AM ASSISTANT PROFESSOR OF THEATER COVID: Suspected 09/06/2020 09/06/2020 09/07/2020 9:46 AM CDT documented as of this encounter Care Teams Glazier Artist Relationship Specialty Start Date End Date Sabine Sheehan MD PCP - General 06/15/16 10/23/21 Sonny Dozier MD [address] [facility] [address] [place] [address] PCP - General Rheumatology 10/24/21 04/17/22 Sabine Sheehan MD [address] [address] [place] [address] PCP - General Internal Medicine 04/18/22 Tonia Lee MD [address] [place] [address] Obstetrics and Gynecology 12/01/16 [place] [address] [place] [address] Surgery 12/01/16 Giovanny Andrews MD [address] [place] [address] Rheumatology 12/01/16 12/03/16 Garrison Robison MD [address] [facility] [address] [place] [address] Internal Medicine 12/01/16 Gomez Mauro MD [address] [place] [address] Orthopedic Surgery 12/01/16 11/07/22 Sonny Dozier MD [address] [place] [address] Rheumatology 12/04/16 10/22/21 Abdon Chapman MD [address] [facility] [id number] [place] [address] Referring Physician Gynecologic Oncology 12/10/17 Ozzy Shirley MD PhD [address] [place] [address] Radiation Oncologist Radiation Oncology 04/15/18 Umesh Figueroa MD [address] [place] [address] Radiation Oncologist Radiation Oncology 06/18/18 Rachell Marquez OD [address] [place] [address] Optometry 06/30/18 Melissa Smith MD [address] [place] [address] Surgeon Orthopedic Surgery 01/11/19 Sonny Dozier MD [address] [facility] [address] [place] [address] Rheumatology 10/24/21 Ana Pereira NP [address] [facility] [address] [place] [address] 11/08/22 [place] [address] [place] [address] [place] [address] Surgeon Orthopedic Surgery 11/08/22 Gagandeep Garcia DO [address] [facility] [place] [address] Consulting Physician Gastroenterology 12/24/23 documented as of this encounter
--- OUTSIDE RECORDS SUMMARY | 2024-12-21 10:15 | XMS_ITS | Encounter Summary ---
Author Organization [place] [facility] Address [address] [place] [address] Phone Care Team Providers Care Compressor Battery Pellets Name Role Phone LeeTonia MD Unavailable [phone] Ravi Noland MD Unavailable [phone] Garrison Robison MD Unavailable [phone] Gomez Mauro MD Unavailable [phone] Abdon Chapman MD Unavailable [phone] Ozzy Shirley MD PhD Unavailable + [phone] Umesh Figueroa MD Unavailable [phone] Rachell Mason OD Unavailable [phone] Melissa Smith MD Unavailable + [phone] Sonny Dozier MD Primary Care Provi kiera Sabine Sheehan MD Primary Care Provider + [phone] Sonny Dozier MD Unavailable +[phone] Ana Pereira NP Unavailable [phone] Eric Hopkins MD Unavailable Gagandeep Garcia DO Unavailable [phone] Encounter Details Date Type Department Care Team (Late st Contact Info) Description 02/21/2022 Orders Only [facility] [address] [place] [phone] Sabine Sheehan MD [address] [place] [address] Social History Tobacco Use Types Packs/Day Years [...] on file 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 Gender Identity Not on file Sexual Orientation [...] on filedocumented in this encounter Care Teams Compressor Battery Pellets Relationship Specialty Start Date End Date Sonny Dozier MD [address] [place] [address] PCP - General Rheumatology 10/24/21 04/17/22 Sabine Sheeahn MD [address] [place] [address] PCP - General Internal Medicine 04/18/22 Tonia Lee MD [address] [place] [address] Obstetrics and Gynecology 12/01/16 [place] [address] [place] [address] Surgery 12/01/16 Garrison Robison MD [address] [facility] [address] [place] [address] Internal Medicine 12/01/16 Gomez Mauro MD [address] [place] [address] Orthopedic Surgery 12/01/16 11/07/22 Abdon Chapman MD [address] [facility] [id number] [place] [address] Referring Physician Gynecologic Oncology 12/10/17 Ozzy Shirley MD PhD [address] [facility] [place] [place] [address] Radiation Oncologist Radiation Oncology 04/15/18 Umesh Figueroa MD [address] [place] [address] Radiation Oncologist Radiation Oncology 06/18/18 4 Rachell Mason OD [address] [facility] [place] [place] [address] Optometry 06/30/18 Melissa Smith MD 6 [place] [address] Surgeon Orthopedic Surgery 01/11/19 Sonny Dozier MD [address] [place] [address] Rheumatology 10/24/21 Ana Pereira NP [address] [place] [address] 11/08/22 Eric Hopkins MD [address] [facility] [address] [place] [address] Surgeon Orthopedic Surgery 11/08/22 Gagandeep Garcia DO [address] [facility] [address] [place] [address] Consulting Physician Gastroenterology 12/24/23 documented as of this encounter
== END 2024-12-21 09:26 | disposition home or self-care (01) ==
PROVIDERS: PCP Internal Medicine Geriatric Medicine; Visit Provider Internal Medicine Geriatric Medicine
DX: M81.8 Other osteoporosis without current pathological fracture (principal); E78.2 Mixed hyperlipidemia
CPT/HCPCS: 36415; 80061; 82306

== ENCOUNTER 2024-12-30 08:43 | Outpatient (CLI) | payer MEDICARE, SELFPAY ==
--- OUTSIDE RECORDS SUMMARY | 2024-12-30 09:17 | XMS_ITS | Clinical Summary ---
Author Organization [facility] Address [facility] [facility] [place] [address] Care Team Providers Care Curing Pickling Packer Name Role Phone Marianela Sheehan MD Primary Care Provider Giovanny Andrews MD Unavailable Unavailable Lyndsay Sanchez RN Unavailable [phone] Source Comments [facility],non-owned Affiliates and Associated Physician Practices is amultiple site organization consisting of ambulatory clinics and hospital sitesin [place], [place], [place] and [place]. This disclosure is being madepursuant to the Care Everywhere program and may not contain all information available regarding this patient. 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 Gender Identity Not on file Sexual Orientation Not on file Occupation Industry Job Start Date Job End Date retired Not on file Not on file Not on file Last Filed Vital Signs Vital Sign Reading Time Taken Comments Blood Pressure 138/77 06/04/2017 10:38 AM CDT Pulse 67 06/04/2017 10:38 AM CDT Temperature 36.8 C (98.2 F) 05/19/2015 9:45 AM MULTI OPERATION FORMING MACHINE SETTER Respiratory Rate 18 05/12/2015 3:22 PM MULTI OPERATION FORMING MACHINE SETTER Oxygen Saturation 97% 05/12/2015 3:22 PM MULTI OPERATION FORMING MACHINE SETTER Inhaled Oxygen Concentration - - Weight 82.1 [...] - 107 mmol/L 11/14/2015 12:18 PM CDT [facility] CO2 29 22 - 31 mmol/L 11/14/2015 12:18 PM CDT [facility] Calcium 9.7 8.5 - 10.1 mg/dL 11/14/2015 12:18 PM CDT [facility] Anion Gap 6 5 - 20 mmol/L 11/14/2015 12:18 PM CDT [facility] BUN 16 7 - 21 mg/dL 11/14/2015 12:18 PM CDT [facility] Creatinine 0.61 0.50 - 1.30 mg/dL 11/14/2015 12:18 PM CDT [facility] Alkaline Phosphatase 76 38 - 126 U/L 11/14/2015 12:18 PM CDT [facility] ALT 22 13 - 61 U/L 11/14/2015 12:18 PM CDT [facility] Comment:See reference range update AST 18 5 - 40 U/L 11/14/2015 12:18 PM CDT [facility] Protein Total 7.7 6.4 - 8.2 gm/dL 11/14/2015 12:18 PM CDT [facility] Albumin 3.7 3.4 - 5.0 gm/dL 11/14/2015 12:18 PM CDT [facility] Bilirubin Total 0.4 0.2 - 1.0 mg/dL 11/14/2015 12:18 PM CDT [facility] eGFR by MDRD >60 >60 mL/min/1.7 3m2 11/14/2015 12:18 PM CDT [facility] eGFR by MDRD >60 >60 mL/min/1.7 3m2 11/14/2015 12:18 PM CDT [facility] Blood BLOOD SPECIMEN / Unknown Lab Venipuncture / Unknown 11/14/2015 11:07 AM CDT 11/14/2015 11:50 AM CDT us Ravi Noland MD LAB - CHEMISTRY ORDERABLES Fi nal Result [facility] [address] [place] [address] from Last 3 Months or Most Recently Relevant to Health Maintenance Insurance COMMERCIAL GENERIC MEDICARE Advance Directives * Full Code (Latest Code Status on File) Date Activated Date Inactivated Comments 05/10/2015 12:24 PM 05/12/2015 7:04 PM Care Teams Curing Pickling Packer Relationship Specialty Start Date End Date Marianela Sheehan MD [address] [place] [address] PCP - General 09/16/08 Giovanny Andrews MD [address] [address] Rheumatology 01/25/11 Lyndsay Sanchez, ANASTASIYA Mat Cleaning Machine Operator 05/10/15
[2024-12-31 07:08] LABS: Hep B Core Ab, Total Negative (Negative)
[2024-12-31 11:49] LABS: Hematocrit 35.8 % (35.0-42.0); Hemoglobin 11.7 g/dL (11.7-13.8); Mean Corpuscular HGB Conc 32.7 g/dL (32-36); Mean Corpuscular Hemoglobin 35.1 pg (27.0-31.0); Mean Corpuscular Volume 107.5 fL (78.0-102.0); Platelet Count Result 221 K/mm3 (150-420); Red Blood Count 3.33 M/mm3 (4.20-5.40); White Blood Count 3.9 K/mm3 (4.8-10.8)
[2024-12-31 12:03] LABS: Iron 99 ug/dL (37-170)
[2024-12-31 12:05] LABS: Alanine Aminotransferase 15 U/L (6-35); Albumin Level 4.2 g/dL (3.5-5.1); Alkaline Phosphatase 62 U/L (38-126); Anion Gap 9 mmol/L (4-12); Aspartate Amino Transferase 37 U/L (14-36); Bilirubin,Total 0.4 mg/dL (0.2-1.3); Blood Urea Nitrogen 24 mg/dL (7-17); Calcium 10.2 mg/dL (8.4-10.2); Carbon Dioxide 28 mmol/L (22-30); Chloride 105 mmol/L (98-107); Estimated Glomerular Filt Rate > 60; Glucose 154 mg/dL (65-110); Magnesium 1.9 mg/dL (1.6-2.3); Osmolality Calculated 301 mOsm/kg (285-295); Potassium 4.8 mmol/L (3.4-5.0); Sodium 142 mmol/L (137-145); Total Protein 7.2 g/dL (6.3-8.2)
[2024-12-31 12:13] LABS: Percent Iron Saturation 32 % (20-50)
[2024-12-31 12:36] LABS: Total Cells Counted 100
[2024-12-31 12:37] LABS: Band Neutrophils Percent 0 % (0-6); Basophils Absolute Manual 0.00 K/mm3 (0-0.1); Basophils Percent Manual 0 % (0-1); Eosinophils Absolute Manual 0.00 K/mm3 (0.02-0.50); Eosinophils Percent Manual 0 % (1-6); Lymphocytes Absolute Manual 0.62 K/mm3 (1.1-4.5); Lymphocytes Percent Manual 16 % (18-44); Monocytes Absolute Manual 0.23 K/mm3 (0.1-0.90); Monocytes Percent Manual 6 % (3-9); Neutrophils Absolute Manual 3.04 K/mm3 (1.3-6.7); Neutrophils Percent Manual 78 % (46-73)
[2024-12-31 13:11] LABS: Vitamin B12 656.0 pg/mL (239-931)
[2025-01-04 16:07] LABS: Selenium, Plasma 115 ug/L (93-198)
[2025-01-04 22:07] LABS: Copper, Serum or Plasma 128 ug/dL (80-158)
[2025-01-07 15:09] LABS: Vit. B1, Whole Blood 151.3 nmol/L (66.5-200.0)
== END 2024-12-30 08:44 | disposition home or self-care (01) ==
LOC: CHSLAB 08:45
PROVIDERS: PCP Internal Medicine Geriatric Medicine; Visit Provider Internal Medicine Geriatric Medicine
DX: Z98.84 Bariatric surgery status (principal); Z11.59 Encounter for screening for other viral diseases; R74.9 Abnormal serum enzyme level, unspecified; N19 Unspecified kidney failure
CPT/HCPCS: 36415; 80053; 82525; 82607; 82746; 83540; 83550; 83735; 84255; 84425; 84597; 84630; 85025; 86704; 86706; 87340

== ENCOUNTER 2025-01-12 12:13 | Outpatient (CLI) | payer MEDICARE, SELFPAY ==
[2025-01-12 12:29] LABS: Hematocrit 35.3 % (35.0-42.0); Hemoglobin 11.6 g/dL (11.7-13.8); Immature Granulocyte Percent A 0.2 % (0.0-0.0); Lymphocytes Absolute Auto 1.19 K/mm3 (1.10-4.50); Mean Corpuscular HGB Conc 32.9 g/dL (32-36); Mean Corpuscular Hemoglobin 34.9 pg (27.0-31.0); Mean Corpuscular Volume 106.3 fL (78.0-102.0); Nucleated Red Blood Cells Absolute Auto 0.00 K/mm3 (0.00-0.00); Nucleated Red Blood Cells Perc 0.0 % (0-0.0); Platelet Count Result 233 K/mm3 (150-420); Red Blood Count 3.32 M/mm3 (4.20-5.40); White Blood Count 4.2 K/mm3 (4.8-10.8)
[2025-01-12 13:10] LABS: Alanine Aminotransferase 14 U/L (6-35); Albumin Level 4.3 g/dL (3.5-5.1); Alkaline Phosphatase 68 U/L (38-126); Anion Gap 7 mmol/L (4-12); Aspartate Amino Transferase 37 U/L (14-36); Bilirubin,Total 0.4 mg/dL (0.2-1.3); Blood Urea Nitrogen 22 mg/dL (7-17); Calcium 9.9 mg/dL (8.4-10.2); Carbon Dioxide 30 mmol/L (22-30); Chloride 104 mmol/L (98-107); Estimated Glomerular Filt Rate > 60; Glucose 87 mg/dL (65-110); Osmolality Calculated 294 mOsm/kg (285-295); Potassium 4.7 mmol/L (3.4-5.0); Sodium 141 mmol/L (137-145); Total Protein 7.2 g/dL (6.3-8.2)
--- OUTSIDE RECORDS SUMMARY | 2025-01-12 14:04 | XMS_ITS | Clinical Summary ---
Author Organization [facility] [address] Address [address] [place] [address] Phone Care Team Providers Care Quartz Orientator Name Role Phone Tonia Lee MD Unavailable [phone] Ravi Noland MD Unavailable [phone] Abdon Chapman MD Unavailable [phone] Ozzy Shirley MD PhD Unavailable + [phone] MarlonRachell [place] OD Unavailable [phone] Melissa Smith MD Unavailable + [phone] Sabine Tabares MD Primary Care Provider + [phone] Sonny Molina MD Unavailable [phone] Ana Pereira NP Unavailable [phone] Eric Hopkins MD Unavailable Gagandeep Garcia DO Unavailable [phone] Allergies Active Allergy Reactions Criticality Noted Date Comments Abatacept Rash Medium Alendronate Other (See comments) Low 12/10/2017 left-sided jaw pain Infliximab Anaphylaxis High Leflunomide Rash Medium 01/07/2009 Abatacept (With Maltose) Rash Medium 10/17/2017 Abaloparatide Hives Medium 01/18/2023 Rapid heartbeat, nausea, headache , blister on the skin, body pain, neck tingling. She was tolerating Forteo well Medications L.rhamn A-191-L.ac-B.georgi- B.augusta (PROBIOTIC) 20 billion cell capsule, sprinkle take 1 by Oral route every morning 0 012 Active cycloSPORINE (RESTASIS) 0.05 % ophthalmic emulsion 1 drop 2 (two) times a day Dr. Mckeon t Active multivitamin tablet Take 0.5 tablets by mouth Active leucovorin 5 mg tablet TAKE ONE TABLET BY MOUTH 24 HOURS AFTER METHOTREXATE DOSE WEEKLY. 0 019 Active Xeljanz 5 mg tablet Take 2 tablets (10 mg total) by mouth daily 021 Active BD SafetyGlide TB Reg Bevel 1 mL 27 x 1/2 syringe TO BE USED WITH METHOTREXATE 022 Active methotrexate 25 mg/mL injection solution 024 Active turmeric root extract 500 mg capsule Take by mouth daily Active amoxicillin 500 mg tablet TAKE 4 TABLETS BY MOUTH 1 HOUR PRIOR TO APPOINTMENT 025 Active levothyroxine (SYNTHROID) 75 mcg tabletIndications :Hypothyroidism, adult Take 1 tablet (75 mcg total) by mouth daily 90 tablet 3 025 2025 Active rosuvastatin (CRESTOR) 10 mg tabletIndications :Multiple-type hyperlipidemia Take 1 tablet (10 mg total) by mouth daily 90 tablet 3 025 Active teriparatide (FORTEO) 20 mcg/dose (560mcg/2.24mL) injectionIndicati ons:postmenopausa l osteoporosis and high fracture risk Inject 0.08 mL (20 mcg total) under the skin daily Insurance requires brand name Forteo. 025 2025 Active cholecalciferol (VITAMIN D-3) 2000 unit capsule Take 1 capsule (2,000 Units total) by mouth daily 025 Active cholecalciferol (VITAMIN D-3) 1,000 unit tablet take 1 by Oral route every day 90 3 07/10/ 012 2024 Discontinued krill oil 500 mg capsule Take 1,000 mg by mouth daily 2024 Discontinued(T herapy completed) levothyroxine (SYNTHROID) 75 mcg tabletIndications :Hypothyroidism, adult Take 1 tablet (75 mcg total) by mouth daily 90 tablet 3 024 2024 Discontinued(R eorder) rosuvastatin (CRESTOR) 10 mg tabletIndications :Multiple-type hyperlipidemia Take 1 tablet (10 mg total) by mouth daily 90 tablet 3 024 2024 Discontinued(R eorder) teriparatide (FORTEO) 20 mcg/dose (600mcg/2.4mL) injectionIndicati ons:postmenopausa l osteoporosis and high fracture risk Inject 0.08 mL (20 mcg total) under the skin daily Insurance requires brand name Forteo. 2.4 mL 11 025 2024 Discontinued(R eorder) Active Problems Problem Noted Date Diagnosed Date Disorder of immune system 12/28/2024 Overview (12/28/2024): Rheumatoid arthritis requiring immune modulating medications Assessment & Plan (12/28/2024 10:34 PM CDT): Related to combination methotrexate Xeljanz this will be a long-term risk. That has done well for years with a combination At high risk for injury related to fall 12/24/19 24 Assessment & Plan (12/28/2024 10:34 PM CDT): Chronic persistent Osteoporosis continues to pose high fracture risk. Podiatry consultation regarding foot and ankle health Completing current course of Forteo awaiting dental advice noting her best option next we will probably be Cheo ( Romosozumab-aqqg) followed by Moshe twice yearly indefinitely Dental disease 12/24/2023 Assessment & Plan (12/28/2024 10:34 PM CDT): Completed dental care and has control of the periodontal and dental disease at this time awaiting dental letter by end of the year when she completes Forteo in his that point we will decide whether she goes to Fosamax, Reclast, or avidity followed by Moshe. History of endometrial cancer 10/11/2020 Assessment & Plan (12/28/2024 10:34 PM CDT): That has lead determined tumor free after 7 years of care with Dr. Asia Montgomery. She has been referred back to Dr. Lee for ongoing monitoring Osteoporosis, idiopathic 06/03/2017 Overview (10/19/2020): AP LUMBAR SPINE L1-L4:Total BMD is 0.798 g/cm2 T-score is -2.3 LEFT HIP: Total BMD is 0.679 g/cm2 T-score is -2.2 Femoral neck BMD is 0.487 g/cm2 T-score is -3.3 Overview: 07/18/2010 discussed plan to hold off on Fosamax and continue to wean off prednisone (dose is low.) Assessment & Plan (12/28/2024 10:34 PM CDT): Medication change coming up in February completing current Forteo awaiting dental letter from Dr. Ortiz chemistry panel, PTH vitamin-D letter needed before that visit Orders: teriparatide (FORTEO) 20 mcg/dose (560mcg/2.24mL) injection; Inject 0.08 mL (20 mcg total) under the skin daily Insurance requires brand name Forteo. Family history of colon cancer in father 018 Overview (12/28/2024): >>OVERVIEW FOR FAMILY HISTORY OF COLON CANCER WRITTEN ON 06/03/2017 9:42 AM BY SABINE TABARES MD Colonoscopy test -2003, 2008, 2013, due every 5 years Assessment & Plan (12/28/2024 10:22 PM CDT): Qualifies for every 5 year colonoscopy screening as needed in the USPSTF section of this note next colonoscopy due 2028 Bariatric surgery status 06/02/2017 Assessment & Plan (12/28/2024 10:34 PM CDT): Bariatric labs ordered Orders: CBC with auto differential; Future Iron profile w/ IBC; Future Comprehensive metabolic panel; Future Copper, serum; Future Magnesium; Future Vitamin B12; Future Methylmalonic acid, serum; Future Zinc; Future Selenium - Miscellaneous Test; Future Folate; Future Vitamin B1; Future Vitamin K; Future Vitamin A; Future Vitamin E; Future Pes planus of both feet 12/04/2016 Overview (12/04/2016): Conservative treatment given December 02 Assessment & Plan (12/28/2024 10:34 PM CDT): This increases risk of fall and injury associated with recent foot contusion Class 1 obesity with serious comorbidity and body mass index (BMI) of 31.0 to 31.9 in adult 08/01/2013 Overview (10/17/2017): Obesity, morbid (more than 100 lbs over ideal weig Assessment & Plan (12/28/2024 10:34 PM CDT): Chronic persistent, slow response to current medicines in his lifestyle history bariatric surgery requires updated bariatric labs Rheumatoid arthritis involving multiple joints ( [facility]) 08/01/2013 Overview (06/22/2016): Rheumatoid arthritis Assessment & Plan (12/28/2024 10:34 PM CDT): Chronic clinically controlled on methotrexate Xeljanz providing excellent control of inflammatory change but increasing risk of infection . Seasonal immunizations to be updated Hypothyroidism, adult 08/01/2013 Overview (06/22/2016): Hypothyroid Assessment & Plan (12/28/2024 10:34 PM CDT): Reports labs were done, I do not have results, continue for now on Synthroid Orders: levothyroxine (SYNTHROID) 75 mcg tablet; Take 1 tablet (75 mcg total) by mouth daily Multiple-type hyperlipidemia 08/01/2013 Overview (06/22/2016): Hyperlipidemia Assessment & Plan (12/28/2024 10:34 PM CDT): Labs apparently done I need copies for now continue on Crestor Orders: rosuvastatin (CRESTOR) 10 mg tablet; Take 1 tablet (10 mg total) by mouth daily Resolved Problems Problem Noted Date Diagnosed Date Resolved Date RUQ pain 05/25/2024 12/28/2024 Encounter for screening colonoscopy 12/17/2023 12/24/2023 Encounter for screening colonoscopy 12/17/2023 12/28/2024 Closed fracture of right distal radius 09/23/2023 12/28/2024 Assessment & Plan (12/28/2024 10:34 PM CDT): Receiving osteoporosis management for falls fractures and high ongoing osteoporosis fracture risk. Currently finishing Forteo Orders: teriparatide (FORTEO) 20 mcg/dose (560mcg/2.24mL) injection; Inject 0.08 mL (20 mcg total) under the skin daily Insurance requires brand name Forteo. Acute pain due to trauma 06/12/2022 ABLA (acute blood loss anemia) 06/12/2022 11/08/2022 Periprosthetic fracture of knee 06/10/2022 12/28/2024 Assessment & Plan (12/28/2024 10:34 PM CDT): Previous history with a improve mobility advise recumbent cycling to improve mobility right knee leg strength and reduce fall risk Orders: teriparatide (FORTEO) 20 mcg/dose (560mcg/2.24mL) injection; Inject 0.08 mL (20 mcg total) under the skin daily Insurance requires brand name Forteo. 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 Marlon delarosa at [facility] receiving re-stasis Rheumatoid arthritis 12/04/2016 [...] when Orencuia restarted ILD (interstitial lung disease) ([facility]) 09/16/2008 11/09/2021 Overview (11/09/2021): Overview: 09/16/2008 possible [...] A copy of these results to her gas and oil checker however Dr. MOLINA informs me that she is no longer her gas and oil checker. Please find out who is the current gas and oil checker , add this person to her care [...] Encounters Date Type Department Care Team Description 12/30/2024 Orders Only [facility] Health Information Management [address] [place] [id number] Scanning, Provider 12/30/2024 Results Follow-Up [facility] [address] [place] [address] Dayan Robbins RN XR Foot Left 3 or More Views 12/29/2024 Telephone [facility] [address] [place] [address] Sabine Tabares MD 12/28/2024 2:30 PM CDT Ancillary Procedure [facility] [address] [facility] [address] [place] [address] Contusion of left foot, initial encounter 12/28/2024 11:15 AM CDT Office Visit [facility] [address] [facility] [address] [place] [address] Sabine Tabares MD Annual physical exam (Primary Dx); Contusion of left foot, initial encounter; Class 1 obesity with alveolar hypoventilation, serious comorbidity, and body mass index (BMI) of 32.0 to 32.9 in adult ([facility]); Rheumatoid arthritis involving multiple joints (CMS/HCC) ([facility]); Disorder of immune system; Bariatric surgery status; Dental disease; Osteoporosis, idiopathic; Closed fracture of distal end of right radius with routine healing, unspecified fracture morphology, subsequent encounter; Periprosthetic fracture of knee; Pes planus of both feet; At high risk for injury related to fall; Multiple-type hyperlipidemia; Hypothyroidism, adult; History of endometrial cancer; Family history of colon cancer in father; Encounter for screening mammogram for breast cancer; Immunization counseling 12/21/2024 Orders Only [facility] Health Information Management [address] [place] [address] Scanning, Provider 11/06/2024 Orders Only [facility] Health Information Management [address] [place] [address] Scanning, Provider 10/26/2024 8:51 AM CDT - 10/26/2024 11:59 PM CDT Hospital Encounter [facility] [address] [place] [address] Menopause Discharge Disposition: Discharge to home or self care from Last 3 Months Immunizations Immunization Administration Dates Next Due Influenza, Quad, Adjuvantate d, Intramuscular 12/18/2022 Influenza, Quadrivalent, Hig h Dose, Preservative Free, Intrr 12/29/2021,12/31/2020,2019 Influenza, Quadrivalent, Spl it, Intramuscular 01/17/2016 Influenza, Quadrivalent, Spl it, Preservative Free, Intramuscular 11/19/2017 Influenza, Split 02/13/2012 Influenza, Trivalent, High D ose, Split, Preservative Free, Intramuscular 12/28/2024,12/20/2023,12/10/2018 Influenza, Trivalent, IM (MDV) 01/14/2015,2012 Influenza, Unspecified 11/16/2016,02/02/2010 Moderna SARS-CoV-2 Monovalen t Vaccination (12+ YRS) 06/14/2020,05/20/2020 PPD TEST 02/17/2010,07/19/2009,06/17/2008 Pfizer Sars-Cov-2 Bivalent V accination (12+ YRS) 11/30/2021 Pneumococcal Conjugate PCV 13 12/15/2014, 015 Pneumococcal Conjugate Pcv20 10/26/2024 Pneumococcal Polysaccharide PPV23 01/04/2016,04/2007,01/16/2008 RSV Vaccine, Pref, [...] 02/18/2024 (+) With Dr. Pimentel colon polyps x2 = tubular adenoma, scattered diverticulosis colon due in 5 years Medical History Medical History Date Comments Morbid [...] (HCC) REACTION TO REMICAIDE. Adenomatous colon polyp Closed fracture of right distal radius Periprosthetic fracture of knee 06/10/2022 Family History Medical History Relation Name Comments [...] Not Answered Alcohol Use Standard Drinks/Week Comments Yes 2 (1 standard drink = 0.6 oz pur [...] materials from doctor or pharmacy Never 07/25/2022 PHQ-2 Answer Date Recorded PHQ-2 Total Score (If total score is 3 or more points, staff should administer the PHQ-9) 0 12/28/2024 PHQ-9 Answer Date Recorded PHQ-9 Total Score 1 12/28/2024 AUDIT-C Answer Date Recorded Q1: How often do you have a drink containing alc ohol? 2-3 times a week 12/28/2024 Q2: How many drinks containi ng alcohol do you have on a typical day when you are drinking? 1 or 2 12/28/2024 Q3: How often do you have si x or more drinks on one occasion? Never 12/28/2024 Personal Safety Answer Date Recorded Have you ever been in or are you currently in a harmful physical or emotional relationship or is someone making you feel afraid or unsafe? Denies 02/18/2024 Comments No Sex and Gender Information Value Date Recorded Sex Assigned at Not on file Legal Sex Female 7:52 PM CANDY FORMING MACHINE OPERATOR Gender Identity Not on [...] Sign Reading Time Taken Comments Blood Pressure 130/66 12/28/2024 12:04 PM CDT Pulse 72 12/28/2024 12:04 PM CDT Temperature 36.4 C (97.5 F) 12/28/2024 12:04 PM CDT Respiratory Rate 16 12/28/2024 12:04 PM CDT Oxygen Saturation 99% 12/28/2024 12:04 PM CDT Inhaled Oxygen Concentration - - Weight 73.5 kg (162 lb) 12/28/2024 12:04 PM CDT Height 149.9 cm (4' 11) 12/28/2024 12:04 PM CDT Body Mass Index 32.72 12/28/2024 12:04 PM CDT Plan of Treatment Health Maintenance Due Date Last Done Comments Hepatitis B Screening 1968 Breast Cancer Screening-Mammogram 12/02/2024 12/03/2023, 11/09/2022, 10/17/2021, Additional history exists Covid-19 Vaccine (2024-2 6 season) 2024 10/26/2024, 12/20/2023, 12/18/2022, Additional history exists DTaP/Tdap/Td Vaccine (3 - Td or Tdap) 11/21/2025 11/22/2015, 07/13/2005 Depression Screening 12/28/2025 12/28/2024, 12/28/2024, 05/25/2024, Additional history exists Fall Risk Assessment 12/28/2025 12/28/2024, 12/24/2023, 11/08/2022, Additional history exists Well Visit 65+ 12/28/2025 12/28/2024, 10/2023, 11/08/2022, Additional history exists Osteoporosis Screening-Bone Density Scan 10/26/2026 10/26/2024, 10/23/2022, [...] Discontinued 02/18/2024, 12/02/2018, 11/09/2013, Additional history exists Pneumococcal vaccine 65+ Completed 025, 01/04/2016, 12/15/2014, Additional history exists Influenza Vaccine Completed 12/28/2024, , 12/18/2022, Additional history exists Medical Devices Implanted Type Area Assistant General Manager Device Identifier Shelf Expiration Date Model / Serial / Lot [employer] Plate Bone Narrow 4 Hole Right Dorsal Distal Radial Ti [id number] - Sn/A - [id number] Implanted:Qty: 1 on 09/26/2023 by Clementina Rico MD at [facility] Plate Right: Wrist [employer] [id number] -[id number] / N/A / [id number] Description:PENDING [employer] REQ # [id number] [employer] [id number] Xcela 8fr 1.6mm 1 Lumen Power Injectable Attach Catheter Fill - [id number] Implanted:Qty: 1 on 11/26/2017 at [facility] [employer] 09/09/2022 [id number] / / [id number] [employer] [id number] Oss Low Friction Interface Knee Bushing Tibial Polyethylene - [id number] Implanted:Qty: 1 on 01/09/2019 by Eric Melendez MD at [facility] Left: Femur [employer] [id number] 10/03/2023 610682 / / [id number] [employer] 919837 Oss Reinforce Knee Yoke Tibial - [id number] Implanted:Qty: 1 on 01/09/2019 by Eric Melendez MD at [facility] Left: Femur [employer] [id number] 12/03/2028 427978 / / [id number] [employer] 659347 Oss 16mm Knee Standard Bearing Tibial Poly Sterile Latex Free - [id number] Implanted:Qty: 1 on 01/09/2019 by Eric Melendez MD at [facility] Left: Femur [employer] [id number] 05/07/2023 405196 / / [id number] Bsplt Tibial Oss Short Knee Nonmodular 67mm - [id number] Implanted:Qty: 1 on 01/09/2019 by Eric Melendez MD at [facility] Left: Femur [employer] 05/16/2022 [id number] / / [id number] [employer] 6191-1-010 Simplex P Radiopaque Full Dose Cement Bone Sterile - [id number] Implanted:Qty: 1 on 01/09/2019 by Eric Melendez MD at [facility] Left: Femur [employer] 11/15/2020 6191-1-010 / / [id number] [employer] [id number] Simplex P Radiopaque; Full Dose Cement Bone - [id number] Implanted:Qty: 1 on 01/09/2019 by Eric Melendez MD at [facility] Left: Femur [employer] 12/15/2020 [id number] / / [id number] [employer] [id number] Oss 5cm Resurface Knee Left Component Femoral Porous - [id number] Implanted:Qty: 1 on 01/09/2019 by Eric Melendez MD at [facility] Left: Femur [employer] [id number] 11/13/2027 670072 / / [id number] [employer] 593525 Stem Extension Oss L90 Mm Od15 Mm Knee Femur Intramedullary Cement - [id number] Implanted:Qty: 1 on 01/09/2019 by Eric Melendez MD at [facility] Left: Femur [employer] 04/15/2027 246503 / / [id number] [employer] [id number] Simplex P Radiopaque; Full Dose Cement Bone - [id number] Implanted:Qty: 2 on 01/09/2019 by Eric Melendez MD at [facility] Left: Femur [employer] 12/15/2020 [id number] / / [id number] [employer] 270992 Oss Auxiliary Knee Bushing Femoral Polyethylene - [id number] Implanted:Qty: 1 on 01/09/2019 by Eric Melendez MD at [facility] Left: Femur [employer] [id number] 10/09/2023 047845 / / [id number] [employer] 301831 Oss Low Friction Interface Knee Axle Tibial - [id number] Implanted:Qty: 1 on 01/09/2019 by Eric Melendez MD at [facility] Left: Femur [employer] [id number] 10/22/2028 228322 / / [id number] Synthes Screw Locking Im Nail 5mm 58mm 04.045.058 - [id number] Implanted:Qty: 1 on 06/11/2022 by Eric Hopkins MD at [facility] Right: Femur Synthes I 04.045.058 / / Synthes Lcp Combi 370mm 18 Hole 4 Column Thread Variable Angle Condylar 02.124.418 - [id number] Implanted:Qty: 1 on 06/11/2022 by Eric Hopkins MD at [facility] Right: Femur Synthes I 02.124.418 / / Synthes 4.5mm 8mm 38mm Self Tap Large Hexagonal Socket Cortex Screw Bone 214.838 - [id number] Implanted:Qty: 1 on 06/11/2022 by Eric Hopkins MD at [facility] Right: Femur Synthes I 214.838 / / Synthes 5mm 80mm Variable Angle Self Tap Lock Stardrive Condylar T25 02.231.280 - [id number] Implanted:Qty: 4 on 06/11/2022 by Eric Hopkins MD at [facility] Right: Femur Synthes I 02.231.280 / / Synthes 4.5mm 8mm 90mm Self Tap Large Hexagonal Socket Cortical Screw 214.890 - [id number] Implanted:Qty: 1 on 06/11/2022 by Eric Hopkins MD at [facility] Right: Femur Synthes I 214.890 / / Synthes 5mm 34mm Variable Angle Self Tap Lock Stardrive Condylar T25 02.231.234 - [id number] Implanted:Qty: 2 on 06/11/2022 by Eric Hopkins MD at [facility] Right: Femur Synthes I 02.231.234 / / Synthes 5mm 65mm Variable Angle Self Tap Lock Stardrive Condylar T25 02.231.265 - [id number] Implanted:Qty: 2 on 06/11/2022 by Eric Hopkins MD at [facility] Right: Femur Synthes I 02.231.265 / / Synthes Nail Retrograde Fem 10mm 280mm 5 Deg Bend Titanium Sterile 04.233.028s - [id number] Implanted:Qty: 1 on 06/11/2022 by Eric Hopkins MD at [facility] Right: Femur Synthes I 07/15/2025 04.233.028 S / / [id number] Synthes 5mm 85mm Variable Angle Self Tap Lock Stardrive Condylar T25 02.231.285 - [id number] Implanted:Qty: 1 on 06/11/2022 by Eric Hopkins MD at [facility] Right: Femur Synthes I 02.231.285 / / Screw Locking Im Nail 5mm 72mm - [id number] Implanted:Qty: 1 on 06/11/2022 by Eric Hopkins MD at [facility] Right: Femur Synthes I 04.045.072 / / Screw Locking Im Nail 5mm 84mm - [id number] Implanted:Qty: 1 on 06/11/2022 by Eric Hopkins MD at [facility] Right: Femur Synthes I 04.045.084 / / Synthes Screw Locking Im Nail 5mm 34mm 04.045.034 - [id number] Implanted:Qty: 1 on 06/11/2022 by Eric Hopkins MD at [facility] Right: Femur Synthes I 04.045.034 / / [employer] Allosync 1cc Abs-2009-03 - [id number] - [id number] Implanted:Qty: 1 on 09/26/2023 by Clementina Rico MD at [facility] Right: Wrist [employer] 12/27/2027 ABS-2009-0 1 / [id number] / Description:Implant is from Tonia Cerda [employer] Screw Kreulock Compression Titanium 2.4x22mm [id number] - [id number] Implanted:Qty: 1 on 09/26/2023 by Clementina Rico MD at [facility] Right: Wrist [employer] AR-8724VCL -22 / / [employer] Screw Kreulock Compression Titanium 2.4x24mm [id number] - [id number] Implanted:Qty: 1 on 09/26/2023 by Clementina Rico MD at [facility] Right: Wrist [employer] AR-8724VCL -24 / / [employer] Inc Screw Kreulock Compression Titanium 2.4x18mm [id number] - [id number] Implanted:Qty: 1 on 09/26/2023 by Clementina Rico MD at [facility] Right: Wrist [employer] AR-8724VCL -18 / / Ar[employer] Screw Kreulock Compression Titanium 2.4x20mm [id number] - [id number] Implanted:Qty: 2 on 09/26/2023 by Clementina Rico MD at [facility] Right: Wrist [employer] AR-8724VCL -20 / / [employer] Inc Screw Kreulock Compression Titanium 3.5x14mm [id number] - [id number] Implanted:Qty: 1 on 09/26/2023 by Clementina Rico MD at [facility] Right: Wrist [employer] AR-8935CL- 14 / / Ar[employer]rex Inc Screw Kreulock Compression Titanium 3.5x18mm [id number] - [id number] Implanted:Qty: 1 on 09/26/2023 by Clementina Rico MD at [facility] Right: Wrist [employer] AR-8935CL- 18 / / Ar[employer]rex Inc Low Profile Screws 3.5mm 14mm Self Drill Solid Midfoot Cortical T Ar-8935-14 - [id number] Implanted:Qty: 1 on 09/26/2023 by Clementina Rico MD at [facility] Right: Wrist [employer] AR-8935-14 / / Explanted Type Area Assistant General Manager Device Identifier Shelf Expiration Date Model / Serial / Lot [employer] Inc Low Profile Screws 3.5mm 16mm Self Tap Solid Hexalobe Midfoot Ar-8935-16 - [id number] Explanted:Qty: 1 on 09/26/2023 at [facility] Right: Wrist [employer] Inc AR-8935-16 / / Ar[employer]rex Inc Screw Bone Compression Full Thread Locking Kreulock 3.5x10mm Ti [id number] - [id number] Explanted:Qty: 1 on 09/26/2023 at [facility] Right: Wrist [employer] [id number] 0 / / Procedures Procedure Name Priority Date/Time Associated Diagnosis Comments SCAN - LABS 12/30/2024 XR FOOT LEFT 3 OR MORE VIEWS Schedule Routine, Read Routine (OP Routine) 12/28/2024 2:40 PM CDT Contusion of left foot, initial encounter SCAN - LABS 12/21/2024 SCAN - RADIOLOGY/IMAGING 11/06/2024 DEXA AXIAL SKELETON BONE DENSITY 1 OR MORE SITES Schedule Routine, Read Routine (OP Routine) 10/26/2024 9:05 AM CDT Menopause COLONOSCOPY 02/18/2024 9:41 AM CANDY FORMING MACHINE OPERATOR SCREENING MAMMOGRAM BILATERAL W RAPHAEL Schedule Routine, Read Routine (OP Routine) 12/03/2023 2:33 PM CDT Breast cancer screening by mammogram HEPATITIS C ANTIBODY Routine 11/21/2016 8:01 AM CDT Exposure to hepatitis B from Last 3 Months or Most Recently Relevant to Health Maintenance Results * SCAN - LABS (12/30/2024) us Provider Scanning Edited Result - Final * XR Foot Left 3 or More Views (12/28/2024 2:40 PM CDT) Anatomical Region Laterality Modality Lower Extremities, Foot Left Computed Radiography 12/29/2024 1:21 PM CDT Narrative 12/29/2024 1:23 PM CDT EXAM DESCRIPTION: 1. XR FOOT LEFT 3 OR MORE VIEWS REASON FOR STUDY: metatarsalgia L left 4th and 5th proximal toes previous trauma Pain in the left foot Patient dropped a water bottle on foot in September Swelling around ankle No surgery FINDINGS: Three views submitted without comparison. Mild midfoot osteoarthritis. No acute fracture. Moderate-sized heel spur is present. IMPRESSION: 1. Mild left midfoot osteoarthritis. 2. Moderate-sized heel spur. THIS IS AN ELECTRONICALLY VERIFIED FINAL REPORT 12/29/2024 1:23 PM - Electronically signed by Edvin Yang M.D. MF: OSCAR Report ID: [id number] Reading Location: [id number] Procedure Note Edvin Yang MD - 12/29/2024 EXAM DESCRIPTION: 1. XR FOOT LEFT 3 OR MORE VIEWS REASON FOR STUDY: metatarsalgia L left 4th and 5th proximal toes previous trauma Pain in the left foot Patient dropped a water bottle on foot in September Swelling around ankle No surgery FINDINGS: Three views submitted without comparison. Mild midfoot osteoarthritis. No acute fracture. Moderate-sized heel spuris present. IMPRESSION: 1. Mild left midfoot osteoarthritis. 2. Moderate-sized heel spur. THIS IS AN ELECTRONICALLY VERIFIED FINAL REPORT 12/29/2024 1:23 PM - Electronically signed by Edvin Yang M.D. MF: OSCAR Report ID: [id number] Reading Location: [id number] us Sabine Tabares MD IMG XR PROCEDURES Final Re sult * SCAN - LABS (12/21/2024) us Provider Scanning Final Result * SCAN - RADIOLOGY/IMAGING (11/06/2024) Anatomical Region [...] F with given history of: menopause Screening Assistant General Manager/Model: [employer] SL (S/N [id number]) Facility LSC value of 0.022 for the [...] Edvin Yang M.D. MF: OSCAR Report ID: [id number] Reading Location: [place] [address] Procedure Note Edvin Yang MD - 10/26/2024 EXAM DESCRIPTION: DEXA AXIAL SKELETON BONE DENSITY 1 OR MORE SITES REASON FOR STUDY: 73 y/o year old F with given history of: menopause Screening Assistant General Manager/Model: [employer] SL (S/N [id number]) Facility LSC value of 0.022 for the [...] Edvin Yang M.D. MF: OSCAR Report ID: [id number] Reading Location: [place] [address] us Sabine Tabares MD IMG DXA PROCEDURES Final R esult * Colonoscopy (02/18/2024 9:41 AM CANDY FORMING MACHINE OPERATOR) Anatomical Region Laterality Modality Other Narrative Procedure Note Gagandeep Garcia, DO - 02/18/2024 9:41 AM CST Center Patient Name: Iggy Soto Procedure Date: 02/18/2024 9:41 AM Date of : 1950 Admit Type: Outpatient Age: 73 Gender: Female Attending MD: Gagandeep Garcia D.O. Room: [facility] ENDOSCOPY ROOM 2 Note Status: Finalized Patient [...] scope was passed under direct vision. TheColonoscope [id number] was introduced through the anus and advanced [...] 9:41 AM Procedure Code(s): --- Professional --- 92572, Colonoscopy, flexible; with biopsy, single or multiple --- Technical --- 64713, Colonoscopy, flexible; with biopsy, single or multiple [...] perforation orabscess without bleeding CPT copyright 2020 [employer]. All rights reserved. The codes documented in this report are preliminary and upon remote coders reviewmay be revised to meet current compliance requirements. Recognized by the [place] for promoting quality [...] by: Naima Thomas M.D. Sabine Tabares MD [facility] MAMMO PROCEDURES Edite d Result - Final [...] Performing Organization Information: Site ID: [id number] Name: Arleen Ragsdale Address: [address] [id number] Director: Braxton Khan D.O., MPH Sabine Tabares MD LAB MICROBIOLOGY - GENERAL ORDERABLES Final Result [facility] [place] from Last 3 Months or Most Recently Relevant to Health Maintenance Insurance MEDICARE [facility] Address: [address] [address] [place] [address] COMMERCIAL GENERIC [facility] MEDICARE [facility] MEDICARE Advance Directives For more information, please contact: [phone] Documents on File Type Date Recorded Patient Blower Operator Expl anation ADVANCE DIRECTIVE 06/30/2018 10:52 [...] 2:48 AM 01/11/2019 4:12 PM Care Teams Quartz Orientator Relationship Specialty Start Date End Date Sabine Tabares MD [address] [place] [address] PCP - General Internal Medicine 04/18/22 Tonia Lee MD [address] [place] [address] Obstetrics and Gynecology 12/01/16 [place] [address] [place] [address] Surgery 12/01/16 Abdon Chapman MD [address] [facility] [id number] [place] [address] Referring Physician Gynecologic Oncology 12/10/17 Ozzy Shirley MD PhD [address] [place] [address] Radiation Oncologist Radiation Oncology 04/15/18 Rachell Mason, OD [address] [place] [address] Optometry 06/30/18 Melissa Smith MD [address] [place] [address] Surgeon Orthopedic Surgery 01/11/19 Sonny Molina MD [address] [facility] [address] [place], [place] [address] Rheumatology 10/24/21 Ana Pereira NP [address] [facility] [address] [place] [address] 11/08/22 Eric Hopkins MD [address] 6A/6B/12A [place] [address] Surgeon Orthopedic Surgery 11/08/22 Gagandeep Garcia DO [address] 6A/6B/12A [place] [address] Consulting Physician Gastroenterology 12/24/23 Dr. Lujan n [address] [place], [place] Opthalmology Optometry 12/21/24
--- OUTSIDE RECORDS SUMMARY | 2025-01-12 14:04 | XMS_ITS | Encounter Summary ---
Author Organization [facility] Address [address] [place] [address] Care Team Providers Care Injection Press Operator Name Role Phone Sabine Sheehan MD Primary Care Provider + [phone] Tonia Lee MD Unavailable [phone] Ravi Noland MD Unavailable +[phone] Garrison Robison MD Unavailable +[phone] Gomez Mauro MD Unavailable +[phone] Sonny Dozier MD Unavailable +[phone] Abdon Chapman MD Unavailable +[phone] Ozzy Shirley MD PhD Unavailable + [phone] Umesh Figueroa MD Unavailable +[phone] Rachell Mason OD Unavailable [phone] Melissa Smith MD Unavailable + [phone] Sonny Dozier MD Primary Care Provi kiera Sabine Sheehan MD Primary Care Provider + [phone] Sonny Dozier MD Unavailable +[phone] Ana Pereira NP Unavailable +[phone] Eric Hopkins MD Unavailable Gagandeep Garcia Unavailable +[phone] Encounter Details Date Type Department Care Team (Late st Contact Info) Description 10/18/2020 Telephone [facility] [address] [place] [address] Tyra Cartern, RT Social History Tobacco Use [...] on file 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 Gender Identity Not on file Sexual Orientation Not on file Occupation Industry Job Start Date Job End Date Retired Not on file Not on file Not on file documented as of this encounter Plan of Treatment Not on file documented as of this encounter Visit Diagnoses Not on filedocumented in this encounter Care Teams Injection Press Operator Relationship Specialty Start Date End Date Sabine Sheehan MD PCP - General 06/15/16 10/23/21 Sonny Dozier MD [address] [place] [address] PCP - General Rheumatology 10/24/21 04/17/22 Sabine Sheehan MD [address] [facility] [address] [place] [address] PCP - General Internal Medicine 04/18/22 Tonia Lee MD [address] [place] [address] Obstetrics and Gynecology 12/01/16 [place] [address] [place] [address] Surgery 12/01/16 Garrison Robison MD [address] [facility] [address] [place] [address] Internal Medicine 12/01/16 12/27/24 Gomez Mauro MD [address] [place] [address] Orthopedic Surgery 12/01/16 11/07/22 Sonny Dozier MD [address] [place] [address] Rheumatology 12/04/16 10/22/21 Abdon Chapman MD [address] [place], [place] [address]D [facility] [id number] [place] [address] Referring Physician Gynecologic Oncology 12/10/17 Ozzy Shirley MD PhD [address] [place] [address] Radiation Oncologist Radiation Oncology 04/15/18 Umesh Figueroa MD [address] [place] [address] Radiation Oncologist Radiation Oncology 06/18/18 4 Rachell Mason OD 6 [place] [address] Optometry 06/30/18 Melissa Smith MD [address] [place] [address] Surgeon Orthopedic Surgery 01/11/19 Sonny Dozier MD [address] [place] [address] Rheumatology 10/24/21 Ana Pereira NP [address] [place] [address] 11/08/22 Eric Hopkins MD [address] [facility] [address] 6A/6B/12A [place] [address] Surgeon Orthopedic Surgery 11/08/22 Gagandeep Garcia DO [address] [facility] [address] 6A/6B/12A [place] [address] Consulting Physician Gastroenterology 12/24/23 Dr. Lujan n [address] [place], [place] Opthalmology Optometry 12/21/24 documented as of this encounter
--- OUTSIDE RECORDS SUMMARY | 2025-01-12 14:04 | XMS_ITS | Encounter Summary ---
Author Organization [facility] Address [address] [place] [address] Care Team Providers Care Pipe Fitter Ammonia Name Role Phone Sabine Sheehan MD Primary Care Provider + [phone] Tonia Lee MD Unavailable [phone] Ravi Noland MD Unavailable +[phone] Garrison Robison MD Unavailable +[phone] Gomez Mauro MD Unavailable [phone] Sonny Dozier MD Unavailable +[phone] Abdon Chapman MD Unavailable +[phone] Ozzy Shirley MD PhD Unavailable + [phone] Umesh Figueroa MD Unavailable +[phone] Rachell Mason OD Unavailable [phone] Melissa Smith MD Unavailable + [phone] Sonny Dozier MD Primary Care Provi kiera Sabine Sheehan MD Primary Care Provider + [phone] Sonny Dozier MD Unavailable +[phone] Ana Pereira NP Unavailable +[phone] Eric Hopkins MD Unavailable Fordfrieda Gagandeep Garcia Unavailable [phone] Encounter Details Date Type Department Care Team (Late st Contact Info) Description 02/15/2020 Telephone [facility] Radiology [address] [place] [address] Velma Bueno, ANASTASIYA Social History Tobacco Use [...] on file 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 04/11/2020 04/11/2020 04/25/2020 3:0 6 AM TABLE GAMES SHIFT MANAGER COVID: Suspected 09/06/2020 09/06/2020 09/07/2020 9:46 AM CDT documented as of this encounter Care Teams Pipe Fitter Ammonia Relationship Specialty Start Date End Date Sabine Sheehan MD PCP - General 06/15/16 10/23/21 Sonny Dozier MD [address] [facility] [address] [place] [address] PCP - General Rheumatology 10/24/21 04/17/22 Sabine Sheehan MD [address] [facility] [address] [place] [address] PCP - General Internal Medicine 04/18/22 Tonia Lee MD [address] [address] Obstetrics and Gynecology 12/01/16 [place] [address] [place] [address] Surgery 12/01/16 Garrison Robison MD [address] [facility] [address] [place] [address] Internal Medicine 12/01/16 12/27/24 Gomez Mauro MD [address] [place], [place] [address], [place] [address] Orthopedic Surgery 12/01/16 11/07/22 Sonny Dozier MD [address] [place] [address] Rheumatology 12/04/16 10/22/21 Abdon Chapman MD [address] [facility] [id number] [place] [address] Referring Physician Gynecologic Oncology 12/10/17 Ozzy Shirley MD PhD [address] [facility] [place] [address] Radiation Oncologist Radiation Oncology 04/15/18 Umesh Figueroa MD [address] [place] [address] Radiation Oncologist Radiation Oncology 06/18/18 4 Rachell Mason OD [address] [place] [address] Optometry 06/30/18 Melissa Smith MD [address] [place] [address] Surgeon Orthopedic Surgery 01/11/19 Sonny Dozier MD [address] [facility] [address] [place] [address] Rheumatology 10/24/21 Ana Pereira NP [address] [address] 11/08/22 Eric Hopkins MD [address] [facility] [address] 6A/6B/12A [place] [address] Surgeon Orthopedic Surgery 11/08/22 Gagandeep Garcia DO [address] [facility] [address] 6A/6B/12A [place] [address] Consulting Physician Gastroenterology 12/24/23 Dr. Lujan n [address] [place], [place] Opthalmology Optometry 12/21/24 documented as of this encounter
--- OUTSIDE RECORDS SUMMARY | 2025-01-12 14:05 | XMS_ITS | Encounter Summary ---
Author Organization [facility] Address [address] [place] [address] Care Team Providers Care Pack Press Operator Name Role Phone LeeTonia MD Unavailable Ravi Noland MD Unavailable +[phone] Abdon Chapman MD Unavailable [phone] Ozzy Shirley MD PhD Unavailable [phone] Rachell Masont OD Unavailable Melissa Smith MD Unavailable + [phone] Sabine Sheehan MD Primary Care Provider +- [phone] Sonny Dozier MD Unavailable + [phone] Ana Pereira NP Unavailable [phone] Eric Hopkins MD Unavailable Gagandeep Garcia DO Unavailable [phone] Encounter Details Date Type Department Care Team (Latest Contact Info) Description 12/30/2024 Results Follow-Up [facility] [address] [place] [phone] Dayan Robbins, RN XR Foot Left 3 or More Views Social History Tobacco Use Types Packs/Day Years Used Date Smoking Tobacco: Never Smokeless Tobacco: Never Alcohol Use Standard Drinks/Week Comments Yes 2 [...] on file 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 Gender Identity Not on file Sexual Orientation Not on file Occupation Industry Job Start Date Job End Date Retired Not on file Not on file Not on file documented as of this encounter Plan of Treatment Not on file documented as of this encounter Visit Diagnoses Not on filedocumented in this encounter Care Teams Pack Press Operator Relationship Specialty Start Date End Date Sabine Sheehan MD [address] [facility] [place] [address] PCP - General Internal Medicine 04/18/22 Tonia Lee MD [address] [place] [address] Obstetrics and Gynecology 12/01/16 [place] [address] [address] Surgery 12/01/16 Abdon Chapman MD [address] [phone] [place] [address] Referring Physician Gynecologic Oncology 12/10/17 Ozzy Shirley MD PhD [address] [place] [address] Radiation Oncologist Radiation Oncology 04/15/18 Rachell Mason OD [address] [place] [address] Optometry 06/30/18 Melissa Smith MD [address] [place] [address] Surgeon Orthopedic Surgery 01/11/19 Sonny Dozier MD [address] [facility] [address] [place] [address] Rheumatology 10/24/21 Ana Pereira NP [address] [facility] [address] [place] [address] 11/08/22 Eric Hopkins MD [address] [facility] 6A/6B/12A [place] [address] Surgeon Orthopedic Surgery 11/08/22 Gagandeep Garcia DO [address] [facility] [place] [address] Consulting Physician Gastroenterology 12/24/23 Dr. Lujan n [address] [place], [place] Opthalmology Optometry 12/21/24 documented as of this encounter
--- OUTSIDE RECORDS SUMMARY | 2025-01-12 14:05 | XMS_ITS | Clinical Summary ---
Author Organization [facility] Address [facility] [place] [address] Care Team Providers Care Show Operations Supervisor Name Role Phone Sabine Sheehan MD Primary Care Provider [phone] Allergies Active Allergy Reactions Criticality Noted Date [...] 12/15/2014, 05/24/2014, 02/17/2008 COVID-19 Vaccine (1 - 2024-2 6 season) 2024 Influenza Adult (#1) 2024 12/10/2018, 02/02/2010 RSV Immunization or 60+ Years (1 - 1-dose 75+ series) 12/23/2027 Hepatitis A Vaccines Aged Out No long er eligible based on patient's age to complete this topic Meningococcal B Vaccine Aged Out No l onger eligible based on patient's age to complete this topic Meningococcal Vaccine Aged Out No augusta lisette eligible based on patient's age to complete this topic RSV Immunizations Under 20 Months Aged Out No longer eligible b ased on patient's age to complete this topic Insurance MEDICARE [employer] Care Teams Show Operations Supervisor Relationship Specialty Start Date End Date Sabine Sheehan MD [address] [place] [address] PCP - General INTERNAL MEDICINE 01/08/19
--- OUTSIDE RECORDS SUMMARY | 2025-01-12 14:05 | XMS_ITS | Clinical Summary ---
Author Organization [facility] Address [facility] [facility] [place] [address] Care Team Providers Care Hardware Manager Name Role Phone Marianela Sheehan MD Primary Care Provider Giovanny Andrews MD Unavailable Unavailable Lyndsay Sanchez RN Unavailable Source Comments [facility],non-owned Affiliates and Associated Physician Practices is amultiple site organization consisting of ambulatory clinics and hospital sitesin [place], [place], [place] and [place]. This disclosure is being madepursuant to the Care Everywhere program and may not contain all information available regarding this patient. Last updated 17.[facility] Allergies Active Allergy Reactions Criticality Noted Date [...] on file Legal Sex Female 6:36 AM SCAN COORDINATOR Gender Identity Not on file Sexual Orientation Not on file Occupation Industry Job Start Date Job End Date retired Not on file Not on file Not on file Last Filed Vital Signs Vital Sign Reading Time Taken Comments Blood Pressure 138/77 06/04/2017 10:38 AM CDT Pulse 67 06/04/2017 10:38 AM CDT Temperature 36.8 C (98.2 F) 05/19/2015 9:45 AM SCAN COORDINATOR Respiratory Rate 18 05/12/2015 3:22 PM SCAN COORDINATOR Oxygen Saturation 97% 05/12/2015 3:22 PM SCAN COORDINATOR Inhaled Oxygen Concentration - - Weight 82.1 [...] - 107 mmol/L 11/14/2015 12:18 PM CDT [facility] CO2 29 22 - 31 mmol/L 11/14/2015 12:18 PM CDT [facility] Calcium 9.7 8.5 - 10.1 mg/dL 11/14/2015 12:18 PM CDT [facility] Anion Gap 6 5 - 20 mmol/L 11/14/2015 12:18 PM CDT [facility] BUN 16 7 - 21 mg/dL 11/14/2015 12:18 PM CDT [facility] Creatinine 0.61 0.50 - 1.30 mg/dL 11/14/2015 12:18 PM CDT [facility] Alkaline Phosphatase 76 38 - 126 U/L 11/14/2015 12:18 PM CDT [facility] ALT 22 13 - 61 U/L 11/14/2015 12:18 PM CDT [facility] Comment:See reference range update AST 18 5 - 40 U/L 11/14/2015 12:18 PM CDT [facility] Protein Total 7.7 6.4 - 8.2 gm/dL 11/14/2015 12:18 PM CDT [facility] Albumin 3.7 3.4 - 5.0 gm/dL 11/14/2015 12:18 PM CDT [facility] Bilirubin Total 0.4 0.2 - 1.0 mg/dL 11/14/2015 12:18 PM CDT [facility] eGFR by MDRD >60 >60 mL/min/1.7 3m2 11/14/2015 12:18 PM CDT [facility] eGFR by MDRD >60 >60 mL/min/1.7 3m2 11/14/2015 12:18 PM CDT [facility] Blood BLOOD SPECIMEN / Unknown Lab Venipuncture / Unknown 11/14/2015 11:07 AM CDT 11/14/2015 11:50 AM CDT us Ravi Noland MD LAB - CHEMISTRY ORDERABLES Fi nal Result [facility] [address] [place] [address] from Last 3 Months or Most Recently Relevant to Health Maintenance Insurance [employer]ERCIAL GENERIC MEDICARE Advance Directives * Full Code (Latest Code Status on File) Date Activated Date Inactivated Comments 05/10/2015 12:24 PM 05/12/2015 7:04 PM Care Teams Hardware Manager Relationship Specialty Start Date End Date Marianela Sheehan MD [address] [place] [address] PCP - General 09/16/08 Giovanny Andrews MD [address] [place] [address] Rheumatology 01/25/11 Lyndsay Sanchez, ANASTASIYA Aircraft Powertrain Repairer 05/10/15
--- OUTSIDE RECORDS SUMMARY | 2025-01-12 14:05 | XMS_ITS | Encounter Summary ---
Author Organization [facility] centerFilmySphere Entertainment [facility]vt [facility] Address [address] [place] [address] Phone Care Team Providers Care Booster Pump Oiler Name Role Phone Sabine Sheehan MD Primary Care Provider + [phone] Tonia Lee MD Unavailable [phone] Ravi Noland MD Unavailable [phone] Giovanny Andrews MD Unavailable [phone] Garrison Robison MD Unavailable [phone] Gomez Mauro MD Unavailable +[phone] Sonny Dozier MD Unavailable +[phone] Abdon Chapman MD Unavailable +[phone] Ozzy Shirley MD PhD Unavailable + [phone] Umesh Figueroa MD Unavailable +[phone] Rachell Mason OD Unavailable [phone] Melissa Smith MD Unavailable + [phone] Sonny Dozier MD Primary Care Provi kiera Sabine Sheehan MD Primary Care Provider + [phone] Sonny Dozier MD Unavailable +[phone] Ana Pereira NP Unavailable [phone] Eric Hopkins MD Unavailable Gagandeep Garcia DO Unavailable [phone] Encounter Details Date Type Department Care Team (Late st Contact Info) Description 10/30/2016 Orders Only [facility] [address] [place] [address] Sabine Sheehan MD [address] [place] [address] Mixed hyperlipidemia (Primary Dx); Exposure to hepatitis B; Unspecified hypothyroidism Social History Tobacco Use Types Packs/Day Years Used Date Smoking Tobacco: Never Alcohol Use Standard Drinks/Week Comments No 0 (1 standard drink = 0.6 oz pur e alcohol) Comments Unknown Sex and Gender Information Value Date Recorded Sex Assigned at Not on file 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 MPH Sabine Sheehan MD LAB BLOOD ORDERABLES Final Result Performing Organization Address [facility] Co de Phone Number ARLEEN [employer] AUGUST Handley * CHOL/HDLC RATIO (11/21/2016 8:01 AM CDT) Chol/HDL ratio 3.6 <5.0 (calc) ARLEEN [employer] AUGUST 11/21/2016 8:01 AM CDT 11/21/2016 8:02 AM CDT Narrative [facility] - 11/22/2016 10:22 AM CDT FASTING:YES Resulting Agency Comment Performing Organization Information: Site ID: [place] Name: [facility] Address: [address] [place] [address] Director: Braxton Khan D.O. MPH Sabine Sheehan MD LAB BLOOD ORDERABLES Final Result Performing Organization Address [facility] Co de Phone Number ARLEEN NAIK - AUGUST Morocho * (ABNORMAL) LDL-Cholesterol (11/21/2016 8:01 AM CDT) LDL 144(H) mg/dL (calc) [employer] [place] Comment: Reference range: <100 Desirable range <100 [...] From the Standard Lipid Profile. HIRAM. 2013;310(19): 2606-5588. For additional information, please refer to http://education.Expert Dynamics/faq/RPZ988 (This link is being provided for informational/ educational purposes only.) 11/21/2016 8:01 AM CDT 11/21/2016 8:02 AM CDT Narrative [facility] - 11/22/2016 10:22 AM CDT FASTING:YES Resulting Agency Comment Performing Organization Information: Site ID: [place] Name: [facility] Address: [address] [place] [address] Director: Braxton Khan D.O. MPH us Sabine Sheehan MD LAB BLOOD ORDERABLES Final Result [facility] [employer] [facility] [place] * Triglycerides (11/21/2016 8:01 AM CDT) Pathologist [facility] Triglycerides 105 <150 mg/dL [employer] [facility] 11/21/2016 8:01 AM CDT 11/21/2016 8:02 AM CDT Narrative [employer] - 11/22/2016 10:22 AM CDT FASTING:YES Resulting Agency Comment Performing Organization Information: Site ID: [place] Name: [facility] Address: [address] [place] [address] Director: Braxton Khan D.O., MPH us Sabine Sheehan MD LAB BLOOD ORDERABLES Final Result [facility] - AUGUST CarlinexAUGUST sherman * Cholesterol, HDL (11/21/2016 8:01 AM CDT) HDL 65 >50 mg/dL [facility] - [place] 11/21/2016 8:01 AM CDT 11/21/2016 8:02 AM CDT Narrative [facility] - 11/22/2016 10:22 AM CDT FASTING:YES Resulting Agency Comment Performing Organization Information: Site ID: AUGUST Name: [employer] Address: [address] [place] [address] Director: Braxton Khan D.O. MPH us Sabine Sheehan MD LAB BLOOD ORDERABLES Final Result Performing Organization Address [facility] Co de Phone Number ARLEEN [facility] - AUGUST [place]ocho * (ABNORMAL) Cholesterol, total (11/21/2016 8:01 AM CDT) Cholesterol 231(H) <200 mg/dL [facility] - AUGUST 11/21/2016 8:01 AM CDT 11/21/2016 8:02 AM CDT Narrative [facility] - 11/22/2016 10:22 AM CDT FASTING:YES Resulting Agency Comment Performing Organization Information: Site ID: AUGUST Name: Arleen Ragsdale Address: [address] [place] [address] Director: Braxton Khan D.O. MPH Sabine Sheehan MD LAB BLOOD ORDERABLES Final Result Performing Organization Address City/[facility]/ZIP Co de Phone Number [facility] - AUGUST [place]o * TSH (11/21/2016 8:01 AM CDT) TSH 1.25 0.40 - 4.50 mIU/L [facility] - AUGUST Blood specimen (specimen) 11/21/2016 8:01 AM CDT 11/21/2016 8:02 AM CDT Narrative [facility] - 11/22/2016 10:22 AM CDT FASTING:YES Resulting Agency Comment Performing Organization Information: Site ID: AUGUST Name: Arleen Ragsdale Address: [address] [place], [place] [address] [address] Director: Braxton Khan D.O., MPH Sabine Sheehan MD LAB BLOOD ORDERABLES Final Result Performing Organization Address [facility] de Phone Number AUGUST Ely * Hepatitis C antibody (11/21/2016 8:01 AM CDT) Hep C Ab NON-REACTI VE NON-REACTI VE ARLEEN KOCH SIGNAL TO CUT-OFF 0.47 <1.00 ARLEEN KOCH Blood specimen (specimen) 11/21/2016 8:01 AM CDT 11/21/2016 8:02 AM CDT Narrative ARLEEN - 11/22/2016 10:22 AM CDT FASTING:YES Resulting Agency Comment Performing Organization Information: Site ID: AUGUST Name: Arleen Ragsdale Address: [address] [place], [place] [address] [address] Director: Braxton Khan D.O., MPH us Sabine Sheehan MD LAB MICROBIOLOGY - GENERAL ORDERABLES Final Result Performing Organization Address [facility] de Phone Number AUGUST Ely documented in this encounter Visit Diagnoses Diagnosis Mixed hyperlipidemia- Primary Exposure to hepatitis B Contact with or exposure to other viral diseases Unspecified hypothyroidism documented in this encounter Additional Health Concerns Infection Onset Date Last Indicated Resolved Time COVID: Suspected 04/11/2020 04/11/2020 04/11/2020 2:48 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 04/11/2020 04/11/2020 04/25/2020 3:0 6 AM ANODE MACHINE OPERATOR COVID: Suspected 09/06/2020 09/06/2020 09/07/2020 9:46 AM CDT documented as of this encounter Care Teams Booster Pump Oiler Relationship Specialty Start Date End Date Sabine Sheehan MD PCP - General 06/15/16 10/23/21 Sonny Dozier MD [address] [facility] [address] [place] [address] PCP - General Rheumatology 10/24/21 04/17/22 Sabine Sheehan MD [address] [facility] [address] [place] [address] PCP - General Internal Medicine 04/18/22 Tonia Lee MD [address] [place] [address] Obstetrics and Gynecology 12/01/16 [place] [address] [place], [place] [address] Surgery 12/01/16 Giovanny Andrews MD [address] [place] [address] Rheumatology 12/01/16 12/03/16 Garrison Robison MD [address] [facility] [address] [place] [address] Internal Medicine 12/01/16 12/27/24 Gomez Mauro MD [address] [place] [address] Orthopedic Surgery 12/01/16 11/07/22 Sonny Dozier MD [address] [address] Rheumatology 12/04/16 10/22/21 Abdon Chapman MD [address] [id number] [place] [address] Referring Physician Gynecologic Oncology 12/10/17 Ozzy Shirley MD PhD [address] [place] [address] Radiation Oncologist Radiation Oncology 04/15/18 Umesh Figueroa MD [address] [place] [address] Radiation Oncologist Radiation Oncology 06/18/18 4 Rachell Mason OD [address] [place] [address] Optometry 06/30/18 Melissa Smith MD [address] [place] [address] Surgeon Orthopedic Surgery 01/11/19 Sonny Dozier MD [address] [facility] [address] [place] [address] Rheumatology 10/24/21 Ana Pereira NP [address] [facility] [address] [place] [address] 11/08/22 Eric Hopkins MD [address] [place] [address] [address] [place] [address] Surgeon Orthopedic Surgery 11/08/22 Gagandeep Garcia DO [address] [facility] [address]6B[address] [place] [address] Consulting Physician Gastroenterology 12/24/23 Dr. Lujan n [address] [place], [place] Opthalmology Optometry 12/21/24 documented as of this encounter
--- OUTSIDE RECORDS SUMMARY | 2025-01-12 14:05 | XMS_ITS | Encounter Summary ---
Author Organization [facility] Address [address] [place] [address] Phone Care Team Providers Care Film Writer Name Role Phone LeeTonia MD Unavailable [phone] Ravi Noland MD Unavailable [phone] Garrison Robison MD Unavailable [phone] Gomez Mauro MD Unavailable [phone] Abdon Chapman MD Unavailable +[phone] Ozzy Shirley MD PhD Unavailable + [phone] Umesh Figueroa MD Unavailable [phone] Rachell Mason OD Unavailable [phone] Melissa Smith MD Unavailable + [phone] Sonny Dozier MD Primary Care Provi kiera Sabine Sheehan MD Primary Care Provider + [phone] Sonny Dozier MD Unavailable [phone] Ana Pereira NP Unavailable [phone] Eric Hopkins MD Unavailable Gagandeep Garcia DO Unavailable [phone] Encounter Details Date Type Department Care Team (Late st Contact Info) Description 02/21/2022 Orders Only [facility] [address] [place] [id number] Sabine Sheehan MD [address] [place] [address] Social History Tobacco Use Types Packs/Day Years [...] on file 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 Gender Identity Not on file Sexual Orientation [...] on filedocumented in this encounter Care Teams Film Writer Relationship Specialty Start Date End Date Sonny Dozier MD [address] [place] [address] PCP - General Rheumatology 10/24/21 04/17/22 Sabine Sheehan MD [address] [place] [address] PCP - General Internal Medicine 04/18/22 Tonia Lee MD [address] [place] [address] Obstetrics and Gynecology 12/01/16 [place] [address] [place] [address] Surgery 12/01/16 Garrison Robison MD [address] [facility] [address] [place] [address] Internal Medicine 12/01/16 12/27/24 Gomez Mauro MD [address] [place], [place] [address], [place] [address] Orthopedic Surgery 12/01/16 11/07/22 Abdon Chapman MD [address] [facility] [id number] [place] [address] Referring Physician Gynecologic Oncology 12/10/17 Ozzy Shirley MD PhD [address] [facility] [address] Radiation Oncologist Radiation Oncology 04/15/18 Umesh Figueroa MD [address] [facility] [place] [address] Radiation Oncologist Radiation Oncology 06/18/18 4 Rachell Mason OD [address] [facility] [place] [address] Optometry 06/30/18 Melissa Smith MD 6 [place] [address] Surgeon Orthopedic Surgery 01/11/19 Sonny Dozier MD [address] [place] [address] Rheumatology 10/24/21 Ana Pereira NP [address] [place] [address] 11/08/22 Eric Hopkins MD [address] [place] [address] Surgeon Orthopedic Surgery 11/08/22 Gagandeep Garcia DO [address]A/[address] [place] [address] Consulting Physician Gastroenterology 12/24/23 Dr. Lujan n [address] [place], [place] Opthalmology Optometry 12/21/24 documented as of this encounter
--- OUTSIDE RECORDS SUMMARY | 2025-01-12 14:05 | XMS_ITS ---
Author Organization [facility] [address] Address [address] [place] [address] Phone Care Team Providers Care Diving Judge Name Role Phone Tonia Lee MD Unavailable Ravi Noland MD Unavailable [phone] Abdon Chapman MD Unavailable [phone] Ozzy Shirley MD PhD Unavailable + [phone] MarlonRachell [place] OD Unavailable Melissa Smith MD Unavailable + [phone] Sabine Tabares MD Primary Care Provider + [phone] Sonny Molina MD Unavailable [phone] Ana Pereira NP Unavailable [phone] Eric Hopkins MD Unavailable Gagandeep Garcia DO Unavailable [phone] Active Problems Problem Noted Date Diagnosed Date Disorder of immune system 12/28/2024 Overview (12/28/2024): Rheumatoid arthritis requiring immune modulating medications Assessment & Plan (12/28/2024 10:34 PM CDT): Related to combination methotrexate Xeljanz this will be a long-term risk. That has done well for years with a combination At high risk for injury related to fall 12/24/19 Assessment & Plan (12/28/2024 10:34 PM CDT): Chronic persistent Osteoporosis continues to pose high fracture risk. Podiatry consultation regarding foot and ankle health Completing current course of Forteo awaiting dental advice noting her best option next we will probably be Evenanamika ( Romosozumab-aqqg) followed by Moshe twice yearly [...] the skin daily Insurance requires brand name Joieo. Family history of colon cancer in father [...] labs Rheumatoid arthritis involving multiple joints ( [facility]/HCC) 08/01/2013 Overview (06/22/2016): Rheumatoid arthritis Assessment & [...] tablet (10 mg total) by mouth daily Current Treatment and Therapy Plans No current plan information found. Past Treatment and Therapy Plans Oncology Chemotherapy Treatment Plan Name Start Date Discontinue Date Treatment Medications Discontinue Reason Plan Provider Cycles DOCEtaxel / CARBOplatin 21 Day Cycles - WARD SERVICE SUPERVISOR 8 07/01/2018 CARBOplatin (by AUC:GOG) (PARAPLATIN)CA RBOplatin (PARAPLATIN) IVPB in 250 mL (by AUC: GOG)DOCEtaxel (TAXOTERE)DOCE taxel (TAXOTERE) IVPB in 250 mL (vial 10mg/mL)DOCEta xel (TAXOTERE) IVPB in 250 mL (vial 20mg/mL) Stable Disease Abdon Chapman MD 6 of 6 cycles started PACLItaxel / CARBOplatin (AUC 5) 21 Day Cycles - WARD SERVICE SUPERVISOR 8 01/07/2018 CARBOplatin (by AUC:GOG) (PARAPLATIN)CA RBOplatin [...] from the original note were not included. [facility] Obstetrics and Gynecology [address] [place] [address] [address] [place] [address] [place] [address] This Survivorship Care Plan is a cancer [...] Name: Contact Information: Primary Care Physician Sabine Tabares [phone] Radiation Oncologist Ozzy Shirley MD PhD Umesh Figueroa MD [phone] Designer/Writer/Medical Oncologist Abdon Chapman MD [phone] Treatment Summary Cancer Diagnosis Information Diagnosis Malignant [...] Hysterectomy - LAPAROSCOPIC ROBOTIC ASSISTED; Bilateral Salpingo-oophorectomy, [place] Lymph Node Dissection, omentectomy Radiation Radiation Treatments [...] CARBOplatin (AUC 5) 21 Day Cycles - WARD SERVICE SUPERVISOR Treatment goal Curative Status Inactive Start Date [...] DOCEtaxel / CARBOplatin 21 Day Cycles - WARD SERVICE SUPERVISOR Treatment goal Curative Status Inactive Start Date [...] sodium chloride 0.9% 250 mL IVPB (BY [facility] GOG), , intravenous, Once, 6 of 6 [...] or 2nd degree relative In addition to WARD SERVICE SUPERVISOR cancer, also have a history of breast [...] 6 months for following 3 years Sabine Tabares After 5 years of treatment completion - yearly exam Cancer Surveillance or other Recommended Tests Coordinating Provider Test How Often Primary Care Physician Sabine Tabares Pap/pelvic exam As indicated Possible late- and long-term effects that someone with this type of cancer and treatment may experience: Bowel problems (urgency, incontinence, change in consistency) Numbness/tingling Fatigue Memory/concentration difficulty Pelvic insufficiency fractures Urinary problems - urinary incontinence Sexual dysfunction - menopause, vaginal dryness, painful intercourse (use of vaginal dilator daily,up to 2 years is important after radiation therapy. The use of aaks-paj-rkzomdy lubricants (Replens, [place]ro[place]ide, [place] Jelly) or natural [...] Help learning to eat healthier, call the grocery manager at: [facility] . Have an active lifestyle, strive [...] man. Resources you may be interested in: [facility] Cancer Center A National Cancer Oley Comprehensive Cancer Center http://www.[facility]/ [facility] & Cancer Information Center 1st floor of [facility] [phone]. Computer access, educational material, counseling services (FREE) Cancer Resources: www.cancer.net National Cancer Oley: http://www.cancer.gov/ [place] Disabilities Act: The U.S. Department of Justice provides information about the Americans with Disabilities Act (ADA). Toll free number http://www.ada.gov/ Occupational Therapy at [facility]. Improve memory and thinking following chemotherapy. Improve your performance at home, work and in the community. or Toll free www.ot.[facility]/patients Managing your weight after a cancer diagnosis: http://www.cancer.net/sites/cancer.net/files/weight_after_cancer_diagnosis.pdf Foundation for Women?s Cancer: http://www.foundationforwomenscancer.org [facility] Department of OBGYN: http://www.obgyn.[facility]/content/418/hereditary_cancer_ risk_assessment_service.aspx National Coalition for Cancer Survivorship: http://www.canceradvocacy.org/ [place] Cancer Society Cancer Survivors Network: http://csn.cancer.org/ Obesity Action Coalition: www.obesityaction.org LIVE STRONG at the [employer] is a twelve-week, small group program designed to help adult cancer survivors become more physically active after cancer diagnosis: http://www.CIHI.org/what-we-do/our-act ions/programs-partnerships/dsulhrnlge-ta-mpn-nuvance health/rkfoikxttk-vrto-zbvuatyby/ FNDer: www.HotelTonight.Spriggle Kids.gov [place] Ovarian Cancer Awareness: committed to impacting ovarian cancer survivorship by promotingawareness of early warning signs and standards of care, funding ovarian cancer research, and supporting survivors. www.sloca.org Gynecological Oncology Support group: A wellness-focused support group for women and their significant others to share feelings and experiences. Current treatments and complementary therapies are discussed, and a physician is available to answer questions. www.siteman.[facility]/event-category/suppor t-groups Springboard Beyond Cancer: https://survivorship.cancer.gov/ an online tool for cancer survivors andcaregivers created by the [place] Cancer Society and the National Cancer Oley. 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 MOLINA informs me that she is no longer her professor of special education. Please find out who is the current professor of special education , add this person to her care [...]
== END 2025-01-12 12:14 | disposition home or self-care (01) ==
PROVIDERS: PCP Internal Medicine Geriatric Medicine
DX: M06.9 Rheumatoid arthritis, unspecified (principal); Z79.899 Other long term (current) drug therapy
CPT/HCPCS: 36415; 80053; 85025